=== PATIENT | female | born 1955 | race Caucasian/White ===

== ENCOUNTER 2019-03-30 17:29 | Emergency (ER) | payer MEDICARE, SELFPAY ==
[2019-03-30 17:39] VITALS: BP 152/93; PULSE 89; RESP 16; TEMP 36.3; O2SAT 96
--- NOTE | 2019-03-30 18:20 | ED.GENADULT ---
HPI - General Adult General Chief complaint: Unspecified Stated complaint: n/chills/sweating Time Seen by Provider: 03/30/19 18:13 Source: patient Mode of arrival: ambulatory Limitations: no limitations History of Present Illness HPI narrative: Pt is a 63 y/o female who presents to the ED with c/o nausea starting roughly 1 week ago. She notes that she recently received a rt knee replacement on 02/25/19, and states that she is currently taking Tramadol and Oxycodone. Pt notes that she has had nausea, constipation, chills, and hot flashes over the past week. She denies any vomiting, diarrhea, CP, cough, or dysuria. Pt states that she was seen at an urgent care facility this evening for her symptoms, and notes that she was subsequently sent to the ED due to her having an abnormal EKG and elevated BP. She is also currently taking Paxil and Ambien. MD complaint: Nausea Onset (ago): week(s) (1) Associated symptoms: fever/chills (chills) and other (constipation; hot flashes) Related Data Home Medications Medication Instructions Recorded Confirmed amlodipine 03/30/19 celecoxib mg 03/30/19 furosemide 03/30/19 gabapentin 03/30/19 lisinopril 03/30/19 oxycodone 03/30/19 paroxetine HCl mg PO 03/30/19 tramadol mg 03/30/19 zolpidem 03/30/19 Allergies Allergy/AdvReac Type Severity Reaction Status Date / Time armodafinil Allergy Unknown Verified 08/10/17 12:38 modafinil Allergy Unknown Verified 08/10/17 12:39 clindamycin AdvReac Mild Nausea Verified 01/13/19 16:55 NUVAGEL Allergy Unknown POST NASAL Uncoded 11/28/16 09:23 DRIP Review of Systems Review of Systems: All systems reviewed & are unremarkable except as noted in HPI and below Constitutional: Constitutional: Reports chills and Reports other (hot flashes) Eyes: Eyes: Denies change in vision, Denies loss of vision and Denies other visual disturbances ENT: Denies headache(s), Denies hoarseness, Denies epistaxis, Denies nasal congestion and Denies sore throat Cardiovascular: Cardiovascular: Denies chest pain Respiratory: Respiratory: Denies cough, Denies dyspnea and Denies wheezing Gastrointestinal: Gastrointestinal: Reports constipation, Denies diarrhea, Reports nausea and Denies vomiting Genitourinary: Genitourinary: Denies hematuria, Denies difficulty starting urination and Denies dysuria Musculoskeletal: Musculoskeletal: Denies abnormal gait, Denies deformity, Denies joint swelling, Denies muscle weakness and Denies numbness Integumentary/Breasts: Skin/Breast: Denies rash, Denies unusual bruising and Denies wounds Neurologic: Denies abnormal gait, Denies headache(s), Denies focal weakness, Denies loss of vision and Denies numbness Psychiatric: Psychiatric: Reports no additional psychiatric complaints Endocrine: Endocrine: Denies fatigue and Denies palpitations Hematologic/Lymphatic: Hematologic/Lymphatic: Denies easy bleeding and Denies easy bruising Allergic/Immunologic: Allergic/Immunologic: Denies wheezing PMFSH Past Medical History Medical History (Updated 03/30/19 @ 21:24 by Pete Vela MD) Anxiety (Acute) Back pain (Acute) Cataract (Acute) Colon polyps (Acute) Depression (Acute) Diabetes (Acute) Fibromyalgia (Acute) GERD (gastroesophageal reflux disease) (Acute) Hepatitis C (Acute) HTN (hypertension) (Acute) Hypothyroidism (Acute) Kidney stones (Acute) Liver disease (Acute) Sleep apnea (Acute) Stomach ulcer (Acute) Surgical History Surgical History (Updated 03/30/19 @ 18:48 by Neri Gutierrez) History of bunionectomy (Acute) History of carpal tunnel surgery of right wrist (Acute) History of cataract surgery (Acute) History of section (Acute) History of lithotripsy (Acute) History of tubal ligation (Acute) Status post right knee replacement (Acute) Family History Family History (Updated 08/10/17 @ 12:45 by DOCTOR UNKNOWN) Mother Family history of chronic obstructive pulmonary disease Social History
--- NOTE | 2019-03-30 18:25 | ECG_ITS ---
Measurements Intervals [place] Rate: 78 P: 38 PA: 159 QRS: 3 QRSD: 116 T: 64 QT: 397 QTc: 455 Interpretive Statements SINUS RHYTHM INCOMPLETE LEFT BUNDLE BRANCH BLOCK INFERIOR INFARCT, AGE INDETERMINATE BORDERLINE ST-T WAVE ABNORMALITY- LATERAL LEADS ABNORMAL ECG Electronically Signed On 03-31-2019 7:53:55 CHILD DAY CARE PROVIDER by Eric Montes D.O.
[2019-03-30 18:43] LABS: Basophils Percent Auto 0.5 % (0.2-1.2); Eosinophils Absolute Auto 0.1 K/mm3 (0-0.3); Hematocrit 43.3 % (37.0-47.0); Hemoglobin 13.8 g/dL (12.0-15.0); Immature Granulocyte Absolute 0.04 K/mm3 (0.00-0.031); Immature Granulocyte Percent A 0.5 % (0-0.5); Lymphocytes Absolute Auto 1.09 K/mm3 (0.9-3.2); Lymphocytes Percent Auto 12.6 % (18.3-44.2); Mean Corpuscular HGB Conc 31.9 g/dl (32-36); Mean Corpuscular Hemoglobin 27.9 pg (26-34); Mean Corpuscular Volume 87.5 fl (80-100); Mean Platelet Volume 10.2 fl (7.4-10.4); Monocytes Absolute Auto 0.5 K/mm3 (0.1-0.6); Monocytes Percent Auto 5.3 % (2.6-8.5); Neutrophils Absolute Auto 6.9 K/mm3 (1.3-6.7); Neutrophils Percent Auto 80.1 % (45.5-73.1); Platelet Count Result 321 k/mm3 (150-375); Red Blood Count 4.95 M/mm3 (4.2-5.4); Red Cell Distribution Width 14.5 % (11.5-14.5); White Blood Count 8.7 K/mm3 (4.5-10.0)
[2019-03-30 18:52] LABS: Alanine Aminotransferase 25 U/L (4-35); Albumin Level 4.3 g/dL (3.5-5.1); Alkaline Phosphatase 104 U/L (38-126); Aspartate Amino Transferase 24 U/L (14-36); Bilirubin,Total 0.3 mg/dL (0.2-1.3); Blood Urea Nitrogen 13 mg/dL (7-17); Calcium 9.8 mg/dL (8.4-10.2); Carbon Dioxide 28 mmol/L (22-30); Chloride 98 mmol/L (98-107); Estimated CRCL calculation 54 ml/min; Estimated Glomerular Filt Rate > 60; Glucose 110 mg/dL (65-105); Potassium 3.6 mmol/L (3.4-5.0); Sodium 139 mmol/L (137-145)
[2019-03-30] MEDS: LACTATED RINGERS 1,000 ML 999 ML IV CONT (19:38)
[2019-03-30 20:25] VITALS: PULSE 84
[2019-03-30 21:16] LABS: Add Urine Microscopic? YES; Amorphous Sediment Urine Few; Appearance Urine Clear (Clear); Bacteria Urine Trace /hpf; Bilirubin Urine Negative (Negative); Blood Urine 1+ (Negative); Color Urine Straw (Yellow); Glucose Urine UA Negative (Negative); Ketones Urine Negative (Negative); Leukocyte Esterase Ur 2+ LEU/UL (Negative); Mucus Urine Rare /lpf; Nitrate Urine Negative (Negative); Protein Urine 1+ mg/dL (Negative); Specific Grav Ur 1.009 (1.001-1.035); Squamous Epithelial Cell Urine Occasional /hpf (Few); Urobilinogen Urine Negative mg/dL (<2.0); WBC Urine 51-75
--- NOTE | 2019-04-04 11:15 | PC.NURSE ---
LATE ENTRY This note is being entered to document information to the patient's record. The following information was omitted on [04/03/19], by [ERIK Hickman]. LR START AT 1937 END 2037
== END 2019-03-30 21:30 | disposition home or self-care (01) ==
PROVIDERS: Emergency Provider Emergency Medicine; PCP Chiropractor
DX: E03.9 Hypothyroidism, unspecified (principal); R11.0 Nausea; F41.9 Anxiety disorder, unspecified; F32.9 Major depressive disorder, single episode, unspecified; E11.9 Type 2 diabetes mellitus without complications; M79.7 Fibromyalgia; K21.9 Gastro-esophageal reflux disease without esophagitis; I10 Essential (primary) hypertension; Z87.891 Personal history of nicotine dependence; Z98.49 Cataract extraction status, unspecified eye; Z87.440 Personal history of urinary (tract) infections; K76.9 Liver disease, unspecified; Z86.19 Personal history of other infectious and parasitic diseases; Z96.651 Presence of right artificial knee joint; I44.7 Left bundle-branch block, unspecified; R94.31 Abnormal electrocardiogram [ECG] [EKG]
CPT/HCPCS: 36415; 74018; 80053; 81001; 81003; 84443; 85025; 87086; 87804; 93005; 96360; 99283; J7120

== ENCOUNTER → 2019-07-26 14:22 | Outpatient (CLI) | payer MEDICARE, SELFPAY ==
--- NOTE | ~2019-07-26 | XR_ITS ---
XR cervical spine 4-5V 07/26/2019 14:44 Indication: Neck pain Procedure: 4 view cervical spine Comparison: 09/11/2017 Findings: Straightening of cervical lordosis. There is disc narrowing and endplate degenerative cronin e at C4-5 and C5-6. There is unchanged degenerative anterolisthesis at C3-4 and retrolisthesis at C5- 6. Odontoid process is unremarkable. There is moderate facet degenerative changes on the right at C3- 4 and C4-5. There is mild uncinate hypertrophy at multiple levels. No acute fracture or traumatic mal alignment. Impression: 1: Moderate-severe cervical spondylosis. No significant change from prior study allowing for differen harlan of technique. Reviewed, dictated and finalized at location A. Impression: 1: Moderate-severe cervical spondylosis. No significant change from prior study allowing for differences of technique.
--- NOTE | ~2019-07-26 | XR_ITS ---
EXAMINATION: XR shoulder LT min 2V EXAM DATE: 07/26/2019 14:44 INDICATION: No known recent injury provided at this time. Pain of the left shoulder. TECHNIQUE: The following left shoulder projections obtained: frontal projection with internal rotatio n, frontal projection with external rotation, Grashey, and axillary (4+ views). There is no prior st udy for comparison. FINDINGS: No evidence of left shoulder rotator cuff calcific tendinosis. There is mild glenohumera l and acromioclavicular joint primary osteoarthritis. There are no acute fractures or dislocations id entified. There is no subcutaneous gas. The soft tissue is unremarkable. There are no radiopaque foreign bodies. IMPRESSION: Mild left shoulder osteoarthritis. Reviewed, dictated and finalized at location B.
== END ==
PROVIDERS: PCP Chiropractor; Visit Provider Chiropractor
DX: M25.512 Pain in left shoulder (principal); M54.2 Cervicalgia; M47.812 Spondylosis without myelopathy or radiculopathy, cervical region; M19.012 Primary osteoarthritis, left shoulder
CPT/HCPCS: 72050; 73030

== ENCOUNTER → 2019-08-20 14:14 | Outpatient (CLI) | payer MEDICARE, SELFPAY ==
--- NOTE | ~2019-08-20 | MM_ITS ---
EXAMINATION: MM screening goran BI w moy HISTORY: Screening mammogram TECHNIQUE: Craniocaudal and mediolateral oblique 3-D tomosynthesis images were obtained and synthetic 2-D images were generated. CAD analysis was submitted and interpreted. COMPARISON: , 10/13/2015 bilateral digital screening mammogram examinations BREAST PARENCHYMAL COMPOSITION: There are scattered areas of fibroglandular density. FINDINGS: There is no evidence of suspicious mass, calcification, or architectural distortion to sugg est malignancy in either breast. There has been no suspicious interval change. IMPRESSION: 1. No mammographic evidence of malignancy. 2. Recommend routine screening mammography in one year. BI-RADS Category 1: Negative Reviewed, dictated and finalized at location A.
== END ==
PROVIDERS: PCP Chiropractor; Visit Provider Obstetrics & Gynecology
DX: Z12.31 Encounter for screening mammogram for malignant neoplasm of breast (principal)
CPT/HCPCS: 77063; 77067

== ENCOUNTER → 2020-01-04 10:43 | Outpatient (CLI) | payer MEDICARE, SELFPAY ==
--- NOTE | ~2020-01-04 | MR_ITS ---
EXAMINATION: MR cervical spine wo con DATE: 01/04/2020 11:31 INDICATION: Neck pain radiating to the left shoulder and left arm. TECHNIQUE: Magnetic resonance imaging (MRI) of the cervical spine was performed without intravenous c ontrast. Sequences included sagittal T2-weighted FSE, sagittal STIR FSE, sagittal T1-weighted FSE, ax ial MERGE, and axial T2-weighted FSE. COMPARISON: Cervical spine radiographs 07/26/2019 FINDINGS: There is kyphosis and 7 degrees dextrocurvature of cervical spine. There is 2 mm retrolisth esis of C5 on C6. Vertebral body heights are normal. There is a hemangioma in T3 vertebral body. Ther e is moderately decreased disc height at C4-C5 and C5-C6 and severely decreased disc height at C6-C7. The spinal cord signal intensity is normal. The following disc levels are specifically discussed: C2-C3: The disc does not extend beyond the endplate margin. There is no uncovertebral joint osteoarth ritis. There is severe right facet joint osteoarthritis. There is no neural foraminal stenosis. There is no central canal stenosis. C3-C4: The disc does not extend beyond the endplate margin. There is mild left uncovertebral joint os teoarthritis. There is severe right and moderate left facet joint osteoarthritis. There is mild bilat eral neural foraminal stenosis. There is no central canal stenosis. C4-C5: The disc is bulging. There is moderate and severe left uncovertebral joint osteoarthritis. The re is severe left facet joint osteoarthritis. There is mild right and moderate left neural foraminal stenosis. There is mild central canal stenosis with ventral indentation of spinal cord. C5-C6: The disc is bulging. There is mild right and moderate left uncovertebral joint osteoarthritis. There is mild bilateral facet joint osteoarthritis. There is mild right and moderate left neural for aminal stenosis. There is mild central canal stenosis. C6-C7: The disc is bulging. There is moderate right and severe left uncovertebral joint osteoarthriti s. There is moderate bilateral facet joint osteoarthritis. There is mild bilateral neural foraminal s tenosis. There is mild central canal stenosis. C7-T1: The disc is bulging. There is mild left uncovertebral joint osteoarthritis. There is mild bila teral facet joint osteoarthritis. There is mild bilateral neural foraminal stenosis. There is no cent ral canal stenosis. IMPRESSION: 1. Severe cervical spondylosis. Reviewed, dictated and finalized at location B.
== END ==
PROVIDERS: PCP Chiropractor; Visit Provider Chiropractor
DX: M47.812 Spondylosis without myelopathy or radiculopathy, cervical region (principal)
CPT/HCPCS: 72141

== ENCOUNTER 2020-06-04 12:25 | Outpatient (CLI) | payer MEDICARE, SELFPAY ==
--- NOTE | ~2020-06-04 | MR_ITS ---
EXAMINATION: MR shoulder LT wo con DATE: 06/04/2020 13:24 INDICATION: Left shoulder osteoarthritis presenting with left shoulder pain TECHNIQUE: Magnetic resonance imaging (MRI) of the left shoulder was performed without intravenous co ntrast. Sequences included axial PD-weighted FS FSE, coronal oblique PD-weighted FS FSE, coronal obli que T2-weighted FS FSE, sagittal PD-weighted FS FSE, and sagittal T1-weighted SE. COMPARISON: Left shoulder radiographs dated 07/26/2019 FINDINGS: Coracoacromial arch: The acromion undersurface is flat in morphology (type I). The coracoacromial ligament is normal. Negl igible acromioclavicular osteoarthritis. Rotator cuff: Mild supraspinatus tendinopathy with mild thickening and increased signal in the distal tendon. There is some lower signal intensity soft tissue along the bursal surface of the distal tendon centered ap proximately 1 cm from the superior facet footplate which could represent more focal tendinopathy or c alcific tendinitis although no evident calcification at this location on the radiographs from nearly one year prior. No evident tendon tear. The posterior infraspinatus and teres minor tendons are amador l. Mild subscapularis tendinopathy with small partial thickness tear along the superolateral margin o f the lesser tuberosity footplate. There appears be associated at least partial tear of the superior glenohumeral ligament. Normal rotator cuff muscle bulk and signal. Biceps tendon, glenoid labrum and glenohumeral cartilage: Long head of the biceps tendon appears normal but is subluxed across the cephalad-most medial of the intertubercular groove at the site of the subscapularis tendon tear. Diffuse degenerative tearing of the glenoid labrum relatively sparing the anterior labrum. There is underlying subarticular cystic ch eren along the posterior superior and inferior rim of the glenoid. Partial-thickness cartilage loss w hich appears to involve greater than 50% the cartilage thickness along the posterior aspect of the gl enoid. Additional deep chondral ulceration involving the majority of the humeral head. Small marginal osteophytes along the inferior aspect of the humeral head. Fluid: Small glenohumeral joint effusion with proportional extension of small amount of fluid into the long head biceps tendon sheath and deep subscapular recess.No loose osteochondral bodies. Significantly in creased fluid signal in the subacromial/subdeltoid to suggest bursitis. Bones: Bone alignment is normal. No fracture or pathologic marrow replacing process. Mild cystic change at t he middle facet of the greater tuberosity. IMPRESSION: 1. Moderate glenohumeral osteoarthritis with diffuse labral degeneration. 2. Rotator cuff tendinopathy and tear centered at the rotator cuff interval with small partial-thickn ess tear at the superolateral lesser tuberosity footplate of the subscapularis tendon, at least parti al tear of the superior glenohumeral ligament and mild to moderate tendinopathy without definitive te ar but potentially with calcific tendinitis of the anterior subscapularis tendon. 3. Mild tendinopathy without discrete tear of the intra-articular long head biceps tendon which is pa rtially subluxed across the cephalad-most medial rim of the intertubercular groove. Reviewed, dictated and finalized at location A. ATIONS SPECIALIST IMPRESSION: 1. Moderate glenohumeral osteoarthritis with diffuse labral degeneration. 2. Rotator cuff tendinopathy and tear centered at the rotator cuff interval wit h small partial-thickness tear at the superolateral lesser tuberosity footplate of the subscapularis tendon, at least partial tear of the superior glenohumera l ligament and mild to moderate tendinopathy without definitive tear but potent ially w
== END 2020-06-04 12:26 | disposition home or self-care (01) ==
LOC: ANHIMG 12:35
PROVIDERS: Family Provider Physician Assistant; PCP Chiropractor; Visit Provider Chiropractor
DX: M19.012 Primary osteoarthritis, left shoulder (principal)
CPT/HCPCS: 73221

== ENCOUNTER → 2020-09-22 01:34 | Outpatient (CLI) | payer MEDICARE, SELFPAY ==
[2020-09-22 18:55] LABS: SARS-CoV-2 RNA PCR Negative
== END ==
PROVIDERS: PCP Chiropractor; Visit Provider Internal Medicine Gastroenterology
DX: Z01.812 Encounter for preprocedural laboratory examination (principal); Z20.822 Contact with and (suspected) exposure to COVID-19
CPT/HCPCS: C9803; U0003; U0005

== ENCOUNTER 2020-09-25 05:27 | Day surgery (SDC) | payer MEDICARE, SELFPAY ==
[2020-09-17 13:51] VITALS: BMI 40.4
[2020-09-25 08:25] VITALS: BP 139/87; PULSE 104; RESP 18; TEMP 36.4; O2SAT 96
[2020-09-25] MEDS: LACTATED RINGERS 1,000 ML 150 ML IV CONT (08:44)
--- NOTE | 2020-09-25 08:49 | WPDANESEPPF ---
Anes - Initial Pre Proc Eval Procedure: Operation Date: 09/25/20 09:45 Proposed Procedures p Colonoscopy - Pete Moscoso MD Date/Time: 09/25/20 08:49 Surgeon: Pete Moscoso MD Pre Op Diagnosis: positive cologuard Patient Data Age: 64 Gender: F Height: 4 ft 11 in Weight: 89.2 kg Last Vital Signs Temp 97.6 F 09/25/20 08:25 Pulse 104 H 09/25/20 08:25 Resp 18 09/25/20 08:25 BP 139/87 09/25/20 08:25 Pulse Ox 96 09/25/20 08:25 Allergies Allergy/AdvReac Type Severity Reaction Status Date / Time armodafinil Allergy Unknown Difficulty Verified 09/25/20 08:24 Breathing modafinil Allergy Unknown Difficulty Verified 09/25/20 08:24 Breathing clindamycin AdvReac Mild Nausea Verified 09/25/20 08:24 NUVAGEL Allergy Unknown POST NASAL Uncoded 09/25/20 08:24 DRIP Home Medications Medication Instructions Recorded Confirmed Type amlodipine 10 mg PO DAILY 03/30/19 09/25/20 History celecoxib 100 mg PO DAILY 03/30/19 09/25/20 History furosemide 20 mg PO DAILY 03/30/19 09/25/20 History gabapentin 100 mg PO DAILY 03/30/19 09/25/20 History lisinopril 10 mg PO DAILY 03/30/19 09/25/20 History oxycodone 10 mg PO DAILY 03/30/19 09/25/20 History paroxetine HCl [Paxil] 30 mg PO DAILY 03/30/19 09/25/20 History tramadol 50 mg PO DAILY 03/30/19 09/25/20 History zolpidem 10 mg PO DAILY 03/30/19 09/25/20 History bupropion HCl 150 mg PO DAILY 09/17/20 09/25/20 History duloxetine 60 mg PO DAILY 09/17/20 09/25/20 History sodium,potassium,mag sulfates 17.5 See Rx Instructions PO .COMPLEX 09/17/20 09/25/20 Rx gram-3.13 gram-1.6 gram oral soln #354 ml Patient hx anesthesia problems: none Family hx anesthesia problems: none PMFSH Past Medical History Medical History (Updated 11/17/19 @ 00:00 by Background David) Anxiety Back pain Cataract Colon polyps Depression Diabetes Fibromyalgia GERD (gastroesophageal reflux disease) Hepatitis C HTN (hypertension) Hypothyroidism Kidney stones Liver disease Sleep apnea Stomach ulcer Surgical History Surgical History (Updated 03/30/19 @ 18:48 by Neri Gutierrez) History of bunionectomy lt bunionectomy History of carpal tunnel surgery of right wrist History of cataract surgery History of section History of lithotripsy History of tubal ligation Status post right knee replacement Family History Family History (Updated 08/10/17 @ 12:45 by DOCTOR UNKNOWN) Mother Family history of chronic obstructive pulmonary disease Social History Social History Smoking status: Former smoker Alcohol intake: never Substance use type: does not use Living arrangements: with family Gender identity (if verbalized by the patient): Female Anes - Eval Final PreProcedure Day of Procedure 09/25/20 08:49 Patient weight: obese Heart: regular rate and rhythm Lungs: clear to auscultation Airway: Mallampati scale class III Neurological: alert and oriented Last oral intake: >/= 8 hours ASA classification: III Emergent: no Anesthetic plan: proceed Anesthesia type and monitoring: general GIVS and standard monitoring Informed Consent: The patient's anesthetic plan and its attendant risks and benefits were discussed with the patient/family/POA. Questions were solicited and answers provided to the satisfaction of the patient/family/POA.
--- NOTE | 2020-09-25 08:52 | WPDGICN ---
Assessment and Plan Assessment and plan (1) Positive colorectal cancer screening using Cologuard test: Code(s): R19.5 - Other fecal abnormalities Status: Acute Assessment and Plan: Given her positive cologuard test , screening colonoscopy will be performed today. High-fiber diet advised. Further recommendations will be given after endoscopy. GI Consult Note Consult date/time: 09/25/20 08:52 HPI: Nani Dawkins is a 64 year old female Presents for screening colonoscopy. Patient was found to have a recent positive cologuard test. patient denies any blood in her stools. She states that her weight appetite bowel movements are normal. She reports rather vague diffuse abdominal discomfort. She denies any weight loss. Family history is noncontributory with no reported first-degree relatives with polyps or colon cancer. Review of Systems Review of Systems: All systems reviewed & are unremarkable except as noted in HPI and below PMFSH Past Medical History Medical History (Updated 09/25/20 @ 08:54 by Pete Moscoso MD) Anxiety Back pain Cataract Colon polyps Depression Diabetes Fibromyalgia GERD (gastroesophageal reflux disease) Hepatitis C HTN (hypertension) Hypothyroidism Kidney stones Liver disease Sleep apnea Stomach ulcer Surgical History Surgical History (Updated 03/30/19 @ 18:48 by Neri Gutierrez) History of bunionectomy lt bunionectomy History of carpal tunnel surgery of right wrist History of cataract surgery History of section History of lithotripsy History of tubal ligation Status post right knee replacement Family History Family History (Updated 08/10/17 @ 12:45 by DOCTOR UNKNOWN) Mother Family history of chronic obstructive pulmonary disease Social History Social History Smoking status: Former smoker Alcohol intake: never Substance use type: does not use Living arrangements: with family Gender identity (if verbalized by the patient): Female Meds Home Medications and Allergies Home Medications Medication Instructions Recorded Confirmed Type amlodipine 10 mg PO DAILY 03/30/19 09/25/20 History celecoxib 100 mg PO DAILY 03/30/19 09/25/20 History furosemide 20 mg PO DAILY 03/30/19 09/25/20 History gabapentin 100 mg PO DAILY 03/30/19 09/25/20 History lisinopril 10 mg PO DAILY 03/30/19 09/25/20 History oxycodone 10 mg PO DAILY 03/30/19 09/25/20 History paroxetine HCl [Paxil] 30 mg PO DAILY 03/30/19 09/25/20 History tramadol 50 mg PO DAILY 03/30/19 09/25/20 History zolpidem 10 mg PO DAILY 03/30/19 09/25/20 History bupropion HCl 150 mg PO DAILY 09/17/20 09/25/20 History duloxetine 60 mg PO DAILY 09/17/20 09/25/20 History sodium,potassium,mag sulfates 17.5 See Rx Instructions PO .COMPLEX 09/17/20 09/25/20 Rx gram-3.13 gram-1.6 gram oral soln #354 ml Allergies Allergy/AdvReac Type Severity Reaction Status Date / Time armodafinil Allergy Unknown Difficulty Verified 09/25/20 08:24 Breathing modafinil Allergy Unknown Difficulty Verified 09/25/20 08:24 Breathing clindamycin AdvReac Mild Nausea Verified 09/25/20 08:24 NUVAGEL Allergy Unknown POST NASAL Uncoded 09/25/20 08:24 DRIP Vital Signs Vital Signs - 24 hr 09/25/20 08:25 Temperature 97.6 F Pulse Rate 104 H Respiratory Rate 18 Blood Pressure 139/87 Pulse Oximetry 96 Exam Narrative: Exam Narrative: Physical exam reveals patient be alert. Vital signs stable. HEENT exam unremarkable. Lungs are clear to auscultation and percussion. Heart is without murmur or extra sounds. Abdominal exam somewhat obese. Bowel sounds are present soft nontender no organomegaly noted. Digital external rectal exam is normal.
[2020-09-25 09:21] VITALS: BP 125/81; PULSE 96; RESP 16; O2SAT 95
[2020-09-25 09:31] VITALS: BP 117/81; PULSE 87; RESP 10; O2SAT 94
[2020-09-25 09:41] VITALS: BP 113/72; PULSE 81; RESP 10; O2SAT 95
== END 2020-09-25 09:58 | disposition home or self-care (01) ==
PROVIDERS: PCP Chiropractor; Visit Provider Internal Medicine Gastroenterology
PROC: 0DJD8ZZ Inspection of Lower Intestinal Tract, Via Natural or Artificial Opening Endoscopic (ICD-10-PCS; CPT 45378; principal; 2020-09-25 09:45)
DX: R19.5 Other fecal abnormalities (principal); K57.30 Diverticulosis of large intestine without perforation or abscess without bleeding; I10 Essential (primary) hypertension; B19.20 Unspecified viral hepatitis C without hepatic coma; E03.9 Hypothyroidism, unspecified; K21.9 Gastro-esophageal reflux disease without esophagitis; E11.9 Type 2 diabetes mellitus without complications; M79.7 Fibromyalgia; M54.9 Dorsalgia, unspecified; G47.30 Sleep apnea, unspecified; F41.9 Anxiety disorder, unspecified; F32.9 Major depressive disorder, single episode, unspecified; Z87.442 Personal history of urinary calculi; Z86.010 Personal history of colon polyps; Z96.651 Presence of right artificial knee joint; Z98.49 Cataract extraction status, unspecified eye
CPT/HCPCS: 45378; C9803; J2001; J2704; J7120; U0003; U0005

== ENCOUNTER 2020-10-23 12:51 | Outpatient (CLI) | payer MEDICARE, SELFPAY ==
--- NOTE | ~2020-10-23 | MR_ITS ---
EXAMINATION: MR brain/brain stem wo/w con DATE: 10/23/2020 14:17 INDICATION: Mild cognitive disorder. TECHNIQUE: Magnetic resonance imaging (MRI) of the brain and brainstem was performed without and with 18 mL MultiHance intravenous contrast. Sequences included sagittal and axial T1-weighted FSE, axial diffusion-weighted FS EPI, axial T2*-weighted GRE, axial T2-weighted FLAIR Propeller, and axial T2-we ighted Propeller. Postcontrast sequences included axial and coronal T1-weighted FSE. Apparent diffusi on coefficient (ADC) maps were created. COMPARISON: Brain MRI 12/04/2009 FINDINGS: There are scattered areas of nonspecific increased T2-weighted signal intensity in the cere bral white matter and [place]. There is no intracranial hemorrhage, acute infarction, or abnormal intrac ranial mass lesion. The ventricles are normal in size. There are likely changes of ocular lens replac ement surgeries. Right maxillary sinus is small and partially opacified. The mastoid air cells are no rmal. IMPRESSION: 1. Moderate nonspecific cerebral white matter disease and pontine disease, which likely represents ch ronic small vessel ischemic disease, worsened from 12/04/2009. Reviewed, dictated and finalized at location A. IMPRESSION: 1. Moderate nonspecific cerebral white matter disease and pontine disease, whic h likely represents chronic small vessel ischemic disease, worsened from 010.
[2020-10-23 13:47] LABS: Estimated Glomerular Filt Rate 45
== END 2020-10-23 12:52 | disposition home or self-care (01) ==
PROVIDERS: Visit Provider Psychiatry & Neurology Psychiatry
DX: G31.84 Mild cognitive impairment of uncertain or unknown etiology (principal); R93.0 Abnormal findings on diagnostic imaging of skull and head, not elsewhere classified
CPT/HCPCS: 70553; A9577

== ENCOUNTER 2020-10-31 17:51 | Emergency (ER) | payer MEDICARE, SELFPAY ==
[2020-10-31 18:02] VITALS: BP 131/76; PULSE 99; RESP 18; TEMP 36.2; O2SAT 96
--- NOTE | 2020-10-31 19:36 | ED.GENADULT ---
HPI - General Adult General Chief complaint: Extremity Injury, Lower Stated complaint: possible blood clot Time Seen by Provider: 10/31/20 18:27 Source: patient Mode of arrival: ambulatory Limitations: no limitations History of Present Illness HPI narrative: Patient presents for evaluation of left calf pain and swelling. Symptom onset today when walking around her home. She denies any recent injury to the affected area. She said pain is constant, but worse with walking, rated 4-10 in severity. Her mother had a PE in the past. Patient denies personal history of VTE. She is not on exogenous estrogen. She does not smoke. No recent surgeries. She denies any chest pain or shortness of breath. She has not taken any medication to assist with her symptoms. No additional complaints or concerns. She went to [place] urgent [facility] who advised her to come here for further evaluation. Related Data Home Medications Medication Instructions Recorded Confirmed amlodipine 10 mg PO DAILY 03/30/19 09/25/20 celecoxib 100 mg PO DAILY 03/30/19 09/25/20 furosemide 20 mg PO DAILY 03/30/19 09/25/20 gabapentin 100 mg PO DAILY 03/30/19 09/25/20 lisinopril 10 mg PO DAILY 03/30/19 09/25/20 oxycodone 10 mg PO DAILY 03/30/19 09/25/20 paroxetine HCl [Paxil] 30 mg PO DAILY 03/30/19 09/25/20 tramadol 50 mg PO DAILY 03/30/19 09/25/20 zolpidem 10 mg PO DAILY 03/30/19 09/25/20 bupropion HCl 150 mg PO DAILY 09/17/20 09/25/20 duloxetine 60 mg PO DAILY 09/17/20 09/25/20 Allergies Allergy/AdvReac Type Severity Reaction Status Date / Time armodafinil Allergy Unknown Difficulty Verified 10/31/20 18:00 Breathing modafinil Allergy Unknown Difficulty Verified 10/31/20 18:00 Breathing clindamycin AdvReac Mild Nausea Verified 10/31/20 18:00 NUVAGEL Allergy Unknown POST NASAL Uncoded 10/31/20 18:00 DRIP Review of Systems Review of Systems: Narrative: CONSTITUTIONAL: Denies fever, chills, or sweats. EYES: Denies visual changes, redness, or discharge. ENT: Denies rhinorrhea, congestion, sore throat, or otalgia. CARDIOVASCULAR: Denies chest pain, palpitations, or edema. RESPIRATORY: Denies cough or dyspnea. GASTROINTESTINAL: Denies abdominal pain, nausea, vomiting, or diarrhea. GENITOURINARY: Denies dysuria or hematuria. SKIN: Denies rash or itching. MUSCULOSKELETAL: Reports pain and swelling in the left calf. Denies back pain, joint pain NEUROLOGIC: Denies headache, numbness, dizziness, or weakness. PSYCHIATRIC: Denies anxiety or depression. [facility] Past Medical History Medical History Anxiety Back pain Cataract Colon polyps Depression Diabetes Fibromyalgia GERD (gastroesophageal reflux disease) Hepatitis C HTN (hypertension) Hypothyroidism Kidney stones Liver disease Sleep apnea Stomach ulcer Surgical History Surgical History History of bunionectomy lt bunionectomy History of carpal tunnel surgery of right wrist History of cataract surgery History of section History of lithotripsy History of tubal ligation Status post right knee replacement Family History Family History Mother Family history of chronic obstructive pulmonary disease Social History Social History Smoking status: Former smoker Alcohol intake: never Substance use type: does not use Gender identity (if verbalized by the patient): Female Exam Narrative: Exam Narrative: GENERAL: Well-appearing, well-nourished, and in no acute distress. HEAD: Normocephalic, atraumatic. EYES: PERRLA and EOMI. ENT: Nares clear, no rhinorrhea or epistaxis. Mucous membranes moist. Oropharynx without tonsillar hypertrophy exudate or other lesions. Bilateral TMs pearly hernandez nonbulging NECK: Supple. No adenopathy or masses. No carotid bruits o
[2020-10-31 20:35] LABS: Basophils Percent Auto 0.6 % (0.2-1.2); Eosinophils Absolute Auto 0.4 K/mm3 (0-0.3); Eosinophils Percent Auto 4.9 % (0-4.4); Hematocrit 41.1 % (37.0-47.0); Hemoglobin 13.5 g/dL (12.0-15.0); Immature Granulocyte Absolute 0.02 K/mm3 (0.00-0.031); Immature Granulocyte Percent A 0.3 % (0-0.5); Lymphocytes Absolute Auto 1.36 K/mm3 (0.9-3.2); Lymphocytes Percent Auto 19.2 % (18.3-44.2); Mean Corpuscular HGB Conc 32.8 g/dl (32-36); Mean Corpuscular Volume 88.2 fl (80-100); Mean Platelet Volume 9.3 fl (7.4-10.4); Monocytes Absolute Auto 0.5 K/mm3 (0.1-0.6); Monocytes Percent Auto 6.3 % (2.6-8.5); Neutrophils Absolute Auto 4.9 K/mm3 (1.3-6.7); Neutrophils Percent Auto 68.7 % (45.5-73.1); Platelet Count Result 292 k/mm3 (150-375); Red Blood Count 4.66 M/mm3 (4.2-5.4); Red Cell Distribution Width 13.5 % (11.5-14.5); White Blood Count 7.1 K/mm3 (4.5-10.0)
[2020-10-31 20:45] LABS: Alanine Aminotransferase 23 U/L (4-35); Albumin Level 4.3 g/dL (3.5-5.1); Alkaline Phosphatase 78 U/L (38-126); Anion Gap 8 mmol/L (8-16); Aspartate Amino Transferase 29 U/L (14-36); Bilirubin,Total 0.3 mg/dL (0.2-1.3); Blood Urea Nitrogen 14 mg/dL (7-17); Calcium 9.4 mg/dL (8.4-10.2); Carbon Dioxide 28 mmol/L (22-30); Chloride 104 mmol/L (98-107); Estimated Glomerular Filt Rate > 60; Glucose 120 mg/dL (65-105); INR 0.9; Partial Thromboplastin Time 28.5 SECONDS (22.3-36.8); Potassium 4.2 mmol/L (3.4-5.0); Prothrombin Time 13.1 Seconds (11.1-14.7); Sodium 140 mmol/L (137-145)
[2020-10-31 20:48] LABS: D Dimer 0.36 ug/mL (<0.48)
[2020-10-31 21:05] VITALS: BP 142/86; PULSE 84; RESP 16; O2SAT 97
== END 2020-10-31 21:10 | disposition home or self-care (01) ==
PROVIDERS: Emergency Provider Nurse Practitioner; PCP Physician Assistant
DX: M79.662 Pain in left lower leg (principal); F41.9 Anxiety disorder, unspecified; F32.9 Major depressive disorder, single episode, unspecified; E11.9 Type 2 diabetes mellitus without complications; K21.9 Gastro-esophageal reflux disease without esophagitis; I10 Essential (primary) hypertension; E03.9 Hypothyroidism, unspecified
CPT/HCPCS: 36415; 80053; 85025; 85380; 85610; 85730; 99283

== ENCOUNTER → 2021-03-19 13:56 | Outpatient (CLI) | payer MEDICARE, SELFPAY ==
--- NOTE | ~2021-03-19 | XR_ITS ---
XR hip RT min 2V DATE: 03/19/2021 14:31 INDICATION: Right hip pain TECHNIQUE: AP and lateral views COMPARISON: None FINDINGS: No fracture or dislocation, avascular necrosis or bone destruction. Right hip joint space a ppears well preserved. The pubic symphysis and right sacroiliac joint are intact. Degenerative disc changes are noted in the included lower lumbar spine, especially on the left at L4- 5. IMPRESSION: Negative right hip Lumbar degenerative disc disease Reviewed, dictated and finalized at location A.
== END ==
PROVIDERS: PCP Family Medicine; Visit Provider Nurse Practitioner Family
DX: M47.816 Spondylosis without myelopathy or radiculopathy, lumbar region (principal)
CPT/HCPCS: 73502

== ENCOUNTER 2021-07-25 14:17 | Emergency (ER) | payer MEDICARE, SELFPAY ==
--- NOTE | ~2021-07-25 | XR_ITS ---
EXAMINATION: XR chest 2V DATE: 07/25/2021 14:36 INDICATION: Dyspnea TECHNIQUE: frontal and lateral views of the chest were obtained. COMPARISON: None FINDINGS: The lungs are clear with no focal airspace opacities, pulmonary edema, pleural effusion or pneumothor ax. The cardiomediastinal silhouette is normal. Severe thoracic spondylosis. IMPRESSION: 1. No acute cardiopulmonary disease. Reviewed, dictated and finalized at location A.
--- NOTE | 2021-07-25 14:18 | ECG_ITS ---
Measurements Intervals [place] Rate: 94 P: 56 LA: 173 QRS: 46 QRSD: 123 T: 75 QT: 374 QTc: 470 Interpretive Statements SINUS RHYTHM POSSIBLE LEFT ATRIAL ENLARGEMENT [-0.1mV P-WAVE IN V1/V2] INTRAVENTRICULAR CONDUCTION DELAY POSSIBLE OLD INFERIOR MYOCARDIAL INFARCTION COMPARED TO ECG 03/30/2019 18:33:25 NO SIGNIFICANT CHANGES Electronically Signed On 07-25-2021 17:02:43 CDT by Nova Islas M.D.
[2021-07-25 14:22] VITALS: BP 190/103; PULSE 117; RESP 19; TEMP 36.8; O2SAT 96
[2021-07-25 14:30] VITALS: PULSE 105
[2021-07-25 14:47] LABS: Basophils Absolute Auto 0.1 K/mm3 (0.0-0.1); Basophils Percent Auto 0.7 % (0.2-1.2); Eosinophils Absolute Auto 0.7 K/mm3 (0-0.3); Hematocrit 43.5 % (37.0-47.0); Hemoglobin 14.7 g/dL (12.0-15.0); Immature Granulocyte Absolute 0.03 K/mm3 (0.00-0.031); Immature Granulocyte Percent A 0.4 % (0-0.5); Lymphocytes Absolute Auto 1.54 K/mm3 (0.9-3.2); Lymphocytes Percent Auto 20.9 % (18.3-44.2); Mean Corpuscular HGB Conc 33.8 g/dl (32-36); Mean Corpuscular Hemoglobin 29.3 pg (26-34); Mean Corpuscular Volume 86.7 fl (80-100); Mean Platelet Volume 9.5 fl (7.4-10.4); Monocytes Absolute Auto 0.6 K/mm3 (0.1-0.6); Monocytes Percent Auto 8.4 % (2.6-8.5); Neutrophils Absolute Auto 4.4 K/mm3 (1.3-6.7); Neutrophils Percent Auto 59.6 % (45.5-73.1); Platelet Count Result 292 k/mm3 (150-375); Red Blood Count 5.02 M/mm3 (4.2-5.4); Red Cell Distribution Width 13.6 % (11.5-14.5); White Blood Count 7.4 K/mm3 (4.5-10.0)
[2021-07-25 14:50] LABS: Alanine Aminotransferase 22 U/L (4-35); Albumin Level 4.8 g/dL (3.5-5.1); Alkaline Phosphatase 86 U/L (38-126); Anion Gap 8 mmol/L (8-16); Aspartate Amino Transferase 28 U/L (14-36); Bilirubin,Total 0.4 mg/dL (0.2-1.3); Blood Urea Nitrogen 14 mg/dL (7-17); Calcium 9.6 mg/dL (8.4-10.2); Carbon Dioxide 30 mmol/L (22-30); Chloride 100 mmol/L (98-107); Estimated Glomerular Filt Rate > 60; Glucose 92 mg/dL (65-110); Potassium 3.9 mmol/L (3.4-5.0); Sodium 138 mmol/L (137-145)
--- NOTE | 2021-07-25 15:05 | ED.SOB ---
HPI - SOB/Dyspnea General Chief Complaint: Shortness of Breath/Dyspnea Stated Complaint: diff breathing Time Seen by Provider: 07/25/21 14:31 Source: patient History of Present Illness HPI Narrative: Patient presents with shortness of breath. Reports a history of asthma and is felt short of breath for the past few days she reports a nonproductive cough she denies fever or nasal congestion. She denies any known sick contacts denies any focal areas of pain such as chest pain or abdominal any nausea vomiting or diarrhea. She is attempted her home albuterol without success symptoms appear to be worsening so she came to the ER for further evaluation. Related Data Home Medications Medication Instructions Recorded Confirmed amlodipine 10 mg PO DAILY 03/30/19 09/25/20 celecoxib 100 mg PO DAILY 03/30/19 09/25/20 furosemide 20 mg PO DAILY 03/30/19 09/25/20 gabapentin 100 mg PO DAILY 03/30/19 09/25/20 lisinopril 10 mg PO DAILY 03/30/19 09/25/20 oxycodone 10 mg PO DAILY 03/30/19 09/25/20 paroxetine HCl [Paxil] 30 mg PO DAILY 03/30/19 09/25/20 tramadol 50 mg PO DAILY 03/30/19 09/25/20 zolpidem 10 mg PO DAILY 03/30/19 09/25/20 bupropion HCl 150 mg PO DAILY 09/17/20 09/25/20 duloxetine 60 mg PO DAILY 09/17/20 09/25/20 Allergies Allergy/AdvReac Type Severity Reaction Status Date / Time armodafinil Allergy Unknown Difficulty Verified 10/31/20 18:00 Breathing modafinil Allergy Unknown Difficulty Verified 10/31/20 18:00 Breathing clindamycin AdvReac Mild Nausea Verified 10/31/20 18:00 NUVAGEL Allergy Unknown POST NASAL Uncoded 10/31/20 18:00 DRIP Review of Systems Review of Systems: CONSTITUTIONAL: Denies fever, chills, or sweats. EYES: Denies visual changes, redness, or discharge. ENT: Denies rhinorrhea, congestion, sore throat, or otalgia. CARDIOVASCULAR: Denies chest pain, palpitations, or edema. RESPIRATORY: Shortness of breath and nonproductive cough. GASTROINTESTINAL: Denies abdominal pain, nausea, vomiting, or diarrhea. GENITOURINARY: Denies dysuria or hematuria. SKIN: Denies rash or itching. MUSCULOSKELETAL: Denies back pain, joint pain, or myalgia. NEUROLOGIC: Denies headache, numbness, dizziness, or weakness. PSYCHIATRIC: Denies anxiety or depression. All systems reviewed & are unremarkable except as noted in HPI and below PMFSH Past Medical History Medical History Anxiety Back pain Cataract Colon polyps Depression Diabetes Fibromyalgia GERD (gastroesophageal reflux disease) Hepatitis C HTN (hypertension) Hypothyroidism Kidney stones Liver disease Sleep apnea Stomach ulcer Surgical History Surgical History History of bunionectomy lt bunionectomy History of carpal tunnel surgery of right wrist History of cataract surgery History of section History of lithotripsy History of tubal ligation Status post right knee replacement Family History Family History Mother Family history of chronic obstructive pulmonary disease Social History Social History Smoking status: Former smoker Alcohol intake: never Substance use type: does not use Gender identity (if verbalized by the patient): Female Exam Narrative: GENERAL: Well-appearing, well-nourished, and in no acute distress. HEAD: Normocephalic, atraumatic. EYES: PERRLA and EOMI. ENT: Nares clear, no rhinorrhea or epistaxis. Mucous membranes moist. NECK: Supple. No masses. No JVD CHEST: Clear to auscultation. Mild increased work of breathing. No wheezes rales or rhonchi HEART: Regular rate and rhythm. No murmur heard. Normal peripheral pulses. ABDOMEN: Soft, nontender, nondistended, normal active bowel sounds. EXTREMITIES: Normal range of motion. No edema. SKIN: Warm, dry, no rash. NEURO: No focal deficits. Al
[2021-07-25] MEDS: ALBUTEROL SULFATE NEB 2.5 MG/0.5 ML INH 5 MG INHALATION (15:07)
[2021-07-25] MEDS: IPRATROPIUM BR 0.02% INH SOLN 0.5 MG/2.5 ML VIAL INHALATION (15:08)
[2021-07-25] MEDS: predniSONE 20 MG TABLET 60 MG PO (15:30)
[2021-07-25 15:42] LABS: D Dimer 0.53 ug/mL (<0.48)
[2021-07-25 16:10] LABS: SARS-CoV-2 RNA PCR Negative
== END 2021-07-25 16:45 | disposition home or self-care (01) ==
PROVIDERS: Emergency Provider Emergency Medicine; PCP Family Medicine
DX: J40 Bronchitis, not specified as acute or chronic (principal); Z20.822 Contact with and (suspected) exposure to COVID-19; E11.9 Type 2 diabetes mellitus without complications; I10 Essential (primary) hypertension; K76.9 Liver disease, unspecified; K21.9 Gastro-esophageal reflux disease without esophagitis; E03.9 Hypothyroidism, unspecified; G47.30 Sleep apnea, unspecified; M79.7 Fibromyalgia; F41.9 Anxiety disorder, unspecified; F32.A Depression, unspecified; Z86.010 Personal history of colon polyps; Z87.442 Personal history of urinary calculi; Z86.19 Personal history of other infectious and parasitic diseases; Z98.49 Cataract extraction status, unspecified eye; Z96.651 Presence of right artificial knee joint; I45.9 Conduction disorder, unspecified; R94.31 Abnormal electrocardiogram [ECG] [EKG]
CPT/HCPCS: 36415; 71046; 80053; 85025; 85380; 93005; 94640; 99284; C9803; J7512; U0003; U0005

== ENCOUNTER → 2021-10-04 14:44 | Outpatient (CLI) | payer MEDICARE, SELFPAY ==
--- NOTE | ~2021-10-04 | CT_ITS ---
EXAMINATION: CT knee RT wo con DATE: 10/04/2021 15:06 INDICATION: Knee pain. TECHNIQUE: Computed tomography (CT) of the right knee was performed without intravenous contrast. Aut omated exposure control and iterative reconstruction technique were employed. The dose-length product was 198.09 mGy-cm. COMPARISON: X-ray right knee 09/23/2021 and 09/11/2017 FINDINGS: Limitations: None Bones: The included osseous structures are within normal limits. There are no erosive or destructive bony lesions. Right knee total arthroplasty. No abnormal perihardware lucency. No hardware fracture. The intra-articular spacer is centrally located. Soft Tissues:The soft tissues appear within normal limits. No evidence of mass or fluid collection. Fluid: Small volume joint effusion. IMPRESSION: Right knee arthroplasty. No CT evidence of hardware related complication. No acute osseous finding. Reviewed, dictated and finalized at location K. IMPRESSION: Right knee arthroplasty. No CT evidence of hardware related complication. No ac yair osseous finding.
== END ==
PROVIDERS: PCP Family Medicine; Visit Provider Orthopaedic Surgery
DX: T84.84XA Pain due to internal orthopedic prosthetic devices, implants and grafts, initial encounter (principal); Z96.651 Presence of right artificial knee joint
CPT/HCPCS: 73700

== ENCOUNTER → 2021-10-21 15:38 | Outpatient (CLI) | payer MEDICARE, SELFPAY ==
--- NOTE | ~2021-10-21 | XR_ITS ---
XR lumbar spine 2-3V DATE: 10/21/2021 16:05 INDICATION: Backache with radiation. TECHNIQUE: AP, lateral, coned lateral lumbosacral views COMPARISON: 05/25/2017 MRI lumbar spine FINDINGS: There is 17 degrees levoscoliosis measured from L2 to L4. No fracture or bone destruction is evident. The lumbar and included lower thoracic pedicles are intac t. There is multilevel degenerative disc disease, severe at L2-3, L3-4 and L4-5. Shallow spurring at L1 to and L5-S1. The sacroiliac joints are intact, with degenerative change of the left. IMPRESSION: Scoliosis and multilevel degenerative disc disease Reviewed, dictated and finalized at location A.
== END ==
PROVIDERS: PCP Family Medicine; Visit Provider Nurse Practitioner Family
DX: M41.9 Scoliosis, unspecified (principal); M51.36 Other intervertebral disc degeneration, lumbar region
CPT/HCPCS: 72100

== ENCOUNTER → 2021-12-08 14:45 | Outpatient (CLI) | payer MEDICARE, SELFPAY ==
--- NOTE | ~2021-12-08 | DEXA_ITS ---
Bone Density Report Name: ART GUERRERO Age: 65 Sex: Female Ethnicity: White Date of : 1955 Indication: postmenopausal; screening for osteoporosis; height loss; history of glucocorticoids; asthma or emphysema; Referring Provider: JESSICA OLIVARES Study: Bone densitometry was performed. Exam Date: December 08, 2021 Accession number: [id number] Bone Density: Region BMD T-score Z-score Classification AP Spine (L1, L2) 1.042 0.6 2.4 Normal Femoral Neck (Left) 0.646 -1.8 -0.2 Osteopenia Total Hip (Left) 0.857 -0.7 0.7 Normal Femoral Neck (Right) 0.667 -1.6 0.0 Osteopenia Total Hip (Right) 0.905 -0.3 1.1 Normal Total Hip Mean 0.881 -0.5 0.9 Normal World Health Organization criteria for BMD impression classify patients as: Normal (T-score at or above -1.0), Osteopenia (T-score between -1.0 and -2.5), or Osteoporosis (T-score at or below -2.5). 10-year Fracture Risk(1): Major Osteoporotic Fracture 15% Hip Fracture 2.5% Reported Risk Factors: [place] (), Neck BMD=0.646, BMI=39.8, glucocorticoids (1) FRAX(R) Version 3.08. Fracture probability calculated for an untreated patient. Fracture probability may be lower if the patient has received treatment. Previous Exams: Region Exam Age BMD T-score BMD Change BMD Change Date g/cm2 vs Baseline vs Previous AP Spine(L1, L2) 12/08/2021 65 1.042 0.6 0.025* 0.025* 08/09/2013 57 1.017 0.3 Total Hip(Left) 12/08/2021 65 0.857 -0.7 -0.045* -0.045* 08/09/2013 57 0.902 -0.3 Total Hip(Right) 12/08/2021 65 0.905 -0.3 -0.001 -0.001 08/09/2013 57 0.906 -0.3 *Denotes significance at 95% confidence level, LSC for AP Spine = 0.022 g/cm2, LSC for Total Hip = 0.027 g/cm2 Clinical Information Provided by Patient: Has taken Glucocorticoids Has used the following medications: Vitamin D Has the following medical conditions: Asthma or Emphysema Patient maximum height was 59.5 Menopause Age: 47 No regular weight bearing exercise Drinks caffeinated beverages Onset of menses at age 9 Number of children 2 Missed period for more than 6 months in a row Impression: The patient has low bone mass, based on the Left Femoral Neck T-score. The patient has an estimated ten-year risk of hip fracture of 2.5% and an estimated ten-year risk of major fracture of 15%, based on the WHO FRAX algorithm. The patient has risk factors, including: history o
--- NOTE | ~2021-12-08 | MM_ITS ---
EXAMINATION: MM screening goran BI w moy HISTORY: Screening mammogram TECHNIQUE: Craniocaudal and mediolateral oblique 3-D tomosynthesis images were obtained and synthetic 2-D images were generated. CAD analysis was submitted and interpreted. COMPARISON: 08/20/2019, , 10/13/2015 bilateral screening mammogram examinations BREAST PARENCHYMAL COMPOSITION: The breasts are almost entirely fatty. FINDINGS: Stable circumscribed benign intramammary lymph node posterior upper left breast on MLO view . There is no evidence of suspicious mass, calcification, or architectural distortion to suggest richmond gnancy in either breast. There has been no suspicious interval change. IMPRESSION: 1. No mammographic evidence of malignancy. 2. Recommend routine screening mammography in one year. BI-RADS Category 1: Negative Reviewed, dictated and finalized at location A.
== END ==
PROVIDERS: PCP Nurse Practitioner Family; Visit Provider Obstetrics & Gynecology
DX: Z12.31 Encounter for screening mammogram for malignant neoplasm of breast (principal); Z78.0 Asymptomatic menopausal state; M85.852 Other specified disorders of bone density and structure, left thigh; M85.851 Other specified disorders of bone density and structure, right thigh
CPT/HCPCS: 77063; 77067; 77080

== ENCOUNTER → 2021-12-31 14:53 | Outpatient (CLI) | payer MEDICARE, SELFPAY ==
--- NOTE | ~2021-12-31 | XR_ITS ---
XR_CERV2-3V_CR 12/31/2021 15:11 Indication: Neck pain Procedure: 5 views of the cervical spine Comparison: 07/26/2019 Findings: There is degenerative anterolisthesis at C3-4 and retrolisthesis at C5-6. There is degenera tive disc disease at C4-5, C5-6 and C6-7. No prevertebral soft tissue swelling. No acute fracture or traumatic malalignment. Odontoid process is normal. There is moderate multilevel facet hypertrophy. L panda apices are normal. Impression: 1: Severe cervical spondylosis. Reviewed, dictated and finalized at location B. Impression: 1: Severe cervical spondylosis.
== END ==
PROVIDERS: PCP Nurse Practitioner Family; Visit Provider Nurse Practitioner Family
DX: M54.2 Cervicalgia (principal); M47.812 Spondylosis without myelopathy or radiculopathy, cervical region
CPT/HCPCS: 72040

== ENCOUNTER → 2021-12-31 14:57 | Outpatient (CLI) | payer MEDICARE, SELFPAY ==
--- NOTE | ~2021-12-31 | US_ITS ---
EXAMINATION: US thyroid DATE: 12/31/2021 15:25 INDICATION: Thyroid nodules. TECHNIQUE: Multiple ultrasound images of the thyroid were obtained. COMPARISON: Ultrasound 07/11/2017, 08/22/2014 FINDINGS: The right thyroid lobe measures 4.5 x 1.6 x 1.7 cm. The left thyroid lobe measures 3.9 x 1.6 x 1.2 c m. The thyroid demonstrates diffusely heterogeneous hypoechogenicity. Vascularity is normal. In the right thyroid lobe, there is a 3 mm nodule. IMPRESSION: 1. Heterogeneous thyroid, likely chronic lymphocytic (Cuong) thyroiditis. 2. Small thyroid nodule, likely not clinically significant. No follow-up is needed. Reviewed, dictated and finalized at location A. IMPRESSION: 1. Heterogeneous thyroid, likely chronic lymphocytic (Cuong) thyroiditis. 2. Small thyroid nodule, likely not clinically significant. No follow-up is nee ded.
== END ==
PROVIDERS: PCP Nurse Practitioner Family; Visit Provider Otolaryngology
DX: E04.1 Nontoxic single thyroid nodule (principal)
CPT/HCPCS: 76536

== ENCOUNTER 2022-02-16 09:55 | Outpatient (CLI) | payer MEDICARE, SELFPAY ==
--- NOTE | ~2022-02-16 | US_ITS ---
EXAMINATION: US right upper quadrant DATE: 02/16/2022 10:43 INDICATION: R14.2 - Eructation TECHNIQUE: Multiple grayscale and Doppler ultrasound images of the right upper quadrant were obtained . COMPARISON: Ultrasound gallbladder 09/03/2015, ultrasound kidneys 04/25/2017. FINDINGS: The visualized portions of the pancreas are normal. The liver is enlarged with increased ec hogenicity and echotexture. No surface nodularity. Normal hepatopetal flow in the main portal vein. P hrygian cap. Multifocal echogenicity, with comet tail artifacts, consistent with adenomyomatosis. The common bile duct measures 4 mm. There was no sonographic Delacruz sign. Right kidney measures 10.6 x 4 .2 x 4.5. Simple midpole cyst. IMPRESSION: Hepatomegaly. Echogenic liver, most commonly due to steatosis but also can be seen with hepatitis and fibrosis. Reviewed, dictated and finalized at location K. IMPRESSION: Hepatomegaly. Echogenic liver, most commonly due to steatosis but also can be s een with hepatitis and fibrosis.
== END 2022-02-16 09:56 | disposition home or self-care (01) ==
PROVIDERS: PCP Nurse Practitioner Family; Visit Provider Internal Medicine Gastroenterology
DX: R14.2 Eructation (principal)
CPT/HCPCS: 76705

== ENCOUNTER 2022-02-24 12:22 | Outpatient (CLI) | payer MEDICARE, SELFPAY ==
--- NOTE | ~2022-02-24 | US_ITS ---
EXAMINATION: US venous doppler [facility] DATE: 02/24/2022 13:01 INDICATION: Left lower limb swelling TECHNIQUE: Kaur scale images without and with compression and Doppler images of the left lower extrem ity veins were obtained. COMPARISON: None FINDINGS: The left common femoral vein, profunda femoral vein, femoral vein, popliteal vein, peroneal trunk, posterior tibial veins, and greater saphenous vein are patent. IMPRESSION: 1. Patent left lower extremity veins. No evidence of deep venous thrombosis. Reviewed, dictated and finalized at location F.
== END 2022-02-24 12:23 | disposition home or self-care (01) ==
PROVIDERS: PCP Nurse Practitioner Family; Visit Provider Physician Assistant
DX: R22.42 Localized swelling, mass and lump, left lower limb (principal)
CPT/HCPCS: 93971

== ENCOUNTER 2022-02-25 13:23 | Emergency (ER) | payer MEDICARE, SELFPAY ==
--- NOTE | ~2022-02-25 | CT_ITS ---
EXAMINATION: CT abdomen pelvis wo con DATE: 02/25/2022 14:49 INDICATION: Left flank pain TECHNIQUE: Computed tomography (CT) of the abdomen and pelvis was performed without intravenous contr ast. Automated exposure control and iterative reconstruction technique were employed. The dose-length product was 934.10 mGy-cm. COMPARISON: None FINDINGS: Minimal bibasilar atelectasis. Visualized inferior heart is normal. Atherosclerotic coronary artery c alcification. No pericardial or pleural effusion. Liver, gallbladder, spleen, pancreas and bilateral adrenal glands are normal. Bilateral nephrolithiasis with 1.4 cm stone in the right renal pelvis ther e are at least 4 additional <2 mm stones in the right kidney and a 2-3 mm stone in the mid left kidne y. No ureteral stones or hydronephrosis. There is moderate colonic diverticulosis with a sigmoid and thoracic predominance. There is a plantar stranding surrounding a diverticulum along the mid descendi ng colon consistent with diverticulitis. No abscess or free intraperitoneal gas or fluid. Small bowel and appendix are normal. Bladder, uterus and bilateral adnexa are unremarkable.Mild lumbar levocurva ture with severe spondylosis. IMPRESSION: 1. Radiographically uncomplicated diverticulitis along the mid descending colon. 2. Bilateral nonobstructing nephrolithiasis. Reviewed, dictated and finalized at location B. IMPRESSION: 1. Radiographically uncomplicated diverticulitis along the mid descending colon . 2. Bilateral nonobstructing nephrolithiasis.
[2022-02-25 13:59] VITALS: BP 126/79; PULSE 100; RESP 18; TEMP 36.4; O2SAT 96
--- NOTE | 2022-02-25 14:11 | ED.GENADULT ---
HPI - General Adult General Chief complaint: Urogenital-Female Stated complaint: left flank pain Time Seen by Provider: 02/25/22 14:04 Source: RN notes reviewed History of Present Illness HPI narrative: Patient presents emergency room from home for left flank pain. Patient states symptoms began last night. The pain is located left flank and radiates around to the left side of the abdomen pain is described as sharp and stabbing in nature. States she has not taken anything for the pain at home she denies any nausea vomiting or diarrhea. She denies any fevers or chills or any other symptoms Related Data Home Medications Medication Instructions Recorded Confirmed amlodipine 10 mg tablet 10 mg PO DAILY 03/30/19 01/06/22 furosemide 20 mg tablet 20 mg PO DAILY 03/30/19 01/06/22 lisinopril 10 mg tablet 10 mg PO DAILY 03/30/19 01/06/22 zolpidem 10 mg tablet 10 mg PO DAILY 03/30/19 01/06/22 bupropion HCl 150 mg 24 hr tablet, 150 mg PO DAILY 09/17/20 01/06/22 extended release celecoxib 200 mg capsule (Celebrex) 200 mg PO DAILY 10/13/21 01/06/22 potassium gluconate 500 mg (83 mg) 500 mg PO DAILY 10/13/21 01/06/22 tablet thyroid (pork) 90 mg tablet 90 mg PO DAILY 10/13/21 01/06/22 ([place] Thyroid) duloxetine 60 mg capsule,delayed 20 mg PO DAILY 02/02/22 release Allergies Allergy/AdvReac Type Severity Reaction Status Date / Time armodafinil Allergy Unknown Difficulty Verified 02/02/22 14:45 Breathing modafinil Allergy Unknown Difficulty Verified 02/02/22 14:45 Breathing clindamycin AdvReac Mild Nausea Verified 02/02/22 14:45 NUVAGEL Allergy Unknown POST NASAL Uncoded 02/02/22 14:45 DRIP Review of Systems Review of Systems: Gen.: Denies fevers or chills ENT: Denies congestion Respiratory: Denies shortness of breath or cough CV: Denies chest pain or palpitations GI: Reports left-sided abdominal pain. Denies nausea, emesis or diarrhea denies burning, urgency, frequency or hematuria Musculoskeletal: Denies back pain or muscle pain Neuro: Denies numbness, tingling, weakness or focal weakness Skin: Denies rash Except as documented, all other systems reviewed and negative [facility] Past Medical History Medical History Anxiety Back pain Cataract Colon polyps Depression Diabetes Fibromyalgia GERD (gastroesophageal reflux disease) Hepatitis C HTN (hypertension) Hypothyroidism Kidney stones Liver disease SHIRLEY (obstructive sleep apnea) Sleep apnea Stomach ulcer Surgical History Surgical History History of back surgery Neurostimulator placement History of bunionectomy lt bunionectomy History of carpal tunnel surgery of right wrist History of cataract surgery History of section History of lithotripsy History of total right knee replacement 2018, [place] History of tubal ligation Status post right knee replacement Family History Family History Mother Family history of chronic obstructive pulmonary disease Unknown Family history of cancer Jaw, Bone, Breast Other Family history of arthritis Family history of lung disease Heart disease Hypertension Social History Social History Smoking status: Former smoker Alcohol intake: current Alcohol use details: 5 per year Substance use: never Substance use type: does not use Additional occupation/education comments: 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
[2022-02-25] MEDS: SODIUM CHLORIDE 0.9% IV 1,000 ML 999 ML IV CONT (14:21)
[2022-02-25 14:40] LABS: Add Urine Microscopic? NO; Appearance Urine Clear (Clear); Bilirubin Urine Negative (Negative); Blood Urine Negative (Negative); Color Urine Straw (Yellow); Glucose Urine UA Negative (Negative); Ketones Urine Negative (Negative); Leukocyte Esterase Ur Negative LEU/UL (Negative); Nitrate Urine Negative (Negative); Protein Urine Negative (Negative); Urobilinogen Urine Negative mg/dL (<2.0)
[2022-02-25 14:43] LABS: Specific Grav Ur 1.004 (1.001-1.035)
[2022-02-25 15:45] VITALS: BP 137/77; PULSE 88; RESP 18; O2SAT 99
[2022-02-25 16:36] LABS: Basophils Percent Auto 0.4 % (0.2-1.2); Eosinophils Absolute Auto 0.3 K/mm3 (0-0.3); Eosinophils Percent Auto 2.7 % (0-4.4); Hematocrit 43.8 % (37.0-47.0); Hemoglobin 14.3 g/dL (12.0-15.0); Immature Granulocyte Absolute 0.03 K/mm3 (0.00-0.031); Immature Granulocyte Percent A 0.3 % (0-0.5); Lymphocytes Absolute Auto 1.09 K/mm3 (0.9-3.2); Lymphocytes Percent Auto 11.8 % (18.3-44.2); Mean Corpuscular HGB Conc 32.6 g/dl (32-36); Mean Corpuscular Hemoglobin 28.9 pg (26-34); Mean Corpuscular Volume 88.5 fl (80-100); Mean Platelet Volume 9.6 fl (7.4-10.4); Monocytes Absolute Auto 0.5 K/mm3 (0.1-0.6); Monocytes Percent Auto 5.9 % (2.6-8.5); Neutrophils Absolute Auto 7.3 K/mm3 (1.3-6.7); Neutrophils Percent Auto 78.9 % (45.5-73.1); Platelet Count Result 258 k/mm3 (150-375); Red Blood Count 4.95 M/mm3 (4.2-5.4); Red Cell Distribution Width 13.3 % (11.5-14.5); White Blood Count 9.2 K/mm3 (4.5-10.0)
[2022-02-25 16:47] LABS: Alanine Aminotransferase 23 U/L (6-35); Albumin Level 4.4 g/dL (3.5-5.1); Alkaline Phosphatase 116 U/L (38-126); Anion Gap 9 mmol/L (8-16); Aspartate Amino Transferase 24 U/L (14-36); Bilirubin,Total 0.3 mg/dL (0.2-1.3); Blood Urea Nitrogen 14 mg/dL (7-17); Calcium 9.7 mg/dL (8.4-10.2); Carbon Dioxide 34 mmol/L (22-30); Chloride 97 mmol/L (98-107); Estimated Glomerular Filt Rate > 60; Glucose 83 mg/dL (65-110); Lipase 79 U/L (23-300); Potassium 3.9 mmol/L (3.4-5.0); Sodium 140 mmol/L (137-145)
[2022-02-25] MEDS: AMOXICILLIN/CLAVULANATE K 875-125 MG TAB 1 TABLET PO (17:09)
[2022-02-25 17:19] VITALS: BP 132/76; PULSE 78; RESP 18; O2SAT 99
== END 2022-02-25 17:20 | disposition home or self-care (01) ==
PROVIDERS: Emergency Medicine; Emergency Provider Emergency Medicine; PCP Nurse Practitioner Family
DX: K57.32 Diverticulitis of large intestine without perforation or abscess without bleeding (principal); I10 Essential (primary) hypertension; K76.9 Liver disease, unspecified; K21.9 Gastro-esophageal reflux disease without esophagitis; G47.33 Obstructive sleep apnea (adult) (pediatric); E03.9 Hypothyroidism, unspecified; M79.7 Fibromyalgia; F32.A Depression, unspecified; F41.9 Anxiety disorder, unspecified; Z96.82 Presence of neurostimulator; Z96.651 Presence of right artificial knee joint; Z86.19 Personal history of other infectious and parasitic diseases; Z86.010 Personal history of colon polyps; Z87.442 Personal history of urinary calculi; Z98.49 Cataract extraction status, unspecified eye; N20.0 Calculus of kidney; Z87.891 Personal history of nicotine dependence
CPT/HCPCS: 36415; 74176; 80053; 81003; 83690; 85025; 96361; 96365; 99284; A9270; J0131; J7030

== ENCOUNTER 2022-08-08 13:06 | Emergency (ER) | payer MEDICARE, SELFPAY ==
[2022-08-08 13:17] VITALS: BP 134/81; PULSE 96; RESP 20; TEMP 36.9; O2SAT 97
--- NOTE | 2022-08-08 14:44 | ED.EXTPRO ---
HPI - Extremity Problem General Chief complaint: Extremity Problem,Nontraumatic Stated complaint: Knee/Hip pain Time Seen by Provider: 08/08/22 14:08 Source: patient and family Mode of arrival: ambulatory Limitations: no limitations History of Present Illness HPI Narrative: Patient is 66 years old white female dropped off by her son to the emergency room because of pain at the right hip for the last 5 months. Patient been through chiropractor, massage, acupuncture without improvement, also had numerous right hip injection without improvement last injection was 1 week ago patient came today for a second opinion and to get MRI of her lower back and right hip. patient denies bowel dysfunction, bladder dysfunction, altered sensation, focal weakness, or saddle numbness,. Related Data Home Medications Medication Instructions Recorded Confirmed amlodipine 10 mg tablet 10 mg PO DAILY 03/30/19 04/28/22 furosemide 20 mg tablet 20 mg PO DAILY 03/30/19 04/28/22 lisinopril 10 mg tablet 10 mg PO DAILY 03/30/19 04/28/22 zolpidem 10 mg tablet 10 mg PO DAILY 03/30/19 04/28/22 bupropion HCl 150 mg 24 hr tablet, 150 mg PO DAILY 09/17/20 04/28/22 extended release celecoxib 200 mg capsule (Celebrex) 200 mg PO DAILY 10/13/21 04/28/22 potassium gluconate 500 mg (83 mg) 500 mg PO DAILY 10/13/21 04/28/22 tablet thyroid (pork) 90 mg tablet 90 mg PO DAILY 10/13/21 04/28/22 (Leeper Thyroid) duloxetine 60 mg capsule,delayed 20 mg PO DAILY 02/02/22 04/28/22 release Allergies Allergy/AdvReac Type Severity Reaction Status Date / Time armodafinil Allergy Unknown Difficulty Verified 08/08/22 14:03 Breathing modafinil Allergy Unknown Difficulty Verified 08/08/22 14:03 Breathing clindamycin AdvReac Mild Nausea Verified 08/08/22 14:03 NUVAGEL Allergy Unknown POST NASAL Uncoded 04/28/22 13:34 DRIP Review of Systems Review of Systems: All systems reviewed & are unremarkable except as noted in HPI and below PMFSH Past Medical History Medical History Anxiety Back pain Cataract Colon polyps Depression Diabetes Fibromyalgia GERD (gastroesophageal reflux disease) Hepatitis C HTN (hypertension) Hypothyroidism Kidney stones Liver disease SHIRLEY (obstructive sleep apnea) Sleep apnea Stomach ulcer Surgical History Surgical History History of back surgery Neurostimulator placement History of bunionectomy lt bunionectomy History of carpal tunnel surgery of right wrist History of cataract surgery History of section History of lithotripsy History of total right knee replacement 2019, [place] History of tubal ligation Status post right knee replacement Family History Family History Mother Family history of chronic obstructive pulmonary disease Unknown Family history of cancer Jaw, Bone, Breast Other Family history of arthritis Family history of lung disease Heart disease Hypertension Social History Social History Smoking status: Former smoker Alcohol intake: current Alcohol use details: 5 per year Substance use: never Substance use type: does not use Living arrangements: with family Occupation/Education: occupation Additional occupation/education comments: Semi-retired @ [employer] Gender identity (if verbalized by the patient): Female Exam Narrative: General appearance: Well-developed, well-nourished Skin: Normal color Head: Normocephalic, nontraumatic Eyes: Clear conjunctiva ENT: Oropharynx normal, ears normal, nose normal Neck: Supple, nontender Chest and respiratory: Airway patent, no respiratory distress, no accessory muscle use Heart: Regular rate/rhythm Abdomen: Soft, nontender, no organomegaly, quiet bowel sounds Vascular: Normal peripheral pulse
[2022-08-08] MEDS: ONDANSETRON HCL ODT 4 MG TABLET 8 MG PO (15:18)
[2022-08-08] MEDS: HYDROmorphone HCL INJ (*CRX) 1 MG/ML SYR IM (15:19)
[2022-08-08 15:40] VITALS: BP 136/80; PULSE 90; RESP 16; O2SAT 96
== END 2022-08-08 15:40 | disposition home or self-care (01) ==
PROVIDERS: Emergency Provider Emergency Medicine; PCP Nurse Practitioner Family
DX: M25.551 Pain in right hip (principal); E11.9 Type 2 diabetes mellitus without complications; I10 Essential (primary) hypertension; E03.9 Hypothyroidism, unspecified; K76.9 Liver disease, unspecified; K21.9 Gastro-esophageal reflux disease without esophagitis; M79.7 Fibromyalgia; G47.33 Obstructive sleep apnea (adult) (pediatric); F41.9 Anxiety disorder, unspecified; F32.A Depression, unspecified; Z96.82 Presence of neurostimulator; Z96.651 Presence of right artificial knee joint; Z87.442 Personal history of urinary calculi; Z87.891 Personal history of nicotine dependence; Z86.010 Personal history of colon polyps; Z98.49 Cataract extraction status, unspecified eye
CPT/HCPCS: 96372; 99283; A9270; J1170

== ENCOUNTER → 2022-09-16 12:26 | Outpatient (CLI) | payer MEDICARE, SELFPAY ==
--- NOTE | ~2022-09-16 | MR_ITS ---
EXAMINATION: MR cervical spine wo con DATE: 09/16/2022 13:16 INDICATION: Cervical radiculopathy. TECHNIQUE: Magnetic resonance imaging (MRI) of the cervical spine was performed without intravenous c ontrast. Sequences included sagittal T2-weighted FSE, sagittal T2-weighted FS FSE, sagittal T1-weight ed FSE, axial MERGE, and axial T2-weighted FSE. COMPARISON: Cervical spine MRI 01/04/2020 FINDINGS: There is 3 degrees dextrocurvature of cervicothoracic spine. There is kyphosis of cervical spine. Vertebral body heights are normal. There is 2 mm retrolisthesis of C5 on C6. There is moderate ly decreased disc height at C4-C5 and severely decreased disc height at C5-C6, C6-C7, and C7-T1. The spinal cord signal intensity is normal. The following disc levels are specifically discussed: C2-C3: The disc does not extend beyond the endplate margin. There is no uncovertebral joint osteoarth ritis. There is severe right and moderate left facet joint osteoarthritis. There is mild right neural foraminal stenosis. There is no central canal stenosis. C3-C4: The disc does not extend beyond the endplate margin. There is no uncovertebral joint osteoarth ritis. There is severe right and moderate left facet joint osteoarthritis. There is mild bilateral ne ural foraminal stenosis. There is no central canal stenosis. C4-C5: The disc is bulging. There is severe bilateral uncovertebral joint osteoarthritis. There is se leora left facet joint osteoarthritis. There is mild right and moderate left neural foraminal stenosis . There is mild central canal stenosis with ventral indentation of the spinal cord. C5-C6: The disc is bulging. There is severe bilateral uncovertebral joint osteoarthritis. There is mo derate left facet joint osteoarthritis. There is mild right and moderate left neural foraminal stenos is. There is moderate central canal stenosis with ventral and dorsal indentation of the spinal cord. C6-C7: The disc is bulging. There is moderate bilateral uncovertebral joint osteoarthritis. There is severe bilateral facet joint osteoarthritis. There is mild right and moderate left neural foraminal s tenosis. There is mild central canal stenosis. C7-T1: The disc is bulging. There is moderate bilateral uncovertebral joint osteoarthritis. There is severe bilateral facet joint osteoarthritis. There is mild bilateral neural foraminal stenosis. There is mild central canal stenosis. IMPRESSION: 1. Severe cervical spondylosis, mildly worsened from 01/02/2020. Reviewed, dictated and finalized at location A.
== END ==
PROVIDERS: PCP Nurse Practitioner Family; Visit Provider Nurse Practitioner Family
DX: M47.22 Other spondylosis with radiculopathy, cervical region (principal)
CPT/HCPCS: 72141

== ENCOUNTER 2023-08-18 01:30 | Day surgery (SDC) | payer OTHER, SELFPAY ==
[2023-08-08 10:13] VITALS: BMI 37.4
--- NOTE | 2023-08-16 14:56 | SUR.PREOP ---
Patient called regarding upcoming procedure. Reviewed preop instructions, appointment times, and procedure prep.
[2023-08-18 10:09] VITALS: BP 129/83; PULSE 83; RESP 16; TEMP 36.1; O2SAT 98
[2023-08-18] MEDS: LACTATED RINGERS 1,000 ML 150 ML IV CONT (10:25)
--- NOTE | 2023-08-18 10:37 | PM.HPGS ---
History of Present Illness History of Present Illness Consent: Risks, benefits, and alternatives have been discussed and questions answered. Patient agrees to proceed with procedure. Chief complaint: Eructation, nausea,dysphagia Narrative: Nani Dawkins is a 67 year old female here for egd. ?She had belching after using ozempic for 1 month. CBC, h.pylori stool test negative, celiac normal. Had EGD few years ago. Now better with lansoprazole. Review of Systems Review of Systems: All systems reviewed & are unremarkable except as noted in HPI and below PMFSH Past Medical History Medical History (Updated 07/25/23 @ 14:03 by Alicia Tony APRN) Anxiety Back pain Cataract Colon cancer screening Colon polyps Depression Diabetes Diverticulosis Dysphagia Epigastric abdominal tenderness Fibromyalgia GERD (gastroesophageal reflux disease) Hepatitis C HTN (hypertension) Hypothyroidism Kidney stones Liver disease Obesity SHIRLEY (obstructive sleep apnea) Sleep apnea Stomach ulcer Surgical History Surgical History History of back surgery Neurostimulator placement History of bunionectomy lt bunionectomy History of carpal tunnel surgery of right wrist History of cataract surgery History of section History of lithotripsy History of right hip replacement History of total right knee replacement 2018, [place] History of tubal ligation Status post right knee replacement Family History Family History Mother Family history of chronic obstructive pulmonary disease Alcoholism Family history of cancer Hypertension Father Family history of cancer Hypertension Heart problem Alcoholism Sibling Alcoholism Family history of cancer Hypertension Other Family history of arthritis Family history of lung disease Heart disease Social History Social History (Updated 07/25/23 @ 13:50 by Alicia Tony APRN) Smoking status: Former smoker Tobacco type: cigarettes Smoking end date: 05/15/78 Alcohol intake: current Alcohol use details: rarely Substance use: never Substance use type: does not use Living arrangements: alone Occupation/Education: occupation Additional occupation/education comments: Semi-retired @ [employer] Gender identity (if verbalized by the patient): Female Spiritual care concerns: No Meds Home Medications and Allergies Home Medications Medication Instructions Recorded Confirmed Type amlodipine 10 mg tablet 10 mg PO DAILY 03/30/19 08/08/23 History lisinopril 10 mg tablet 10 mg PO DAILY 03/30/19 08/08/23 History zolpidem 10 mg tablet 10 mg PO DAILY 03/30/19 08/08/23 History bupropion HCl 150 mg 24 hr tablet, 150 mg PO DAILY 09/17/20 08/08/23 History extended release albuterol sulfate 90 mcg/actuation 1 inh inhalation QID PRN shortness 07/25/21 08/08/23 Rx aerosol inhaler of breath or wheezing #6.7 grams potassium gluconate 500 mg (83 mg) 500 mg PO DAILY 10/13/21 08/08/23 History tablet lansoprazole 30 mg capsule,delayed 30 mg PO DAILY #30 caps 07/14/23 08/08/23 Rx release fluticasone propionate 50 1 spray intranasal DAILY 07/25/23 08/08/23 History mcg/actuation nasal spray,suspension (Flonase Allergy Relief) hydrochlorothiazide 12.5 mg capsule 12.5 mg PO DAILY 07/25/23 08/08/23 History hydroxyzine HCl 25 mg tablet 25 mg PO ONCE PRN Anxiety 07/25/23 08/08/23 History levothyroxine 75 mcg tablet 75 mcg PO DAILY 07/25/23 08/18/23 History (Unithroid) Allergies Allergy/AdvReac Type Severity Reaction Status Date / Time armodafinil Allergy Unknown Difficulty Verified 08/18/23 10:08 Breathing modafinil Allergy Unknown Difficulty Verified 08/18/23 10:08 Breathing clindamycin AdvReac Mild Nausea Verified 08/18/23 10:08 NUVAGEL Allergy Unknown POST NASAL Uncoded 08/18/23 10:08 DRIP
--- NOTE | 2023-08-18 10:38 | P.PNAN_ITS ---
Anes - Initial Pre Proc Eval Procedure: Operation Date: 08/18/23 11:30 Proposed Procedures p Esophagogastroduodenoscopy - Shashank Kelly MD Date/Time: 08/18/23 10:38 Surgeon: Shashank Kelly MD Pre Op Diagnosis: Eructation, nausea,dysphagia Patient Data Age: 67 Gender: F Height: 1.42 m Weight: 72.8 kg Last Vital Signs Temp 96.9 F L 08/18/23 10:09 Pulse 83 08/18/23 10:09 Resp 16 08/18/23 10:09 BP 129/83 08/18/23 10:09 Pulse Ox 98 08/18/23 10:09 O2 Del Method Room Air 08/18/23 10:09 Allergies Allergy/AdvReac Type Severity Reaction Status Date / Time armodafinil Allergy Unknown Difficulty Verified 08/18/23 10:08 Breathing modafinil Allergy Unknown Difficulty Verified 08/18/23 10:08 Breathing clindamycin AdvReac Mild Nausea Verified 08/18/23 10:08 NUVAGEL Allergy Unknown POST NASAL Uncoded 08/18/23 10:08 DRIP Home Medications Medication Instructions Recorded Confirmed Type amlodipine 10 mg tablet 10 mg PO DAILY 03/30/19 08/08/23 History lisinopril 10 mg tablet 10 mg PO DAILY 03/30/19 08/08/23 History zolpidem 10 mg tablet 10 mg PO DAILY 03/30/19 08/08/23 History bupropion HCl 150 mg 24 hr tablet, 150 mg PO DAILY 09/17/20 08/08/23 History extended release albuterol sulfate 90 mcg/actuation 1 inh inhalation QID PRN shortness 07/25/21 08/08/23 Rx aerosol inhaler of breath or wheezing #6.7 grams potassium gluconate 500 mg (83 mg) 500 mg PO DAILY 10/13/21 08/08/23 History tablet lansoprazole 30 mg capsule,delayed 30 mg PO DAILY #30 caps 07/14/23 08/08/23 Rx release fluticasone propionate 50 1 spray intranasal DAILY 07/25/23 08/08/23 History mcg/actuation nasal spray,suspension (Flonase Allergy Relief) hydrochlorothiazide 12.5 mg capsule 12.5 mg PO DAILY 07/25/23 08/08/23 History hydroxyzine HCl 25 mg tablet 25 mg PO ONCE PRN Anxiety 07/25/23 08/08/23 History levothyroxine 75 mcg tablet 75 mcg PO DAILY 07/25/23 08/18/23 History (Unithroid) Patient hx anesthesia problems: none Family hx anesthesia problems: none Results Review: All pre-operative results and documents have been reviewed as part of the pre- operative evaluation. [facility] Past Medical History Medical History (Updated 07/25/23 @ 14:03 by Alicia Tony APRN) Anxiety Back pain Cataract Colon cancer screening Colon polyps Depression Diabetes Diverticulosis Dysphagia Epigastric abdominal tenderness Fibromyalgia GERD (gastroesophageal reflux disease) Hepatitis C HTN (hypertension) Hypothyroidism Kidney stones Liver disease Obesity SHIRLEY (obstructive sleep apnea) Sleep apnea Stomach ulcer Surgical History Surgical History History of back surgery Neurostimulator placement History of bunionectomy lt bunionectomy History of carpal tunnel surgery of right wrist History of cataract surgery History of section History of lithotripsy History of right hip replacement History of total right knee replacement 2018, [place] History of tubal ligation Status post right knee rep
[2023-08-18 10:50] VITALS: BP 106/66; PULSE 77; RESP 19; O2SAT 97
[2023-08-18 11:00] VITALS: BP 119/69; PULSE 72; RESP 17; O2SAT 98
[2023-08-18 11:10] VITALS: BP 125/86; PULSE 66; RESP 16; O2SAT 99
== END 2023-08-18 11:17 | disposition home or self-care (01) ==
PROVIDERS: PCP Nurse Practitioner Family; Visit Provider Internal Medicine Gastroenterology
PROC: 0DJ08ZZ Inspection of Upper Intestinal Tract, Via Natural or Artificial Opening Endoscopic (ICD-10-PCS; CPT 43235; principal; 2023-08-18 11:30)
DX: K29.50 Unspecified chronic gastritis without bleeding (principal); K31.7 Polyp of stomach and duodenum; I10 Essential (primary) hypertension; E03.9 Hypothyroidism, unspecified; F41.9 Anxiety disorder, unspecified; E11.9 Type 2 diabetes mellitus without complications; M79.7 Fibromyalgia; G47.33 Obstructive sleep apnea (adult) (pediatric); E66.9 Obesity, unspecified; Z68.36 Body mass index [BMI] 36.0-36.9, adult; Z87.891 Personal history of nicotine dependence; Z79.51 Long term (current) use of inhaled steroids
CPT/HCPCS: 43239; 88305; J2704; J7120

== ENCOUNTER 2023-10-23 07:48 | Outpatient (CLI) | payer OTHER, SELFPAY ==
--- NOTE | ~2023-10-23 | US_ITS ---
Limited ABDOMINAL ULTRASOUND Ordering provider: Keke Plunkett APRN History: . RUQ pain, chronic gastritis . Comparison: June 19, 2021 FINDINGS: LIVER: Normal size and echotexture. No focal hepatic lesions or perihepatic fluid collections are valerie ntified. Portal vein flow is hepatopetal. GALLBLADDER: Multiple echogenic foci with ring down and comet tail artifact. A negative sonographic M urphy's sign was noted. BILIARY DUCTS: No evidence for intra or extrahepatic biliary dilation. Common bile duct measures 3.7 mm in diameter which is within normal limits. PANCREAS: Not fully visualized. UPPER ABDOMINAL AORTA: Normal in caliber. IVC: Patent. FREE FLUID: None. IMPRESSION: Multiple echogenic foci with ring down and comet tail artifact in the gallbladder suggestive of ana sterol crystals or adenomyomatosis. Reviewed, dictated and finalized at location A. IMPRESSION: Multiple echogenic foci with ring down and comet tail artifact in the gallbladd er suggestive of cholesterol crystals or adenomyomatosis.
== END 2023-10-23 07:49 | disposition home or self-care (01) ==
PROVIDERS: PCP Nurse Practitioner Family; Visit Provider Nurse Practitioner
DX: R10.11 Right upper quadrant pain (principal); K29.50 Unspecified chronic gastritis without bleeding
CPT/HCPCS: 76705

== ENCOUNTER 2023-10-27 09:18 | Outpatient (CLI) | payer OTHER, SELFPAY ==
--- NOTE | ~2023-10-27 | XR_ITS ---
Right Shoulder Technique: AP and scapular Y views were obtained. Clinical History: Pain Findings: No fracture or dislocation is seen. Osseous alignment is anatomic. Mild degenerative change of the glenohumeral and AC joints is present. Soft tissues are unremarkable. Impression: Mild degenerative change, as above. Reviewed, dictated and finalized at location . Impression: Mild degenerative change, as above.
--- NOTE | ~2023-10-27 | NM_ITS ---
EXAMINATION: NM hepatobiliary wo pharm DATE: 10/27/2023 13:31 CDT INDICATION: Right upper quadrant pain COMPARISON: Ultrasound dated 10/23/2023. TECHNIQUE: 4.9 mCi Tc-99m mebrofenin (Choletec) was administered intravenously. Scintigraphic images of the abdomen were obtained for one hour. At the 1 hour time point, the patient drank 8 oz Ensure, and imaging was continued for 60 minutes. Gallbladder ejection fraction was calculated by the technol ogist. FINDINGS: There is normal clearance of radiotracer from the blood pool. There is homogeneous tracer u ptake by the liver. Activity progresses to the bowel and gallbladder. The gallbladder ejection fract ion is 35%. Note that with this technique, normal GBEF >= 33%. IMPRESSION: 1. Normal hepatobiliary scan. Reviewed, dictated and finalized at location B.
== END 2023-10-27 09:19 | disposition home or self-care (01) ==
PROVIDERS: PCP Nurse Practitioner Family; Visit Provider Nurse Practitioner
DX: M19.011 Primary osteoarthritis, right shoulder (principal); K29.50 Unspecified chronic gastritis without bleeding; M79.2 Neuralgia and neuritis, unspecified
CPT/HCPCS: 73030; 78226; A9537

== ENCOUNTER 2024-03-25 11:21 | Inpatient (IN) | payer OTHER, SELFPAY ==
--- NOTE | ~2024-03-25 | CT_ITS ---
EXAMINATION: CT abdomen pelvis w con DATE: 03/25/2024 14:55 INDICATION: Abdominal pain. TECHNIQUE: Computed tomography (CT) of the abdomen and pelvis was performed with 100 mL Omnipaque 350 intravenous contrast. Automated exposure control and iterative reconstruction technique were employe d. The dose-length product was 628.83 mGy-cm. COMPARISON: CT abdomen and pelvis 02/25/2022 FINDINGS: The visualized portions of the lung bases demonstrate mild atelectasis. No pleural effusion . The heart size is normal. No pericardial effusion. The liver is normal. There are cysts in the sple en measuring up to 11 mm. The gallbladder, pancreas, and left adrenal gland are normal. There is a ch ronic 7 mm mass in right adrenal gland, likely benign. There are cysts in the kidneys measuring up to 12 mm on the right. There is a 2 mm stone in right kidney. There is a 16 mm stone in right renal pel vis. There is a 2 mm stone in left kidney. There are scattered diverticula in the colon. There is wal l thickening of the descending colon and splenic flexure of the colon with surrounding fat stranding, consistent with colitis. The appendix is normal. There are no pathologically enlarged lymph nodes. T here is no free intraperitoneal fluid. There is no significant stenosis of celiac axis, superior mese nteric artery, or inferior mesenteric artery. There is a total right hip arthroplasty. There is lumba r levoscoliosis and severe spondylosis. There is severe thoracic spondylosis. IMPRESSION: 1. Colitis involving splenic flexure of the colon and descending colon. Reviewed, dictated and finalized at location A. [facility]
[2024-03-25 11:22] VITALS: BP 103/82; PULSE 94; RESP 20; TEMP 36.8; O2SAT 97
--- NOTE | 2024-03-25 12:56 | ECG_ITS ---
Test Date: 2024-03-25 13:12:36 Measurements Intervals [place] Rate: 74 P: 60 VA: 180 QRS: -54 QRSD: 170 T: 74 QT: 454 QTc: 505 Interpretive Statements SINUS RHYTHM LEFT AXIS DEVIATION POSSIBLE LEFT ATRIAL ENLARGEMENT LEFT BUNDLE BRANCH BLOCK BASELINE ARTIFACT- I, III, AVL ABNORMAL ECG No previous ECG available for comparison Electronically Signed On 03-25-2024 13:50:26 TRAFFIC ENGINEER by Eric Montes D.O.
[2024-03-25 13:49] LABS: Basophils Percent Auto 0.2 % (0.2-1.2); Eosinophils Percent Auto 0.2 % (0-4.4); Hemoglobin 14.1 g/dL (12.0-15.0); Immature Granulocyte Absolute 0.05 K/mm3 (0.00-0.031); Immature Granulocyte Percent A 0.4 % (0-0.5); Lymphocytes Absolute Auto 0.94 K/mm3 (0.9-3.2); Lymphocytes Percent Auto 7.9 % (18.3-44.2); Mean Corpuscular HGB Conc 33.6 g/dl (32-36); Mean Corpuscular Hemoglobin 30.1 pg (26-34); Mean Corpuscular Volume 89.7 fl (80-100); Mean Platelet Volume 9.4 fl (7.4-10.4); Monocytes Absolute Auto 0.6 K/mm3 (0.1-0.6); Monocytes Percent Auto 5.2 % (2.6-8.5); Neutrophils Absolute Auto 10.3 K/mm3 (1.3-6.7); Neutrophils Percent Auto 86.1 % (45.5-73.1); Platelet Count Result 268 k/mm3 (150-375); Red Blood Count 4.68 M/mm3 (4.2-5.4); Red Cell Distribution Width 12.9 % (11.5-14.5); White Blood Count 11.9 K/mm3 (4.5-10.0)
[2024-03-25 14:03] VITALS: BP 130/76; PULSE 78; RESP 19; O2SAT 98
[2024-03-25 14:03] LABS: Prothrombin Time 13.4 Seconds (11.1-14.7)
[2024-03-25 14:04] LABS: Partial Thromboplastin Time 24.4 Seconds (22.3-36.8)
[2024-03-25 14:07] LABS: Alanine Aminotransferase 18 U/L (6-35); Albumin Level 4.3 g/dL (3.5-5.1); Alkaline Phosphatase 82 U/L (38-126); Anion Gap 8 mmol/L (4-12); Aspartate Amino Transferase 28 U/L (14-36); Bilirubin,Total 0.6 mg/dL (0.2-1.3); Blood Urea Nitrogen 21 mg/dL (7-17); Calcium 9.4 mg/dL (8.4-10.2); Carbon Dioxide 29 mmol/L (22-30); Chloride 98 mmol/L (98-107); Estimated Glomerular Filt Rate > 60; Glucose 99 mg/dL (65-110); Lipase 68 U/L (23-300); Sodium 135 mmol/L (137-145)
--- NOTE | 2024-03-25 14:21 | ED.GENADULT ---
HPI - General Adult General Chief complaint: GI Bleed Stated complaint: rectal bleeding, lower abd cramping Time Seen by Provider: 03/25/24 12:39 History of Present Illness HPI narrative: patient 68-year-old female presents emergency department with chief complaint of rectal bleeding. The patient reports that she had some abdominal cramping and started having some blood in her diarrhea. Patient states she had some vomiting but no blood in the vomitus. Related Data Home Medications Medication Instructions Recorded Confirmed amlodipine 10 mg tablet 10 mg PO DAILY 03/30/19 01/25/24 lisinopril 10 mg tablet 10 mg PO DAILY 03/30/19 01/25/24 bupropion HCl 150 mg 24 hr tablet, 150 mg PO DAILY 09/17/20 01/25/24 extended release potassium gluconate 500 mg (83 mg) 500 mg PO DAILY 10/13/21 01/25/24 tablet fluticasone propionate 50 1 spray intranasal DAILY 07/25/23 01/25/24 mcg/actuation nasal spray,suspension (Flonase Allergy Relief) hydrochlorothiazide 12.5 mg capsule 12.5 mg PO DAILY 07/25/23 01/25/24 hydroxyzine HCl 25 mg tablet 25 mg PO ONCE PRN Anxiety 07/25/23 01/25/24 levothyroxine 75 mcg tablet 75 mcg PO DAILY 07/25/23 01/25/24 (Unithroid) duloxetine 60 mg capsule,delayed 60 mg PO DAILY 01/25/24 01/25/24 release Allergies Allergy/AdvReac Type Severity Reaction Status Date / Time armodafinil Allergy Unknown Difficulty Verified 03/25/24 11:25 Breathing modafinil Allergy Unknown Difficulty Verified 03/25/24 11:25 Breathing clindamycin AdvReac Mild Nausea Verified 03/25/24 11:25 NUVAGEL Allergy Unknown POST NASAL Uncoded 03/25/24 11:25 DRIP Review of Systems Review of Systems: A 10 system review of systems was completed on the patient and is negative except for what is stated in the HPI. Nursing and ancillary documentation was reviewed. [facility] Past Medical History Medical History Anxiety Back pain Cataract Colon cancer screening Colon polyps Depression Diabetes Diverticulosis Dysphagia Epigastric abdominal tenderness Fibromyalgia GERD (gastroesophageal reflux disease) Hepatitis C HTN (hypertension) Hypothyroidism Kidney stones Liver disease Obesity SHIRLEY (obstructive sleep apnea) Sleep apnea Stomach ulcer Surgical History Surgical History History of back surgery Neurostimulator placement History of bunionectomy lt bunionectomy History of carpal tunnel surgery of right wrist History of cataract surgery History of section History of lithotripsy History of right hip replacement History of total right knee replacement 2018, [place] History of tubal ligation Status post right knee replacement Family History Family History Mother Family history of chronic obstructive pulmonary disease Alcoholism Family history of cancer Hypertension Father Family history of cancer Hypertension Heart problem Alcoholism Sibling Alcoholism Family history of cancer Hypertension Other Family history of arthritis Family history of lung disease Heart disease Social History Social History Smoking status: Former smoker Tobacco type: cigarettes Smoking end date: 05/15/78 Alcohol intake: current Alcohol use details: rarely Substance use: never Substance use type: does not use Do You Feel Safe in your Home?: Yes Lack of Transportation: No Lack of Food: Never True Current Housing: I Have Housing Concerned About Future Housing: No Difficulty Paying Gas/Electric Bills: No Difficulty Paying for Meds: No Currently Unemployed: No Education: Trade/Vocational Certificate Difficulty w/ Childcare or Family Care: No Living arrangements: alone Occupation/Education: occupation Additional occupation/education comments: Semi-retired @ [employer] Gender identity (if verbalized by the patient): Female Spiritual care concerns: No Exam Narrative: GENERAL: Well-appearing, well-nourished, and in no acute distress. HEAD: Normocephalic, atraumatic. EYES: PERRLA and EOMI. ENT: Nares clear, no rhinorrhea or epistaxis. Mucous membranes moist. NECK: Supple. CHEST: Clear to auscultation. No respiratory distress. HEART: Regular rate and rhythm. No murmur heard. Normal peripheral pulses. ABDOMEN: Soft, nontender, nondistended, normal active bowel sounds. : Guaiac-positive stool EXTREMITIES: Normal range of motion. No edema. SKIN: Warm, dry, no rash. NEURO: No focal deficits. Alert and oriented x3. PSYCH: Normal mood and affect. Course Vital Signs Vital signs: Vital Signs Temperature 36.8 C 03/25/24 11:22 Pulse Rate 94 03/25/24 11:22 Respiratory Rate 20 03/25/24 11:22 Blood Pressure 103/82 03/25/24 11:22 Pulse Oximetry 97 03/25/24 11:22 Oxygen Delivery Room Air 03/25/24 11:22 Temperature 36.8 C 03/25/24 11:22 Pulse Rate 78 03/25/24 14:03 Respiratory Rate 19 03/25/24 14:03 Blood Pressure 130/76 03/25/24 14:03 Pulse Oximetry 98 03/25/24 14:03 Oxygen Delivery Room Air 03/25/24 11:22 Medical Decision Making MDM Narrative Medical decision making narrative: differential diagnosis includes intra-abdominal infection, colitis, diverticulitis CT scan scan of the abdomen pelvis was ordered laboratory studies were obtained on the patient which showed CBC with a white count low 0.9 hemoglobin is 14.1 electrolytes are within normal CT scan showed evidence of colitis. The patient was started on ceftriaxone and Flagyl the case was discussed with hospitalist who will take care the patient in the inpatient setting Vital Signs Vital Signs: Vital Signs Temperature 36.8 C 03/25/24 11:22 Pulse Rate 94 03/25/24 11:22 Respiratory Rate 20 03/25/24 11:22 Blood Pressure 103/82 03/25/24 11:22 Pulse Oximetry 97 03/25/24 11:22 Oxygen Delivery Room Air 03/25/24 11:22 Temperature 36.8 C 03/25/24 11:22 Pulse Rate 78 03/25/24 14:03 Respiratory Rate 19 03/25/24 14:03 Blood Pressure 130/76 03/25/24 14:03 Pulse Oximetry 98 03/25/24 14:03 Oxygen Delivery Room Air 03/25/24 11:22 Lab Data 03/25/24 13:41 03/25/24 13:41 Labs: Lab Results 03/25/24 03/25/24 Range/Units 13:41 14:08 WBC 11.9 H (4.5-10.0) K/mm3 RBC 4.68 (4.2-5.4) M/mm3 Hgb 14.1 (12.0-15.0) g/dL Hct 42.0 (37.0-47.0) % MCV 89.7 (80-100) fl MCH 30.1 (26-34) pg MCHC 33.6 (32-36) g/dl RDW 12.9 (11.5-14.5) % Plt Count 268 (150-375) k/mm3 MPV 9.4 (7.4-10.4) fl Immature Gran % (Auto) 0.4 (0-0.5) % Neut % (Auto) 86.1 H (45.5-73.1) % Lymph % (Auto) 7.9 L (18.3-44.2) % [place] % (Auto) 5.2 (2.6-8.5) % Eos % (Auto) 0.2 (0-4.4) % Baso % (Auto) 0.2 (0.2-1.2) % Lymph # (Auto) 0.94 (0.9-3.2) K/mm3 [place] # (Auto) 0.6 (0.1-0.6) K/mm3 Eos # (Auto) 0.0 (0-0.3) K/mm3 Baso # (Auto) 0.0 (0.0-0.1) K/mm3 Abs Immat Gran (auto) 0.05 H (0.00-0.031) K/mm3 Absolute Neuts (auto) 10.3 H (1.3-6.7) K/mm3 Absolute Nucleated RBC 0.000 (0.0-0.012) K/mm3 Nucleated RBC % 0.0 (0.0-0.2) % PT 13.4 (11.1-14.7) Seconds INR 1.0 APTT 24.4 (22.3-36.8) Seconds Sodium 135 L (137-145) mmol/L Potassium 4.0 (3.4-5.0) mmol/L Chloride 98 (98-107) mmol/L Carbon Dioxide 29 (22-30) mmol/L Anion Gap 8 (4-12) mmol/L BUN 21 H (7-17) mg/dL Creatinine 0.90 (0.7-1.0) mg/dL Estim Creat Clear Calc Not Reportable Estimated GFR > 60 (59 - ) Glucose 99 (65-110) mg/dL Lactic Acid 1.2 (0.7-2.0) mmol/L Calcium 9.4 (8.4-10.2) mg/dL Total Bilirubin 0.6 (0.2-1.3) mg/dL AST 28 (14-36) U/L ALT 18 (6-35) U/L Alkaline Phosphatase 82 (38-126) U/L Total Protein 8.0 (6.3-8.2) g/dL Albumin 4.3 (3.5-5.1) g/dL Lipase 68 (23-300) U/L Discharge Plan Discharge Clinical Impression: Colitis, Acute GI bleeding Patient Disposition: Still a Patient Condition: Stable Prescriptions: No Action amlodipine 10 mg tablet 10 mg PO DAILY lisinopril 10 mg tablet 10 mg PO DAILY hydroxyzine HCl 25 mg tablet 25 mg PO ONCE PRN (Reason: Anxiety) levothyroxine [Unithroid] 75 mcg tablet 75 mcg PO DAILY hydrochlorothiazide 12.5 mg capsule 12.5 mg PO DAILY fluticasone propionate [Flonase Allergy Relief] 50 mcg/actuation spray,suspension 1 spray intranasal DAILY Rx Instructions: administer into each nostril lansoprazole 30 mg capsule,delayed release(DR/EC) 30 mg PO DAILY Qty: 30 11RF potassium gluconate 500 mg (83 mg) tablet 500 mg PO DAILY duloxetine 60 mg capsule,delayed release(DR/EC) 60 mg PO DAILY acetaminophen 650 mg tablet extended release 650 mg PO Q8H PRN (Reason: pain) Qty: 90 0RF bupropion HCl 150 mg tablet extended release 24 hr 150 mg PO DAILY albuterol sulfate 90 mcg/actuation HFA aerosol inhaler 1 inh inhalation QID PRN (Reason: shortness of breath or wheezing) Qty: 6.7 0RF cetirizine 10 mg tablet 10 mg PO DAILY PRN (Reason: allergy symptoms) Qty: 90 3RF tramadol 50 mg tablet 50 mg PO BID PRN (Reason: pain) Qty: 30 0RF celecoxib 200 mg capsule 200 mg PO DAILY Qty: 90 0RF zolpidem 10 mg tablet 10 mg PO DAILY Qty: 90 1RF Follow-up/Referrals: Alicia Tony APRN [Primary Care Provider] - Time of Disposition: 15:59
[2024-03-25 14:28] LABS: Lactic Acid Reflex 1.2 mmol/L (0.7-2.0)
[2024-03-25 15:30] VITALS: BP 120/70; PULSE 89; RESP 14; O2SAT 97
--- NOTE | 2024-03-25 15:59 | PC.NURSE ---
No blood cultures needed prior to antibiotic per Dr Quigley
[2024-03-25 16:00] VITALS: BP 121/60; PULSE 83; RESP 13; O2SAT 95
--- NOTE | 2024-03-25 16:24 | PC.NURSE ---
This RN walked into patient's room to start IV antibiotics and patient was walking around the room fully dressed. Patient states she does not want to stay in the hospital. This RN spoke with provider who went to bedside and spoke with the patient. patient changed her mind and decided to stay in the hospital after speaking with provider. patient did not want to get back in the hospital gown upon starting antibiotics.
--- NOTE | 2024-03-25 17:05 | PM.IMHP ---
H&P: HPI History of Present Illness Date/Time: 03/25/24 17:05 Chief Complaint: Abdominal cramping and blood in stool. Narrative: This is a 68-year-old female with hypertension, gastroesophageal reflux disease, obstructive sleep apnea on CPAP, hepatitis-C status post treatment, and hypothyroidism who presented to the emergency department via private vehicle for evaluation of abdominal cramping and blood in stool. The patient provides the following history. Sometime overnight she was awakened with cramping in the lower abdomen and shortly thereafter she began having loose stools admixed with bright red blood and mucus. She has had at least 10 episodes of diarrhea. Additionally she reports nausea and had a couple episodes of vomiting. She denies fever, chills, sweats, chest pain, shortness of breath, hematemesis, and melena. No history of inflammatory bowel disease or malignancy. She denies sick contacts, recent antibiotic use, and recent travel. In the ED: She was afebrile on arrival with stable vital signs. Labs are significant for WBC count of 11.9, hemoglobin 14.1, sodium 135, BUN 21, creatinine 0.90, lactic acid 1.2. CT of the abdomen pelvis showed colitis involving the splenic flexure of the colon and descending colon. She was started on ceftriaxone and metronidazole and is being admitted in this setting for further treatment and observation. Review of Systems Review of Systems: 12 systems were reviewed and are negative except for as per HPI. [facility] Past Medical History Medical History Anxiety Depression Diabetes Diverticulosis Fibromyalgia Gastroesophageal reflux disease Hepatitis C Hypertension Hypothyroidism Kidney stones Obesity Obstructive sleep apnea on CPAP Stomach ulcer Surgical History Surgical History History of back surgery Neurostimulator placement History of bunionectomy left History of carpal tunnel surgery of right wrist History of cataract surgery History of section History of colonoscopy (09/2020) multiple medium diverticula in mid sigmoid History of esophagogastroduodenoscopy (08/2023) gastric polyp History of lithotripsy History of right hip replacement History of total right knee replacement (2018) History of tubal ligation Family History Family History Mother Family history of chronic obstructive pulmonary disease Alcoholism Family history of cancer Hypertension Father Family history of cancer Hypertension Heart problem Alcoholism Sibling Alcoholism Family history of cancer Hypertension Other Family history of arthritis Family history of lung disease Heart disease Social History Social History Social History: Surrogate medical decision maker: Alicia Dawkins, daughter. Code status: Full code. Smoking status: Former smoker Tobacco type: cigarettes Alcohol intake: never Alcohol use details: rare alcohol use in moderation Substance use: never Substance use type: does not use Do You Feel Safe in your Home?: Yes Lack of Transportation: No Lack of Food: Never True Current Housing: I Have Housing Concerned About Future Housing: No Difficulty Paying Gas/Electric Bills: No Difficulty Paying for Meds: No Currently Unemployed: No Education: Trade/Vocational Certificate Difficulty w/ Childcare or Family Care: No Living arrangements: alone Additional living arrangements comments: lives in [place] Occupation/Education: occupation Additional occupation/education comments: 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 @ [employer] Spiritual care concerns: No Meds Home Medications and Allergies Home Medications Medication Instructions Recorded Confirmed Type amlodipine 10 mg tablet 10 mg PO DAILY 03/30/19 03/25/24 History lisinopril 10 mg tablet 10 mg PO DAILY 03/30/19 03/25/24 History bupropion HCl 150 mg 24 hr tablet, 300 mg PO DAILY 09/17/20 03/25/24 History extended release albuterol sulfate 90 mcg/actuation 1 inh inhalation QID PRN shortness 07/25/21 03/25/24 Rx aerosol inhaler of breath or wheezing #6.7 grams fluticasone propionate 50 1 spray intranasal DAILY PRN 07/25/23 03/25/24 History mcg/actuation nasal stuffy nose spray,suspension (Flonase Allergy Relief) hydrochlorothiazide 12.5 mg capsule 25 mg PO DAILY 07/25/23 03/25/24 History hydroxyzine HCl 25 mg tablet 25 mg PO ONCE PRN Anxiety 07/25/23 03/25/24 History levothyroxine 75 mcg tablet 75 mcg PO DAILY 07/25/23 03/25/24 History (Unithroid) acetaminophen 650 mg 650 mg PO Q8H PRN pain #90 tabs 08/23/23 03/25/24 Rx tablet,extended release cetirizine 10 mg tablet 10 mg PO DAILY PRN allergy 09/07/23 03/25/24 Rx symptoms #90 tabs tramadol 50 mg tablet 50 mg PO BID PRN pain #30 tabs 10/23/23 03/25/24 Rx celecoxib 200 mg capsule 200 mg PO DAILY #90 caps 01/03/24 03/25/24 Rx duloxetine 60 mg capsule,delayed 20 mg PO DAILY 01/25/24 03/25/24 History release lansoprazole 30 mg capsule,delayed 30 mg PO DAILY PRN Acid Reflux, 03/25/24 03/25/24 History release belching alot potassium chloride 10 mEq 10 meq PO DAILY 03/25/24 03/25/24 History tablet,extended release zolpidem 10 mg tablet 10 mg PO QHS 03/25/24 03/25/24 History Allergies Allergy/AdvReac Type Severity Reaction Status Date / Time armodafinil Allergy Unknown Difficulty Verified 03/25/24 11:25 Breathing modafinil Allergy Unknown Difficulty Verified 03/25/24 11:25 Breathing clindamycin AdvReac Mild Nausea Verified 03/25/24 11:25 NUVAGEL Allergy Unknown POST NASAL Uncoded 03/25/24 11:25 DRIP Vital Signs Vital Signs - 24 hr 03/25/24 11:22 03/25/24 14:03 03/25/24 15:30 Temperature 98.2 F Pulse Rate 94 78 89 Respiratory Rate 20 19 14 Blood Pressure 103/82 130/76 120/70 Pulse Oximetry 97 98 97 Oxygen Delivery Room Air 03/25/24 16:00 Temperature Pulse Rate 83 Respiratory Rate 13 Blood Pressure 121/60 Pulse Oximetry 95 Oxygen Delivery Exam Narrative: General: Mildly ill-appearing female sitting up in bed. Weight: 60.9 kg. BMI: 31.7. HEENT: PERRL, EOMI. Sclera anicteric. Oral mucosa moist. Neck: Supple. Respiratory: Lungs are clear to auscultation bilaterally. Cardiovascular: Regular rate and rhythm with S1-S2. Gastrointestinal: Abdomen is soft and nondistended with positive bowel sounds. She is but tender to palpation throughout the lower abdomen, more so in the left lower quadrant and suprapubic region. No guarding or rebound tenderness. Skin: Warm and dry. Extremities: No cyanosis, clubbing, or edema. Radial and pedal pulses intact. Neurological: Alert. Cranial nerves 2-12 are grossly intact. No gross focal deficits to casual conversation. Psychiatric: Cooperative with appropriate mood and flat affect. H&P: Results Labs Labs: Short CBC 03/25/24 Range/Units 13:41 WBC 11.9 H (4.5-10.0) K/mm3 Hgb 14.1 (12.0-15.0) g/dL Hct 42.0 (37.0-47.0) % Plt Count 268 (150-375) k/mm3 BMP 03/25/24 13:41 Sodium 135 L Potassium 4.0 Chloride 98 Carbon Dioxide 29 BUN 21 H Creatinine 0.90 Glucose 99 Calcium 9.4 Liver Function 03/25/24 Range/Units 13:41 Total Bilirubin 0.6 (0.2-1.3) mg/dL AST 28 (14-36) U/L ALT 18 (6-35) U/L Alkaline Phosphatase 82 (38-126) U/L Albumin 4.3 (3.5-5.1) g/dL Imaging Abdomen/Pelvis CT 03/25/24 14:58 IMPRESSION: 1. Colitis involving splenic flexure of the colon and descending colon. Assessment and Plan Assessment and plan (1) Colitis: Code(s): K52.9 - Noninfective gastroenteritis and colitis, unspecified Status: Acute (2) Rectal bleeding: Code(s): K62.5 - Hemorrhage of anus and rectum Status: Acute (3) Gastroesophageal reflux disease: Code(s): K21.9 - Gastro-esophageal reflux disease without esophagitis Status: Acute (4) Hypertension: Code(s): I10 - Essential (primary) hypertension Status: Acute (5) Hypothyroidism: Code(s): E03.9 - Hypothyroidism, unspecified Status: Acute (6) Obstructive sleep apnea on CPAP: Code(s): G47.33 - Obstructive sleep apnea (adult) (pediatric) Status: Acute Plan The patient presented to the emergency department for evaluation of abdominal cramping and blood in stools as detailed in HPI. Labs, imaging, EKG, and all reports were personally reviewed. CT scan showed colitis involving the splenic flexure of the colon and descending colon. She has been started on ceftriaxone and metronidazole for possible infectious colitis pending stool studies. The rectal bleeding is likely related to the colitis and will be monitored closely. Colonoscopy several years ago showed medium-sized diverticula and if her bleeding worsens, a GI consult would be prudent. Continue PPI. TSH about 6 months ago was within normal limits. Blood pressures were reviewed and they are stable. CPAP will be provided for the patient to use while hospitalized. Her home medications will be reviewed and resumed as appropriate. Findings and treatment plan were discussed with the patient. Questions were solicited and answered to satisfaction. The patient's medical management will be taken over by the hospitalist team in a.m. Findings and treatment plan were discussed with the patient. Questions were solicited and answered to satisfaction. The patient's medical management will be taken over by the hospitalist team in a.m. Quality VTE Prophylaxis VTE prophylaxis: mechanical ordered If No VTE Prophylaxis Answer both mechanical and pharmacologic: Reason no mechanical VTE proph: medical contraindication (rectal bleeding) The patient has been admitted under observation status. Hospitalist MIPS Advance Care Plan I have confirmed that the patient's Advanced Care Plan is present, code status is documented, or surrogate decision maker is listed in patient medical record.: Yes Medication Reconciliation I have utilized all available resources to obtain, update and review the patients current medications (includes all prescriptions, OTC, herbals, cannabis, and nutritional supplements).: Yes
[2024-03-25 17:26] LABS: Hematocrit 44.7 % (37.0-47.0); Hemoglobin 15.2 g/dL (12.0-15.0)
[2024-03-25 17:29] VITALS: BMI 31.7
--- NOTE | 2024-03-25 17:36 | PC.NURSE ---
This patient, Nani Dawkins, was admitted to [facility] Room 319-01. Patient/family oriented to hospital policies and general routines including ID bracelet, bed and alarms, visiting hours, pain management, procedures, bathroom and other care routines, personal items, smoking policy, room service/diet, and visiting hours. Information on how to activate the Rapid Response Team has been discussed. Patient/Family are encouraged to report perceived risks to care and to ask questions if they do not understand what they are told or what they should do.
[2024-03-25] MEDS: metroNIDAZOLE 500 MG/ISO 100ML 500 MG/100 ML BAG 100 MG IVPB ×2 (18:18→22:35)
[2024-03-25] MEDS: SODIUM CHLORIDE 0.9% IV 1,000 ML 100 ML IV CONT (18:19)
[2024-03-25] MEDS: lisinopriL 10 MG TABLET PO (21:07)
[2024-03-25] MEDS: buPROPion HCL XL (24 HR) 150 MG TABCR 300 MG PO (21:07)
[2024-03-25] MEDS: ACETAMINOPHEN 325 MG TABLET 650 MG PO (21:07)
[2024-03-25] MEDS: ZOLPIDEM TARTRATE (*CRX) 5 MG TABLET 10 MG PO (21:07)
[2024-03-25 21:10] VITALS: BP 129/80
[2024-03-25 21:32] VITALS: BP 125/70; PULSE 80; RESP 14; TEMP 36.2; O2SAT 97
[2024-03-25 23:13] LABS: Hematocrit 42.7 % (37.0-47.0); Hemoglobin 14.2 g/dL (12.0-15.0)
[2024-03-26] MEDS: metroNIDAZOLE 500 MG/ISO 100ML 500 MG/100 ML BAG 100 MG IVPB ×3 (05:12→21:07)
[2024-03-26] MEDS: LEVOTHYROXINE SODIUM 75 MCG TABLET PO (05:13)
[2024-03-26 05:27] VITALS: BP 118/59; PULSE 70; RESP 13; TEMP 36.3; O2SAT 97
[2024-03-26 07:18] LABS: Anion Gap 8 mmol/L (4-12); Blood Urea Nitrogen 12 mg/dL (7-17); Calcium 8.9 mg/dL (8.4-10.2); Carbon Dioxide 29 mmol/L (22-30); Chloride 102 mmol/L (98-107); Estimated Glomerular Filt Rate > 60; Glucose 102 mg/dL (65-110); Magnesium 1.9 mg/dL (1.6-2.3); Potassium 3.2 mmol/L (3.4-5.0); Sodium 139 mmol/L (137-145)
[2024-03-26 07:20] LABS: Hematocrit 42.1 % (37.0-47.0); Hemoglobin 13.8 g/dL (12.0-15.0); Mean Corpuscular HGB Conc 32.8 g/dl (32-36); Mean Corpuscular Hemoglobin 29.7 pg (26-34); Mean Corpuscular Volume 90.7 fl (80-100); Mean Platelet Volume 9.8 fl (7.4-10.4); Platelet Count Result 257 k/mm3 (150-375); Red Blood Count 4.64 M/mm3 (4.2-5.4); White Blood Count 8.9 K/mm3 (4.5-10.0)
[2024-03-26 08:02] VITALS: O2SAT 97
[2024-03-26] MEDS: POTASSIUM CHLORIDE 20 MEQ PACKET (FOR LIQUID) 40 MEQ PO (08:29)
[2024-03-26] MEDS: amLODIPine BESYLATE 10 MG TABLET PO (08:29)
[2024-03-26] MEDS: DULoxetine HCL 20 MG CAPSULE.DR PO (08:29)
[2024-03-26] MEDS: hydroCHLOROthiazide 25 MG TABLET PO (08:29)
[2024-03-26] MEDS: PANTOPRAZOLE SODIUM IV 40 MG VIAL IV PUSH (08:30)
[2024-03-26] MEDS: POTASSIUM CHLORIDE 10 MEQ ER TABLET PO (08:33)
[2024-03-26] MEDS: ACETAMINOPHEN 325 MG TABLET 650 MG PO ×2 (08:37→21:08)
--- NOTE | 2024-03-26 11:03 | P.PNIM_ITS ---
Progress Note: A&P Assessment and Plan (1) Colitis: Code(s): K52.9 - Noninfective gastroenteritis and colitis, unspecified Status: Acute Assessment and Plan: Patient presents with abdominal pain and rectal bleeding. CT scan showed colitis involving the splenic flexure of the colon and descending colon. She was started on ceftriaxone and metronidazole for possible infectious colitis pending stool studies. Still having rectal bleeding but could be old blood. HH stable. Abd exam benign. WBC normal now. Follow with current abx. Advance to Full liquid diet (2) Rectal bleeding: Code(s): K62.5 - Hemorrhage of anus and rectum Status: Acute Assessment and Plan: As above (3) Gastroesophageal reflux disease: Code(s): K21.9 - Gastro-esophageal reflux disease without esophagitis Status: Acute Assessment and Plan: Stable. Continue PPI (4) Hypertension: Code(s): I10 - Essential (primary) hypertension Status: Acute Assessment and Plan: Patient's blood pressure was reviewed on 03/26 Blood pressure remains well controlled. Will continue to monitor (5) Hypothyroidism: Code(s): E03.9 - Hypothyroidism, unspecified Status: Acute Assessment and Plan: TSH normal in August. Continue levothyroxine (6) Obstructive sleep apnea on CPAP: Code(s): G47.33 - Obstructive sleep apnea (adult) (pediatric) Status: Acute Assessment and Plan: Noncompliant with mask last night. Compliance was encouraged. Plan DVT prophylaxis - SCDs Code status - full Subjective Date/time seen: 03/26/24 11:03 Interval history: 68yo female with HTN, GERD, SHIRLEY on CPAP, HepC s/p tx and hypothyroidism who presented to the ED via private vehicle for evaluation of abdominal cramping and blood in stool. Patient did not sleep well last night due to disruptions by staff. She did not wear her mask last night for unclear reasons. No bowel movements but she is passing bloody mucus in her stool. No nausea or vomiting. No chest pain, shortness of breath or cough. She is still having cramping abdominal pain without change. No vaginal bleeding. No dysuria or hematuria. No recent an tibiotics. Colonoscopy was 2020 showing multiple medium diverticula mid sigmoid. Not on anticoagulation. Exam Narrative: AF 97.4 118/59 70 13 97% ra Gen - NARD Chest - CTA bilaterally, nml RR CV - RRR S1/S2 Abd - Soft, ND, Positive BS. No apparent tenderness with exam but complains of left lower quadrant abdominal pain. No rebound Ext - No pedal edema Psych - Nml mood but flat affect Skin - Warm and dry Objective Data Vital Signs Vital Signs: Vital Signs - 24 hr 03/25/24 11:22 03/25/24 14:03 03/25/24 15:30 Temperature 98.2 F Pulse Rate 94 78 89 Respiratory Rate 20 19 14 Blood Pressure 103/82 130/76 120/70 Pulse Oximetry 97 98 97 Oxygen Delivery Room Air Fraction of Inspired Oxygen 03/25/24 16:00 03/25/24 17:29 03/25/24 21:10 Temperature Pulse Rate 83 Respiratory Rate 13 Blood Pressure 121/60 129/80 Pulse Oximetry 95 Oxygen Delivery Room Air Fraction of Inspired Oxygen 03/25/24 21:32 03/26/24 05:27 03/26/24 08:02 Temperature 97.1 F L 97.4 F L Pulse Rate 80 70 Respiratory Rate 14 13 Blood Pressure 125/70 118/59 L Pulse Oximetry 97 97 97 Oxygen Delivery Room Air Fraction of Inspired Oxygen 03/26/24 08:00 Temperature Pulse Rate Respiratory Rate Blood Pressure Pulse Oximetry Oxygen Delivery Room Air Fraction of Inspired Oxygen Intake/Output Intake/Output: Intake & Output 03/23/24 03/24/24 03/25/24 03/26/24 23:59 23:59 23:59 23:59 Intake Total 100 740 Balance 100 740 Meds/Results Medications: Active Medications Generic Name Dose Route Start Last Admin Trade Name Freq PRN Reason Stop Dose Admin Acetaminophen 650 mg 03/25/24 15:59 03/26/24 08:37 Acetaminophen 325 Mg Tablet PO 650 mg Q4H PRN Administration Mild Pain (1-3) or Fever Albuterol 1 puff 03/25/24 20:06 Albuterol Sulfate (*Sp) Aerosol 1 Puff INHALATION QIDRT PRN shortness of breath or wheezing Amlodipine Besylate 10 mg 03/26/24 09:00 03/26/24 08:29 Amlodipine Besylate 10 Mg Tablet PO 10 mg DAILY AALIYAH Administration Bupropion HCl 300 mg 03/25/24 21:00 03/25/24 21:07 Bupropion Hcl Xl (24 Hr) 150 Mg Tabcr PO 300 mg QHS AALIYAH Administration Duloxetine HCl 20 mg 03/26/24 09:00 03/26/24 08:29 Duloxetine Hcl 20 Mg Capsule.Dr PO 20 mg DAILY AALIYAH Administration Fluticasone Propionate 1 spray 03/25/24 20:06 Fluticasone Propionate 0.05% Na Spr 16 Gm Btl (*Bkc) NASAL DAILY PRN stuffy nose Hydrochlorothiazide 25 mg 03/26/24 09:00 03/26/24 08:29 Hydrochlorothiazide 25 Mg Tablet PO 25 mg QAM AALIYAH Administration Hydroxyzine HCl 25 mg 03/25/24 20:06 Hydroxyzine Hcl 25 Mg Tablet PO ONCE PRN Anxiety Ceftriaxone Sodium 1 gm in 50 mls @ 100 mls/hr 03/26/24 12:00 Rocephin 1 Gm/Ns 50 Ml IVPB Q24H AALIYAH Metronidazole 500 mg in 100 mls @ 100 mls/hr 03/25/24 23:00 03/26/24 06:12 Flagyl 500 Mg/Iso Soln 100 Ml IVPB Infused Q8HR [facility] Infusion Levothyroxine Sodium 75 mcg 03/26/24 06:30 03/26/24 05:13 Levothyroxine Sodium 75 Mcg Tablet PO 75 mcg DAILY@0630 AALIYAH Administration Lisinopril 10 mg 03/25/24 21:00 03/25/24 21:07 Lisinopril 10 Mg Tablet PO 10 mg QHS [facility] Administration Loratadine 10 mg 03/25/24 20:40 Loratadine 10 Mg Tablet PO QAM PRN allergy symptoms Ondansetron HCl 4 mg 03/25/24 15:59 Ondansetron Inj 4 Mg/2 Ml Vial IV PUSH Q4H PRN Nausea Pantoprazole Sodium 40 mg 03/26/24 09:00 03/26/24 08:30 Pantoprazole Sodium Iv 40 Mg Vial IV PUSH 40 mg QAM AALIYAH Administration Potassium Chloride 10 meq 03/26/24 09:00 03/26/24 08:33 Potassium Chloride 10 Meq Er Tablet PO 10 meq DAILY AALIYAH Administration Tramadol HCl 50 mg 03/25/24 20:06 Tramadol Hcl (*Crx) 50 Mg Tablet PO BID PRN pain 4-6 Zolpidem Tartrate 10 mg 03/25/24 21:00 03/25/24 21:07 Zolpidem Tartrate (*Crx) 5 Mg Tablet PO 10 mg QHS AALIYAH Administration Radiology Results: ITS Impressions Abdomen/Pelvis CT 03/25/24 14:58 IMPRESSION: 1. Colitis involving splenic flexure of the colon and descending colon. Labs Labs: Laboratory Results - last 24 hr 03/25/24 03/25/24 03/25/24 13:41 14:08 17:22 WBC 11.9 H RBC 4.68 Hgb 14.1 15.2 H Hct 42.0 44.7 MCV 89.7 MCH 30.1 MCHC 33.6 RDW 12.9 Plt Count 268 MPV 9.4 Immature Gran % (Auto) 0.4 Neut % (Auto) 86.1 H Lymph % (Auto) 7.9 L Carbon % (Auto) 5.2 Eos % (Auto) 0.2 Baso % (Auto) 0.2 Lymph # (Auto) 0.94 Carbon # (Auto) 0.6 Eos # (Auto) 0.0 Baso # (Auto) 0.0 Abs Immat Gran (auto) 0.05 H Absolute Neuts (auto) 10.3 H Absolute Nucleated RBC 0.000 Nucleated RBC % 0.0 PT 13.4 INR 1.0 APTT 24.4 Sodium 135 L Potassium 4.0 Chloride 98 Carbon Dioxide 29 Anion Gap 8 BUN 21 H Creatinine 0.90 Estim Creat Clear Calc Not Reportable Estimated GFR > 60 Glucose 99 Lactic Acid 1.2 Calcium 9.4 Magnesium Total Bilirubin 0.6 AST 28 ALT 18 Alkaline Phosphatase 82 Total Protein 8.0 Albumin 4.3 Lipase 68 03/25/24 03/26/24 23:06 06:49 WBC 8.9 RBC 4.64 Hgb 14.2 13.8 Hct 42.7 42.1 MCV 90.7 MCH 29.7 MCHC 32.8 RDW 13.0 Plt Count 257 MPV 9.8 Immature Gran % (Auto) Neut % (Auto) Lymph % (Auto) Carbon % (Auto) Eos % (Auto) Baso % (Auto) Lymph # (Auto) Carbon # (Auto) Eos # (Auto) Baso # (Auto) Abs Immat Gran (auto) Absolute Neuts (auto) Absolute Nucleated RBC Nucleated RBC % PT INR APTT Sodium 139 Potassium 3.2 L Chloride 102 Carbon Dioxide 29 Anion Gap 8 BUN 12 D Creatinine 0.80 Estim Creat Clear Calc Not Reportable Estimated GFR > 60 Glucose 102 Lactic Acid Calcium 8.9 Magnesium 1.9 Total Bilirubin AST ALT Alkaline Phosphatase Total Protein Albumin Lipase
[2024-03-26 11:08] LABS: Hemoglobin 14.6 g/dL (12.0-15.0)
[2024-03-26 14:00] VITALS: BP 127/72; PULSE 82; RESP 16; TEMP 36.9; O2SAT 95
[2024-03-26] MEDS: buPROPion HCL XL (24 HR) 150 MG TABCR 300 MG PO (21:08)
[2024-03-26] MEDS: ZOLPIDEM TARTRATE (*CRX) 5 MG TABLET 10 MG PO (21:08)
[2024-03-26] MEDS: lisinopriL 10 MG TABLET PO (21:08)
[2024-03-26 21:26] VITALS: BP 110/71; PULSE 71; RESP 10; TEMP 36.6; O2SAT 97
[2024-03-27] MEDS: ACETAMINOPHEN 325 MG TABLET 650 MG PO ×2 (05:10→22:12)
[2024-03-27] MEDS: LEVOTHYROXINE SODIUM 75 MCG TABLET PO (05:10)
[2024-03-27] MEDS: metroNIDAZOLE 500 MG/ISO 100ML 500 MG/100 ML BAG 100 MG IVPB ×2 (05:12→14:18)
[2024-03-27 06:00] VITALS: BP 109/64; PULSE 74; RESP 14; TEMP 36.4; O2SAT 96
[2024-03-27 06:28] LABS: Hematocrit 39.8 % (37.0-47.0); Mean Corpuscular HGB Conc 32.7 g/dl (32-36); Mean Corpuscular Hemoglobin 29.7 pg (26-34); Mean Corpuscular Volume 90.9 fl (80-100); Mean Platelet Volume 9.4 fl (7.4-10.4); Platelet Count Result 225 k/mm3 (150-375); Red Blood Count 4.38 M/mm3 (4.2-5.4); Red Cell Distribution Width 12.8 % (11.5-14.5); White Blood Count 6.5 K/mm3 (4.5-10.0)
[2024-03-27 06:37] LABS: Anion Gap 5 mmol/L (4-12); Blood Urea Nitrogen 10 mg/dL (7-17); Calcium 8.8 mg/dL (8.4-10.2); Carbon Dioxide 29 mmol/L (22-30); Chloride 102 mmol/L (98-107); Estimated Glomerular Filt Rate > 60; Glucose 97 mg/dL (65-110); Magnesium 1.9 mg/dL (1.6-2.3); Potassium 3.2 mmol/L (3.4-5.0); Sodium 136 mmol/L (137-145)
[2024-03-27] MEDS: POTASSIUM CHLORIDE 10 MEQ ER TABLET PO (08:36)
[2024-03-27] MEDS: hydroCHLOROthiazide 25 MG TABLET PO (08:36)
[2024-03-27] MEDS: amLODIPine BESYLATE 10 MG TABLET PO (08:36)
[2024-03-27] MEDS: DULoxetine HCL 20 MG CAPSULE.DR PO (08:36)
[2024-03-27] MEDS: PANTOPRAZOLE SODIUM IV 40 MG VIAL IV PUSH (08:36)
--- NOTE | 2024-03-27 08:53 | P.PNIM_ITS ---
Progress Note: A&P Assessment and Plan (1) Colitis: Code(s): K52.9 - Noninfective gastroenteritis and colitis, unspecified Status: Acute (2) Rectal bleeding: Code(s): K62.5 - Hemorrhage of anus and rectum Status: Acute (3) Gastroesophageal reflux disease: Code(s): K21.9 - Gastro-esophageal reflux disease without esophagitis Status: Acute (4) Hypothyroidism: Code(s): E03.9 - Hypothyroidism, unspecified Status: Acute (5) Obstructive sleep apnea: Code(s): G47.33 - Obstructive sleep apnea (adult) (pediatric) Status: Acute (6) Hypertension: Code(s): I10 - Essential (primary) hypertension Status: Acute (7) Acute GI bleeding: Code(s): K92.2 - Gastrointestinal hemorrhage, unspecified Status: Acute Plan Acute infective gastroenteritis and colitis, Status: Acute Assessment and Plan: Patient presents with abdominal pain and rectal bleeding. CT scan showed colitis involving the splenic flexure of the colon and descending colon. did not show mesentery artery obstruction. She was started on ceftriaxone and metronidazole for possible infectious colitis pending stool studies. Still having rectal bleeding but could be old blood. HH stable. Abd exam benign. WBC normal now. Follow with current abx. Advance to Full liquid diet Acute GI bleeding On no source of bleeding Consult GI for evaluation treatment Gastroesophageal reflux disease: Code(s): K21.9 - Gastro-esophageal reflux disease without esophagitis Status: Acute Assessment and Plan: Stable. Continue PPI Hypertension: Code(s): I10 - Essential (primary) hypertension Status: Acute Assessment and Plan: Patient's blood pressure was reviewed on 03/26 Blood pressure remains well controlled. Will continue to monitor Hypothyroidism: Code(s): E03.9 - Hypothyroidism, unspecified Status: Acute Assessment and Plan: TSH normal in August. Continue levothyroxine (6) Obstructive sleep apnea on CPAP: Code(s): G47.33 - Obstructive sleep apnea (adult) (pediatric) Status: Acute Assessment and Plan: Noncompliant with mask last night. Compliance was encouraged. Hypokalemia 3.2, Replete with potassium chloride 40 mEq p.o. once Plan DVT prophylaxis - SCDs Code status - full Subjective Date/time seen: 03/27/24 08:53 Interval history: I saw exam patient today, patient still has bloody bowel movement. Denies abdomen pain, nausea vomiting Exam Narrative: GENERAL: Pleasant, in no acute distress. Well-nourished. - EYES: EOMI. Anicteric. - HENT: Moist mucous membranes. - LUNGS: Clear to auscultation bilateral ly, no wheezing, rhonchi, or rales. - CARDIOVASCULAR: Regular rate and rhyth m. No murmur. No JVD. - ABDOMEN: Soft, non-tender and non-dist ended. No palpable masses. - EXTREMITIES: No edema. Peripheral puls es 2+. Non-tender. - NEUROLOGIC: No focal neurological defi cits. CN II-XII grossly intact. - PSYCHIATRIC: Awake, Alert and oriented x 3. Appropriate mood and affect. - SKIN: No rashes or lesions. Warm. - LYMPH: No cervical lymphadenopathy. Objective Data Vital Signs Vital Signs: Vital Signs - 24 hr 03/26/24 14:00 03/26/24 20:00 03/26/24 21:26 Temperature 98.4 F 97.9 F Pulse Rate 82 71 Respiratory Rate 16 10 L Blood Pressure 127/72 110/71 Pulse Oximetry 95 97 Oxygen Delivery Room Air 03/27/24 06:00 Temperature 97.5 F L Pulse Rate 74 Respiratory Rate 14 Blood Pressure 109/64 Pulse Oximetry 96 Oxygen Delivery Intake/Output Intake/Output: Intake & Output 03/24/24 03/25/24 03/26/24 03/27/24 23:59 23:59 23:59 23:59 Intake Total 100 1750 980 Balance 100 1750 980 Meds/Results Medications: Active Medications Generic Name Dose Route Start Last Admin Trade Name Freq PRN Reason Stop Dose Admin Acetaminophen 650 mg 03/25/24 15:59 03/27/24 05:10 Acetaminophen 325 Mg Tablet PO 650 mg Q4H PRN Administration Mild Pain (1-3) or Fever Albuterol 1 puff 03/25/24 20:06 Albuterol Sulfate (*Sp) Aerosol 1 Puff INHALATION QIDRT PRN shortness of breath or wheezing Amlodipine Besylate 10 mg 03/26/24 09:00 03/27/24 08:36 Amlodipine Besylate 10 Mg Tablet PO 10 mg DAILY AALIYAH Administration Bupropion HCl 300 mg 03/25/24 21:00 03/26/24 21:08 Bupropion Hcl Xl (24 Hr) 150 Mg Tabcr PO 300 mg QHS AALIYAH Administration Duloxetine HCl 20 mg 03/26/24 09:00 03/27/24 08:36 Duloxetine Hcl 20 Mg Capsule.Dr PO 20 mg DAILY AALIYAH Administration Fluticasone Propionate 1 spray 03/25/24 20:06 Fluticasone Propionate 0.05% Na Spr 16 Gm Btl (*Bkc) NASAL DAILY PRN stuffy nose Hydrochlorothiazide 25 mg 03/26/24 09:00 03/27/24 08:36 Hydrochlorothiazide 25 Mg Tablet PO 25 mg QAM AALIYAH Administration Hydroxyzine HCl 25 mg 03/25/24 20:06 Hydroxyzine Hcl 25 Mg Tablet PO ONCE PRN Anxiety Ceftriaxone Sodium 1 gm in 50 mls @ 100 mls/hr 03/26/24 12:00 03/26/24 12:51 Rocephin 1 Gm/Ns 50 Ml IVPB Infused Q24H AALIYAH Infusion Metronidazole 500 mg in 100 mls @ 100 mls/hr 03/25/24 23:00 03/27/24 06:12 Flagyl 500 Mg/Iso Soln 100 Ml IVPB Infused Q8HR AALIYAH Infusion Levothyroxine Sodium 75 mcg 03/26/24 06:30 03/27/24 05:10 Levothyroxine Sodium 75 Mcg Tablet PO 75 mcg DAILY@0630 AALIYAH Administration Lisinopril 10 mg 03/25/24 21:00 03/26/24 21:08 Lisinopril 10 Mg Tablet PO 10 mg QHS AALIYAH Administration Loratadine 10 mg 03/25/24 20:40 Loratadine 10 Mg Tablet PO QAM PRN allergy symptoms Ondansetron HCl 4 mg 03/25/24 15:59 Ondansetron Inj 4 Mg/2 Ml Vial IV PUSH Q4H PRN Nausea Pantoprazole Sodium 40 mg 03/26/24 09:00 03/27/24 08:36 Pantoprazole Sodium Iv 40 Mg Vial IV PUSH 40 mg QAM AALIYAH Administration Potassium Chloride 10 meq 03/26/24 09:00 03/27/24 08:36 Potassium Chloride 10 Meq Er Tablet PO 10 meq DAILY AALIYAH Administration Tramadol HCl 50 mg 03/25/24 20:06 Tramadol Hcl (*Crx) 50 Mg Tablet PO BID PRN pain 4-6 Zolpidem Tartrate 10 mg 03/25/24 21:00 03/26/24 21:08 Zolpidem Tartrate (*Crx) 5 Mg Tablet PO 10 mg QHS AALIYAH Administration Radiology Results: ITS Impressions Abdomen/Pelvis CT 03/25/24 14:58 IMPRESSION: 1. Colitis involving splenic flexure of the colon and descending colon. Labs Labs: Laboratory Results - last 24 hr 03/26/24 03/27/24 11:00 06:11 WBC 6.5 RBC 4.38 Hgb 14.6 13.0 Hct 44.0 39.8 MCV 90.9 MCH 29.7 MCHC 32.7 RDW 12.8 Plt Count 225 MPV 9.4 Sodium 136 L Potassium 3.2 L Chloride 102 Carbon Dioxide 29 Anion Gap 5 BUN 10 Creatinine 0.80 Estim Creat Clear Calc Not Reportable Estimated GFR > 60 Glucose 97 Calcium 8.8 Magnesium 1.9
[2024-03-27] MEDS: POTASSIUM CHLORIDE 20 MEQ PACKET (FOR LIQUID) 40 MEQ PO (11:53)
[2024-03-27 14:00] VITALS: BP 117/72; PULSE 76; RESP 18; TEMP 36.5; O2SAT 95
--- NOTE | 2024-03-27 17:49 | P.CONGI_ITS ---
Assessment and Plan Assessment and plan (1) Colitis: Code(s): K52.9 - Noninfective gastroenteritis and colitis, unspecified Status: Acute Assessment and Plan: ? infectious, less likely ischemic (normal lactic and already feeling better) on abx, pending stool sample less rectal bleeding, h/h stable, no need of colonoscopy now ok to advance diet (2) Rectal bleeding: Code(s): K62.5 - Hemorrhage of anus and rectum Status: Acute (3) Lower abdominal pain: Code(s): R10.30 - Lower abdominal pain, unspecified Status: Acute (4) Hypokalemia: Code(s): E87.6 - Hypokalemia Status: Acute Assessment and Plan: replace (5) Nausea and vomiting in adult: Code(s): R11.2 - Nausea with vomiting, unspecified Status: Acute GI Consult Note Consult date/time: 03/27/24 17:49 Reason for consult: colitis, rectal bleeding HPI: Nani Dawkins is a 68 year old female with hypertension, gastroesophageal reflux disease, obstructive sleep apnea on CPAP, hepatitis-C status post treatment came to ER after new onset of severe abdominal cramping and blood in stool. She woke up with cramping in the lower abdomen and shortly thereafter had loose stools admixed with bright red blood and mucus, more than 10 times. Also had nausea and emesis x2. She denies fever, chills. She denies sick contacts, recent antibiotic use, and recent travel. Last colonoscopy 2020 with diverticulosis, egd 08/2023 with mild gastritis, no h pylori, no celiac. ER labs showed WBC count of 11.9, hemoglobin 14.1, sodium 135, BUN 21, creatinine 0.90, lactic acid 1.2. CT of the abdomen pelvis showed colitis involving the splenic flexure of the colon and descending colon. She is already feeling better and asking if could go home tomorrow. Review of Systems Constitutional: Constitutional: Denies headache(s) and Denies weakness Eyes: Eyes: Denies blurry vision ENT: Reports Normal hearing present, Denies headache(s) and Denies neck pain Cardiovascular: Cardiovascular: Denies chest pain and Denies dyspnea Respiratory: Respiratory: Denies dyspnea Gastrointestinal: Gastrointestinal: Reports no additional gastrointestinal complaints Genitourinary: Genitourinary: Denies dysuria Musculoskeletal: Musculoskeletal: Denies neck pain Integumentary/Breasts: Skin/Breast: Denies dry skin Neurologic: Reports Normal hearing present, Denies headache(s) and Denies weakness Psychiatric: Psychiatric: Denies anxiety Endocrine: Endocrine: Denies change in body appearance Hematologic/Lymphatic: Hematologic/Lymphatic: Denies easy bleeding Allergic/Immunologic: Allergic/Immunologic: Denies urticaria PMFSH Past Medical History Medical History (Updated 03/27/24 @ 17:53 by Shashank Kelly MD) Anxiety Depression Diabetes Diverticulosis Fibromyalgia Gastroesophageal reflux disease Hepatitis C Hypertension Hypokalemia Hypothyroidism Kidney stones Lower abdominal pain Nausea and vomiting in adult Obesity Obstructive sleep apnea on CPAP Stomach ulcer Surgical History Surgical History History of back surgery Neurostimulator placement History of bunionectomy left History of carpal tunnel surgery of right wrist History of cataract surgery History of section History of colonoscopy (09/2020) multiple medium diverticula in mid sigmoid History of esophagogastroduodenoscopy (08/2023) gastric polyp History of lithotripsy History of right hip replacement History of total right knee replacement (2018) History of tubal ligation Family History Family History Mother Family history of chronic obstructive pulmonary disease Alcoholism Family history of cancer Hypertension Father Family history of cancer Hypertension Heart problem Alcoholism Sibling Alcoholism Family history of cancer Hypertension Other Family history of arthritis Family history of lung disease Heart disease Social History Social History Social History: Surrogate medical decision maker: Alicia Dawkins, daughter. Code status: Full code. Smoking status: Former smoker Tobacco type: cigarettes Alcohol intake: never Alcohol use details: rare alcohol use in moderation Substance use: never Substance use type: does not use Do You Feel Safe in your Home?: Yes Lack of Transportation: No Lack of Food: Never True Current Housing: I Have Housing Concerned About Future Housing: No Difficulty Paying Gas/Electric Bills: No Difficulty Paying for Meds: No Currently Unemployed: No Education: Trade/Vocational Certificate Difficulty w/ Childcare or Family Care: No Living arrangements: alone Additional living arrangements comments: lives in [place] Occupation/Education: occupation Additional occupation/education comments: 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 @ [employer] Spiritual care concerns: No Meds Home Medications and Allergies Home Medications Medication Instructions Recorded Confirmed Type amlodipine 10 mg tablet 10 mg PO DAILY 03/30/19 03/25/24 History lisinopril 10 mg tablet 10 mg PO DAILY 03/30/19 03/25/24 History bupropion HCl 150 mg 24 hr tablet, 300 mg PO DAILY 09/17/20 03/25/24 History extended release albuterol sulfate 90 mcg/actuation 1 inh inhalation QID PRN shortness 07/25/21 03/25/24 Rx aerosol inhaler of breath or wheezing #6.7 grams fluticasone propionate 50 1 spray intranasal DAILY PRN 07/25/23 03/25/24 History mcg/actuation nasal stuffy nose spray,suspension (Flonase Allergy Relief) hydrochlorothiazide 12.5 mg capsule 25 mg PO DAILY 07/25/23 03/25/24 History hydroxyzine HCl 25 mg tablet 25 mg PO ONCE PRN Anxiety 07/25/23 03/25/24 History levothyroxine 75 mcg tablet 75 mcg PO DAILY 07/25/23 03/25/24 History (Unithroid) acetaminophen 650 mg 650 mg PO Q8H PRN pain #90 tabs 08/23/23 03/25/24 Rx tablet,extended release cetirizine 10 mg tablet 10 mg PO DAILY PRN allergy 09/07/23 03/25/24 Rx symptoms #90 tabs tramadol 50 mg tablet 50 mg PO BID PRN pain #30 tabs 10/23/23 03/25/24 Rx celecoxib 200 mg capsule 200 mg PO DAILY #90 caps 01/03/24 03/25/24 Rx duloxetine 60 mg capsule,delayed 20 mg PO DAILY 01/25/24 03/25/24 History release lansoprazole 30 mg capsule,delayed 30 mg PO DAILY PRN Acid Reflux, 03/25/24 03/25/24 History release belching alot potassium chloride 10 mEq 10 meq PO DAILY 03/25/24 03/25/24 History tablet,extended release zolpidem 10 mg tablet 10 mg PO QHS 03/25/24 03/25/24 History Allergies Allergy/AdvReac Type Severity Reaction Status Date / Time armodafinil Allergy Unknown Difficulty Verified 03/25/24 11:25 Breathing modafinil Allergy Unknown Difficulty Verified 03/25/24 11:25 Breathing clindamycin AdvReac Mild Nausea Verified 03/25/24 11:25 NUVAGEL Allergy Unknown POST NASAL Uncoded 03/25/24 11:25 DRIP Vital Signs Vital Signs - 24 hr 03/26/24 20:00 03/26/24 21:26 03/27/24 06:00 Temperature 97.9 F 97.5 F L Pulse Rate 71 74 Respiratory Rate 10 L 14 Blood Pressure 110/71 109/64 Pulse Oximetry 97 96 Oxygen Delivery Room Air 03/27/24 08:00 03/27/24 14:00 Temperature 97.7 F Pulse Rate 76 Respiratory Rate 18 Blood Pressure 117/72 Pulse Oximetry 95 Oxygen Delivery Room Air Exam Const: General: comfortable and no acute distress HENMT: Face/Nose/Sinus: Normal nares present Eyes: General: appearance normal, both eyes and all related structures Neck: Neck: supple Resp: Auscultation: clear to auscultation bilaterally Cardio: Rate: regular rate Rhythm: regular rhythm GI: Inspection: non-distended GI Palp: Yes Soft to palpation, Yes Tenderness to palpation present (GI) (minimal ttp in lower abdomen, no rebound) and No Guarding due to palpation present (GI) Auscultation: normal bowel sounds Skin: General skin exam: normal color Neuro: General: gait normal Speech: normal speech Motor exam (neuro): 5/5 motor strength present throughout Extrem: General: normal to inspection Psych: Mental Status: mental status grossly normal Results Labs 03/27/24 06:11 03/27/24 06:11 Labs: Short CBC 03/27/24 Range/Units 06:11 WBC 6.5 (4.5-10.0) K/mm3 Hgb 13.0 (12.0-15.0) g/dL Hct 39.8 (37.0-47.0) % Plt Count 225 (150-375) k/mm3 BMP 03/27/24 06:11 Sodium 136 L Potassium 3.2 L Chloride 102 Carbon Dioxide 29 BUN 10 Creatinine 0.80 Glucose 97 Calcium 8.8
[2024-03-27] MEDS: lisinopriL 10 MG TABLET PO (21:05)
[2024-03-27] MEDS: ZOLPIDEM TARTRATE (*CRX) 5 MG TABLET 10 MG PO (21:05)
[2024-03-27] MEDS: metroNIDAZOLE 500 MG TABLET PO (21:05)
[2024-03-27] MEDS: buPROPion HCL XL (24 HR) 150 MG TABCR 300 MG PO (21:06)
[2024-03-27 21:08] VITALS: BP 127/77; PULSE 81; RESP 18; TEMP 36.7; O2SAT 98
[2024-03-28] MEDS: metroNIDAZOLE 500 MG TABLET PO (05:10)
[2024-03-28] MEDS: LEVOTHYROXINE SODIUM 75 MCG TABLET PO (05:10)
[2024-03-28] MEDS: traMADol HCL (*CRX) 50 MG TABLET PO ×2 (05:10→08:57)
[2024-03-28 06:00] VITALS: BP 113/69; PULSE 80; RESP 18; TEMP 36.6; O2SAT 95
[2024-03-28 07:40] LABS: Potassium 3.3 mmol/L (3.4-5.0)
[2024-03-28] MEDS: POTASSIUM CHLORIDE 20 MEQ PACKET (FOR LIQUID) 40 MEQ PO (08:52)
[2024-03-28] MEDS: PANTOPRAZOLE SODIUM IV 40 MG VIAL IV PUSH (08:52)
[2024-03-28] MEDS: hydroCHLOROthiazide 25 MG TABLET PO (08:52)
[2024-03-28] MEDS: DULoxetine HCL 20 MG CAPSULE.DR PO (08:52)
[2024-03-28] MEDS: amLODIPine BESYLATE 10 MG TABLET PO (08:52)
--- NOTE | 2024-03-28 09:24 | P.PNIM_ITS ---
Progress Note: A&P Assessment and Plan (1) Colitis: Code(s): K52.9 - Noninfective gastroenteritis and colitis, unspecified Status: Acute (2) Rectal bleeding: Code(s): K62.5 - Hemorrhage of anus and rectum Status: Acute (3) Gastroesophageal reflux disease: Code(s): K21.9 - Gastro-esophageal reflux disease without esophagitis Status: Acute (4) Hypothyroidism: Code(s): E03.9 - Hypothyroidism, unspecified Status: Acute (5) Obstructive sleep apnea: Code(s): G47.33 - Obstructive sleep apnea (adult) (pediatric) Status: Acute (6) Hypertension: Code(s): I10 - Essential (primary) hypertension Status: Acute (7) Acute GI bleeding: Code(s): K92.2 - Gastrointestinal hemorrhage, unspecified Status: Acute Plan Acute infective gastroenteritis and colitis, Status: Acute Assessment and Plan: Patient presents with abdominal pain and rectal bleeding. CT scan showed colitis involving the splenic flexure of the colon and descending colon. did not show mesentery artery obstruction. She was started on ceftriaxone and metronidazole for possible infectious colitis pending stool studies. Followed by PCP Still having rectal bleeding but could be old blood. HH stable. Abd exam benign. WBC normal now. Advance to regular diet Changed to Augmentin p.o. Acute GI bleeding no source of bleeding Consult GI for evaluation treatment Appreciate GI input, suspecting resulting from infection, no need of colonoscopy now Pending stool culture Gastroesophageal reflux disease: Code(s): K21.9 - Gastro-esophageal reflux disease without esophagitis Status: Acute Assessment and Plan: Stable. Continue PPI Hypertension: Code(s): I10 - Essential (primary) hypertension Status: Acute Assessment and Plan: Patient's blood pressure was reviewed on 03/26 Blood pressure remains well controlled. Will continue to monitor Hypothyroidism: Code(s): E03.9 - Hypothyroidism, unspecified Status: Acute Assessment and Plan: TSH normal in August. Continue levothyroxine Obstructive sleep apnea on CPAP: Code(s): G47.33 - Obstructive sleep apnea (adult) (pediatric) Status: Acute Assessment and Plan: Noncompliant with mask last night. Compliance was encouraged. Hypokalemia 3.3 today Replete with potassium chloride 40 mEq p.o. once Continue potassium chloride 20 mEq daily p.o. Follow-up with primary care doctor in 1 week Patient has chronic muscular pain and patient also has anxiety Start Cymbalta 60 mg daily po Plan DVT prophylaxis - SCDs Code status - full Subjective Date/time seen: 03/28/24 09:24 Interval history: I saw exam patient today, patient still has bloody bowel movement. Denies abdomen pain, nausea vomiting a diarrhea today. Patient afebrile, blood pressure stable, Exam Narrative: GENERAL: Pleasant, in no acute distress. Well-nourished. - EYES: EOMI. Anicteric. - HENT: Moist mucous membranes. - LUNGS: Clear to auscultation bilateral ly, no wheezing, rhonchi, or rales. - CARDIOVASCULAR: Regular rate and rhyth m. No murmur. No JVD. - ABDOMEN: Soft, non-tender and non-dist ended. No palpable masses. - EXTREMITIES: No edema. Peripheral puls es 2+. Non-tender. - NEUROLOGIC: No focal neurological defi cits. CN II-XII grossly intact. - PSYCHIATRIC: Awake, Alert and oriented x 3. Appropriate mood and affect. - SKIN: No rashes or lesions. Warm. - LYMPH: No cervical lymphadenopathy. Objective Data Vital Signs Vital Signs: Vital Signs - 24 hr 03/27/24 14:00 03/27/24 21:08 03/28/24 06:00 Temperature 97.7 F 98.0 F 97.8 F Pulse Rate 76 81 80 Respiratory Rate 18 18 18 Blood Pressure 117/72 127/77 113/69 Pulse Oximetry 95 98 95 Intake/Output Intake/Output: Intake & Output 03/25/24 03/26/24 03/27/24 03/28/24 23:59 23:59 23:59 23:59 Intake Total 100 1750 1750 100 Balance 100 1750 1750 100 Meds/Results Medications: Active Medications Generic Name Dose Route Start Last Admin Trade Name Freq PRN Reason Stop Dose Admin Acetaminophen 650 mg 03/25/24 15:59 03/27/24 22:12 Acetaminophen 325 Mg Tablet PO 650 mg Q4H PRN Administration Mild Pain (1-3) or Fever Albuterol 1 puff 03/25/24 20:06 Albuterol Sulfate (*Sp) Aerosol 1 Puff INHALATION QIDRT PRN shortness of breath or wheezing Amlodipine Besylate 10 mg 03/26/24 09:00 03/28/24 08:52 Amlodipine Besylate 10 Mg Tablet PO 10 mg DAILY AALIYAH Administration Bupropion HCl 300 mg 03/25/24 21:00 03/27/24 21:06 Bupropion Hcl Xl (24 Hr) 150 Mg Tabcr PO 300 mg QHS AALIYAH Administration Duloxetine HCl 20 mg 03/26/24 09:00 03/28/24 08:52 Duloxetine Hcl 20 Mg Capsule.Dr PO 20 mg DAILY AALIYAH Administration Fluticasone Propionate 1 spray 03/25/24 20:06 Fluticasone Propionate 0.05% Na Spr 16 Gm Btl (*Bkc) NASAL DAILY PRN stuffy nose Hydrochlorothiazide 25 mg 03/26/24 09:00 03/28/24 08:52 Hydrochlorothiazide 25 Mg Tablet PO 25 mg QAM AALIYAH Administration Hydroxyzine HCl 25 mg 03/25/24 20:06 Hydroxyzine Hcl 25 Mg Tablet PO ONCE PRN Anxiety Ceftriaxone Sodium 1 gm in 50 mls @ 100 mls/hr 03/26/24 12:00 03/27/24 12:24 Rocephin 1 Gm/Ns 50 Ml IVPB Infused Q24H AALIYAH Infusion Levothyroxine Sodium 75 mcg 03/26/24 06:30 03/28/24 05:10 Levothyroxine Sodium 75 Mcg Tablet PO 75 mcg DAILY@0630 AALIYAH Administration Lisinopril 10 mg 03/25/24 21:00 03/27/24 21:05 Lisinopril 10 Mg Tablet PO 10 mg QHS AALIYAH Administration Loratadine 10 mg 03/25/24 20:40 Loratadine 10 Mg Tablet PO QAM PRN allergy symptoms Metronidazole 500 mg 03/27/24 22:00 03/28/24 05:10 Metronidazole 500 Mg Tablet PO 500 mg Q8HR AALIYAH Administration Ondansetron HCl 4 mg 03/25/24 15:59 Ondansetron Inj 4 Mg/2 Ml Vial IV PUSH Q4H PRN Nausea Pantoprazole Sodium 40 mg 03/26/24 09:00 03/28/24 08:52 Pantoprazole Sodium Iv 40 Mg Vial IV PUSH 40 mg QAM AALIYAH Administration Potassium Chloride 40 meq 03/28/24 09:00 03/28/24 08:52 Potassium Chloride 20 Meq Packet (For Liquid) PO 40 meq DAILY AALIYAH Administration Tramadol HCl 50 mg 03/25/24 20:06 03/28/24 08:57 Tramadol Hcl (*Crx) 50 Mg Tablet PO 50 mg BID PRN Administration pain 4-6 Zolpidem Tartrate 10 mg 03/25/24 21:00 03/27/24 21:05 Zolpidem Tartrate (*Crx) 5 Mg Tablet PO 10 mg QHS AALIYAH Administration Radiology Results: ITS Impressions Abdomen/Pelvis CT 03/25/24 14:58 IMPRESSION: 1. Colitis involving splenic flexure of the colon and descending colon. Labs Labs: Laboratory Results - last 24 hr 03/27/24 03/28/24 10:15 06:48 Potassium 3.3 L C. difficile (PCR) TNP
--- NOTE | 2024-03-28 13:56 | P.DS_ITS ---
DS: Admitting Diagnosis Discharge Date 03/28 Admitting Diagnosis (1) Colitis: Code(s): K52.9 - Noninfective gastroenteritis and colitis, unspecified Status: Acute (2) Rectal bleeding: Code(s): K62.5 - Hemorrhage of anus and rectum Status: Acute (3) Gastroesophageal reflux disease: Code(s): K21.9 - Gastro-esophageal reflux disease without esophagitis Status: Acute (4) Hypothyroidism: Code(s): E03.9 - Hypothyroidism, unspecified Status: Acute (5) Obstructive sleep apnea: Code(s): G47.33 - Obstructive sleep apnea (adult) (pediatric) Status: Acute (6) Hypertension: Code(s): I10 - Essential (primary) hypertension Status: Acute (7) Acute GI bleeding: Code(s): K92.2 - Gastrointestinal hemorrhage, unspecified Status: Acute DS: Discharge Diagnosis Discharge Diagnosis (1) Colitis: Code(s): K52.9 - Noninfective gastroenteritis and colitis, unspecified Status: Acute (2) Rectal bleeding: Code(s): K62.5 - Hemorrhage of anus and rectum Status: Acute (3) Gastroesophageal reflux disease: Code(s): K21.9 - Gastro-esophageal reflux disease without esophagitis Status: Acute (4) Hypothyroidism: Code(s): E03.9 - Hypothyroidism, unspecified Status: Acute (5) Obstructive sleep apnea: Code(s): G47.33 - Obstructive sleep apnea (adult) (pediatric) Status: Acute (6) Hypertension: Code(s): I10 - Essential (primary) hypertension Status: Acute (7) Acute GI bleeding: Code(s): K92.2 - Gastrointestinal hemorrhage, unspecified Status: Acute DS: Summary Hospital Course Hospital Course: Per H&P, This is a 68-year-old female with hypertension, gastroesophageal reflux disease, obstructive sleep apnea on CPAP, hepatitis-C status post treatment, and hypothyroidism who presented to the emergency department via private vehicle for evaluation of abdominal cramping and blood in stool. The patient provides the following history. Sometime overnight she was awakened with cramping in the lower abdomen and shortly thereafter she began having loose stools admixed with bright red blood and mucus. She has had at least 10 episodes of diarrhea. Additionally she reports nausea and had a couple episodes of vomiting. She denies fever, chills, sweats, chest pain, shortness of breath, hematemesis, and melena. No history of inflammatory bowel disease or malignancy. She denies sick contacts, recent antibiotic use, and recent travel. In the ED: She was afebrile on arrival with stable vital signs. Labs are significant for WBC count of 11.9, hemoglobin 14.1, sodium 135, BUN 21, creatinine 0.90, lactic acid 1.2. CT of the abdomen pelvis showed colitis involving the splenic flexure of the colon and descending colon. She was started on ceftriaxone and metronidazole and is being admitted in this setting for further treatment and observation. The following med issues have been addressed during hospitalization Acute infective gastroenteritis and colitis, Status: Acute Assessment and Plan: Patient presents with abdominal pain and rectal bleeding. CT scan showed colitis involving the splenic flexure of the colon and descending colon. did not show mesentery artery obstruction. She was started on ceftriaxone and metronidazole for possible infectious colitis pending stool studies. Followed by PCP Still having rectal bleeding but could be old blood. HH stable. Abd exam benign. WBC normal now. Advance to regular diet Changed to Augmentin p.o. Acute GI bleeding no source of bleeding Consult GI for evaluation treatment Appreciate GI input, suspecting resulting from infection, no need of colonoscopy now Pending stool culture Gastroesophageal reflux disease: Code(s): K21.9 - Gastro-esophageal reflux disease without esophagitis Status: Acute Assessment and Plan: Stable. Continue PPI Hypertension: Code(s): I10 - Essential (primary) hypertension Status: Acute Assessment and Plan: Patient's blood pressure was reviewed on 03/26 Patient is on amlodipine 10 mg daily p.o. Blood pressure remains well controlled. Will continue to monitor per PCP Hypothyroidism: Code(s): E03.9 - Hypothyroidism, unspecified Status: Acute Assessment and Plan: TSH normal in August. Continue levothyroxine Obstructive sleep apnea on CPAP: Code(s): G47.33 - Obstructive sleep apnea (adult) (pediatric) Status: Acute Assessment and Plan: Noncompliant with mask last night. Compliance was encouraged. Hypokalemia 3.3 today Replete with potassium chloride 40 mEq p.o. once Continue potassium chloride 20 mEq daily p.o. Follow-up with primary care doctor in 1 week Patient has chronic muscular pain and patient also has anxiety Increased Cymbalta from 20 to 60 mg daily po l Time Spent with Patient Time attestation: Total time spent providing and/or coordinating discharge services: Exam Narrative: GENERAL: Pleasant, in no acute distress. Well-nourished. - EYES: EOMI. Anicteric. - HENT: Moist mucous membranes. - LUNGS: Clear to auscultation bilateral ly, no wheezing, rhonchi, or rales. - CARDIOVASCULAR: Regular rate and rhyth m. No murmur. No JVD. - ABDOMEN: Soft, non-tender and non-dist ended. No palpable masses. - EXTREMITIES: No edema. Peripheral puls es 2+. Non-tender. - NEUROLOGIC: No focal neurological defi cits. CN II-XII grossly intact. - PSYCHIATRIC: Awake, Alert and oriented x 3. Appropriate mood and affect. - SKIN: No rashes or lesions. Warm. - LYMPH: No cervical lymphadenopathy. DS: Data Data Completed and Pending Labs on day of discharge: Labs from last 24 hours 03/28/24 06:48 Potassium 3.3 L Discharge Plan Discharge Attending physician on discharge: Roxanne Medrano Consulting providers: Shashank Kelly Discharging Clinician: Roxanne Medrano Anticipated Discharge Date/Time: 03/28/24 13:50 Patient Disposition: Home, Self-Care Activity: as tolerated Diet: heart healthy Patient Instructions: Antibiotic Form Stand Alone Forms: General Discharge Information Follow-up/Referrals: Alicia Tony APRN [Primary Care Provider] - (Patient needs to see primary care provider in 1 week) Discharge Medications: New amoxicillin-pot clavulanate [Augmentin] 500-125 mg tablet 1 tablet PO Q12H Qty: 8 0RF potassium chloride 20 mEq packet 20 meq PO DAILY Qty: 7 0RF Continued amlodipine 10 mg tablet 10 mg PO DAILY Rx Instructions: take one tablet by mouth once daily in the morning lisinopril 10 mg tablet 10 mg PO DAILY Rx Instructions: take one tablet by mouth once daily hydroxyzine HCl 25 mg tablet 25 mg PO ONCE PRN (Reason: Anxiety) levothyroxine [Unithroid] 75 mcg tablet 75 mcg PO DAILY Rx Instructions: take one tablet by mouth once daily hydrochlorothiazide 12.5 mg capsule 25 mg PO DAILY Rx Instructions: take one tablet by mouth once daily fluticasone propionate [Flonase Allergy Relief] 50 mcg/actuation spray,suspension 1 spray intranasal DAILY PRN (Reason: stuffy nose) Rx Instructions: administer into each nostril acetaminophen 650 mg tablet extended release 650 mg PO Q8H PRN (Reason: pain) Qty: 90 0RF bupropion HCl 150 mg tablet extended release 24 hr 300 mg PO DAILY Rx Instructions: Take one tablet by mouth in the morning albuterol sulfate 90 mcg/actuation HFA aerosol inhaler 1 inh inhalation QID PRN (Reason: shortness of breath or wheezing) Qty: 6.7 0RF potassium chloride 10 mEq tablet extended release 10 meq PO DAILY Rx Instructions: take one tablet by mouth once daily zolpidem 10 mg tablet 10 mg PO QHS Rx Instructions: take one tablet by mouth once daily cetirizine 10 mg tablet 10 mg PO DAILY PRN (Reason: allergy symptoms) Qty: 90 3RF tramadol 50 mg tablet 50 mg PO BID PRN (Reason: pain) Qty: 30 0RF celecoxib 200 mg capsule 200 mg PO DAILY Qty: 90 0RF Rx Instructions: take one capsule by mouth once daily Changed duloxetine 60 mg capsule,delayed release(DR/EC) 60 mg PO DAILY Qty: 60 0RF Rx Instructions: take one capsule by mouth once daily Discontinued lansoprazole 30 mg capsule,delayed release(DR/EC) 30 mg PO DAILY PRN (Reason: Acid Reflux, belching alot) Date of admission: 03/26/24 10:55 Primary Care Provider: Alicia Tony Admitting Provider: Donovan Blanton Attending physician on admission: Donovan Blanton Condition: Stable
[2024-03-28 14:00] VITALS: BP 113/63; PULSE 79; RESP 18; TEMP 36.2; O2SAT 97
--- NOTE | 2024-03-28 15:22 | WPDGIPROGNO ---
Progress Note: A&P Assessment and Plan (1) Lower abdominal pain: Code(s): R10.30 - Lower abdominal pain, unspecified Status: Acute Assessment and Plan: improved ok to continue treatment at home, much better and tolerating diet she can follow-up in office (2) Colitis: Code(s): K52.9 - Noninfective gastroenteritis and colitis, unspecified Status: Acute (3) Rectal bleeding: Code(s): K62.5 - Hemorrhage of anus and rectum Status: Acute Assessment and Plan: resolved stable h/h Subjective Date/time seen: 03/28/24 13:20 Interval history: better, only c/o neck pain Review of Systems Review of Systems: All systems reviewed & are unremarkable except as noted in HPI and below Exam Const: General: comfortable and no acute distress HENMT: Face/Nose/Sinus: Normal nares present Eyes: General: appearance normal, both eyes and all related structures Neck: Neck: supple Resp: Auscultation: clear to auscultation bilaterally Cardio: Rate: regular rate Rhythm: regular rhythm GI: Inspection: non-distended GI Palp: Yes Soft to palpation, Yes Tenderness to palpation present (GI) (minimal ttp in lower abdomen, no rebound) and No Guarding due to palpation present (GI) Auscultation: normal bowel sounds Skin: General skin exam: normal color Neuro: General: gait normal Speech: normal speech Motor exam (neuro): 5/5 motor strength present throughout Extrem: General: normal to inspection Psych: Mental Status: mental status grossly normal Objective Data Vital Signs Vital Signs: Vital Signs - 24 hr 03/27/24 21:08 03/28/24 06:00 03/28/24 08:00 Temperature 98.0 F 97.8 F Pulse Rate 81 80 Respiratory Rate 18 18 Blood Pressure 127/77 113/69 Pulse Oximetry 98 95 Oxygen Delivery Room Air 03/28/24 14:00 Temperature 97.1 F L Pulse Rate 79 Respiratory Rate 18 Blood Pressure 113/63 Pulse Oximetry 97 Oxygen Delivery Intake/Output Intake/Output: Intake & Output 03/25/24 03/26/24 03/27/24 03/28/24 23:59 23:59 23:59 23:59 Intake Total 100 1750 1750 580 Balance 100 1750 1750 580 Meds/Results Radiology Results: ITS Impressions Abdomen/Pelvis CT 03/25/24 14:58 IMPRESSION: 1. Colitis involving splenic flexure of the colon and descending colon. Labs Labs: Laboratory Results - last 24 hr 03/28/24 06:48 Potassium 3.3 L
== END 2024-03-28 14:35 | disposition home or self-care (01) | DRG 392 ==
LOC: ANHED 15:59 → ANH3MEDSUR 16:33
PROVIDERS: Physician Assistant; Admitting Provider Internal Medicine; Emergency Provider Emergency Medicine; PCP Nurse Practitioner Family; Visit Provider Hospitalist
DX: K52.9 Noninfective gastroenteritis and colitis, unspecified (principal); K21.9 Gastro-esophageal reflux disease without esophagitis; E03.9 Hypothyroidism, unspecified; E11.9 Type 2 diabetes mellitus without complications; G47.33 Obstructive sleep apnea (adult) (pediatric); E87.6 Hypokalemia; I10 Essential (primary) hypertension; K57.90 Diverticulosis of intestine, part unspecified, without perforation or abscess without bleeding; F41.9 Anxiety disorder, unspecified; Z86.19 Personal history of other infectious and parasitic diseases; Z96.641 Presence of right artificial hip joint; Z96.651 Presence of right artificial knee joint; Z87.891 Personal history of nicotine dependence; E66.9 Obesity, unspecified; Z68.32 Body mass index [BMI] 32.0-32.9, adult
CPT/HCPCS: 36415; 74177; 80048; 80053; 83605; 83690; 83735; 84132; 85014; 85018; 85025; 85027; 85610; 85730; 87045; 87427; 87449; 93005; 96374; 96375; 99285; A9270; G0378; J0696; J1836; J2470; J7030; Q9967

== ENCOUNTER 2024-07-16 00:33 | Day surgery (SDC) | payer MEDICARE, SELFPAY ==
[2024-07-10 13:32] VITALS: BMI 32.2
[2024-07-16 11:06] VITALS: BP 116/71; PULSE 82; RESP 19; TEMP 36.2; O2SAT 97
--- NOTE | 2024-07-16 11:07 | WPDANESEPPF ---
Anes - Initial Pre Proc Eval Procedure: Operation Date: 07/16/24 12:30 Proposed Procedures p Esophagogastroduodenoscopy & Colonoscopy - Shashank Kelly MD Date/Time: 07/16/24 11:07 Surgeon: Shashank Kelly MD Pre Op Diagnosis: noninfective gastroenteritis and colitis Patient Data Age: 68 Gender: F Height: 1.47 m Weight: 67.4 kg Last Vital Signs Temp 36.2 C L 07/16/24 11:06 Pulse 82 07/16/24 11:06 Resp 19 07/16/24 11:06 BP 116/71 07/16/24 11:06 Pulse Ox 97 07/16/24 11:06 O2 Del Method Room Air 07/16/24 11:06 Allergies Allergy/AdvReac Type Severity Reaction Status Date / Time armodafinil Allergy Unknown Difficulty Verified 07/16/24 11:02 Breathing modafinil Allergy Unknown Difficulty Verified 07/16/24 11:02 Breathing NUVAGEL Allergy Unknown POST NASAL Uncoded 07/16/24 11:02 DRIP Home Medications ?Medication ?Instructions ?Recorded ?Confirmed ?Type amlodipine 10 mg tablet 10 mg PO DAILY 03/30/19 07/16/24 History lisinopril 10 mg tablet 10 mg PO DAILY 03/30/19 07/16/24 History bupropion HCl 150 mg 24 hr tablet, 150 mg PO DAILY 09/17/20 07/16/24 History extended release albuterol sulfate 90 mcg/actuation 1 inh inhalation QID PRN shortness 07/25/21 07/10/24 Rx aerosol inhaler of breath or wheezing #6.7 grams fluticasone propionate 50 1 spray intranasal DAILY PRN 07/25/23 07/10/24 History mcg/actuation nasal stuffy nose spray,suspension (Flonase Allergy Relief) hydrochlorothiazide 12.5 mg capsule 12.5 mg PO DAILY 07/25/23 07/16/24 History hydroxyzine HCl 25 mg tablet 25 mg PO ONCE PRN Anxiety 07/25/23 07/16/24 History levothyroxine 75 mcg tablet 75 mcg PO DAILY 07/25/23 07/16/24 History (Unithroid) acetaminophen 650 mg 650 mg PO Q8H PRN pain #90 tabs 08/23/23 07/10/24 Rx tablet,extended release cetirizine 10 mg tablet 10 mg PO DAILY PRN allergy 09/07/23 07/10/24 Rx symptoms #90 tabs zolpidem 10 mg tablet 10 mg PO QHS 03/25/24 07/16/24 History potassium chloride 10 mEq 10 meq PO DAILY 04/04/24 07/16/24 History tablet,extended release baclofen 10 mg tablet 10 mg PO TID PRN muscle spasm #20 04/10/24 07/10/24 Rx tabs tramadol 50 mg tablet 50 mg PO BID PRN pain #30 tabs 04/10/24 07/10/24 Rx fluoxetine 40 mg capsule 40 mg PO QPM 07/10/24 07/16/24 History Patient hx anesthesia problems: none Family hx anesthesia problems: none Results Review: All pre-operative results and documents have been reviewed as part of the pre-operative evaluation. [facility] Past Medical History Medical History Loose stools Nausea and vomiting in adult Hypokalemia Lower abdominal pain Obstructive sleep apnea on CPAP Hypertension Gastroesophageal reflux disease Obesity Diverticulosis Hepatitis C Anxiety Depression Hypothyroidism Diabetes Fibromyalgia Kidney stones Stomach ulcer Surgical History Surgical History History of colonoscopy (09/2020) multiple medium diverticula in mid sigmoid History of esophagogastroduodenoscopy (08/2023) gastric polyp History of right hip replacement History of back surgery Neurostimulator placement History of total right knee replacement (2018) History of bunionectomy left History of carpal tunnel surgery of right wrist History of lithotripsy History of section History of tubal ligation History of cataract surgery Family History Family History Mother Family history of chronic obstructive pulmonary disease Alcoholism Family history of cancer Hypertension Father Family history of cancer Hypertension Heart problem Alcoholism Sibling Alcoholism Family history of cancer Hypertension Other Family history of arthritis Family history of lung disease Heart disease Social History Social History Social History: Surrogate medical decision maker: Alicia Dawkins, daughter. Code status: Full code. Years smoked: 6 Smoking status: Former smoker Tobacco type: cigarettes Alcohol intake: never Alcohol use details: rare alcohol use in moderation Substance use: never Substance use type: does not use Do You Feel Safe in your Home?: Yes Lack of Transportation: No Lack of Food: Never True Current Housing: I Have Housing Concerned About Future Housing: No Difficulty Paying Gas/Electric Bills: No Difficulty Paying for Meds: No Currently Unemployed: No Education: Trade/Vocational Certificate Difficulty w/ Childcare or Family Care: No Living arrangements: alone Additional living arrangements comments: lives in [place] Occupation/Education: occupation Additional occupation/education comments: 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 Informed Consent: The patient's anesthetic plan and its attendant risks and benefits were discussed with the patient/family/POA. Questions were solicited and answers provided to the satisfaction of the patient/family/POA.
[2024-07-16] MEDS: LACTATED RINGERS 1,000 ML 150 ML IV CONT (11:16)
--- NOTE | 2024-07-16 11:59 | WPDHPUPDATE1 ---
History and Physical Update Update Date/Time: 07/16/24 11:59 History and Physical has been reviewed, including an updated exam of the patient. There are NO changes in the patient's condition. Risks, benefits, and alternatives have been discussed and questions answered. Patient agrees to proceed with procedure.
--- NOTE | 2024-07-16 12:19 | SUR.OPER ---
EGD end 1216 COLONSCOPY START 1219
[2024-07-16 12:29] VITALS: BP 104/56; PULSE 73; RESP 20; O2SAT 97
[2024-07-16 12:39] VITALS: BP 99/62; PULSE 67; RESP 16; O2SAT 99
[2024-07-16 12:49] VITALS: BP 105/61; PULSE 69; RESP 16; O2SAT 99
== END 2024-07-16 12:56 | disposition home or self-care (01) ==
PROVIDERS: PCP Nurse Practitioner Family; Referring Provider Internal Medicine Gastroenterology; Visit Provider Internal Medicine Gastroenterology
PROC: 0DJ08ZZ Inspection of Upper Intestinal Tract, Via Natural or Artificial Opening Endoscopic (ICD-10-PCS; CPT 45378; principal; 2024-07-16 12:30)
DX: Z09 Encounter for follow-up examination after completed treatment for conditions other than malignant neoplasm (principal); K21.00 Gastro-esophageal reflux disease with esophagitis, without bleeding; K29.50 Unspecified chronic gastritis without bleeding; K57.30 Diverticulosis of large intestine without perforation or abscess without bleeding; K64.8 Other hemorrhoids; I10 Essential (primary) hypertension; E87.6 Hypokalemia; G47.33 Obstructive sleep apnea (adult) (pediatric); F41.9 Anxiety disorder, unspecified; F32.A Depression, unspecified; E03.9 Hypothyroidism, unspecified; E11.9 Type 2 diabetes mellitus without complications; E66.9 Obesity, unspecified; Z68.31 Body mass index [BMI] 31.0-31.9, adult; Z79.51 Long term (current) use of inhaled steroids; Z79.891 Long term (current) use of opiate analgesic; Z99.89 Dependence on other enabling machines and devices; Z98.890 Other specified postprocedural states; Z98.1 Arthrodesis status; Z96.82 Presence of neurostimulator; Z98.51 Tubal ligation status; Z87.891 Personal history of nicotine dependence; Z87.442 Personal history of urinary calculi; Z87.19 Personal history of other diseases of the digestive system; Z80.9 Family history of malignant neoplasm, unspecified; Z82.49 Family history of ischemic heart disease and other diseases of the circulatory system
CPT/HCPCS: 43239; 45378; 88305; J2704; J7120

== ENCOUNTER 2024-08-08 16:44 | Emergency (ER) | payer OTHER, MEDICARE, SELFPAY ==
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
--- OUTSIDE RECORDS SUMMARY | 2024-08-08 16:46 | XMS_ITS ---
Author Organization [facility] [employer] [facility] Address [facility] [facility] [address] [facility] [address] [place] [address] Care Team Providers Care Asphalt Coater Name Role Phone Tiana Liang Primary Care Provider Morelia Tracey Staley Unavailable [phone] Medications Medication SIG (Take, Route, Frequency, Duration) Notes Start Date End Date Status FLUoxetine HCl 40 MG 1 capsule every Morning Oral Once a day for 30 days total dose 60 mg increasing 06/11/2024 Active FLUoxetine HCl 20 MG 1 capsule every morning Orally Once a day for 30 days total dose 60 mg increasing 05/14/2024 Active Social History Sex Assigned At : Social History Observation Description Sex Assigned At Female Encounters Encounter [facility] Date [facility] [place] [id number] [facility] [address] [facility] [address] [place] [address] 07/25/2024 Tracey Madden Major depressive disorder, recurrent, mild F33.0 Assessments Encounter Date Diagnosis (ICD Code) Assessment Notes Treatment Notes Treatment Clinical Notes Section Notes 07/25/2024 Major depressive disorder, recurrent, mild (ICD-10 - F33.0) Plan Of Treatment Medication Medication Name Sig Start Date Stop Date Notes FLUoxetine HCl 40 MG 1 capsule every Mor diamante Oral Once a day for 30 days 06/11/2024 increasing FLUoxetine HCl 20 MG 1 capsule every mor diamante Orally Once a day for 30 days 05/14/2024 increasing Next Appt Details Provider Name:Tracey rider, 09/09/2024 01:15:00 PM, [address], [address], [place], [address], Progress Notes * SANDRA GUERREROOB:1955 (68 yo F)Acc No.[id number]:07/25/2024 Patient: ART MSOLEY :1955 A ge:68 Y S ex:Female Phone: Address:[address] [place], [address] * Refills Refill FLUoxetine HCl Capsule, 40 MG, Oral, 30 Capsule, 1 capsule every Morning, Once a day, 30 days, Refills=1 Refill FLUoxetine HCl Capsule, 20 MG, Orally, 30 Capsule, 1 capsule every morning, Once a day, 30 days, Refills=1 * true * Date: Generated for Jing yates/Kalli/Fatumaitting on: 0 08/08/2024 04:46 PM CDT
--- OUTSIDE RECORDS SUMMARY | 2024-08-08 16:46 | XMS_ITS | Encounter Summary ---
Author Organization [facility] Address [address] [place] [address] Care Team Providers Care Beverage Host Name Role Phone Marcelina Watson DO Primary Care Provider [phone] Mo Jaramillo MD Primary Care Provider Tristan Schuler MD Unavailable [phone] Mel Corrales MD Primary Care Provider + Dmitriy Camargo MD Primary Care Prov ider Encounter Details Date Type Department Care Team (Late st Contact Info) Description 09/09/2016 Orders Only [facility] ProviderEloisa MD [address] [place] [address] Social History Tobacco Use Types Packs/Day Years Used Date Smoking Tobacco: Never Alcohol Use Standard Drinks/Week Comments No 0 (1 standard drink = 0.6 oz pur e alcohol) Comments Unknown Sex and Gender Information Value Date Recorded Sex Assigned at Not on file 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 Historical Provider MD [facility] ANN Final Result documented in this encounter Visit Diagnoses Not on filedocumented in this encounter Additional Health Concerns Infection Onset Date Last Indicated Resolved Time C. difficile Comment:201109/06/2018 09/05/2018 documented as of this encounter Care Teams Beverage Host Relationship Specialty Start Date End Date Marcelina Watson DO PCP - General 03/03/16 09/05/18 Mo Jaramillo MD PCP - General 09/06/18 12/21/20 Mel Corrales MD [address] [place] [address] PCP - General Family Medicine 12/22/20 06/16/24 Dmitriy Camargo MD [address] [place] [address] PCP - General Family Medicine 06/17/24 Tristan Schuler MD [address] [address] Pest Controller Assistant Cardiology 01/18/19 documented as of this encounter
--- OUTSIDE RECORDS SUMMARY | 2024-08-08 16:46 | XMS_ITS | Clinical Summary ---
Author Organization [facility] Address [address] [place] [address] Care Team Providers Care Sustainability Purchasing Agent Name Role Phone Essie Santillan PA-C Primary Care Provider [phone] Source Comments [facility],non-owned Affiliates and Associated Physician Practices is amultiple site organization consisting of ambulatory clinics and hospital sitesin [place], [place], [place] and [place]. This disclosure is being madepursuant to the Care Everywhere program and may not contain all information available regarding this patient. Last updated 18.[facility] Allergies Active Allergy Reactions Criticality Noted Date Comments Armodafinil Other Low 02/02/2015 Runny nose Modafinil Shortness of Breath High 02/02/2015 Medications * Be aware that medications may not be up to date on this document. Alwaysverify current medications with the patient. Medication Sig Dispensed Refills Start Date End Date Status busPIRone (BUSPAR) 10 MG tablet Take 20 mg by mouth BID. 60 tablet 3 10/25/2016 Active albuterol HFA (VENTOLIN HFA) 108 (90 BASE) MCG/ACT inhaler 05/11/2016 Act lacey Active Problems Problem Noted Date Diagnosed Date Anxiety disorder 12/08/2016 Viral hepatitis C without hepatic coma 5 Overview (08/14/2017): Treatment with Interferon and Ribavirin in 2006 - tolerated 8 weeks and had to stop 2/2 side-effects. Family History Medical History Relation Name Comments Cancer Father Heart Disease Father Cancer Mother Heart Disease Mother Relation Name Status Comments Father Mother Social History Tobacco Use Types Packs/Day Years Used Date Smoking Tobacco: Former Cigarettes Q uit: 02/02/1977 Smokeless Tobacco: Never Alcohol Use Standard Drinks/Week Comments No 0 (1 standard drink = 0.6 oz pur e alcohol) Sex and Gender Information Value Date Recorded Sex Assigned at Not on file Gender Identity Not on file Sexual Orientation Not on file Last Filed Vital Signs Vital Sign Reading Time Taken Comments Blood Pressure 132/79 07/20/2016 1:02 PM SOLAR ENERGY SYSTEM INSTALLER Pulse 99 07/20/2016 1:02 PM SOLAR ENERGY SYSTEM INSTALLER Temperature 36.9 C (98.4 F) 01/11/2016 10:49 AM CDT Respiratory Rate 18 07/20/2016 1:02 PM SOLAR ENERGY SYSTEM INSTALLER Oxygen Saturation - - Inhaled Oxygen Concentration - - Weight 86.6 kg (191 lb) 07/20/2016 1:02 PM SOLAR ENERGY SYSTEM INSTALLER Height 149.9 cm (4' 11 ) 03/21/2016 2:45 PM SOLAR ENERGY SYSTEM INSTALLER Body Mass Index 38.58 03/21/2016 2:45 PM SOLAR ENERGY SYSTEM INSTALLER Plan of Treatment Health Maintenance Due Date Last Done Comments BONE DENSITY TESTING 1955 COLOGUARD (AGES 45-75) - COLON CA SCREENING 1955 COLON MONITORING 1955 COLONOSCOPY - COLON CA SCREENING 1955 CT COLONOGRAPHY - COLON CA SCREENING 1955 Colorectal Cancer Screening 1955 FIT - COLON CA SCREENING 1955 FLEX SIG - COLON CA SCREENING 1955 LIPID TESTING 1955 MAMMOGRAM 1955 MEDICARE AWV 12 MONTHS 1955 DTAP/TDAP/TD VACCINES (1 - Tdap) 1972 PNEUMOCOCCAL VACCINE 50+ (1 of 1 - PCV) 12/23/2003 ZOSTER VACCINE (1 of 2) 12/23/2003 COVID-19 VACCINE (1 - 2023-25 season) 2024 INFLUENZA VACCINE (#1) 2024 DEPRESSION SCREENING 05/15/2024 MEDICARE AWV CALENDAR YEAR 2024 Respiratory Syncytial Virus (RSV) Vaccine Pt: or over 60 yrs (1 - 1-dose 75+ series) 2028 HEPATITIS C SCREENING Completed 03/21/2016 , 03/18/2016, 01/11/2016, Additional history exists HEPATITIS B VACCINE Aged Out No longe r eligible based on patient's age to complete this topic HIB VACCINE Aged Out No longer eligi ble based on patient's age to complete this topic HPV VACCINE Aged Out No longer eligi ble based on patient's age to complete this topic MENINGOCOCCAL (Group B) VACCINE SHARED DECISION-MAKING Aged Out No longer eligible based on patient's age to complete this topic MENINGOCOCCAL GROUPS A/C/Y/W VACCINE Aged Out No longer eligible based on patient's age to complete this topic Procedures Procedure Name Priority Date/Time Associated Diagnosis Comments HEPATITIS C RNA QUANTITATIVE Routine 03/18/2016 9:30 AM CDT from Last 3 Months or Most Recently Relevant to Health Maintenance Results * HEPATITIS C RNA QUANTITATIVE PCR (03/18/2016 9:30 AM CDT) Hepatitis C Virus RNA IU/mL HCV Not Detected IU/mL [facility] Test Information [facility] Comment:The quantitative ran ge of this assay is 15 IU/mL to 100 million IU/mL. 03/18/2016 9:30 AM CDT 03/18/2016 Narrative [facility]) - 03/19/2016 8:07 PM CDT Performed at: [address] [place] [id number] Insurance Healthcare Representative: Fletcher Jurado MD, Phone: [phone] Specimen Comment: A courtesy copy of this report has been sent to Specimen Comment: [facility] [employer] [facility] Loc #[id number]. Neftaly Pollard MD LAB - CHEMISTRY ROOPA SANTILLAN [facility]) from Last 3 Months or Most Recently Relevant to Health Maintenance Care Teams Sustainability Purchasing Agent Relationship Specialty Start Date End Date Essie Santillan PA-C [address] [place] [address] [place] [id number] PCP - General 02/15/22
--- OUTSIDE RECORDS SUMMARY | 2024-08-08 16:46 | XMS_ITS | Encounter Summary ---
Author Organization [facility] Care Team Providers Care Environmental Specialist Name Role Phone Marcelina Watson DO Primary Care Provider [phone] Mo Jaramillo MD Primary Care Provider Tristan Schuler MD Unavailable [phone] Mel Corrales MD Primary Care Provider + Dmitriy Camargo MD Primary Care Prov ider Encounter Details Date Type Department Care Team (Latest Contact Info) Description 11/02/2016 Orders Only [facility] ProviderEloisa MD [address] [place] [address] Social History Tobacco Use Types Packs/Day Years Used Date Smoking Tobacco: Never Alcohol Use Standard Drinks/Week Comments No 0 (1 standard drink = 0.6 oz pur e alcohol) Comments Unknown Sex and Gender Information Value Date Recorded Sex Assigned at Not on file 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 us Historical Provider NURSING COMMUNICATION Fin al Result documented in this encounter Visit Diagnoses Not on filedocumented in this encounter Additional Health Concerns Infection Onset Date Last Indicated Resolved Time C. difficile Comment:201109/06/2018 09/05/2018 documented as of this encounter Care Teams Environmental Specialist Relationship Specialty Start Date End Date Marcelina Watson DO PCP - General 03/03/16 09/05/18 Mo Jaramillo MD PCP - General 09/06/18 12/21/20 Mel Corrales MD [address] [place] [address] PCP - General Family Medicine 12/22/20 06/16/24 Dmitriy Camargo MD [address] [place] [address] PCP - General Family Medicine 06/17/24 Tristan Schuler MD [address] [address] High School Hvac R Instructor Cardiology 01/18/19 documented as of this encounter
--- OUTSIDE RECORDS SUMMARY | 2024-08-08 16:46 | XMS_ITS | Clinical Summary ---
Author Organization [facility] Address [address] [place] [address] Care Team Providers Care Hyster Machine Operator Name Role Phone Evy Palacio [facility] Primary Care Provider Unav ailable Social History Tobacco Use Types Packs/Day Years Used Date Smoking Tobacco: Never Assessed Comments Unknown Sex and Gender Information Value Date Recorded Sex Assigned at Not on file Legal Sex Female 6:52 PM CDT Gender Identity Not on file Sexual Orientation Not on file Plan of Treatment Health Maintenance Due Date Last Done Comments Colorectal Cancer Screening Colonoscopy (10 Years) 1955 Hepatitis C 12/23/1971 DTaP, Tdap and Td Vaccines ( 1 - Tdap) 1972 Mammogram Screening 1993 Zoster Vaccines (1 of 2) 12/23/2003 Annual Medicare Wellness Visit 2018 Dexa Scan (General) 2018 Pneumococcal Vaccine: 65+ Ye ars (1 of 1 - PCV) 2018 COVID-19 Vaccine ( - 2023-2 5 season) 2024 Influenza Adult (#1) 2024 RSV Immunization or 60+ Years (1 - 1-dose 75+ series) 2028 Meningococcal B Vaccine Aged Out No l onger eligible based on patient's age to complete this topic Meningococcal Vaccine Aged Out No walker yodit eligible based on patient's age to complete this topic RSV Immunizations Under 20 Months Aged Out No longer eligible based on patient's age to complete this topic Insurance MED REPLACE [facility] MEDICARE Care Teams Hyster Machine Operator Relationship Specialty Start Date End Date Evy Palacio FNP-BC PCP - General 11/10/16
--- OUTSIDE RECORDS SUMMARY | 2024-08-08 16:46 | XMS_ITS ---
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 Name Role Phone Tiana Liang Primary Care Provider Morelia Tracey Staley Unavailable [phone] Micheal Flores Unavailable [phone] Allergies Allergen (clinical drug ingredient) Drug/Non Drug Allergy documented on EMR Reaction Allergy Type Onset Date Status modafinil Modafinil Unknown Drug Allergy 07/27/2023 Active REASON FOR VISIT Patient is here for Cognitive Testing Medications Medication SIG (Take, Route, Frequency, Duration) Notes Start Date End Date Status traMADol HCl 50 MG Oral 07/27/2023 Active EQ GAS RELIEF CAP *Reorder from [facility] for eRx and Interaction Alerts* 07/27/2023 Active Ashwagandha 35 120 MG as directed Orally Active amLODIPine Besylate 10 MG Oral 07/27/2023 Active HYDROcodone-Acetaminophe n 10-325 MG Oral 07/27/2023 Not-Taking oxyCODONE HCl 5 MG Oral 07/27/2023 Not-Taking Unithroid 75 mcg Oral 07/27/2023 No t-Taking Celecoxib 200 MG Oral 07/27/2023 No t-Taking tiZANidine HCl 4 MG Oral 07/27/2023 Not-Taking HYDROcodone-Acetaminophe n 7.5-325 MG Oral 07/27/2023 Not-Taking FLUoxetine HCl 40 MG 1 capsule every Morning Oral Once a day for 30 days 06/11/2024 Active buPROPion HCl ER (XL) 150 MG 1 tablet in the morning Orally Once a day for 30 days Active Mcnabb Thyroid 90 MG Oral 07/27/2023 Active Zolpidem Tartrate 10 MG Oral 07/27/2023 Active Cetirizine HCl 10 MG Oral 07/27/2023 Active hydroCHLOROthiazide 25 MG Oral 07/27/2023 Active Lisinopril 10 MG Oral 07/27/2023 Ac tive ProAir HFA 108 (90 Base) MCG/ACT Inhalation 07/27/2023 Active Lansoprazole 30 MG Oral 07/27/2023 Active Potassium Chloride ER 10 MEQ Oral 07/27/2023 Active Social History Sex Assigned At : Social History Observation Description Sex Assigned At Female Encounters Encounter Location Date Provider Diagnosis [facility] [address] [place] [address] 07/24/2024 Micheal Flores Mild neurocognitive disorder G31.84 Assessments Encounter Date Diagnosis (ICD Code) Assessment Notes Treatment Notes Treatment Clinical Notes Section Notes 07/24/2024 Mild neurocognitive disorder (ICD-10 - G31.84) Cognitive Assessment Summary for Art Guerrero Assessment Overview: Date of : 1955 (Age: 68) Gender: Female Comparative Group: Females aged 65-74 Tasks Completed: 6 Assessment Date: July 24, 2024 Performance Summary: The cognitive assessment evaluates multiple domains of cognitive function. Performance is benchmarked against the age-matched comparative group. Cognitive Domain Task Name Score Interpretation Attention Feature Match 96 Within the average range Episodic Memory Paired Associates 100 Average Response Inhibition Double Trouble 81 Below average Visuospatial Working Memory Number Ladder 95 Average Mental Rotation Rotations 83 Below average Verbal Short-Term Memory Digit Span 95 Average Additional Cognitive Screening Scores: SLUMS ([facility] Mental Status Exam): 27 (Suggests normal cognitive function) IQCODE (Informant Questionnaire on Cognitive Decline in the Elderly): 3.38 (Borderline range; may indicate mild cognitive concern) Bruce Findings & Interpretation: General Cognitive Functioning: SLUMS score of 27 suggests normal cognition. No significant cognitive impairment is indicated. IQCODE score of 3.38 suggests possible mild cognitive concerns, but it does not necessarily indicate dementia. Cognitive Strengths: Episodic Memory (100) and Visuospatial Working Memory (95) are within expected performance levels for the age group. Attention (96) and Verbal Short-Term Memory (95) are also within the average range. Cognitive Weaknesses: Response Inhibition (81): Below average performance in tasks requiring inhibition of automatic responses. This may suggest mild difficulties in impulse control or filtering distractions. Mental Rotation (83): Below average performance in spatial reasoning. This could impact tasks that require mental visualization, such as navigating unfamiliar environments. Clinical Considerations & Recommendations: Mild Cognitive Concerns: The IQCODE score suggests some concerns about cognitive decline, though performance in structured tasks remains largely within normal ranges. Monitor Executive Function: The below-average scores in response inhibition and mental rotation may warrant further monitoring, as these skills contribute to daily problem-solving and spatial awareness. Regular Cognitive Checkups: Given the IQCODE score, periodic cognitive screenings are advised to monitor any progressive changes. Lifestyle Recommendations: Activities that stimulate executive function, such as problem-solving exercises, strategy-based games, and physical activity, may help maintain cognitive health. Plan Of Treatment Treatment Notes Assessment Notes Mild neurocognitive disorder Cognitive Assessment Summary for Art Guerrero Assessment Overview: Date of : 1955 (Age: 68) Gender: Female Comparative Group: Females aged 65-74 Tasks Completed: 6 Assessment Date: July 24, 2024 Performance Summary: The cognitive assessment evaluates multiple domains of cognitive function. Performance is benchmarked against the age-matched comparative group. Cognitive Domain Task Name Score Interpretation Attention Feature Match 96 Within the average range Episodic Memory Paired Associates 100 Average Response Inhibition Double Trouble 81 Below average Visuospatial Working Memory Number Ladder 95 Average Mental Rotation Rotations 83 Below average Verbal Short-Term Memory Digit Span 95 Average Additional Cognitive Screening Scores: SLUMS ([facility] Mental Status Exam): 27 (Suggests normal cognitive function) IQCODE (Informant Questionnaire on Cognitive Decline in the Elderly): 3.38 (Borderline range; may indicate mild cognitive concern) Bruce Findings & Interpretation: General Cognitive Functioning: SLUMS score of 27 suggests normal cognition. No significant cognitive impairment is indicated. IQCODE score of 3.38 suggests possible mild cognitive concerns, but it does not necessarily indicate dementia. Cognitive Strengths: Episodic Memory (100) and Visuospatial Working Memory (95) are within expected performance levels for the age group. Attention (96) and Verbal Short-Term Memory (95) are also within the average range. Cognitive Weaknesses: Response Inhibition (81): Below average performance in tasks requiring inhibition of automatic responses. This may suggest mild difficulties in impulse control or filtering distractions. Mental Rotation (83): Below average performance in spatial reasoning. This could impact tasks that require mental visualization, such as navigating unfamiliar environments. Clinical Considerations & Recommendations: Mild Cognitive Concerns: The IQCODE score suggests some concerns about cognitive decline, though performance in structured tasks remains largely within normal ranges. Monitor Executive Function: The below-average scores in response inhibition and mental rotation may warrant further monitoring, as these skills contribute to daily problem-solving and spatial awareness. Regular Cognitive Checkups: Given the IQCODE score, periodic cognitive screenings are advised to monitor any progressive changes. Lifestyle Recommendations: Activities that stimulate executive function, such as problem-solving exercises, strategy-based games, and physical activity, may help maintain cognitive health. Next Appt Details Follow Up: 07/29 with Tracey , Reason: MCI Test result review Provider Name:Traceynatalie Rodriguezlaxminataliya tereso, 09/09/2024 01:15:00 PM, [address], [facility] [address], [place], [address], Procedure Notes * Category Sub-Category Detail Notes Mild Cognitive Impairment (MCI) Testing MCI Resu lts MCI Test Results Progress Notes * SANDRA GUERREROOB:1955 (68 yo F)Acc No.[id number]:07/24/2024 Patient: ART MOSLEY Provider: Tiffanie FLORES MD :1955 A ge:68 Y S ex:Female Date:07/24/2024 Phone: Address:[address] [place], [place] [id number] Pcp:Tiana Tony [facility] Subjective: * Chief Complaints: * P atient is here for Cognitive Testing * HPI: H PI: Patient had MCI testing Patient was identified, and logged into PC Test was admistered in office Staff supervising the test: Radha. * Medical History: * Surgical History: * Hospitalization/Major Diagno stic Procedure: * Medications: T akingAshwagandha 35 120 MG Capsule as directed Orally EQ GAS RELIEF CAP , Notes to Pharmacist: *Reorder from [facility] for eRx and Interaction Alerts*traMADol HCl 50 MG Tablet Oral amLODIPine Besylate 10 MG Tablet Oral ProAir HFA 108 (90 Base) MCG/ACT Aerosol Solution Inhalation Lisinopril 10 MG Tablet Oral hydroCHLOROthiazide 25 MG Tablet Oral Potassium Chloride ER 10 MEQ Tablet Extended Release Oral Lansoprazole 30 MG Capsule Delayed Release Oral Cetirizine HCl 10 MG Tablet Oral Zolpidem Tartrate 10 MG Tablet Oral Mcnabb Thyroid 90 MG Tablet Oral buPROPion HCl ER (XL) 150 MG Tablet Extended Release 24 Hour 1 tablet in the morning Orally Once a day FLUoxetine HCl 40 MG Capsule 1 capsule every Morning Oral Once a day Taking Ashwagandha 35 120 MG Capsule as directed Orally Taking EQ GAS RELIEF CAP , Notes to Pharmacist: *Reorder from [facility] for eRx and Interaction Alerts*Taking traMADol HCl 50 MG Tablet Oral Taking amLODIPine Besylate 10 MG Tablet Oral Taking ProAir HFA 108 (90 Base) MCG/ACT Aerosol Solution Inhalation Taking Lisinopril 10 MG Tablet Oral Taking hydroCHLOROthiazide 25 MG Tablet Oral Taking Potassium Chloride ER 10 MEQ Tablet Extended Release Oral Taking Lansoprazole 30 MG Capsule Delayed Release Oral Taking Cetirizine HCl 10 MG Tablet Oral Taking Zolpidem Tartrate 10 MG Tablet Oral Taking Mcnabb Thyroid 90 MG Tablet Oral Taking buPROPion HCl ER (XL) 150 MG Tablet Extended Release 24 Hour 1 tablet in the morning Orally Once a day Taking FLUoxetine HCl 40 MG Capsule 1 capsule every Morning Oral Once a day Not-TakingtiZANidine HCl 4 MG Tablet Oral Celecoxib 200 MG Capsule Oral Unithroid 75 mcg Tablet Oral oxyCODONE HCl 5 MG Tablet Oral HYDROcodone-Acetaminophen 7.5-325 MG Tablet Oral HYDROcodone-Acetaminophen 10-325 MG Tablet Oral Medication List reviewed and reconciled with the patientNot-Taking tiZANidine HCl 4 MG Tablet Oral Not-Taking Celecoxib 200 MG Capsule Oral Not-Taking Unithroid 75 mcg Tablet Oral Not-Taking oxyCODONE HCl 5 MG Tablet Oral Not-Taking HYDROcodone-Acetaminophen 7.5-325 MG Tablet Oral Not-Taking HYDROcodone-Acetaminophen 10-325 MG Tablet Oral Medication List reviewed and reconciled with the patient * Allergies: M odafinil: Allergy - Onset Date 07/27/2023no[Allergies Verified] Objective: * Vitals: * Examination: N eurology: Cognition Assessment Tools Used T otal score SLUMS 2 7 Slums Score T otal score IQCODE 3 .38 IQCODE score Assessment: * Assessment: 1. M ild neurocognitive disorder - G31.84 Plan: * Treatment: * Procedures: M ild Cognitive Impairment (MCI) Testing: MCI Results M CI Test Results. * Procedure Codes: 9 6132 NEUROPSYCHOLOGICAL TESTING EVALUATION SERVICES FIRST [id number] PSYCHOLOGICAL OR NEUROPSYCHOLOGICAL TEST ADMINISTRATION AND SCORING BY CASTING CLEANER, TWO OR MORE TESTS, ANY METHOD; FIRST 30 [id number] Funct status past 12 months * Follow Up: with Tracey (Reason: MCI Test result review) * Billing Information: * Visit Code: * Procedure Codes: 96985 NEUROPSYCHOLOGICAL TESTING EVALUATION SERVICES FIRST HOUR. 45271 PSYCHOLOGICAL OR NEUROPSYCHOLOGICAL TEST ADMINISTRATION AND SCORING BY CASTING CLEANER, TWO OR MORE TESTS, ANY METHOD; FIRST 30 MINUTES. G9916 Funct status past 12 months. Images * Procedures/Mild Cognitive Im pairment (MCI) Testing/MCI RESULTS 07.24.24 * Sign off status: Completed true * Provider: Tiffanie FLORES MD Date: 0 07/24/2024 Generated for Jing yatse/Kalli/Fatumaitting on: 0 08/08/2024 04:45 PM CDT History and Physical Notes * HPI (History of Present Illness) Category Sub-Category Detail Notes Category Not es HPI Patient had MCI testing Patient was identified, and logged into PC Test was admistered in office Staff supervising the test: Radha Examination Category Sub-Category Detail Notes Category Not es Neurology Cognition Assessment Tools Used Total score SLUMS: 27 Slums Score Total score IQCODE: 3.38 IQCODE score
--- OUTSIDE RECORDS SUMMARY | 2024-08-08 16:46 | XMS_ITS ---
Author Organization [facility] As Andela [facility] Address [address] [facility] [address] [place] [address] Care Team Providers Care Associate Attorney Name Role Phone Tiana Liang Primary Care Provider Morelia Tracey Staley Unavailable [phone] Allergies Allergen (clinical drug ingredient) Drug/Non Drug Allergy documented on EMR Reaction Allergy Type Onset Date Status modafinil Modafinil Unknown Drug Allergy 07/27/2023 Active REASON FOR VISIT [facility] Follow Up Medications Medication SIG (Take, Route, Frequency, Duration) Notes Start Date End Date Status FLUoxetine HCl 20 MG 1 capsule every morning Orally Once a day total dose 60 mg increasing 05/14/2024 Active oxyCODONE HCl 5 MG Oral 07/27/2023 Not-Taking buPROPion HCl ER (XL) 150 MG 1 tablet in the morning Orally Once a day Active HYDROcodone-Acetaminophe n 7.5-325 MG Oral 07/27/2023 Not-Taking HYDROcodone-Acetaminophe n 10-325 MG Oral 07/27/2023 Not-Taking Unithroid 75 mcg Oral 07/27/2023 No t-Taking tiZANidine HCl 4 MG Oral 07/27/2023 Not-Taking Celecoxib 200 MG Oral 07/27/2023 No t-Taking Maple Thyroid 90 MG Oral 07/27/2023 Active FLUoxetine HCl 40 MG 1 capsule every Morning Oral Once a day for 30 days total dose 60 mg increasing 06/11/2024 Active hydroCHLOROthiazide 25 MG Oral 07/27/2023 Active Potassium Chloride ER 10 MEQ Oral 07/27/2023 Active Zolpidem Tartrate 10 MG Oral 07/27/2023 Active Lansoprazole 30 MG Oral 07/27/2023 Active Cetirizine HCl 10 MG Oral 07/27/2023 Active ProAir HFA 108 (90 Base) MCG/ACT Inhalation 07/27/2023 Active Lisinopril 10 MG Oral 07/27/2023 Ac tive EQ GAS RELIEF CAP *Reorder from [facility] for eRx and Interaction Alerts* 07/27/2023 Active traMADol HCl 50 MG Oral 07/27/2023 Active amLODIPine Besylate 10 MG Oral 07/27/2023 Active Ashwagandha 35 120 MG as directed Orally Active Social History Tobacco Use: Social History Observation Description Date Details (start date - stop date) Never Smoker NA - NA Sex Assigned At : Social History Observation Description Sex Assigned At Female Tobacco Control (Standard) Question Answer Notes Tobacco use: Nonsmoker How long has it been since you last smoked? Seg[address] ter than 10 years Vital Signs Blood pressure systolic 120 mm Hg 07/30/19 25 Blood pressure diastolic 80 mm Hg 025 Heart Rate 85 /min 07/29/2024 Height 59.00 in 07/29/2024 Weight 154 lbs 07/29/2024 BMI 31.1 kg/m2 07/29/2024 Height-cm 149.86 cm 07/29/2024 Weight-kg 69.85 kg 07/29/2024 Encounters Encounter Location Date Provider Diagnosis [facility] [address] [address] 07/29/2024 Tracey Madden Encounter for screening for cardiovascular disorders Z13.6 ; Encounter for screening for depression Z13.31 ; Major depressive disorder, recurrent, mild F33.0 ; Generalized anxiety disorder F41.1 ; Primary insomnia F51.01 ; Mild neurocognitive disorder G31.84 ; Obstructive sleep apnea (adult) (pediatric) G47.33 ; 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 and Benign essential HTN I10 Assessments Encounter Date Diagnosis (ICD Code) Assessment Notes Treatment Notes Treatment Clinical Notes Section Notes 07/29/2024 Encounter for screening for cardiovascular disorders (ICD-10 - Z13.6) Depression - No improvement in depression, motivation, interest, or energy after trying duloxetine, bupropion, and fluoxetine - Thoughts of dying reported, but denies active suicidal ideation or intent Plan: - Consider TMS or Spravato as alternative treatment options - Discuss switching to Trintellix for geriatric depression and cognitive concerns Anxiety - ongoing Plan: - Monitor anxiety levels - Consider adjusting medication if no improvement observed Sleep disturbance - Takes zolpidem for sleep but still experiences waking up early - Has been on zolpidem chronically through PCP - Expresses concerns about long-term use and desire to get off but acknowledges dependence - Uses CPAP Plan: - Discuss possibility of tapering off Ambien and exploring alternative sleep medications at future visits - Continue monitoring sleep patterns Cognitive concerns - Worsening memory and concentration issues reported - Discussed MRI years ago, felt memory has declined - Inquires of possible ADHD assessment and treatment Plan: - Order cognitive testing - Discuss results and potential treatment options at following visit Follow-up after cognitive testing to discuss results and potential treatment options Explore Spravato or TMS, she is considering. Trintellix as possible medication option 07/29/2024 Encounter for screening for depression (ICD-10 - Z13.31) Depression - No improvement in depression, motivation, interest, or energy after trying duloxetine, bupropion, and fluoxetine - Thoughts of dying reported, but denies active suicidal ideation or intent Plan: - Consider TMS or Spravato as alternative treatment options - Discuss switching to Trintellix for geriatric depression and cognitive concerns Anxiety - ongoing Plan: - Monitor anxiety levels - Consider adjusting medication if no improvement observed Sleep disturbance - Takes zolpidem for sleep but still experiences waking up early - Has been on zolpidem chronically through PCP - Expresses concerns about long-term use and desire to get off but acknowledges dependence - Uses CPAP Plan: - Discuss possibility of tapering off Ambien and exploring alternative sleep medications at future visits - Continue monitoring sleep patterns Cognitive concerns - Worsening memory and concentration issues reported - Discussed MRI years ago, felt memory has declined - Inquires of possible ADHD assessment and treatment Plan: - Order cognitive testing - Discuss results and potential treatment options at following visit Follow-up after cognitive testing to discuss results and potential treatment options Explore Spravato or TMS, she is considering. Trintellix as possible medication option 07/29/2024 Major depressive disorder, recurrent, mild (ICD-10 - F33.0) Depression - No improvement in depression, motivation, interest, or energy after trying duloxetine, bupropion, and fluoxetine - Thoughts of dying reported, but denies active suicidal ideation or intent Plan: - Consider TMS or Spravato as alternative treatment options - Discuss switching to Trintellix for geriatric depression and cognitive concerns Anxiety - ongoing Plan: - Monitor anxiety levels - Consider adjusting medication if no improvement observed Sleep disturbance - Takes zolpidem for sleep but still experiences waking up early - Has been on zolpidem chronically through PCP - Expresses concerns about long-term use and desire to get off but acknowledges dependence - Uses CPAP Plan: - Discuss possibility of tapering off Ambien and exploring alternative sleep medications at future visits - Continue monitoring sleep patterns Cognitive concerns - Worsening memory and concentration issues reported - Discussed MRI years ago, felt memory has declined - Inquires of possible ADHD assessment and treatment Plan: - Order cognitive testing - Discuss results and potential treatment options at following visit Follow-up after cognitive testing to discuss results and potential treatment options Explore Spravato or TMS, she is considering. Trintellix as possible medication option 07/29/2024 Generalized anxiety disorder (ICD-10 - F41.1) Depression - No improvement in depression, motivation, interest, or energy after trying duloxetine, bupropion, and fluoxetine - Thoughts of dying reported, but denies active suicidal ideation or intent Plan: - Consider TMS or Spravato as alternative treatment options - Discuss switching to Trintellix for geriatric depression and cognitive concerns Anxiety - ongoing Plan: - Monitor anxiety levels - Consider adjusting medication if no improvement observed Sleep disturbance - Takes zolpidem for sleep but still experiences waking up early - Has been on zolpidem chronically through PCP - Expresses concerns about long-term use and desire to get off but acknowledges dependence - Uses CPAP Plan: - Discuss possibility of tapering off Ambien and exploring alternative sleep medications at future visits - Continue monitoring sleep patterns Cognitive concerns - Worsening memory and concentration issues reported - Discussed MRI years ago, felt memory has declined - Inquires of possible ADHD assessment and treatment Plan: - Order cognitive testing - Discuss results and potential treatment options at following visit Follow-up after cognitive testing to discuss results and potential treatment options Explore Spravato or TMS, she is considering. Trintellix as possible medication option 07/29/2024 Primary insomnia (ICD-10 - F51.01) on Ambien long-term through PCP have discussed risks versus benefits, hesitant to change Depression - No improvement in depression, motivation, interest, or energy after trying duloxetine, bupropion, and fluoxetine - Thoughts of dying reported, but denies active suicidal ideation or intent Plan: - Consider TMS or Spravato as alternative treatment options - Discuss switching to Trintellix for geriatric depression and cognitive concerns Anxiety - ongoing Plan: - Monitor anxiety levels - Consider adjusting medication if no improvement observed Sleep disturbance - Takes zolpidem for sleep but still experiences waking up early - Has been on zolpidem chronically through PCP - Expresses concerns about long-term use and desire to get off but acknowledges dependence - Uses CPAP Plan: - Discuss possibility of tapering off Ambien and exploring alternative sleep medications at future visits - Continue monitoring sleep patterns Cognitive concerns - Worsening memory and concentration issues reported - Discussed MRI years ago, felt memory has declined - Inquires of possible ADHD assessment and treatment Plan: - Order cognitive testing - Discuss results and potential treatment options at following visit Follow-up after cognitive testing to discuss results and potential treatment options Explore Spravato or TMS, she is considering. Trintellix as possible medication option 07/29/2024 Mild neurocognitive disorder (ICD-10 - G31.84) Depression - No improvement in depression, motivation, interest, or energy after trying duloxetine, bupropion, and fluoxetine - Thoughts of dying reported, but denies active suicidal ideation or intent Plan: - Consider TMS or Spravato as alternative treatment options - Discuss switching to Trintellix for geriatric depression and cognitive concerns Anxiety - ongoing Plan: - Monitor anxiety levels - Consider adjusting medication if no improvement observed Sleep disturbance - Takes zolpidem for sleep but still experiences waking up early - Has been on zolpidem chronically through PCP - Expresses concerns about long-term use and desire to get off but acknowledges dependence - Uses CPAP Plan: - Discuss possibility of tapering off Ambien and exploring alternative sleep medications at future visits - Continue monitoring sleep patterns Cognitive concerns - Worsening memory and concentration issues reported - Discussed MRI years ago, felt memory has declined - Inquires of possible ADHD assessment and treatment Plan: - Order cognitive testing - Discuss results and potential treatment options at following visit Follow-up after cognitive testing to discuss results and potential treatment options Explore Spravato or TMS, she is considering. Trintellix as possible medication option 07/29/2024 Obstructive sleep apnea (adult) (pediatric) (ICD-10 - G47.33) Depression - No improvement in depression, motivation, interest, or energy after trying duloxetine, bupropion, and fluoxetine - Thoughts of dying reported, but denies active suicidal ideation or intent Plan: - Consider TMS or Spravato as alternative treatment options - Discuss switching to Trintellix for geriatric depression and cognitive concerns Anxiety - ongoing Plan: - Monitor anxiety levels - Consider adjusting medication if no improvement observed Sleep disturbance - Takes zolpidem for sleep but still experiences waking up early - Has been on zolpidem chronically through PCP - Expresses concerns about long-term use and desire to get off but acknowledges dependence - Uses CPAP Plan: - Discuss possibility of tapering off Ambien and exploring alternative sleep medications at future visits - Continue monitoring sleep patterns Cognitive concerns - Worsening memory and concentration issues reported - Discussed MRI years ago, felt memory has declined - Inquires of possible ADHD assessment and treatment Plan: - Order cognitive testing - Discuss results and potential treatment options at following visit Follow-up after cognitive testing to discuss results and potential treatment options Explore Spravato or TMS, she is considering. Trintellix as possible medication option 07/29/2024 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 (ICD-10 - E06.3) Depression - No improvement in depression, motivation, interest, or energy after trying duloxetine, bupropion, and fluoxetine - Thoughts of dying reported, but denies active suicidal ideation or intent Plan: - Consider TMS or Spravato as alternative treatment options - Discuss switching to Trintellix for geriatric depression and cognitive concerns Anxiety - ongoing Plan: - Monitor anxiety levels - Consider adjusting medication if no improvement observed Sleep disturbance - Takes zolpidem for sleep but still experiences waking up early - Has been on zolpidem chronically through PCP - Expresses concerns about long-term use and desire to get off but acknowledges dependence - Uses CPAP Plan: - Discuss possibility of tapering off Ambien and exploring alternative sleep medications at future visits - Continue monitoring sleep patterns Cognitive concerns - Worsening memory and concentration issues reported - Discussed MRI years ago, felt memory has declined - Inquires of possible ADHD assessment and treatment Plan: - Order cognitive testing - Discuss results and potential treatment options at following visit Follow-up after cognitive testing to discuss results and potential treatment options Explore Spravato or TMS, she is considering. Trintellix as possible medication option 07/29/2024 Benign essential HTN (ICD-10 - I10) Depression - No improvement in depression, motivation, interest, or energy after trying duloxetine, bupropion, and fluoxetine - Thoughts of dying reported, but denies active suicidal ideation or intent Plan: - Consider TMS or Spravato as alternative treatment options - Discuss switching to Trintellix for geriatric depression and cognitive concerns Anxiety - ongoing Plan: - Monitor anxiety levels - Consider adjusting medication if no improvement observed Sleep disturbance - Takes zolpidem for sleep but still experiences waking up early - Has been on zolpidem chronically through PCP - Expresses concerns about long-term use and desire to get off but acknowledges dependence - Uses CPAP Plan: - Discuss possibility of tapering off Ambien and exploring alternative sleep medications at future visits - Continue monitoring sleep patterns Cognitive concerns - Worsening memory and concentration issues reported - Discussed MRI years ago, felt memory has declined - Inquires of possible ADHD assessment and treatment Plan: - Order cognitive testing - Discuss results and potential treatment options at following visit Follow-up after cognitive testing to discuss results and potential treatment options Explore Spravato or TMS, she is considering. Trintellix as possible medication option Plan Of Treatment Medication Medication Name Sig Start Date Stop Date Notes FLUoxetine HCl 20 MG 1 capsule every mor diamante Orally Once a day 05/14/2024 increasing buPROPion HCl ER (XL) 150 MG 1 tablet in the morning Orally Once a day Treatment Notes Assessment Notes Primary insomnia on Ambien long-term through PCP Next Appt Details Provider Name:Tracey rider, 09/09/2024 01:15:00 PM, [address], [facility] [address], [place], [address], Progress Notes * SANDRA GUERREROOB:1955 (68 yo F)Acc No.[id number]:07/29/2024 Patient: SUZY MOSLEYIS Provider: Ej Madden :1955 A ge:68 Y S ex:Female Date:07/29/2024 Phone: Address:[address] [place], [place] [id number] Pcp:Tiana Tony [facility] Subjective: * Chief Complaints: * 1 . [facility]CI Follow Up. * HPI: D epression screening: PHQ-9 L ittle interest or pleasure in doing things?Several days F eeling down, depressed, or hopeless S everal days T rouble falling or staying asleep, or sleeping too much S everal days F eeling tired or having little energy S everal days P oor appetite or overeating M ore than half the days F eeling bad about yourself or that you are a failure, or have let yourself or your family down S everal days T rouble concentrating on things, such as reading the newspaper or watching television N ot at all M oving or speaking so slowly that other people could have noticed; or the opposite, being so fidgety or restless that you have been moving around a lot more than usual N ot at all T houghts that you would be better off or of hurting yourself in some way N ot at all T otal Score 7 I nterpretation M ild Depression Intervention D epression Screening Findings P ositve F ollow-Up for Depression M ental health treatment assessment, Patient follow-up to return when and if necessary S uicide Risk Assessment Performed 0 07/29/2024 A dditional Evaluation for Depression P sychiatric interview and evaluation N osmar of the standardized tool used for adult depression screening: P atient Health Questionnaire (PHQ-9) H istory of Presenting Problem: This note is transcribed using speech recognition software. It is a reflection of a visit with the patient. It might have some inaccuracy, including medication names and transcribing errors, though efforts have been made to correct them. 68 y/o female, , here to follow up for depression, anxiety, insomnia, hx mild cognitive d/o dx. Presents for follow up after MCI testing. In between visits requested fluoxetine be decreased to 20 mg, stating feeling like it was the right thing to do Overall summary and score interpretation, she fell within borderline range; may indicate mild cognitive concern Below-average performance in response inhibition and mental rotation. Attention, episodic memory, and verbal short-term memory remain average. Continues to manage daily activities independently. Expresses desire to improve condition through adjustments to supplement regimen and diet. Depression symptoms still persist. Feeling tired and lacking energy. Denies current suicidal ideations or thoughts of being better off not here. Sleep disturbances persist, taking zolpidem nightly per PCP, maintaining CPAP compliance as best as can be . A nxiety currently at a manageable level. Reports potential circulation problems in legs, reports l egs feeling very heavy, particularly at the bottom. Questions whether related to medications she is taking. Mentions interest in s eeing a Nondenominational counselor - Also taking ashwagandha for depression, lion's manjit, and vitamin D supplements. ongoing notes: psychotherapy: Tried in the past but reports w as too e xpensive tinnitus, chronic, worsens a nxiety. * ROS: P erformance Met: N ormal blood pressure reading documented, follow-up not required ( [id number]). * Medical History: L davie-term drug therapy, Mild neurocognitive disorder, Mild recurrent major depression, Primary insomnia, Severe recurrent major depression without psychotic features, Past Psychiatric History: Anxiety Disorder,Panic Disorder, Chronic fatigue syndrome, Benign essential hypertension, Sleep apnea, obstructive. * Surgical History: h ip replacement 11/2022, Cataract surgery ([id number]) 05/15/2010, Sinus surgery 05/15/2011, Other 02/25/2019. * Hospitalization/Major Diagno stic Procedure: 06/07 infection 03/2024. * Family History: F ather: Family history of cancer . M aternal Aunt: History of attempted suicide . M other: Alcohol abuse , Family history of cancer , Substance abuse . B rother: Schizophrenia . Son: alive, Substance abuse , diagnosed with Heart disease. * Social History: T obacco Use: T obacco Control (Standard) T obacco use: N onsmoker H ow long has it been since you last smoked??Greater than 10 years * Medications: T aking Ashwagandha 35 120 MG Capsule as directed Orally , Taking EQ GAS RELIEF CAP , Notes to Pharmacist: *Reorder from [facility] for eRx and Interaction Alerts*, Taking traMADol HCl 50 MG Tablet Oral , Taking amLODIPine Besylate 10 MG Tablet Oral , Taking ProAir HFA 108 (90 Base) MCG/ACT Aerosol Solution Inhalation , Taking Lisinopril 10 MG Tablet Oral , Taking hydroCHLOROthiazide 25 MG Tablet Oral , Taking Potassium Chloride ER 10 MEQ Tablet Extended Release Oral , Taking Lansoprazole 30 MG Capsule Delayed Release Oral , Taking Cetirizine HCl 10 MG Tablet Oral , Taking Zolpidem Tartrate 10 MG Tablet Oral , Taking Maple Thyroid 90 MG Tablet Oral , Taking buPROPion HCl ER (XL) 150 MG Tablet Extended Release 24 Hour 1 tablet in the morning Orally Once a day , Taking FLUoxetine HCl 40 MG Capsule 1 capsule every Morning Oral Once a day total dose 60 mg, Notes to Pharmacist: increasing, Taking FLUoxetine HCl 20 MG Capsule 1 capsule every morning Orally Once a day total dose 60 mg, Notes to Pharmacist: increasing, Not-Taking tiZANidine HCl 4 MG Tablet Oral , Not-Taking Celecoxib 200 MG Capsule Oral , Not-Taking Unithroid 75 mcg Tablet Oral , Not-Taking oxyCODONE HCl 5 MG Tablet Oral , Not-Taking HYDROcodone-Acetaminophen 7.5-325 MG Tablet Oral , Not-Taking HYDROcodone-Acetaminophen 10-325 MG Tablet Oral , Medication List reviewed and reconciled with the patient * Allergies: M odafinil: Allergy - Onset Date 07/27/2023. Objective: * Vitals: B P:120/80mm Hg, HR:85/min, Wt:154lbs, Wt-k.85 kg, Ht: 59.00 in, Ht-cm: 149.86 cm, BMI:31.1Index, Body Surface Area: 1.7. * Examination: P sychiatry: Appearance: a lert, groomed, In no acute distress. Abnormal body movements: n one noted. Affect / mood: f lat, fatigued. Attention: n ormal in conversation. Attitude: c ooperative. Homicidal ideation: n one. Suicidal ideation: n one. Degree of awareness of surroundings: w ithin normal limits.? Delusions: n o. Hallucinations: n o. Insight: g ood. Intellectual functioning: n o impairment noted. Judgement: g ood. Orientation: a wake, alert and oriented x 3. Psychomotor activity: w ithin normal range. Speech / language: m onotonous, reduced volume. Thought content: p essemistic. Thought process: i ntact. Assessment: * Assessment: 1. M ajor depressive disorder, recurrent, mild - F33.0 (Primary) 2 . E ncounter for screening for cardiovascular disorders - Z13.6 3 . E ncounter for screening for depression - Z13.31 4 . G eneralized anxiety disorder - F41.1 & #160; 5 . P rimary insomnia - F51.01 6 . M ild neurocognitive disorder - G31.84 7 . O bstructive sleep apnea (adult) (pediatric) - G47.33 8 . H ypothyroidism due to Cuong's thyroiditis - E06.3 9 . B enign essential HTN - I10 Depression - No improvement in depression, motivation, interest, or energy after trying duloxetine, bupropion, and fluoxetine - Thoughts of dying reported, but denies active suicidal ideation or intent Plan: - Consider TMS or Spravato as alternative treatment options - Discuss switching to Trintellix for geriatric depression and cognitive concerns Anxiety - ongoing Plan: - Monitor anxiety levels - Consider adjusting medication if no improvement observed Sleep disturbance - Takes zolpidem for sleep but still experiences waking up early - Has been on zolpidem chronically through PCP - Expresses concerns about long-term use and desire to get off but acknowledges dependence - Uses CPAP Plan: - Discuss possibility of tapering off Ambien and exploring alternative sleep medications at future visits - Continue monitoring sleep patterns Cognitive concerns - Worsening memory and concentration issues reported - Discussed MRI years ago, felt memory has declined - Inquires of possible ADHD assessment and treatment Plan: - Order cognitive testing - Discuss results and potential treatment options at following visit Follow-up after cognitive testing to discuss results and potential treatment options Explore Spravato or TMS, she is considering. Trintellix as possible medication option. Plan: * Treatment: 2. P rimary insomnia Notes: on Ambien long-term through PCP Clinical Notes: have discussed risks versus benefits, hesitant to change * Procedure Codes: G 8783 NORMAL BP READING DOC F/U NOT RQR, 67767 BEHAV ASSMT W/SCORE & DOCD/STAND INSTRUMENT, G8431 CLIN DEPRESSION SCREEN DOC, G8752 MOST RECENT SYSTOLIC BP < 140MM HG, G8754 MOST RECENT DIASTOLIC BP < 90MM HG * Billing Information: * Visit Code: * Procedure Codes: G8783 NORMAL BP READING DOC F/U NOT RQR. 85123 BEHAV ASSMT W/SCORE & DOCD/STAND INSTRUMENT. G8431 CLIN DEPRESSION SCREEN DOC. G8752 MOST RECENT SYSTOLIC BP < 140MM HG. G8754 MOST RECENT DIASTOLIC BP < 90MM HG. * Electronic signature of Bill Madden on 08/08/2024 at 04:46 PM CDT Sign off status: Pending * Provider: Ej Madden Date: 0 07/29/2024 Generated for Jing yates/Kalli/Dorcas on: 0 08/08/2024 04:46 PM CDT History and Physical Notes * HPI (History of Present Illness) Category Sub-Category Detail Notes Category Not es History of Presenting Problem Presents for follow up after MCI testing. In between visits requested fluoxetine be decreased to 20 mg, stating feeling like it was the right thing to do Overall summary and score interpretation, she fell within borderline range; may indicate mild cognitive concern Below-average performance in response inhibition and mental rotation. Attention, episodic memory, and verbal short-term memory remain average. Continues to manage daily activities independently. Expresses desire to improve condition through adjustments to supplement regimen and diet. Depression symptoms still persist. Feeling tired and lacking energy. Denies current suicidal ideations or thoughts of being better off not here. Sleep disturbances persist, taking zolpidem nightly per PCP, maintaining CPAP compliance as best as can be . Anxiety currently at a manageable level. Reports potential circulation problems in legs, reports legs feeling very heavy, particularly at the bottom. Questions whether related to medications she is taking. Mentions interest in seeing a Nondenominational counselor - Also taking ashwagandha for depression, lion's manjit, and vitamin D supplements. ongoing notes: psychotherapy: Tried in the past but reports was too expensive tinnitus, chronic, worsens anxiety Depression screening PHQ-9 Little interest or pleasure in doing things: Several days Feeling down, depressed, or hopeless: Se veral days Trouble falling or staying asleep, or sl eeping too much: Several days Feeling tired or having little energy: S everal days Poor appetite or overeating: More than h ritesh the days Feeling bad about yourself o r that you are a failure, or have let yourself or your family down: Several days Trouble concentrating on thi ngs, such as reading the newspaper or watching television: Not at all Moving or speaking so slowly that other people could have noticed; or the opposite, being so fidgety or restless that you have been moving around a lot more than usual: Not at all Thoughts that you would be b lud[place] off or of hurting yourself in some way: Not at all Total Score: 7 Interpretation: Mild Depression Intervention Depression Screening Findings: P ositve Follow-Up for Depression: Nv nta health treatment assessment, Patient follow-up to return when and if necessary Suicide Risk Assessment Performed: 07/29 Additional Evaluation for Depression: Ps ychiatric interview and evaluation Name of the standardized too l used for adult depression screening:: Patient Health Questionnaire (PHQ-9) Examination Category Sub-Category Detail Notes Category Not es Psychiatry Appearance: alert, groomed, In no acute distress Attitude: cooperative Psychomotor activity: within normal rang e Abnormal body movements: none noted Attention: normal in conversati on Degree of awareness of surroundings: wit hin normal limits Orientation: awake, alert and heron ented x 3 Affect / mood: flat, fatigued Speech / language: monotonous, reduced volume Insight: good Judgement: good Thought process: intact Thought content: pessemistic Suicidal ideation: none Homicidal ideation: none Intellectual functioning: no impairment noted Delusions: no Hallucinations: no
--- OUTSIDE RECORDS SUMMARY | 2024-08-08 16:46 | XMS_ITS | Continuity of Care Document ---
Author Organization [facility] Address [id number] [place] [address] [address] [place] [address] Phone Care Team Providers Care Soldering Inspector Name Role Phone Prabhakar Ambrose MD Unavailable Unavailable Procedures Procedure Date AFTER CATARACT LASER SURGERY AFTER CATARACT LASER SURGERY OFFICE/OUTPATIENT VISIT, EST CATARACT SURG W/IOL, 1 STAGE OFFICE/OUTPATIENT VISIT, NEW CATARACT SURG W/IOL, 1 STAGE OFFICE/OUTPATIENT VISIT, NEW OPHTHALMIC BIOMETRY OPHTHALMIC BIOMETRY Advance Directives Directive Yes / No Effective Date File Name No Information Encounters Encounter Description Practice Location Reason(s) For Visit Diagnoses Date Provider Providers Copied on Encounter [facility], [address] [place] [address], [id number], tel:[phone] [address] [place] [address] No Information 4 Halie Radford. [address] [facility], [address], [place], [address], [place]. tel:[phone] Referring Provider: Prabhakar Beaver, [address] [place] [address] [address], [place], [address]. tel:[phone] [facility], [address] [place] [address], [id number], tel:[phone] [address] [place] [address] No Information 4 Halie Radford. [address] [facility], [facility] [address], [place], [address], [place]. tel:[phone] Referring Provider: Prabhakar Beaver, [address], [place], [address]. tel:[phone] OFFICE/OUTPA TIENT VISIT, [facility], [address] [facility], [place], [place], [id number], [place] tel:[phone] [facility] No Information 4 Halie Prabhakar. [address], [address], [place], [address], [place]. tel:[phone] Referring Provider: Prabhakar Beaver, [address], [place], [address]. tel:[phone] [facility], [address] [facility], [place], [place], [id number], [place] tel:[phone] [facility] No Information 2 Halie Prabhakar. [address], [address], [place], [address], [place]. tel:[phone] Referring Provider: Prabhakar Beaver, [address] [facility] [address], [place], [address]. tel:[phone] OFFICE/OUTPA TIENT VISIT, [facility], [address], [place], [place], [id number], [place] tel:[phone] [facility] No Information 2 Halie Prabhakar. [address], [address], [place], [address], [place]. tel:[phone] Referring Provider: Prabhakar Beaver, [address] [facility] [address], [place], [address]. tel:[phone] [facility], [address], [place], [place], [id number], [place] tel:[phone] [facility] No Information 1 Halie Prabhakar. [address], [address], [place], [address], [place]. tel:[phone] OFFICE/OUTPA TIENT VISIT, [facility], [address], [place], [place], [id number], [place] tel:[phone] [facility] No Information 1 Halie Radford. [address] [facility], [address], [place], [address], [place]. tel:[phone] Family History Family Member Type Diagnosis Age At Onset No Information Payers Payer name Insurance type Covered libertarian ID Authormontanaa sony(s) [id number] Social History Type Description Quantity Date Captured Comments Sex Female Smoking Status No Information Chief Complaint And Reason For Visit No Information Reason For Referral Reason For Referral No Information History Of Present Illness Encounter Date Complaint History Of Prese nt Illness No Information Functional Status Date Functional Assessmen t No Information Instructions Date Instruction Additional Infor mation No Information Assessments Type Assessment Date No Information Patient Care Teams Name Effective Dates (start - stop) Status Members No Information
--- OUTSIDE RECORDS SUMMARY | 2024-08-08 16:47 | XMS_ITS | Referral Summary ---
Author Organization [facility] [address] Address [address] [place] [address] Care Team Providers Care Pit Recorder Name Role Phone Tristan Schuler MD Unavailable [phone] Dmitriy Camargo MD Primary Care Prov ider Encounters Date Type Department Care Team Description 07/04/2024 Results Follow-Up [facility] Cardiology [address] [place] [phone] Marcelina Wheeler, RADHA Hypertriglyceridemia (Primary Dx) 06/17/2024 3:15 PM GUN WELDER Office Visit [facility] Cardiology [address] [place] [phone] Tristan Schuler MD Primary hypertension (Primary Dx); Hypertriglyceridemia; Shortness of breath 05/29/2024 2:30 PM GUN WELDER - 05/29/2024 11:59 PM GUN WELDER Hospital Encounter [facility] [address] [place] [address] [place] [phone] History of right hip replacement; Back pain, unspecified back location, unspecified back pain laterality, unspecified chronicity Discharge Disposition: Discharge to home or self care 05/29/2024 12:46 PM GUN WELDER - 05/29/2024 11:59 PM GUN WELDER Hospital Encounter [facility] Radiology [address] [place] [address] [place] [phone] History of right hip replacement; History of total knee arthroplasty, right Discharge Disposition: Discharge to home or self care 05/29/2024 1:20 PM GUN WELDER Office Visit [facility] Orthopaedic Surgery [address] [facility] [address] [place] [address] Mina Ayala MD History of right hip replacement (Primary Dx); Back pain, unspecified back location, unspecified back pain laterality, unspecified chronicity; History of total knee arthroplasty, right from Last 3 Months Allergies Active Allergy Reactions Criticality Noted Date Comments Armodafinil Unknown,Other (See comments) High 02/02/2015 Runny nose Reaction: unknown, Runny Nose Banana Vomiting Low 05/21/2020 Clindamycin Shortness of breath High 01/18/2019 Modafinil Other (See comments),Shortness of breath High 02/02/2015 Reaction: unknown, Breathing Difficulty Medications zolpidem (AMBIEN) 10 mg tablet take 1 tablet by oral route every day at bedtime 0 0 03/03/20 16 Active Additional Information Patient taking differently:10 mgoral Nightly PRN, sleep, Informant: Self, Reported on 06/17/2024 lansoprazole (PREVACID) 30 mg capsule take 1 capsule by oral route every day before a meal 0 0 03/03/20 16 Active Additional Information Patient taking differently:30 mgoral As needed, Indications: Stress Ulcer Prophylaxis, Informant: Self, Reported on 11/02/2022 cetirizine (ZyrTEC) 10 mg tablet take 1 tablet by oral route every day 0 0 08/27/19 17 Active Additional Information Patient taking differently:10 mgoral As needed, allergies, Indications: Seasonal Allergic Rhinitis, Informant: Self, Reported on 06/17/2024 magnesium gluconate 200 mg tabletIndicatio ns:hypomagnesem ia Take 1 tablet (200 mg total) by mouth every morning Active buPROPion XL (WELLBUTRIN XL) 150 mg 24 hr tabletIndicatio ns:major depressive disorder Take 20 mg by mouth every morning 12/04/[address] (CYMBALTA) 20 mg capsuleIndicati ons:Fibromyalgi a Take 1 capsule (20 mg total) by mouth nightly 12/04/19 21 Active albuterol HFA (PROVENTIL HFA,VENTOLIN HFA,PROAIR HFA) 90 mcg/actuation inhalerIndicati ons:Shortness of breath Inhale 2 puffs every 6 (six) hours as needed for wheezing 1 each 3 03/29/20 22 Active melatonin 10 mg tablet Take 2 tablets (20 mg total) by mouth nightly Active simethicone (GAS-X) 180 mg capsule TAKE 1 SOFTGEL BY MOUTH ONCE DAILY NEEDED FOR ABDOMINAL DISTENTION 01/03/20 23 Active levothyroxine (SYNTHROID) 75 mcg tabletIndicatio ns: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 Take 1 tablet (75 mcg total) by mouth daily 90 tablet 3 09/07/19 24 025 Active tiZANidine (ZANAFLEX) 4 mg tablet Oral 07/27/19 24 Active hydroCHLOROthia zide (HYDRODIURIL) 25 mg tabletIndicatio ns:Primary hypertension Take 1 tablet (25 mg total) by mouth daily 90 tablet 04/29/20 24 Active potassium chloride ER 10 mEq CR tablet Take 1 tablet by mouth once daily 90 tablet 1 05/30/19 25 Active lisinopriL (PRINIVIL,ZESTR IL) 10 mg tabletIndicatio ns:Primary hypertension Take 1 tablet by mouth once daily 90 tablet 1 05/30/19 25 Active amLODIPine (NORVASC) 10 mg tablet TAKE 1 TABLET BY MOUTH ONCE DAILY IN THE MORNING 90 tablet 2 08/03/19 25 Active amLODIPine (NORVASC) 10 mg tabletIndicatio ns:hypertension Take 1 tablet (10 mg total) by mouth every morning 90 tablet 1 01/25/20 24 025 Discontinued Active Problems Problem Noted Date Diagnosed Date Fatigue 02/29/2024 Assessment & Plan (02/29/2024 2:25 PM CDT): Chronic problem; worsening in past 3 months. Report sedentary lifestyle. Look up free exercises on your smart TV: YouTube channels. All kind of exercises. Minimum 20- 30 minuts activity daily. Can break it up into small segments. Discussed that if she continues sedentary lifestyle--she won't increase energy or lower fatigue issues. Discussed benefits of activity/exercise. Increase protein in diet. 30gm protein per meal. Increase water intake; 30oz water is not enough. Goal is 60oz miminum. Large panel of labs requested. Discussed that while things may be abnormal--1st line treatment will be lifestyle changes. Verified that she uses [employer]. Aware to check results/results letter in [employer]. Will contact by phone if needed. 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 Clinically & biochemically euthyroid on current levothyroxine 75 mcg daily. Aware to take 1st thing in morning, 30-60 minutes before food/drink/other medications. Last TSH WNL 81/24. Feeling fatigued though. Want to have panel of labs drawn. Stressed that lifestyle changes were my biggest suggestion to start with. Can draw labs, but needs to make lifestyle changes (see below). Look up free exercises on your smart TV: YouTube channels. All kind of exercises. Minimum 20-30 minuts activity daily. Can break it up into small segments. Increase protein in diet. 30gm protein per meal. Increase water intake; 30oz water is not enough. Goal is 60oz miminum. Verified that she uses [employer]. Aware to check results/results letter in [employer]. Will contact by phone if needed. Assessment & Plan (09/22/2023 11:30 AM CDT): Chronic, well controlled, TSH at goal Switch to generic levothyroxine 75 mcg oral daily ( due to high cost of branded meds ) Recheck thyroid function test in 3 months Assessment & Plan (02/19/2023 1:41 PM CDT): Chronic, uncontrolled Pt currently on Unithyroid 75 mcg oral daily Recheck thyroid labs today and further plans based on it Pre-diabetes 02/19/2023 Assessment & Plan (02/29/2024 1:29 PM CDT): Chronic problem. Not currently taking any antidiabetic medications. Last A1c 5.8%. Discussed diet/exercise as 1st line treatement in prediabetes. Assessment & Plan (09/22/2023 11:28 AM CDT): Recheck hemoglobin A1c Counseled on healthy lifestyle habits Assessment & Plan (02/19/2023 1:40 PM CDT): Recheck A1c Counseled on diet and exercise Vitamin D deficiency 02/19/2023 Assessment & Plan (02/29/2024 2:18 PM CDT): Chronic problem. Was WNL last year. Reports that she's taking OTC 10KIU daily. Will update Vit D level. Verified that she uses [employer]. Aware to check results/results letter in [employer]. Will contact by phone if needed. Assessment & Plan (02/19/2023 1:40 PM CDT): Check levels today and further plans based on it Right hip pain 11/18/2022 Primary osteoarthritis of right hip 09/21/2022 Preoperative clearance 09/01/2022 Abnormal EKG 09/01/2022 Hypertriglyceridemia 09/01/2022 Hip pain 06/01/2021 Assessment & Plan (06/01/2021 1:32 PM GUN WELDER): Pt asked me for referral to Dr Galvez. Sent. PLMD (periodic limb movement disorder) Assessment & Plan (03/30/2023 1:37 PM GUN WELDER): The patient denies that her limbs at night. Assessment & Plan (03/29/2022 3:09 PM GUN WELDER): Asymptomatic Assessment & Plan (09/24/2021 11:56 AM CDT): The PLMS are currently asymptomatic and she is on no medicine for this. Assessment & Plan (05/20/2021 1:53 PM GUN WELDER): Currently asymptomatic Cuong's thyroiditis 12/29/2020 Assessment & Plan (06/01/2021 1:31 PM GUN WELDER): Check TFT's Adjust dose of [place] accordingly Assessment & Plan (12/29/2020 4:19 PM CDT): Explained to the patient the treatment of Cuong's thyroiditis is mostly addressed to normalize TSH Option from treatment includes thyroid hormone replacement with synthetic thyroid hormone e.g. levothyroxine and or cytomel. Porcine thyroid hormone e.g. is [place] also is a possibility. The patient could not tolerate levothyroxine in the past. Her TSH normal on current dose of Armor so I do not see any point in making changes. She understands Insulin resistance 12/29/2020 Assessment & Plan (12/29/2020 4:20 PM CDT): With a month A1c of 6.6, now almost in the diabetic range. Diet and exercise at the most important part of the treatment was discussed. I advised her on trying Ozempic which can help with weight loss. She agrees. Samples of Ozempic were given. The patient advised to start 0.25 mg weekly for 4 weeks and then increase to 0.5 mg weekly Patient to let me know in 3 to 4 weeks if she is tolerating well Ozempic so we can send a prescription Chemotherapy-induced nausea 05/01/2020 Chronic allergic rhinitis 05/01/2020 Dizziness due to old head injury 05/01/2020 Elevated hemoglobin A1c 05/01/2020 Assessment & Plan (06/01/2021 1:31 PM GUN WELDER): Diet and exercise Check hba1c Neuropathy of left hand 05/01/2020 Opioid use 05/01/2020 Stage 2 chronic kidney disease 05/01/2020 Well child examination 05/01/2020 Other fatigue 11/07/2019 Weight gain 11/07/2019 Dyslipidemia 05/02/2019 Diastolic dysfunction 12/06/2018 Primary osteoarthritis of right knee 09/18/2018 Morbid obesity 09/18/2018 Assessment & Plan (06/01/2021 1:30 PM GUN WELDER): Low calorie diet Pt declines use of weight loss meds She will try to follow up with [facility] Assessment & Plan (12/29/2020 4:21 PM CDT): Diet and exercise were discussed. 1200 Calorie diet advised 45-60 min aerobic / resistance exercise most days of the week recommended. Bariatric surgery medically indicated The patient actually wants to consider bariatric surgery. Will send referral to [facility] Laryngopharyngeal reflux 11/02/2016 Tinnitus, bilateral 11/02/2016 Chest pain 08/26/2016 Overview (10/07/2016): Chest pain, unspecified type Body mass index (BMI) of 45.0-49.9 in adult 08/13 Overview (05/01/2020): Obesity (BMI 30-39.9) Shortness of breath 03/03/2016 Overview (08/19/2016): Shortness of breath Assessment & Plan (03/29/2022 3:10 PM GUN WELDER): Will continue with albuterol on a p.r.n. basis and up to 4 times a day as needed for symptom control. I have offered a chest x-ray and PFT, however the patient has declined. Assessment & Plan (09/24/2021 11:55 AM CDT): She continues to use an albuterol inhaler on a p.r.n. basis. I did offer her PFTs and a chest x-ray and she is currently refusing these tests. Assessment & Plan (05/20/2021 1:53 PM GUN WELDER): Patient will continue with albuterol on a p.r.n. basis. Chronic fatigue syndrome 03/03/2016 Overview (08/19/2016): Chronic fatigue Physical deconditioning 03/03/2016 Overview (08/19/2016): Physical deconditioning SHIRLEY on CPAP 01/29/2015 Assessment & Plan (03/30/2023 1:36 PM GUN WELDER): The patient is requesting that her CPAP be increased to 14 cm water pressure. The patient's DME is [facility]. Assessment & Plan (03/29/2022 3:09 PM GUN WELDER): Will continue CPAP therapy at 13 cm water pressure. Denied need for supplies. [facility] provider [facility] Assessment & Plan (09/24/2021 11:56 AM CDT): The patient's CPAP unit had malfunctioned and the pressure was too high. She is now using a loaner CPAP unit at 8 cm water pressure and feels that the pressure is too low. She normally had been on CPAP at 12 cm water pressure. She would like to have the pressure increased to 10 at this time. I will send an order to [facility] to have this done. She will follow-up with me in 6 months. Assessment & Plan (05/20/2021 1:54 PM GUN WELDER): The patient will continue with CPAP therapy at 12 cm water pressure to treat obstructive sleep apnea. Patient denied need for supplies. DME company provider [facility]. 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 Assessment & Plan (05/20/2021 1:54 PM GUN WELDER): The patient will continue with Ambien as ordered by primary care Social History Tobacco Use Types Packs/Day Years Used Date Smoking Tobacco: Never Smokeless Tobacco: Never Alcohol Use Standard Drinks/Week Comments No 0 (1 standard drink = 0.6 oz pur e alcohol) AUDIT-C Answer Date Recorded Q1: How often do you have a drink containing alcohol? Never 11/02/2022 Q2: How many drinks containi ng alcohol do you have on a typical day when you are drinking? Patient does not drink Q3: How often do you have si x or more drinks on one occasion? Never 11/02/2022 PHQ-2 Answer Date Recorded PHQ-2 Total Score (If total score is 3 or more points, staff should administer the PHQ-9) 6 09/07/2023 Personal Safety Answer Date Recorded Have you ever been in or are you currently in a harmful physical or emotional relationship or is someone making you feel afraid or unsafe? Denies 11/18/2022 Comments No Sex and Gender Information Value Date Recorded Sex Assigned at Not on file Legal Sex Female 4:13 AM GUN WELDER Gender Identity Female 12/06/2021 6:46 PM CDT Sexual Orientation Not on file Occupation Industry Job Start Date Job End Date retired Not on file Not on file Not on file [employer] Not on file Not on file Not on file Last Filed Vital Signs Vital Sign Reading Time Taken Comments Blood Pressure 100/70 06/17/2024 2:32 PM GUN WELDER Pulse 94 06/17/2024 2:32 PM GUN WELDER Temperature 36.8 C (98.3 F) 03/30/2023 1:18 PM GUN WELDER Respiratory Rate 16 02/29/2024 1:35 PM CDT Oxygen Saturation 94% 06/17/2024 2:32 PM GUN WELDER Inhaled Oxygen Concentration - - Weight 69.4 kg (152 lb 14.4 oz) 06/17/2024 2:32 PM GUN WELDER Height 144.8 cm (4' 9.01 ) 02/29/2024 1:35 PM CD T Body Mass Index 33.08 02/29/2024 1:35 PM CDT Plan of Treatment Not on file Medical Devices Implanted Type Area Jalousies Installer Device Identifier Shelf Expiration Date Model / Serial / Lot [employer] Bi Mentum 47mm Press Fit Femoral Proximal Cup Acetabular [id number] - Sna - [id number] Implanted:Qty: 1 on 11/18/2022 by Mina Ayala MD at [facility] Other - see comments Right: Hip [employer] [id number] 07/13/2027 [id number] / NA / [id number] Description:Implant pause pe rformed. [employer] Liner Acet Hip Size 28 Poly Bi Mentum Altrx 47mm [id number] - Sna - [id number] Implanted:Qty: 1 on 11/18/2022 by Mina Ayala MD at [facility] Other - see comments Right: Hip [employer] [id number] 10/12/2026 [id number] / NA / [id number] Description:Implant pause pe rformed. [employer] Articul/Mariano 28mm Cementless Hip +5mm 04/27 Taper Head Femoral Latex Free [id number] - Sna - [id number] Implanted:Qty: 1 on 11/18/2022 by Mina Ayala MD at [facility] Other - see comments Right: Hip [employer] [id number] 07/13/2027 [id number] / NA / [id number] Description:Implant pause pe rformed. [employer] Actis Collar Hip 4 High Offset Stem Femoral [id number] - Sna - [id number] Implanted:Qty: 1 on 11/18/2022 by Mina Ayala MD at [facility] Other - see comments Right: Hip [employer] [id number] 04/13/2032 [id number] / NA / [id number] Description:Implant pause pe rformed. Procedures Procedure Name Priority Date/Time Associated Diagnosis Comments LIPID PANEL Routine 06/28/2024 9:01 AM GUN WELDER Hypertriglyceridem ia XR SPINE LUMBAR 2 OR 3 VIEWS Schedule Routine, Read Routine (OP Routine) 05/29/2024 3:35 PM GUN WELDER History of right hip replacement Back pain, unspecified back location, unspecified back pain laterality, unspecified chronicity XR KNEE RIGHT 3 VIEWS Schedule Routine, Read Routine (OP Routine) 05/29/2024 1:37 PM GUN WELDER History of right hip replacement History of total knee arthroplasty, right XR HIP RIGHT W PELVIS 2 OR 3 VIEWS Schedule Routine, Read Routine (OP Routine) 05/29/2024 1:37 PM GUN WELDER History of right hip replacement SCREENING MAMMOGRAM 2D BILATERAL Routine 06/25/2012 12:18 PM GUN WELDER DEXA AXIAL SKELETON BONE DENSITY 1 OR MORE SITES Routine 05/29/2012 1:25 PM GUN WELDER from Last 3 Months or Most Recently Relevant to Health Maintenance Results * (ABNORMAL) Lipid panel (06/28/2024 9:01 AM GUN WELDER) Cholesterol 159 <200 mg/dL [facility] HDL 43(L) > OR = 50 mg/dL [facility] Triglycerides 181(H) <150 mg/dL [facility] LDL 88 mg/dL (calc) [facility] Comment: Reference range: <100 Desirable range <100 mg/dL for primary prevention; <70 mg/dL for patients with CHD or diabetic patients with > or = 2 CHD risk factors. LDL-C is now calculated using the Clark-Gayle calculation, which is a validated novel method providing better accuracy than the Friedewald equation in the estimation of LDL-C. Clark SS et al. LEONEL. 2013;310(19): 2775-0987 (http://education.Biotectix/faq/OYJ383) Chol/HDL ratio 3.7 <5.0 (calc) [facility] Non-HDL, (LDL+VLDL) 116 <130 mg/dL (calc) [facility] Comment: For patients with diabetes plus 1 major ASCVD risk factor, treating to a non-HDL-C goal of <100 mg/dL (LDL-C of <70 mg/dL) is considered a therapeutic option. Blood 06/28/2024 9:01 AM GUN WELDER 06/28/2024 9:01 AM GUN WELDER Narrative [facility] - 06/29/2024 2:58 AM GUN WELDER FASTING:YES FASTING: YES us Tristan Schuler MD LAB BLOOD ORDERABLES Final Result [facility] [address] [id number] * XR Spine Lumbar 2 or 3 Views (05/29/2024 3:35 PM GUN WELDER) Anatomical Region Laterality Modality Spine N/A Computed Radiogr aphy 05/29/2024 4:49 PM GUN WELDER Impressions 05/29/2024 4:52 PM GUN WELDER 1. Severe degenerative disease L2-L5with lower lumbar levoscoliosis and left lateral listhesis of L3 on L4. Dictated by: Dave Patrick MD The radiology attending physician has personally reviewed this study, and had reviewed and/or edited this written report and agrees with it. Electronically signed by: German Abbasi M.D. Narrative 05/29/2024 4:52 PM GUN WELDER EXAMINATION: XR SPINE LUMBAR 2 OR 3 VIEWS HISTORY: 68-year-old female with back pain; history of right hip replacement FINDINGS: 2 views of the lumbar spine are interpreted without comparison. Partially imaged right hip arthroplasty. No acute fracture. There is lower lumbar levoscoliosis with severe degenerative disc disease at L2-L5 and left lateral listhesis of L3 on L4. There is straightening of the normal lumbar lordosis. There is severe facet arthropathy. Procedure Note German Abbasi MD PhD - 05/29/2024 EXAMINATION: XR SPINE LUMBAR 2 OR 3 VIEWS HISTORY: 68-year-old female with back pain; history of right hip replacement FINDINGS: 2 views of the lumbar spine are interpreted without comparison. Partially imaged right hip arthroplasty. No acute fracture. There is lower lumbar levoscoliosis with severe degenerative disc disease at L2-L5 and left lateral listhesis of L3 on L4. There is straightening of the normal lumbar lordosis. There is severe facet arthropathy. IMPRESSION: 1. Severe degenerative disease L2-L5with lower lumbar levoscoliosis and left lateral listhesis of L3 on L4. Dictated by: Dave Patrick MD The radiology attending physician has personally reviewed this study, and had reviewed and/or edited this written report and agrees with it. Electronically signed by: German Abbasi M.D. Mina Ayala MD IMG XR PROCEDURES Final R esult * XR Hip Right 2 or 3 Views W Pelvis (05/29/2024 1:37 PM GUN WELDER) Anatomical Region Laterality Modality Lower Extremities, Hip, Pelvis Right C omputed Radiography 05/29/2024 1:44 PM GUN WELDER Impressions 05/29/2024 1:44 PM GUN WELDER 1. Right total hip arthroplasty in unchanged, near anatomic position. 2. Right total knee arthroplasty in unchanged, near anatomic position. Electronically signed by: John Holland M.D. Narrative 05/29/2024 1:44 PM GUN WELDER EXAMINATION: XR HIP RIGHT 2 OR 3 VIEWS W PELVIS, XR KNEE RIGHT 3 VIEWS HISTORY: Right hip and knee pain FINDINGS: Right hip: 2 view examination of the right hip is compared with a study from 01/04/2023. Right total hip arthroplasty remains in unchanged, near anatomic position. There is no fracture or component migration. There is mild left hip osteoarthritis. Right knee: 3 view examination of the right knee is compared with a study from 06/30/2022. Right total knee arthroplasty remains in near-anatomic position. There is no fracture or component migration. There is a trace knee effusion. There is no fracture. Procedure Note John Holland MD - 05/29/2024 EXAMINATION: XR HIP RIGHT 2 OR 3 VIEWS W PELVIS, XR KNEE RIGHT 3 VIEWS HISTORY: Right hip and knee pain FINDINGS: Right hip: 2 view examination of the right hip is compared with a study from 01/04/2023. Right total hip arthroplasty remains in unchanged, near anatomic position. There is no fracture or component migration. There is mild left hip osteoarthritis. Right knee: 3 view examination of the right knee is compared with a study from 06/30/2022. Right total knee arthroplasty remains in near-anatomic position. There is no fracture or component migration. There is a trace knee effusion. There is no fracture. IMPRESSION: 1. Right total hip arthroplasty in unchanged, near anatomic position. 2. Right total knee arthroplasty in unchanged, near anatomic position. Electronically signed by: John Holland M.D. Mina Ayala MD IMG XR PROCEDURES Final R esult * XR Knee Right 3 Views (05/29/2024 1:37 PM GUN WELDER) Anatomical Region Laterality Modality Lower Extremities, Knee Right Computed Radiography 05/29/2024 1:44 PM GUN WELDER Impressions 05/29/2024 1:44 PM GUN WELDER 1. Right total hip arthroplasty in unchanged, near anatomic position. 2. Right total knee arthroplasty in unchanged, near anatomic position. Electronically signed by: John Holland M.D. Narrative 05/29/2024 1:44 PM GUN WELDER EXAMINATION: XR HIP RIGHT 2 OR 3 VIEWS W PELVIS, XR KNEE RIGHT 3 VIEWS HISTORY: Right hip and knee pain FINDINGS: Right hip: 2 view examination of the right hip is compared with a study from 01/04/2023. Right total hip arthroplasty remains in unchanged, near anatomic position. There is no fracture or component migration. There is mild left hip osteoarthritis. Right knee: 3 view examination of the right knee is compared with a study from 06/30/2022. Right total knee arthroplasty remains in near-anatomic position. There is no fracture or component migration. There is a trace knee effusion. There is no fracture. Procedure Note John Holland MD - 05/29/2024 EXAMINATION: XR HIP RIGHT 2 OR 3 VIEWS W PELVIS, XR KNEE RIGHT 3 VIEWS HISTORY: Right hip and knee pain FINDINGS: Right hip: 2 view examination of the right hip is compared with a study from 01/04/2023. Right total hip arthroplasty remains in unchanged, near anatomic position. There is no fracture or component migration. There is mild left hip osteoarthritis. Right knee: 3 view examination of the right knee is compared with a study from 06/30/2022. Right total knee arthroplasty remains in near-anatomic position. There is no fracture or component migration. There is a trace knee effusion. There is no fracture. IMPRESSION: 1. Right total hip arthroplasty in unchanged, near anatomic position. 2. Right total knee arthroplasty in unchanged, near anatomic position. Electronically signed by: John Holland M.D. Mina Ayala MD IMG XR PROCEDURES Final R esult * Screening Mammogram 2D Bilateral (06/25/2012 12:18 PM GUN WELDER) Anatomical Region Laterality Modality Breast Bilateral Mammography 06/25/2012 12:1 8 PM GUN WELDER Impressions 06/29/2012 2:30 PM GUN WELDER No mammographic evidence of malignancy. Recommend routine annual screening mammography. ASSESSMENT: BIRADS: 1 - Negative THIS IS AN ELECTRONICALLY VERIFIED REPORT 06/29/2012 2:20 PM: Dariana Georges M.D. Dariana Georges M.D. KL:devi 02:20 PM 02:20 PM [EOD] Narrative 06/29/2012 2:30 PM GUN WELDER EXAMINATION: BILATERAL SCREENING MAMMOGRAPHY HISTORY: Routine screening mammogram COMPARISON: Prior mammograms including 11/06/10 and 04/29/09. TECHNIQUE: Bilateral digital full field of view mammography was performed, with the aid of computer aided detection (CAD). FINDINGS: The breasts are composed of scattered fatty and fibroglandular tissue. No significant masses, microcalcifications, architectural distortion or skin thickening are seen. There has been no significant interval change relative to the prior studies. Procedure Note Provider, MD Eloisa - 09/29/2020 EXAMINATION: BILATERAL SCREENING MAMMOGRAPHY HISTORY: Routine screening mammogram COMPARISON: Prior mammograms including 11/06/10 and 04/29/09. TECHNIQUE: Bilateral digital full field of view mammography wasperformed, with the aid of computer aided detection (CAD). FINDINGS: The breasts are composed of scattered fatty and fibroglandular tissue. No significant masses, microcalcifications, architecturaldistortion or skin thickening are seen. There has been no significant interval change relative to the prior studies. IMPRESSION: No mammographic evidence of malignancy. Recommend routine annualscreening mammography. ASSESSMENT: BIRADS: 1 - Negative THIS IS AN ELECTRONICALLY VERIFIED REPORT 06/29/2012 2:20 PM: Dariana Destini, M.D. Dariana Georges M.D. KL:devi 02:20 PM 02:20 PM [EOD] us Antony Elliott MD IMG MAMMO PROCEDURES Final R esult * Dexa Axial Skeleton Bone Density 1 or 2 Site (05/29/2012 1:25 PM GUN WELDER) Anatomical Region Laterality Modality Body N/A Radiographic Tahira ging 05/29/2012 1:25 PM GUN WELDER Impressions 05/29/2012 5:21 PM GUN WELDER By WHO criteria, this patient has normal bone mineral density. THIS IS AN ELECTRONICALLY VERIFIED REPORT 05/29/2012 5:06 PM: Keaton Romano M.D. Keaton Romano M.D. NH:dong 05:06 PM 05:06 PM [EOD] Narrative 05/29/2012 5:21 PM GUN WELDER EXAMINATION: Bone Density Study (DEXA) HISTORY: 56-year-old postmenopausal woman. COMPARISON: None. TECHNIQUE: Dual-energy X-ray absorptiometry of the lumbar spine and left femur was performed. FINDINGS: Lumbar spine (from L1 through L4): The bone mineral density is 1.159 gm / cm sq. The T score is 1.0. The percentage of young normal mean is 111%. Left Femur Neck: The bone mineral density is 0.762 gm / cm sq. The T score is -0.8. The percentage of young normal mean is 90%. Procedure Note Provider, MD Eloisa - 09/29/2020 EXAMINATION: Bone Density Study (DEXA) HISTORY: 56-year-old postmenopausal woman. COMPARISON: None. TECHNIQUE: Dual-energy X-ray absorptiometry of the lumbar spine and leftfemur was performed. FINDINGS: Lumbar spine (from L1 through L4): The bone mineral density is 1.159 gm / cm sq. The T score is 1.0. The percentage of young normal mean is 111%. Left Femur Neck: The bone mineral density is 0.762 gm / cm sq. The T score is -0.8. The percentage of young normal mean is 90%. IMPRESSION: By WHO criteria, this patient has normal bone mineraldensity. THIS IS AN ELECTRONICALLY VERIFIED REPORT 05/29/2012 5:06 PM: Keaton Romano M.D. Keaton Romano M.D. NH:ma 05:06 PM 05:06 PM [EOD] Milean Williamson DO IMG DXA PROCEDURES Miguelina l Result from Last 3 Months or Most Recently Relevant to Health Maintenance Additional Health Concerns Infection Onset Date Last Indicated C. difficile Comment:201109/06/2018 09/05/2018 Insurance [employer] P[employer] PPO Member Subscriber Plan / Payer (Ef fective 2023-Present) Name:Nani Dawkins Relation to Subscriber:Self Name:Nani Dawkins Payer ID:[id number] (NAIC) Type:MEDICARE RISK OTHER Address: [address] [place] [facility] [place] Advance Directives For more information, please contact: [phone] * Full Code (Latest Code Status on File) Date Activated Date Inactivated Comments 11/18/2022 5:13 PM 11/19/2022 5:53 PM Care Teams Pit Recorder Relationship Specialty Start Date End Date Dmitriy Camargo MD [address] [place] [address] PCP - General Family Medicine 06/17/24 Tristan Schuler MD [address] [place] [address] Casing Running Machine Tender Cardiology 01/18/19
--- OUTSIDE RECORDS SUMMARY | 2024-08-08 16:47 | XMS_ITS | Encounter Summary ---
Author Organization [facility] Healthcare Address [address] [place] [address] Care Team Providers Care Media Job Titles Name Role Phone Tristan Schuler MD Unavailable [phone] Dmitriy Camargo MD Primary Care Prov ider Encounter Details Date Type Department Care Team (Latest Contact Info) Description 07/04/2024 Results Follow-Up [facility] Medical Group Cardiology [address] [facility] [address] [address] Marcelina Wheeler RN Hypertriglyceridemia (Primary Dx) Social History Tobacco Use Types Packs/Day Years [...] on file Legal Sex Female 4:13 AM CATH LAB NURSE Gender Identity Female 12/06/2021 6:46 PM CDT Sexual Orientation Not on file Occupation Industry Job Start Date Job End Date 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 ??Triglycerides better. ??Continue fish oil and also low carb diet. ??Repeat fasting lipids prior to follow up. documented in this encounter Plan of Treatment Scheduled Orders Name Type Priority Associated Diagnoses Orde r Schedule Lipid panel Lab Routine Hypertriglyceridemia Expected: 01/31/2025, Expires: 07/31/2025 documented as of this encounter Visit Diagnoses Diagnosis Hypertriglyceridemia- Primary Pure hyperglyceridemia documented in this encounter Additional Health Concerns Infection Onset Date Last Indicated Resolved Time C. difficile Comment:201109/06/2018 09/05/2018 documented as of this encounter Care Teams Media Job Titles Relationship Specialty Start Date End Date Dmitriy Camargo MD [address] [place] [address] PCP - General Family Medicine 06/17/24 Tristan Schuler MD [address] [place] [address] Hospital Account Liaison Cardiology 01/18/19 documented as of this encounter
--- OUTSIDE RECORDS SUMMARY | 2024-08-08 16:47 | XMS_ITS | Continuity of Care Document ---
Author Organization [facility] Address [address] [place] [address] Phone Care Team Providers Care Painter Touch Up Name Role Phone Dana Grace NP Unavailable Unavailable Allergies, Adverse Reactions, Alerts Substance Reaction Status Criticality modafinil Active No Information armodafinil Active No Information Medications Medication Instructions Dosage Effective Dates (start - stop) Status Comments zolpidem 10 mg tablet take 1 tablet by oral route every day at bedtime 10 MG - Active CETIRIZINE 10MG TAB TAKE ONE TABLET BY MOUTH ONCE DAILY 10 MG - Active Vimovo 500 mg-20 mg tablet,immediate and delay release take 1 tablet by oral route 2 times every day 30 minutes before meals 1.00 tablet - Active Ventolin HFA 90 mcg/actuation aerosol inhaler inhale 2 puff by inhalation route every 4 - 6 hours as needed - Active Effexor XR 75 mg capsule,extended release TAKE ONE CAPSULE BY MOUTH ONCE DAILY WITH FOOD 75 MG - Active buspirone 10 mg tablet take 1 tablet by oral route 3 times every day 10 MG - Active Probiotic 10 billion cell capsule spray 1 Capsule by Oral route every day 1 Capsule - Active fluticasone 50 mcg/actuation nasal spray,suspension inhale 1 spray by intranasal route every day in each nostril as needed 50 MCG - Active lansoprazole 15 mg capsule,delayed release take 1 capsule by oral route every day before a meal 15 MG - Active Advance Directives Directive Yes / No Effective Date File Name No Information Encounters Encounter Description Practice Location Reason(s) For Visit Diagnoses Date Provider Providers Copied on Encounter [facility], [address], [place], [place], [id number] , tel: [phone] [facility] No Information 8 Sanjay Cortez. [address] [place] [address], [address], . tel: [phone] [facility], [address], [place], [place], [address] , tel: [phone] [facility] Other fatigueMDD (major depressive disorder), recurrent episode, moderateDizziness 7 Walter Hewitt. [address] [place] [address], [id number] , [place]. tel: [phone] Referring Provider: Marcelina Sawant, [address] [place] [address], [address] . tel:[phone] [facility], [address], [place], [place], [address] , tel: [phone] [facility] No Information 7 Walter Hewitt. [address] [place] [address], [id number] , [place]. tel: [phone] [facility], [address], [place], [place], [address] , tel: [phone] [facility] No Information 7 Sanjay Cortez. [address] [place] [address], [address], [place]. tel: [phone] [facility], [address], [place], [place], [address] , tel: [phone] [facility] SHIRLEY (obstructive sleep apnea)History of hepatitis CMDD (major depressive disorder), recurrent episode, moderateAnxietyInso mnia, unspecifiedShortnes s of breath on exertionOther fatigue 7 Walter Hewitt. [address] [place] [address], [id number] , [place]. tel: [phone] Referring Provider: Marcelina Sawant, [address] [place] [address], [address] . tel:[phone] [facility], [address], [place], [place], [address] , tel: [phone] [facility] No Information 6 Walter Hewitt. [address] [place] [address], [id number] , [place]. tel: [phone] [facility], [address], [place], [place], [address] , [place] tel: [phone] [facility] No Information 6 Walter Hewitt. [address] [place] [address], [id number] , . tel: [phone] [facility], [address], [place], [place], [address] , tel: [phone] [facility] Major depressive disorder, single episode, unspecifiedAnxietyB iliary sludge determined by ultrasoundUnspecifi ed viral hepatitis C without hepatic coma 6 Sanjay Gaylin. [address] [place] [address], [address], [place]. tel: [phone] Referring Provider: Marcelina Sawatn, [address] [place] [address], [address] . tel:[phone] [facility], [address], [place], [place], [address] , [place] tel: [phone] [facility] Major depressive disorder, single episode, unspecifiedAnxietyH ot flashesDizziness 6 Sanjay Gaylin. [address] [place] [address], [address], [place]. tel: [phone] Referring Provider: Marcelina Sawant, [address] [place] [address], [address] . tel: [facility], [address], [place], [place], [address] , tel: [phone] [facility] No Information 6 [place] Marcelina. [address] [place] [address], [id number] , . tel: [phone] [facility], [address], [place], [place], [address] , tel: [phone] [facility] Biliary sludge determined by ultrasoundNausea and vomiting, unspecified intactability, vomiting of unspecified typeMajor depressive disorder, single episode, unspecifiedPrediabe padmini 6 Walter Hewitt. [address] [place] [address], [id number] , [place]. tel: [phone] Referring Provider: Marcelina Sawant, [address] [place] [address], [address] . tel:[phone] [facility], [address], [place], [place], [address] , tel: [phone] [facility] Unspecified viral hepatitis C without hepatic comaSinus congestionNausea and vomiting, unspecified intactability, vomiting of unspecified typeMajor depressive disorder, single episode, unspecifiedOther screening mammogram 6 Walter Hewitt. [address] [place] [address], [id number] , [place]. tel: [phone] Referring Provider: Marcelina Sawant, [address] [place] [address], [address] . tel:[phone] [facility], [address], [place], [place], [address] , tel: [phone] [facility] Encounter for screening for other disorderMajor depressive disorder, single episode, unspecifiedUnspecif ied viral hepatitis C without hepatic coma 6 Sanjay Cortez. [address] [place] [address], [address], . tel: [phone] Referring Provider: Marcelina Sawant, [address] [place] [address], [address] . tel: [facility], [address], [place], [place], [address] , tel: [phone] [facility] Unspecified viral hepatitis C without hepatic comaMajor depressive disorder, single episode, unspecifiedInsomnia , unspecifiedBurn 5 [facility]. [address] [place] [address], [address], . tel: [phone] Referring Provider: Marcelina Sawant, [address] [place] [address], [address] . tel: [facility], [address], [place], [place], [address] , tel: [phone] [facility] DiarrheaNauseaUnspe cified viral hepatitis C without hepatic comaMajor depressive disorder, single episode, unspecified 5 [facility]. [address] [place] [address], [address], . tel: [phone] Referring Provider: Marcelina Sawant, [address] [place] [address], [address] . tel: [facility], [address], [place], [place], [address] , tel: [phone] [facility] DiarrheaNausea 0 5 Walter eHwitt. [address] [place] [address], [id number] , [place]. tel: [phone] [facility], [address], [place], [place], [address] , tel: [phone] [facility] Unspecified viral hepatitis C without hepatic comaMajor depressive disorder, single episode, unspecifiedOSA (obstructive sleep apnea)Frequency of micturition 5 [place] Laura. [address] [place] [address], [id number] , [place]. tel: [phone] Referring Provider: Marcelina Sawant, [address] [place] [address], [address] . tel:[phone] [facility], [address], [place], [place], [address] , tel: [phone] [facility] Hepatitis CFibromyalgiaMDD (major depressive disorder)InsomniaHy perthyroidism Walter Hewitt. [address] [place] [address], [id number] , . tel: [phone] Referring Provider: Marcelina Sawant, [address] [place] [address], [address] . tel:[phone] [facility], [address], [place], [place], [address] , tel: [phone] [facility] GERD (gastroesophageal reflux disease)InsomniaFib romyalgiaHerniated lumbar disc without myelopathyKnee pain, bilateralHepatitis CIncreased urinary frequencyMDD (major depressive disorder)Skin tag Walter Hewitt. [address] [place] [address], [id number] , . tel: [phone] Referring Provider: Marcelina Sawant, [address] [place] [address], [address] . tel:[phone] Family History Family Member Type Diagnosis Age At Onset Mother Problem (finding) malignant neop lasm of breast in first degree relative 93 Father Problem (finding) Mental illness 80 Mother Problem (finding) congestive heart failur e 93 Mother Problem (finding) coronary arterioscleros is 93 Father Problem (finding) hypertension 80 Father Problem (finding) coronary arterioscleros is 80 Mother Problem (finding) hypertension 93 Mother Problem (finding) alcoholism 93 Father Problem (finding) depression 80 Father Problem (finding) malignant neoplasm of b one 80 Mother Problem (finding) raised blood lipids 93 Immunizations Vaccine Date Status Comments Zoster refused Source: New Imm unization Record Influenza, injectable, quadrivalent, preservative free, 3 yrs or older refused Source: New Immuniza tion Record Payers Payer name Insurance type Covered green party ID Authoriza tion(s) Match [employer] [place] [id number] [employer] [place] [id number] Social History Type Description Quantity Date Captured [...]
--- OUTSIDE RECORDS SUMMARY | 2024-08-08 16:47 | XMS_ITS | Data Portability ---
Author Organization [facility], Radiology_ Address [address] [place] [address] Assessment No assessment recorded. Plan of Treatment Reminders Order Date Submit Date Provider Last Modified By Organization Details Last Modified Time Details Appointments None recorded. Lab None recorded. Referral physiatry referral 2018 [email or web address] Not available 19:02:31 Procedures None recorded. Surgeries None recorded. Imaging None recorded. Medication Orders Medrol (Marito) 4 mg tablets in a dose pack 2018 [id number] [address] , [place], [place], [id number], 9 18:30:55 Patient TargetsNo targets recorded. Patient Instructions Encounter Date Encounter Id Patient Instructions Last Modified By Organization Details Last Modified Time 03/07/2019 [id number] sacroiliac pain: exercises [email or web address] Not available 03/07/2019 18:24:07 Reason for Referral Physiatry Referral for Infla mmation of sacroiliac joint Referring Physician: Torito Dunbar, Urgent Care, Encounter Date: 03/07/2019 Problems Name Problem SNOMED Code Status Onset Date Resolution Date Notes Provider Name and Address Organization Details Recorded Time Anxiety 89606401 Active 2018 Frieda steven [facility] 9 18:54:35 Arthritis 5638025 Active 2018 Frieda steven [facility] 9 18:54:40 Fibromyalgia 408332500 Active 2018 Frieda steven [facility] 9 18:54:53 Hypertensive disorder 36644901 Active 2018 Frieda steven [facility] 18:55:57 Hypothyroidism 31578048 Active 2018 Frieda steven [facility] 18:56:31 Low back pain 431039442 Active 2018 Frieda steven [facility] 18:56:46 Sleep apnea 10326993 Active 2018 Frieda steven [facility] 18:56:55 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 Procedures Surgical History Date Name Laterality Status Provider Name and Address Organization Details Recorded Time Knee Surgery [facility] 03/07/2019 18:59:15 Imaging Results None recorded. Procedure Notes None recorded. Medical Equipment None Reported. Allergies Allergen ID Allergen Name Allergen Category Reaction Reaction Severity Criticality Documentation Date Start Date Code Code System Note Provider Name and Address Organization Details Recorded Time 8612 Nuvigil medicatio n Not available Not available Not available 03/07/2019 80661 5 RxNorm Frieda steven [facility] 18:22:19 8613 Provigil medicatio n Not available Not available Not available 03/07/2019 03925 4 RxNorm Frieda steven [facility] 18:22:26 Medications Name Sig Start Date Stop Date Status Note LastModified by Organization Details LastModified Time cyclobenzap rine 10 mg tablet active Not Available Not Available Not Available [place] Thyroid 60 mg tablet active Not Available Not Available No t Available benzonatate 200 mg capsule 03/07 completed Not Available Not Available Not Available hydrocodone 5 mg-acetamin ophen 325 mg tablet active Not Available Not Available No t Available Medrol (Marito) 4 mg tablets in a dose pack Take 1 dose pk by oral route as directed for 6 days. 2018 active Not Available Not Available Not Avai lable clindamycin HCl 150 mg capsule 03/07 completed Not Available Not Available Not Available penicillin V potassium 500 mg tablet 03/07 completed Not Available Not Available Not Available potassium chloride ER 10 mEq tablet,exte nded release active Not Available Not Available Not Available acetaminoph en 300 mg-codeine 30 mg tablet active Not Available Not Available Not Available tramadol 50 mg tablet active Not Available Not Available No t Available amlodipine 10 mg tablet active Not Available Not Available Not Available cephalexin 500 mg capsule 03/07 completed Not Available Not Available Not Available paroxetine 30 mg tablet active Not Available Not Available Not Available lisinopril 10 mg tablet active Not Available Not Available Not Available acetaminoph en 300 mg-codeine 60 mg tablet active Not Available Not Available Not Available lisinopril 5 mg tablet 03/07 completed Not Available Not Available Not Available hydrochloro thiazide 25 mg tablet active Not Available Not Available No t Available diclofenac sodium 50 mg tablet,jesus yed release active Not Available Not Available Not Available furosemide 20 mg tablet active Not Available Not Available Not Available zolpidem 10 mg tablet active Not Available Not Available No t Available celecoxib 100 mg capsule active Not Available Not Available Not Available amoxicillin 875 mg-potassiu m clavulanate 125 mg tablet 03/07 completed Not Available Not Available Not Available ProAir HFA 90 mcg/actuati on aerosol inhaler active Not Available Not Available Not Available oxycodone 10 mg tablet active Not Available Not Available Not Available Eliquis 2.5 mg tablet active Not Available Not Available No t Available Vitals Date Recorded Heart rate Respiratory rate Body temperature Body weight Body height Body mass index (BMI) Oxygen saturation Oxygen saturation in Arterial blood by Pulse oximetry Systolic blood pressure Diastolic blood pressure Provider Name and Address Organization Details Last Updated DateTime 9 93 /min 18 /min 97 [degF] 06041.0 9 g 148.59 cm 39.5 kg/m2 96 % 96 % 130 mm[Hg] 84 mm[Hg] Frieda Juan [facility] 9 18:21:48 Social History Question Answer Notes LastModified by Organizat ion Details LastModified Time Tobacco Smoking Status Former Smoker Frieda Juan [facility] 03/07/2019 18:58:58 What Was The Date Of Your Most Recent Tobacco Screening? 03/07/2019 Information n ot available 03/08/2019 How Many Years Have You Smoked Tobacco? 7 [email or web address] Information not available 03/07/2019 Sex: Unknown Functional Status None recorded. Mental Status None recorded. Family History Relationship Description Onset Age of this Age Resolved Age Notes LastModified by Organization Details LastModified Time Father Hypertensive disorder [email or web address] Not available 03/07 18:57:21 Father Heart disease [email or web address] Not available 03/07 18:57:52 Father Malignant neoplasm of bones of skull and face [email or web address] Not available 03/07 18:58:53 Mother Hypertensive disorder [email or web address] Not available 03/07 18:57:21 Mother Heart disease [email or web address] Not available 03/07 18:57:52 Mother Malignant tumor of breast [email or web address] Not available 03/07 18:58:43 Medical History Condition Response Coronary Artery Disease N Other N Gout N Blood Diseases N Kidney Stones N Hyperthyroidism N Blood Transfusion N Breast Cancer N Lung Disease N COPD N Depression N Hypothyroidism Y Defects or Inherited Disease N Developmental or Behavioral Disorders N Breast Problem N Difficulty Swallowing N Anesthesia Complications N Meniere's disease N Anxiety Disorder Y Muscle, Joint, or Bone Problems Y Obesity N Vision or Eye Problems N Arthritis Y Polyps N Infertility N Mental Disorder N Cancer N Stroke N Varicosities N Endometriosis N Bladder or Kidney Problems N High Cholesterol N Liver Disease N Fibromyalgia Y Headaches N Kidney Disease N Allergies/Hayfever N Heart Problems N Ear or Hearing Problems N Hospitalizations N Thyroid Problems N GI Problems N ADD/ADHD N Eating Disorder N Skin Problems N Anemia N MRSA exposure N Constipation N Mental Illness N Diabetes N Ovarian Cancer N Bedwetting N Seizures/Epilepsy N Tuberculosis N AIDS/HIV N Congestive Heart Failure (CHF) N Eczema N Abuse/Domestic Violence N Diverticulitis N Asthma N Reflux/GERD N Hepatitis N Heart Disease N Pulmonary Embolism N Chronic Ear Infections N Pre-Eclampsia N Hypertension Y Chicken Pox N Autism Spectrum Disorder (ASD) N Osteoporosis N Thrombophilias N Gynecological HistoryNo gynecological history recorded. Obstetrics History GPAL:G 0 P 0 0 0 0 Past Encounters Encounter ID Performer Location Encounter Start Date Encounter Closed Date Diagnosis/Indication Diagnosis SNOMED-CT Code Diagnosis ICD10 Code Diagnosis Note [id number] Torito Dunbar [id number] [address], [address] [place] [address] 03/07/2019 17:38:47 06/01/2019 21:59:12 Inflammation of sacroiliac joint 57625686 M46.1 left side Health Concerns Section Related Observation LastModified by Organization Detai ls LastModified Time None Recorded Concern Status LastModified by Organization Details LastModified Time None Recorded Advance Directives Directive None Recorded Payers Encounter Date Sequence Insurance Name Policy Number Policy Funes Covered Member ID Funes Member ID Guarantor Name 03/07/2019 2 [employer] - DOS PRIOR TO 20 - [facility] B[employer] Nani Dawkins [id number] Nani Dawkins 03/07/2019 1 [place] Nani Dawkins [id number] Nani Dawkins Notes Date Note Type Note Provider Name and Address Organization Details Recorded Time 03/07/2019 text/html Pt [facility] with c/o back pain. pt reports she is having sciatica pain that goes down her left side. pt is requesting a cortisone shot. Pt states that she has had this before but it was on her rt side. pt reports she was d/c from rehab yesterday for her knee. she states she reported the pain but the nurses didnt give her enough oxycodone to the the pain away. pt reports she has had this pain x 1 week and it is worsening. Torito Dunbar [address], [place], [address], [place] [facility] 06/01/2019 12:50:28 OBGyn Episode No OBEpisode recorded.
--- OUTSIDE RECORDS SUMMARY | 2024-08-08 16:47 | XMS_ITS | Clinical Summary ---
Author Organization [facility] [address] [place] [address] Care Team Providers Care Customer Servicer Name Role Phone Tristan Schuler MD Unavailable [phone] Dmitriy Camargo MD Primary Care Prov ider Allergies Active Allergy Reactions Criticality Noted Date [...] be lifestyle changes. Verified that she uses [employer]. Aware to check results/results letter in [employer]. Will contact by phone if needed. Obesity [...] up free exercises on your smart TV: [employer] channels. All kind of exercises. Minimum 20-30 minuts activity daily. Can break it up into small segments. Increase protein in diet. 30gm protein per meal. Increase water intake; 30oz water is not enough. Goal is 60oz miminum. Verified that she uses mychart. Aware to check results/results letter in [employer]. Will contact by phone if needed. Assessment [...] Vit D level. Verified that she uses [employer]. Aware to check results/results letter in [employer]. Will contact by phone if needed. Assessment & Plan (02/19/2023 1:40 PM CDT): Check levels today and further plans based on it Right hip pain 11/18/2022 Primary osteoarthritis of right hip 09/21/2022 Preoperative clearance 09/01/2022 Abnormal EKG 09/01/2022 Hypertriglyceridemia 09/01/2022 Hip pain 06/01/2021 Assessment & Plan (06/01/2021 1:32 PM TANK BUILDER HELPER): Pt asked me for referral to Dr Galvez. Sent. PLMD (periodic limb movement disorder) Assessment & Plan (03/30/2023 1:37 PM TANK BUILDER HELPER): The patient denies that her limbs at night. Assessment & Plan (03/29/2022 3:09 PM TANK BUILDER HELPER): Asymptomatic Assessment & Plan (09/24/2021 11:56 AM CDT): The PLMS are currently asymptomatic and she is on no medicine for this. Assessment & Plan (05/20/2021 1:53 PM TANK BUILDER HELPER): Currently asymptomatic Cuong's thyroiditis 12/29/2020 Assessment & Plan (06/01/2021 1:31 PM TANK BUILDER HELPER): Check TFT's Adjust dose of Lemmon accordingly Assessment & Plan (12/29/2020 4:19 PM CDT): Explained to the patient the treatment of Cuong's thyroiditis is mostly addressed to normalize TSH Option from treatment includes thyroid hormone replacement with synthetic thyroid hormone e.g. levothyroxine and or cytomel. Porcine thyroid hormone e.g. is Lemmon also is a possibility. The patient could [...] 05/01/2020 Assessment & Plan (06/01/2021 1:31 PM TANK BUILDER HELPER): Diet and exercise Check hba1c Neuropathy of left hand 05/01/2020 Opioid use 05/01/2020 Stage 2 chronic kidney disease 05/01/2020 Well child examination 05/01/2020 Other fatigue 11/07/2019 Weight gain 11/07/2019 Dyslipidemia 05/02/2019 Diastolic dysfunction 12/06/2018 Primary osteoarthritis of right knee 09/18/2018 Morbid obesity 09/18/2018 Assessment & Plan (06/01/2021 1:30 PM TANK BUILDER HELPER): Low calorie diet Pt declines use of weight loss meds She will try to follow up with [facility] bariatric center Assessment & Plan (12/29/2020 4:21 PM CDT): Diet and exercise were discussed. 1200 Calorie diet advised 45-60 min aerobic / resistance exercise most days of the week recommended. Bariatric surgery medically indicated The patient actually wants to consider bariatric surgery. Will send referral to [facility] Laryngopharyngeal reflux 11/02/2016 Tinnitus, bilateral 11/02/2016 Chest pain 08/26/2016 Overview (10/07/2016): Chest pain, unspecified type Body mass index (BMI) of 45.0-49.9 in adult 08/13 Overview (05/01/2020): Obesity (BMI 30-39.9) Shortness of breath 03/03/2016 Overview (08/19/2016): Shortness of breath Assessment & Plan (03/29/2022 3:10 PM TANK BUILDER HELPER): Will continue with albuterol on a p.r.n. [...] tests. Assessment & Plan (05/20/2021 1:53 PM TANK BUILDER HELPER): Patient will continue with albuterol on a p.r.n. basis. Chronic fatigue syndrome 03/03/2016 Overview (08/19/2016): Chronic fatigue Physical deconditioning 03/03/2016 Overview (08/19/2016): Physical deconditioning SHIRLEY on CPAP 01/29/2015 Assessment & Plan (03/30/2023 1:36 PM TANK BUILDER HELPER): The patient is requesting that her CPAP be increased to 14 cm water pressure. The patient's DME is adapt. Assessment & Plan (03/29/2022 3:09 PM TANK BUILDER HELPER): Will continue CPAP therapy at 13 cm [...] months. Assessment & Plan (05/20/2021 1:54 PM TANK BUILDER HELPER): The patient will continue with CPAP therapy [...] physician. Assessment & Plan (05/20/2021 1:54 PM TANK BUILDER HELPER): The patient will continue with Ambien as ordered by primary care Encounters Date Type Department Care Team Description 07/04/2024 Results Follow-Up [facility] Cardiology [address] [place] [address] [phone] Marcelina Wheeler RN Hypertriglyceridemia (Primary Dx) 06/17/2024 3:15 PM TANK BUILDER HELPER Office Visit [facility] Cardiology [address] [place] [address] [phone] Tristan Schuler MD Primary hypertension (Primary Dx); Hypertriglyceridemia; Shortness of breath 05/29/2024 2:30 PM TANK BUILDER HELPER - 05/29/2024 11:59 PM TANK BUILDER HELPER Hospital Encounter [facility] [address] [place] [phone] History of right hip replacement; Back pain, unspecified back location, unspecified back pain laterality, unspecified chronicity Discharge Disposition: Discharge to home or self care 05/29/2024 1:20 PM TANK BUILDER HELPER Office Visit [facility] Orthopaedic Surgery [address] [place] [address] Medical Office [address] [place] [address] Mina Ayala MD History of right hip replacement (Primary Dx); Back pain, unspecified back location, unspecified back pain laterality, unspecified chronicity; History of total knee arthroplasty, right 05/29/2024 12:46 PM TANK BUILDER HELPER - 05/29/2024 11:59 PM TANK BUILDER HELPER Hospital Encounter [facility] [address] [place] [phone] History of right hip replacement; History of total knee arthroplasty, right Discharge Disposition: Discharge to home or self care from Last 3 Months Surgical History Surgery Date Site/Laterality Comments SECTION EYE SURGERY LASIK FOOT SURGERY LITHOTRIPSY TOTAL KNEE ARTHROPLASTY 02/25/2019 Right JOINT REPLACEMENT Right knee 2019 TUBAL LIGATION 1984 HIP SURGERY Total Medical History Medical History Date Comments Obstructive sleep apnea syndrome Obstructive sleep apnea Hypertension Hypertension Fibromyalgia Fibromyalgia Depression Depression Infectious viral hepatitis Thyroid disease Poor circulation Osteoarthritis Lumbar stenosis Lumbar facet arthropathy Lumbar foraminal stenosis Degenerative disc disease, lumbar Bilateral nephrolithiasis GERD (gastroesophageal reflux disease) 1996 Anxiety Asthma Kidney stone 2009 Hypercholesteremia Gastric reflux Family History Medical History Relation Name Comments Arthritis Father Loco Bone cancer Father Loco Cancer, bone; C ause of : Cancer, bone Other Father Loco heart related; /heart condition; Cause of : heart condition Alcohol abuse Mother Myesha COPD Mother Myesha Heart failure Mother Myesha Congestive hea rt failure; Cause of : Congestive heart failure Other Mother Myesha heart related; Blood Clot Other Cancer Other Heart disease Other Hypertension Other Lung disease Other Anesthesia problems Neg Hx Relation Name Status Comments Father Loco (Age 80) Mother Myesha (Age 93) Other Social History Tobacco Use Types Packs/Day Years [...] on file Legal Sex Female 4:13 AM TANK BUILDER HELPER Gender Identity Female 12/06/2021 6:46 PM CDT Sexual Orientation Not on file Occupation Industry Job Start Date Job End Date retired Not on file Not on file Not on file Sdet Not on file Not on file Not on file Obstetrics History Last Filed Vital Signs Vital Sign Reading Time Taken Comments Blood Pressure 100/70 06/17/2024 2:32 PM TANK BUILDER HELPER Pulse 94 06/17/2024 2:32 PM TANK BUILDER HELPER Temperature 36.8 C (98.3 F) 03/30/2023 1:18 PM TANK BUILDER HELPER Respiratory Rate 16 02/29/2024 1:35 PM CDT Oxygen Saturation 94% 06/17/2024 2:32 PM TANK BUILDER HELPER Inhaled Oxygen Concentration - - Weight 69.4 kg (152 lb 14.4 oz) 06/17/2024 2:32 PM TANK BUILDER HELPER Height 144.8 cm (4' 9.01 ) 02/29/2024 1:35 PM CD T Body Mass Index 33.08 02/29/2024 1:35 PM CDT Plan of Treatment Health Maintenance Due Date Last Done Comments Colon Cancer Screening-Colonoscopy 1955 DTaP/Tdap/Td Vaccine (1 - Tdap) 1964 Hepatitis B Screening 12/23/1971 Pneumococcal vaccine 65+ (1 of 2 - PCV) 1972 Zoster Vaccine (1 of 2) 12/23/2003 Breast Cancer Screening-Mammogram 06/25/2013 013 Osteoporosis Screening-Bone Density Scan 05/29/2014 05/29/2012 Well Visit 65+ 2018 Influenza Vaccine (#1) 2024 Depression Screening 09/06/2024 09/07/2023 Fall Risk Assessment 09/06/2024 09/07/2023, 11/20/19 23 Hepatitis C Screening Completed 01/29/2015 Medical Devices Implanted Type Area Inlayer Device Identifier Shelf Expiration Date Model / Serial / Lot [employer] Bi Mentum 47mm Press Fit Femoral Proximal Cup Acetabular [id number] - Sna - [id number] Implanted:Qty: 1 on 11/18/2022 by Mina Ayala MD at [facility] Other - see comments Right: Hip [employer] [id number] 07/13/2027 [id number] / NA / [id number] Description:Implant pause pe rformed. [employer] Liner Acet Hip Size 28 Poly Bi Mentum Altrx 47mm [id number] - Sna - [id number] Implanted:Qty: 1 on 11/18/2022 by Mina Ayala MD at [facility] Other - see comments Right: Hip [employer] [id number] 10/12/2026 [id number] / NA / [id number] Description:Implant pause pe rformed. [employer] Articul/Mariano 28mm Cementless Hip +5mm 04/27 Taper Head Femoral Latex Free [id number] - Sna - [id number] Implanted:Qty: 1 on 11/18/2022 by Mina Ayala MD at [facility] Other - see comments Right: Hip [employer] [id number] 07/13/2027 [id number] / NA / [id number] Description:Implant pause pe rformed. [employer] Actis Collar Hip 4 High Offset Stem Femoral [id number] - Sna - [id number] Implanted:Qty: 1 on 11/18/2022 by Mina Ayala MD at [facility] Other - see comments Right: Hip [employer] [id number] 04/13/2032 [id number] / NA / [id number] Description:Implant pause pe rformed. Procedures Procedure Name Priority Date/Time Associated Diagnosis Comments LIPID PANEL Routine 06/28/2024 9:01 AM TANK BUILDER HELPER Hypertriglyceridem ia XR SPINE LUMBAR 2 OR 3 VIEWS Schedule Routine, Read Routine (OP Routine) 05/29/2024 3:35 PM TANK BUILDER HELPER History of right hip replacement Back pain, unspecified back location, unspecified back pain laterality, unspecified chronicity XR KNEE RIGHT 3 VIEWS Schedule Routine, Read Routine (OP Routine) 05/29/2024 1:37 PM TANK BUILDER HELPER History of right hip replacement History of total knee arthroplasty, right XR HIP RIGHT W PELVIS 2 OR 3 VIEWS Schedule Routine, Read Routine (OP Routine) 05/29/2024 1:37 PM TANK BUILDER HELPER History of right hip replacement SCREENING MAMMOGRAM 2D BILATERAL Routine 06/25/2012 12:18 PM TANK BUILDER HELPER DEXA AXIAL SKELETON BONE DENSITY 1 OR MORE SITES Routine 05/29/2012 1:25 PM TANK BUILDER HELPER from Last 3 Months or Most Recently Relevant to Health Maintenance Results * (ABNORMAL) Lipid panel (06/28/2024 9:01 AM TANK BUILDER HELPER) Cholesterol 159 <200 mg/dL [facility] [...] factors. LDL-C is now calculated using the Roberto calculation, which is a validated novel method providing better accuracy than the Friedewald equation in the estimation of LDL-C. Clark SS et al. LEONEL. 2013;310(19): 8026-6435 (http://education.Privcap/faq/FVY632) Chol/HDL ratio 3.7 <5.0 (calc) [facility] Non-HDL, (LDL+VLDL) 116 <130 mg/dL (calc) [facility] Comment: For patients with diabetes plus 1 major ASCVD risk factor, treating to a non-HDL-C goal of <100 mg/dL (LDL-C of <70 mg/dL) is considered a therapeutic option. Blood 06/28/2024 9:01 AM TANK BUILDER HELPER 06/28/2024 9:01 AM TANK BUILDER HELPER Narrative [facility] - 06/29/2024 2:58 AM TANK BUILDER HELPER FASTING:YES FASTING: YES us Tristan Schuler MD LAB BLOOD ORDERABLES Final Result [facility] [id number] [id number] * XR Spine Lumbar 2 or 3 Views (05/29/2024 3:35 PM TANK BUILDER HELPER) Anatomical Region Laterality Modality Spine N/A Computed Radiogr aphy 05/29/2024 4:49 PM TANK BUILDER HELPER Impressions 05/29/2024 4:52 PM TANK BUILDER HELPER 1. Severe degenerative disease L2-L5with lower lumbar levoscoliosis and left lateral listhesis of L3 on L4. Dictated by: Dave Patrick MD The radiology attending physician has personally reviewed this study, and had reviewed and/or edited this written report and agrees with it. Electronically signed by: German Abbasi M.D. Narrative 05/29/2024 4:52 PM TANK BUILDER HELPER EXAMINATION: XR SPINE LUMBAR 2 OR 3 [...] 3 Views W Pelvis (05/29/2024 1:37 PM TANK BUILDER HELPER) Anatomical Region Laterality Modality Lower Extremities, Hip, Pelvis Right C omputed Radiography 05/29/2024 1:44 PM TANK BUILDER HELPER Impressions 05/29/2024 1:44 PM TANK BUILDER HELPER 1. Right total hip arthroplasty in unchanged, near anatomic position. 2. Right total knee arthroplasty in unchanged, near anatomic position. Electronically signed by: John Holland M.D. Narrative 05/29/2024 1:44 PM TANK BUILDER HELPER EXAMINATION: XR HIP RIGHT 2 OR 3 [...] Knee Right 3 Views (05/29/2024 1:37 PM TANK BUILDER HELPER) Anatomical Region Laterality Modality Lower Extremities, Knee Right Computed Radiography 05/29/2024 1:44 PM TANK BUILDER HELPER Impressions 05/29/2024 1:44 PM TANK BUILDER HELPER 1. Right total hip arthroplasty in unchanged, near anatomic position. 2. Right total knee arthroplasty in unchanged, near anatomic position. Electronically signed by: John Holland M.D. Narrative 05/29/2024 1:44 PM TANK BUILDER HELPER EXAMINATION: XR HIP RIGHT 2 OR 3 [...] Screening Mammogram 2D Bilateral (06/25/2012 12:18 PM TANK BUILDER HELPER) Anatomical Region Laterality Modality Breast Bilateral Mammography 06/25/2012 12:1 8 PM TANK BUILDER HELPER Impressions 06/29/2012 2:30 PM TANK BUILDER HELPER No mammographic evidence of malignancy. Recommend routine annual screening mammography. ASSESSMENT: BIRADS: 1 - Negative THIS IS AN ELECTRONICALLY VERIFIED REPORT 06/29/2012 2:20 PM: Dariana Georges M.D. Dariana Georges M.D. KL:devi 02:20 PM 02:20 PM [EOD] Narrative 06/29/2012 2:30 PM TANK BUILDER HELPER EXAMINATION: BILATERAL SCREENING MAMMOGRAPHY HISTORY: Routine screening [...] REPORT 06/29/2012 2:20 PM: Dariana Georges M.D. Allen Robison:devi 02:20 PM 02:20 PM [EOD] Antony Elliott MD IMG MAMMO PROCEDURES Final R esult * Dexa Axial Skeleton Bone Density 1 or 2 Site (05/29/2012 1:25 PM TANK BUILDER HELPER) Anatomical Region Laterality Modality Body N/A Radiographic Tahira ging 05/29/2012 1:25 PM TANK BUILDER HELPER Impressions 05/29/2012 5:21 PM TANK BUILDER HELPER By WHO criteria, this patient has normal bone mineral density. THIS IS AN ELECTRONICALLY VERIFIED REPORT 05/29/2012 5:06 PM: Keaton Romano M.D. Keaton Romano M.D. [place]:dong 05:06 PM 05:06 PM [EOD] Narrative 05/29/2012 5:21 PM TANK BUILDER HELPER EXAMINATION: Bone Density Study (DEXA) HISTORY: 56-year-old [...] PM: Keaton Romano M.D. Keaton Romano M.D. NH:nh 05:06 PM 05:06 PM [EOD] Milena Williamson DO IMG DXA PROCEDURES Miguelina l Result from Last 3 Months or Most Recently Relevant to Health Maintenance Additional Health Concerns Infection Onset Date Last Indicated C. difficile Comment:201109/06/2018 09/05/2018 Insurance [employer] P[employer] Member Subscriber Plan / Payer (Ef fective 2023-Present) Name:Nani Dawkins Relation to Subscriber:Self Name:Nani Dawkins Payer ID:[id number] (NAIC) Type:MEDICARE RISK OTHER Address: [place] [id number] [employer] P[employer] Member Subscriber Plan / Payer (Ef fective 2023-Present) Name:Nani Dawkins Relation to Subscriber:Self Name:Nani Dawkins Payer ID:[id number] (NAIC) Type:MEDICARE RISK OTHER Address: [place] [id number] [employer] [facility] [employer] [facility] [employer] Advance Directives For more information, please contact: [phone] * Full Code (Latest Code Status on File) Date Activated Date Inactivated Comments 11/18/2022 5:13 PM 11/19/2022 5:53 PM Care Teams Customer Servicer Relationship Specialty Start Date End Date Dmitriy Camargo MD [address] [place] [address] PCP - General Family Medicine 06/17/24 Tristan Schuler MD [address] [facility] [place] [address] [facility] 01/18/19
[2024-08-08 16:53] VITALS: BP 123/77; PULSE 81; RESP 18; TEMP 36.6; O2SAT 99
--- NOTE | 2024-08-08 17:13 | PC.NURSE ---
Pt to intake desk and asking to have C collar taken off.
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
--- OUTSIDE RECORDS SUMMARY | 2024-08-08 18:47 | XMS_ITS | Patient Health Record ---
Author Organization [facility] [employer] Address [address] [place] [address] Care Team Providers Care Tipple Supervisor Name Role Phone Tiana Liang Primary Care Provider Morelia Tracey Staley Unavailable [phone] AyleenMicheal damico Unavailable [phone] Marie Dora Unavailable [phone] Migration, Provider Unavailable Unavailable Allergies Allergen (clinical drug ingredient) Drug/Non Drug Allergy documented on EMR Reaction Allergy Type Onset Date Status modafinil Modafinil Unknown Drug Allergy 07/27/2023 Active Reason For Referral No Information Medications Medication SIG (Take, Route, Frequency, Duration) Notes Start Date End Date Status EQ GAS RELIEF CAP *Reorder from [facility] for eRx and Interaction Alerts* 07/27/2023 Active traMADol HCl 50 MG Oral 07/27/2023 Active FLUoxetine HCl 20 MG 1 capsule every morning Orally Once a day total dose 60 mg increasing 05/14/2024 Active hydroCHLOROthiazide 25 MG Oral 07/27/2023 Active Unithroid 75 mcg Oral 07/27/2023 No t-Taking Potassium Chloride ER 10 MEQ Oral 07/27/2023 Active oxyCODONE HCl 5 MG Oral 07/27/2023 Not-Taking ProAir HFA 108 (90 Base) MCG/ACT Inhalation 07/27/2023 Active tiZANidine HCl 4 MG Oral 07/27/2023 Not-Taking buPROPion HCl ER (XL) 150 MG 1 tablet in the morning Orally Once a day Active Lisinopril 10 MG Oral 07/27/2023 Ac tive Celecoxib 200 MG Oral 07/27/2023 No t-Taking Zolpidem Tartrate 10 MG Oral 07/27/2023 Active Ashwagandha 35 120 MG as directed Orally Active [place] Thyroid 90 MG Oral 07/27/2023 Active Lansoprazole 30 MG Oral 07/27/2023 Active HYDROcodone-Acetaminophe n 7.5-325 MG Oral 07/27/2023 Not-Taking Cetirizine HCl 10 MG Oral 07/27/2023 Active HYDROcodone-Acetaminophe n 10-325 MG Oral 07/27/2023 Not-Taking FLUoxetine HCl 40 MG 1 capsule every Morning Oral Once a day for 30 days total dose 60 mg increasing 06/11/2024 Active amLODIPine Besylate 10 MG Oral 07/27/2023 Active Social History Tobacco Use: Social History Observation Description Date Details (start date - stop date) Never Smoker NA - NA Sex Assigned At : Social History Observation Description Sex Assigned At Female Tobacco Control (Standard) Question Answer Notes Tobacco use: Nonsmoker How long has it been since you last smoked? Grea ter than 10 years AUDIT-C (Standard) Question Answer Notes Points 0 Did you have a drink contain ing alcohol in the past year? Yes How often did you have six o r more drinks on one occasion in the past year? Never (0 point) How often did you have a dri nk containing alcohol in the past year? Monthly or less (1 point) Section Notes: Social History Substance Use Do you or have you ever smoked tobacco?: Former smoker How many years have you smoked tobacco?: 7 How much tobacco do you smoke?: None When did you quit smoking?: 16+ years since last cigarette Do you or have you ever used e-cigarettes or vape?: Never used electronic cigarettes Do you or have you ever used smokeless tobacco?: Never used smokeless tobacco How much tobacco do you chew?: none What was the date of your most recent tobacco screening?: 07/27/2023 What is your level of alcohol consumption?: Occasional How many years have you consumed alcohol?: 0 Do you use any illicit or recreational drugs?: No (Notes: over 40+ years ago) What is your level of caffeine consumption?: Moderate Are you currently employed?: Yes Who is your employer?: [employer] Marriage and Sexuality What is your relationship status?: Are you sexually active?: No Do you use protection during sex?: Usually How many children do you have?: 2 Home and Environment Do you have any siblings?: 3 Are there any smokers in your house?: No Are there any guns present in your home?: No Diet and Exercise What type of diet are you following?: Regular Advance Directive Do you have an advance directive?: No Do you have a medical power of bankruptcy attorney?: No Social History Substance Use Do you or have you ever smoked tobacco?: Former smoker How many years have you smoked tobacco?: 7 How much tobacco do you smoke?: None When did you quit smoking?: 16+ years since last cigarette Do you or have you ever used e-cigarettes or vape?: Never used electronic cigarettes Do you or have you ever used smokeless tobacco?: Never used smokeless tobacco How much tobacco do you chew?: none What was the date of your most recent tobacco screening?: 07/27/2023 What is your level of alcohol consumption?: Occasional How many years have you consumed alcohol?: 0 Do you use any illicit or recreational drugs?: No (Notes: over 40+ years ago) What is your level of caffeine consumption?: Moderate Are you currently employed?: Yes Who is your employer?: [employer] Marriage and Sexuality What is your relationship status?: Are you sexually active?: No Do you use protection during sex?: Usually How many children do you have?: 2 Home and Environment Do you have any siblings?: 3 Are there any smokers in your house?: No Are there any guns present in your home?: No Diet and Exercise What type of diet are you following?: Regular Advance Directive Do you have an advance directive?: No Do you have a medical power of bankruptcy attorney?: No Social History Substance Use Do you or have you ever smoked tobacco?: Former smoker How many years have you smoked tobacco?: 7 How much tobacco do you smoke?: None When did you quit smoking?: 16+ years since last cigarette Do you or have you ever used e-cigarettes or vape?: Never used electronic cigarettes Do you or have you ever used smokeless tobacco?: Never used smokeless tobacco How much tobacco do you chew?: none What was the date of your most recent tobacco screening?: 07/27/2023 What is your level of alcohol consumption?: Occasional How many years have you consumed alcohol?: 0 Do you use any illicit or recreational drugs?: No (Notes: over 40+ years ago) What is your level of caffeine consumption?: Moderate Are you currently employed?: Yes Who is your employer?: [employer] Marriage and Sexuality What is your relationship status?: Are you sexually active?: No Do you use protection during sex?: Usually How many children do you have?: 2 Home and Environment Do you have any siblings?: 3 Are there any smokers in your house?: No Are there any guns present in your home?: No Diet and Exercise What type of diet are you following?: Regular Advance Directive Do you have an advance directive?: No Do you have a medical power of bankruptcy attorney?: No Social History Substance Use Do you or have you ever smoked tobacco?: Former smoker How many years have you smoked tobacco?: 7 How much tobacco do you smoke?: None When did you quit smoking?: 16+ years since last cigarette Do you or have you ever used e-cigarettes or vape?: Never used electronic cigarettes Do you or have you ever used smokeless tobacco?: Never used smokeless tobacco How much tobacco do you chew?: none What was the date of your most recent tobacco screening?: 07/27/2023 What is your level of alcohol consumption?: Occasional How many years have you consumed alcohol?: 0 Do you use any illicit or recreational drugs?: No (Notes: over 40+ years ago) What is your level of caffeine consumption?: Moderate Are you currently employed?: Yes Who is your employer?: [employer] Marriage and Sexuality What is your relationship status?: Are you sexually active?: No Do you use protection during sex?: Usually How many children do you have?: 2 Home and Environment Do you have any siblings?: 3 Are there any smokers in your house?: No Are there any guns present in your home?: No Diet and Exercise What type of diet are you following?: Regular Advance Directive Do you have an advance directive?: No Do you have a medical power of bankruptcy attorney?: No Problems Problem Type SNOMED Code ICD Code Onset Dates Problem Status W/U Status Risk Notes Problem Mild recurrent major depression (75683945) Major depressive disorder, recurrent, mild (F33.0) 07/27/19 24 Active confirmed Problem Generalized anxiety disorder (30274519) Generalized anxiety disorder (F41.1) 07/27/19 24 Active confirmed Problem Primary insomnia (4862234) Primary insomnia (F51.01) 07/27/19 24 Active confirmed Problem Obstructive sleep apnea syndrome (disorder) (65158258) Obstructive sleep apnea (adult) (pediatric) (G47.33) 07/27/19 24 Active confirmed Problem Mild neurocognitive disorder (139163775) Mild neurocognitive disorder (G31.84) Active confirmed Problem 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 (492381049) 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) Active confirmed Problem Benign essential hypertension (7200739) Benign essential hypertension (I10) Active confirmed Vital Signs Heart Rate 85 /min 07/29/2024 Height-cm 149.86 cm 07/29/2024 Blood pressure diastolic 80 mm Hg 07/29/2024 Weight-kg 69.85 kg 07/29/2024 Height 59.00 in 07/29/2024 Blood pressure systolic 120 mm Hg 07/29/2024 Weight 154 lbs 07/29/2024 BMI 31.1 kg/m2 07/29/2024 Procedures Procedure Date Ordered Date Performed Result Body Sit e MCI Testing 07/09/2024 07/24/2024 N/A Encounters Encounter Location Date Provider Diagnosis [facility] [employer] [facility] [address] [facility] [address] [address] 07/18/2024 Micheal Abbasi [facility] [address] [address] 07/29/2024 Tracey Madden Encounter for screening for cardiovascular disorders Z13.6 ; Encounter for screening for depression Z13.31 ; Major depressive disorder, recurrent, mild F33.0 ; Generalized anxiety disorder F41.1 ; Primary insomnia F51.01 ; Mild neurocognitive disorder G31.84 ; Obstructive sleep apnea (adult) (pediatric) G47.33 ; 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 and Benign essential HTN I10 [facility] [employer] [facility] [address] [facility] [address] [address] 10/26/2023 Dora Salazar Major depressive disorder, recurrent, mild F33.0 ; Generalized anxiety disorder F41.1 ; Primary insomnia F51.01 ; Mild neurocognitive disorder G31.84 and Obstructive sleep apnea (adult) (pediatric) G47.33 [facility] [address] [facility] [address] [place] [address] 01/29/2024 Dora Salazar Major depressive disorder, recurrent, mild F33.0 ; Generalized anxiety disorder F41.1 ; Primary insomnia F51.01 ; Mild neurocognitive disorder G31.84 and Obstructive sleep apnea (adult) (pediatric) G47.33 [facility] [address] [facility] [address] [place] [address] 03/13/2024 Dora Salazar Major depressive disorder, recurrent, mild F33.0 ; Generalized anxiety disorder F41.1 ; Primary insomnia F51.01 ; Mild neurocognitive disorder G31.84 and Obstructive sleep apnea (adult) (pediatric) G47.33 [facility] [address] [facility] [address] [facility] [address] [place] [address] 05/14/2024 Tracey Madden Major depressive disorder, recurrent, mild F33.0 ; Generalized anxiety disorder F41.1 ; Primary insomnia F51.01 ; Mild neurocognitive disorder G31.84 ; Obstructive sleep apnea (adult) (pediatric) G47.33 and 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 [facility] [address] [address] 06/11/2024 Tracey Madden Major depressive disorder, recurrent, mild F33.0 ; Generalized anxiety disorder F41.1 ; Primary insomnia F51.01 ; Mild neurocognitive disorder G31.84 ; Obstructive sleep apnea (adult) (pediatric) G47.33 and 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 [facility] [address] [facility] [address] [place] [address] 07/09/2024 Tracey Madden Major depressive disorder, recurrent, mild F33.0 ; Generalized anxiety disorder F41.1 ; Primary insomnia F51.01 ; Mild neurocognitive disorder G31.84 ; Obstructive sleep apnea (adult) (pediatric) G47.33 ; 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 and Benign essential HTN I10 [facility] [address] [facility] [address] [place] [address] 07/24/2024 Micheal Abbasi Mild neurocognitive disorder G31.84 [place] [address] [facility] [address] [place] [address] 09/30/2023 [facility] [place] [id number] [facility] [address] [facility] [address] [place] [address] 10/01/2023 Provider Migration [address] [facility] [address] [place] [address] 01/26/2024 Dora Salazar Major depressive disorder, recurrent, mild F33.[address] [facility] [address] [place] [address] 07/16/2024 Tracey Madden [address] [facility] [address] [place] [address] 07/25/2024 Tracey Madden Major depressive disorder, recurrent, mild F33.0 Assessments Encounter Date Diagnosis (ICD Code) Assessment Notes Treatment Notes Treatment Clinical Notes Section Notes 10/26/2023 Major depressive disorder, recurrent, mild (ICD-10 - F33.0) did not tolerate taper with compounded med, went back to taking duloxetine 20mg cont duloxetine 20mg daily cont bupropion XL 150mg qam stable, is still wanting to minimize medications, but wants more motivation, asks tana, already on SNRI and NDRI. Prefer avoid 3 NE medications. Could try increase ndri, has tried in past looking back summer 2020, c/o jitters at 300mg. Could try trading NDRI for atomoxetine. Pros/cons. Decides she would rather keep meds as is. Education on medications and treatment course. note: not interested in therapy 01/26/2024 Major depressive disorder, recurrent, mild (ICD-10 - F33.0) 01/29/2024 Major depressive disorder, recurrent, mild (ICD-10 - F33.0) increase bupropion XL to 300mg qam; reports just filled, she wants to take two 150s and call for refill if needed before appt and let me know which dose to send (150 or 300) cont duloxetine 20mg daily has some ongoing social anxiety and focus complaints -asks about cannabis for sleep to get off ambien, discuss pros/cons, may worsen mood/anxiety/ cognitive with regular/heavy use etc. But recommend she discusses with Dr Corrales who prescribes her Ambien. -discuss option to try increase wellbutrin, tried in past had jitters, but was on 60mg duloxetine at that time, may tolerate better since lower; or try adding SSRI. She would like to try increase NDRI first, review r/b/se recommend therapy for social anxiety; not interested f/u in 6wks, earlier if concerns 10/26/2023 Generalized anxiety disorder (ICD-10 - F41.1) meds as above 03/13/2024 Major depressive disorder, recurrent, mild (ICD-10 - F33.0) increase bupropion XL to 300mg qam cont duloxetine 20mg daily re fatigue: also recommend f/u with sleep medicine MD, see if repeat study indicated or change CPAP/settings etc did not increase bupropion; has ongoing mild mood, social anxiety, focus complaints; SLUMS today. c/o lack of energy, has seen PCP and endo. shared decision to first try increase bupropion, review r/b/se. have recommended therapy f/u in 6wks, earlier if concerns -discussed transition to new provider here as I am leaving the practice after this month 05/14/2024 Major depressive disorder, recurrent, mild (ICD-10 - F33.0) Assessment and Plan: Depression - Patient reports depressed mood and low energy - Currently on Cymbalta 20 mg, did not tolerate higher dose Plan: - Stop Cymbalta 20 mg daily - Start Prozac (fluoxetine) 10 mg daily for 2 weeks, then increase to 20 mg daily - Continue Wellbutrin at 150 mg daily, she has a lot of 300 mg at home and plans to break in half, discussed exploring adjustments next visit so no refill at this time. - Reassess mood and energy levels at follow-up visit Anxiety - Patient reports anxiety improved, manageable - Interested in natural remedies: Takes ashwagandha, lion's manjit, and vitamin D as supplements Plan: - Encourage trying Ginkgo biloba for anxiety, memory, and cognitive abilities, if not at risk for bleeding -Monitor anxiety with starting fluoxetine. - Reassess anxiety levels at follow-up visit Insomnia - Currently on Ambien (zolpidem) for sleep, prescribed by different provider - Patient concerned about long-term use and potential memory issues Plan: - Discuss possibility of tapering off Ambien and exploring alternative sleep medications at future visit Cuong's thyroid disease - Currently on levothyroxine, taken in the morning by itself Plan: - Continue levothyroxine as prescribed, follow up with primary care provider for thyroid function monitoring If fluoxetine does not help, could try to get prior authroization for [employer]. Explore next visit. Follow-up in 4-6 weeks to reassess mood, anxiety, and response to medication changes 05/14/2024 Generalized anxiety disorder (ICD-10 - F41.1) Assessment and Plan: Depression - Patient reports depressed mood and low energy - Currently on Cymbalta 20 mg, did not tolerate higher dose Plan: - Stop Cymbalta 20 mg daily - Start Prozac (fluoxetine) 10 mg daily for 2 weeks, then increase to 20 mg daily - Continue Wellbutrin at 150 mg daily, she has a lot of 300 mg at home and plans to break in half, discussed exploring adjustments next visit so no refill at this time. - Reassess mood and energy levels at follow-up visit Anxiety - Patient reports anxiety improved, manageable - Interested in natural remedies: Takes ashwagandha, lion's manjit, and vitamin D as supplements Plan: - Encourage trying Ginkgo biloba for anxiety, memory, and cognitive abilities, if not at risk for bleeding -Monitor anxiety with starting fluoxetine. - Reassess anxiety levels at follow-up visit Insomnia - Currently on Ambien (zolpidem) for sleep, prescribed by different provider - Patient concerned about long-term use and potential memory issues Plan: - Discuss possibility of tapering off Ambien and exploring alternative sleep medications at future visit Cuong's thyroid disease - Currently on levothyroxine, taken in the morning by itself Plan: - Continue levothyroxine as prescribed, follow up with primary care provider for thyroid function monitoring If fluoxetine does not help, could try to get prior authroization for [employer]. Explore next visit. Follow-up in 4-6 weeks to reassess mood, anxiety, and response to medication changes 06/11/2024 Major depressive disorder, recurrent, mild (ICD-10 - F33.0) Assessment and Plan: Depression - Patient reports mood has been good for past two weeks, increased social interaction. - Notes experiencing depression when isolated at home. Energy levels remain low, primary concern Plan: - Increase fluoxetine to 40 mg daily - Continue Wellbutrin at 150 mg daily, she has a lot of 300 mg at home and plans to break in half, discussed exploring adjustments next visit so no refill at this time. - Reassess mood and energy levels at follow-up visit Anxiety - Anxiety levels unchanged. - Denies recent panic attacks Plan: -Monitor anxiety with increasing fluoxetine. Insomnia - Currently on Ambien (zolpidem) for sleep, prescribed by different provider - Patient concerned about long-term use and potential memory issues Plan: - Discuss possibility of tapering off Ambien and exploring alternative sleep medications at future visits Mild Neurocognitive Disorder - Some concerns with memory, some concern if realted to chronic Ambien use - past MRI showed moderately severe small vessel disease, and Dr Abbasi advised to take baby aspirin - Last Sl Plan: - Monitor memory, report any concerns Cuong's thyroid disease - Currently on levothyroxine, taken in the morning by itself Plan: - Continue levothyroxine as prescribed, follow up with primary care provider for thyroid function monitoring If fluoxetine does not help, could try to get prior authorization for [employer]. Explore next visit. Follow-up in 4 weeks to reassess mood, anxiety, and response to medication changes 06/11/2024 Generalized anxiety disorder (ICD-10 - F41.1) Assessment and Plan: Depression - Patient reports mood has been good for past two weeks, increased social interaction. - Notes experiencing depression when isolated at home. Energy levels remain low, primary concern Plan: - Increase fluoxetine to 40 mg daily - Continue Wellbutrin at 150 mg daily, she has a lot of 300 mg at home and plans to break in half, discussed exploring adjustments next visit so no refill at this time. - Reassess mood and energy levels at follow-up visit Anxiety - Anxiety levels unchanged. - Denies recent panic attacks Plan: -Monitor anxiety with increasing fluoxetine. Insomnia - Currently on Ambien (zolpidem) for sleep, prescribed by different provider - Patient concerned about long-term use and potential memory issues Plan: - Discuss possibility of tapering off Ambien and exploring alternative sleep medications at future visits Mild Neurocognitive Disorder - Some concerns with memory, some concern if realted to chronic Ambien use - past MRI showed moderately severe small vessel disease, and Dr Abbasi advised to take baby aspirin - Last Slums Plan: - Monitor memory, report any concerns Cuong's thyroid disease - Currently on levothyroxine, taken in the morning by itself Plan: - Continue levothyroxine as prescribed, follow up with primary care provider for thyroid function monitoring If fluoxetine does not help, could try to get prior authorization for [employer]. Explore next visit. Follow-up in 4 weeks to reassess mood, anxiety, and response to medication changes 07/09/2024 Major depressive disorder, recurrent, mild (ICD-10 - [...] is considering. Trintellix as possible medication option 07/24/2024 Mild neurocognitive disorder (ICD-10 - G31.84) [...] 95 Average Additional Cognitive Screening Scores: SLUMS ([facility] Mental Status Exam): 27 (Suggests normal cognitive [...] physical activity, may help maintain cognitive health. 07/25/2024 Major depressive disorder, recurrent, mild (ICD-10 - F33.0) 07/29/2024 Encounter for screening for cardiovascular disorders [...] is considering. Trintellix as possible medication option 07/09/2024 Generalized anxiety disorder (ICD-10 - F41.1) Depression [...] is considering. Tr[employer]ix as possible medication option 05/14/2024 Primary insomnia (ICD-10 - F51.01) Assessment and Plan: Depression - Patient reports depressed mood and low energy - Currently on Cymbalta 20 mg, did not tolerate higher dose Plan: - Stop Cymbalta 20 mg daily - Start Prozac (fluoxetine) 10 mg daily for 2 weeks, then increase to 20 mg daily - Continue Wellbutrin at 150 mg daily, she has a lot of 300 mg at home and plans to break in half, discussed exploring adjustments next visit so no refill at this time. - Reassess mood and energy levels at follow-up visit Anxiety - Patient reports anxiety improved, manageable - Interested in natural remedies: Takes ashwagandha, lion's manjit, and vitamin D as supplements Plan: - Encourage trying Ginkgo biloba for anxiety, memory, and cognitive abilities, if not at risk for bleeding -Monitor anxiety with starting fluoxetine. - Reassess anxiety levels at follow-up visit Insomnia - Currently on Ambien (zolpidem) for sleep, prescribed by different provider - Patient concerned about long-term use and potential memory issues Plan: - Discuss possibility of tapering off Ambien and exploring alternative sleep medications at future visit Cuong's thyroid disease - Currently on levothyroxine, taken in the morning by itself Plan: - Continue levothyroxine as prescribed, follow up with primary care provider for thyroid function monitoring If fluoxetine does not help, could try to get prior authroization for [employer]. Explore next visit. Follow-up in 4-6 weeks to reassess mood, anxiety, and response to medication changes 03/13/2024 Generalized anxiety disorder (ICD-10 - F41.1) meds as above recommend therapy 10/26/2023 Primary insomnia (ICD-10 - F51.01) has zolpidem per Dr Corrales practice good sleep hygiene 01/29/2024 Generalized anxiety disorder (ICD-10 - F41.1) meds as above recommend therapy 01/29/2024 Primary insomnia (ICD-10 - F51.01) has zolpidem per Dr Corrales practice good sleep hygiene 03/13/2024 Primary insomnia (ICD-10 - F51.01) has zolpidem per Dr Corrales practice good sleep hygiene 07/09/2024 Primary insomnia (ICD-10 - F51.01) on Ambien [...] is considering. Trintellix as possible medication option 06/11/2024 Primary insomnia (ICD-10 - F51.01) Assessment and Plan: Depression - Patient reports mood has been good for past two weeks, increased social interaction. - Notes experiencing depression when isolated at home. Energy levels remain low, primary concern Plan: - Increase fluoxetine to 40 mg daily - Continue Wellbutrin at 150 mg daily, she has a lot of 300 mg at home and plans to break in half, discussed exploring adjustments next visit so no refill at this time. - Reassess mood and energy levels at follow-up visit Anxiety - Anxiety levels unchanged. - Denies recent panic attacks Plan: -Monitor anxiety with increasing fluoxetine. Insomnia - Currently on Ambien (zolpidem) for sleep, prescribed by different provider - Patient concerned about long-term use and potential memory issues Plan: - Discuss possibility of tapering off Ambien and exploring alternative sleep medications at future visits Mild Neurocognitive Disorder - Some concerns with memory, some concern if realted to chronic Ambien use - past MRI showed moderately severe small vessel disease, and Dr Abbasi advised to take baby aspirin - Last Slums Plan: - Monitor memory, report any concerns Cuong's thyroid disease - Currently on levothyroxine, taken in the morning by itself Plan: - Continue levothyroxine as prescribed, follow up with primary care provider for thyroid function monitoring If fluoxetine does not help, could try to get prior authorization for Trintellix. Explore next visit. Follow-up in 4 weeks to reassess mood, anxiety, and response to medication changes 10/26/2023 Mild neurocognitive disorder (ICD-10 - G31.84) past MRI showed moderately severe small vessel disease Dr Abbasi advised to take baby aspirin 05/14/2024 Mild neurocognitive disorder (ICD-10 - G31.84) Assessment and Plan: Depression - Patient reports depressed mood and low energy - Currently on Cymbalta 20 mg, did not tolerate higher dose Plan: - Stop Cymbalta 20 mg daily - Start Prozac (fluoxetine) 10 mg daily for 2 weeks, then increase to 20 mg daily - Continue Wellbutrin at 150 mg daily, she has a lot of 300 mg at home and plans to break in half, discussed exploring adjustments next visit so no refill at this time. - Reassess mood and energy levels at follow-up visit Anxiety - Patient reports anxiety improved, manageable - Interested in natural remedies: Takes ashwagandha, lion's manjit, and vitamin D as supplements Plan: - Encourage trying Ginkgo biloba for anxiety, memory, and cognitive abilities, if not at risk for bleeding -Monitor anxiety with starting fluoxetine. - Reassess anxiety levels at follow-up visit Insomnia - Currently on Ambien (zolpidem) for sleep, prescribed by different provider - Patient concerned about long-term use and potential memory issues Plan: - Discuss possibility of tapering off Ambien and exploring alternative sleep medications at future visit Cuong's thyroid disease - Currently on levothyroxine, taken in the morning by itself Plan: - Continue levothyroxine as prescribed, follow up with primary care provider for thyroid function monitoring If fluoxetine does not help, could try to get prior authroization for Trintellix. Explore next visit. Follow-up in 4-6 weeks to reassess mood, anxiety, and response to medication changes 07/29/2024 Major depressive disorder, recurrent, mild (ICD-10 [...] is considering. Trintellix as possible medication option 03/13/2024 Mild neurocognitive disorder (ICD-10 - G31.84) SLUMS today past MRI showed moderately severe small vessel disease, and Dr Abbasi advised to take baby aspirin 01/29/2024 Mild neurocognitive disorder (ICD-10 - G31.84) past MRI showed moderately severe small vessel disease Dr Abbasi advised to take baby aspirin 06/11/2024 Mild neurocognitive disorder (ICD-10 - G31.84) Assessment and Plan: Depression - Patient reports mood has been good for past two weeks, increased social interaction. - Notes experiencing depression when isolated at home. Energy levels remain low, primary concern Plan: - Increase fluoxetine to 40 mg daily - Continue Wellbutrin at 150 mg daily, she has a lot of 300 mg at home and plans to break in half, discussed exploring adjustments next visit so no refill at this time. - Reassess mood and energy levels at follow-up visit Anxiety - Anxiety levels unchanged. - Denies recent panic attacks Plan: -Monitor anxiety with increasing fluoxetine. Insomnia - Currently on Ambien (zolpidem) for sleep, prescribed by different provider - Patient concerned about long-term use and potential memory issues Plan: - Discuss possibility of tapering off Ambien and exploring alternative sleep medications at future visits Mild Neurocognitive Disorder - Some concerns with memory, some concern if realted to chronic Ambien use - past MRI showed moderately severe small vessel disease, and Dr Abbasi advised to take baby aspirin - Last Sl Plan: - Monitor memory, report any concerns Cuong's thyroid disease - Currently on levothyroxine, taken in the morning by itself Plan: - Continue levothyroxine as prescribed, follow up with primary care provider for thyroid function monitoring If fluoxetine does not help, could try to get prior authorization for Trintellix. Explore next visit. Follow-up in 4 weeks to reassess mood, anxiety, and response to medication changes 07/09/2024 Mild neurocognitive disorder (ICD-10 - G31.84) Depression [...] is considering. Trintellix as possible medication option 05/14/2024 Obstructive sleep apnea (adult) (pediatric) (ICD-10 - G47.33) Assessment and Plan: Depression - Patient reports depressed mood and low energy - Currently on Cymbalta 20 mg, did not tolerate higher dose Plan: - Stop Cymbalta 20 mg daily - Start Prozac (fluoxetine) 10 mg daily for 2 weeks, then increase to 20 mg daily - Continue Wellbutrin at 150 mg daily, she has a lot of 300 mg at home and plans to break in half, discussed exploring adjustments next visit so no refill at this time. - Reassess mood and energy levels at follow-up visit Anxiety - Patient reports anxiety improved, manageable - Interested in natural remedies: Takes ashwagandha, lion's manjit, and vitamin D as supplements Plan: - Encourage trying Ginkgo biloba for anxiety, memory, and cognitive abilities, if not at risk for bleeding -Monitor anxiety with starting fluoxetine. - Reassess anxiety levels at follow-up visit Insomnia - Currently on Ambien (zolpidem) for sleep, prescribed by different provider - Patient concerned about long-term use and potential memory issues Plan: - Discuss possibility of tapering off Ambien and exploring alternative sleep medications at future visit Cuong's thyroid disease - Currently on levothyroxine, taken in the morning by itself Plan: - Continue levothyroxine as prescribed, follow up with primary care provider for thyroid function monitoring If fluoxetine does not help, could try to get prior authroization for Trintellix. Explore next visit. Follow-up in 4-6 weeks to reassess mood, anxiety, and response to medication changes 10/26/2023 Obstructive sleep apnea (adult) (pediatric) (ICD-10 - G47.33) uses CPAP 01/29/2024 Obstructive sleep apnea (adult) (pediatric) (ICD-10 - G47.33) uses CPAP 03/13/2024 Obstructive sleep apnea (adult) (pediatric) (ICD-10 - G47.33) uses CPAP f/u with sleep medicine provider 07/09/2024 Obstructive sleep apnea (adult) (pediatric) (ICD-10 - [...] is considering. 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 - Reassess mood and energy levels at follow-up visit Anxiety - Patient reports anxiety improved, manageable - Interested in natural remedies: Takes ashwagandha, lion's manjit, and vitamin D as supplements Plan: - Encourage trying Ginkgo biloba for anxiety, memory, and cognitive abilities, if not at risk for bleeding -Monitor anxiety with starting fluoxetine. - Reassess anxiety levels at follow-up visit Insomnia - Currently on Ambien (zolpidem) for sleep, prescribed by different provider - Patient concerned about long-term use and potential memory issues Plan: - Discuss possibility of tapering off Ambien and exploring alternative sleep medications at future visit Cuong's thyroid disease - Currently on levothyroxine, taken in the morning by itself Plan: - Continue levothyroxine as prescribed, follow up with primary care provider for thyroid function monitoring If fluoxetine does not help, could try to get prior authroization for Trintellix. Explore next visit. Follow-up in 4-6 weeks to reassess mood, anxiety, and response to medication changes 06/11/2024 Obstructive sleep apnea (adult) (pediatric) (ICD-10 - G47.33) Assessment and Plan: Depression - Patient reports mood has been good for past two weeks, increased social interaction. - Notes experiencing depression when isolated at home. Energy levels remain low, primary concern Plan: - Increase fluoxetine to 40 mg daily - Continue Wellbutrin at 150 mg daily, she has a lot of 300 mg at home and plans to break in half, discussed exploring adjustments next visit so no refill at this time. - Reassess mood and energy levels at follow-up visit Anxiety - Anxiety levels unchanged. - Denies recent panic attacks Plan: -Monitor anxiety with increasing fluoxetine. Insomnia - Currently on Ambien (zolpidem) for sleep, prescribed by different provider - Patient concerned about long-term use and potential memory issues Plan: - Discuss possibility of tapering off Ambien and exploring alternative sleep medications at future visits Mild Neurocognitive Disorder - Some concerns with memory, some concern if realted to chronic Ambien use - past MRI showed moderately severe small vessel disease, and Dr Abbasi advised to take baby aspirin - Last Sl Plan: - Monitor memory, report any concerns Cuong's thyroid disease - Currently on levothyroxine, taken in the morning by itself Plan: - Continue levothyroxine as prescribed, follow up with primary care provider for thyroid function monitoring If fluoxetine does not help, could try to get prior authorization for Trintellix. Explore next visit. Follow-up in 4 weeks to reassess mood, anxiety, and response to medication changes 07/29/2024 Primary insomnia (ICD-10 - F51.01) on [...] is considering. 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 - Notes experiencing depression when isolated at home. Energy levels remain low, primary concern Plan: - Increase fluoxetine to 40 mg daily - Continue Wellbutrin at 150 mg daily, she has a lot of 300 mg at home and plans to break in half, discussed exploring adjustments next visit so no refill at this time. - Reassess mood and energy levels at follow-up visit Anxiety - Anxiety levels unchanged. - Denies recent panic attacks Plan: -Monitor anxiety with increasing fluoxetine. Insomnia - Currently on Ambien (zolpidem) for sleep, prescribed by different provider - Patient concerned about long-term use and potential memory issues Plan: - Discuss possibility of tapering off Ambien and exploring alternative sleep medications at future visits Mild Neurocognitive Disorder - Some concerns with memory, some concern if realted to chronic Ambien use - past MRI showed moderately severe small vessel disease, and Dr Abbasi advised to take baby aspirin - Last Slums Plan: - Monitor memory, report any concerns Cuong's thyroid disease - Currently on levothyroxine, taken in the morning by itself Plan: - Continue levothyroxine as prescribed, follow up with primary care provider for thyroid function monitoring If fluoxetine does not help, could try to get prior authorization for Trintellix. Explore next visit. Follow-up in 4 weeks to reassess mood, anxiety, and response to medication changes 07/09/2024 Benign essential HTN (ICD-10 - I10) Depression [...] is considering. Trintellix as possible medication option 10/26/2023 Other 03/13/2024 Other Plan Of Treatment Next Appt Details Provider Name:Tracey Nieves tereso, 09/09/2024 01:15:00 PM, [address], [facility] [address], [place], [address], Insurance Providers Payer Name Payer Address Payer Phone Subscriber Number Group Number Insured Name Patient Relationship to Insured Coverage Start Date Coverage End Date [employer] [address] [place] [phone] [id number] ART GUERRERO Self - patient is the insured Medical (General) History Medical History History ICD Code Long-term drug therapy Mild neurocognitive disorder Mild recurrent major depression Primary insomnia Severe recurrent major depression withou t psychotic features Past Psychiatric History: Anxiety Disord er,Panic Disorder undefined chronic fatigue syndrome Benign essential hypertension I10 Sleep apnea, obstructive G47.33 Surgical History Surgery Date(Month/Year) hip replacement 11/2022 Cataract surgery (90667) 05/15/2010 Sinus surgery 05/15/2011 Other 02/25/2019 Hospitalization History Reason Date(Month/Year) 04/07 infection 03/2024
--- OUTSIDE RECORDS SUMMARY | 2024-08-08 18:47 | XMS_ITS | Continuity of Care Document ---
Author Organization [employer] Address [address] [place] [address] Phone Care Team Providers Care Finish Patcher Name Role Phone Dana Grace NP Unavailable [...] Diagnoses Date Provider Providers Copied on Encounter [facility], [address], [place], [place], [address] , tel: [phone] [facility] Internal Medicine No Information 8 Snajay Cortez. [address] [place] [address], [address], . tel: [phone] [facility], [address], [place], [place], [address] , tel: [phone] [facility] Internal Medicine Other fatigueMDD (major depressive disorder), recurrent episode, moderateDizziness 7 Walter Hewitt. [address] [place] [address], [id number] , [place]. tel: [phone] Referring Provider: Marcelina Sawant, [address] [place] [address], [address] . tel:[phone] [facility], [address], [place], [place], [address] , tel: [phone] [facility] Internal Medicine No Information 7 Walter Hewitt. [address] [place] [address], [id number] , [place]. tel: [phone] [facility], [address], [place], [place], [address] , tel: [phone] [facility] Medicine No Information 7 Sanjay Cortez. [address] [place] [address], [address], [place]. tel: [phone] [facility], [address], [place], [place], [address] , tel: [phone] [facility] SH[facility]LEY (obstructive sleep apnea)History of hepatitis CMDD (major depressive disorder), recurrent episode, moderateAnxietyInso mnia, unspecifiedShortnes s of breath on exertionOther fatigue 7 Walter Hewitt. [address] [place] [address], [id number] , [place]. tel: [phone] Referring Provider: Marcelina Sawant, [address] [place] [address], [address] . tel:[phone] [facility], [address], [place], [place], [address] , tel: [phone] [facility] No Information 6 Walter Hewitt. [address] [place] [address], [id number] , [place]. tel: [phone] [facility], [address], [place], [place], [address] , [place] tel: [phone] [facility] No Information 6 Walter Hewitt. [address] [place] [address], [id number] , . tel: [phone] [facility], [address], [place], [place], [address] , tel: [phone] [facility] Major depressive disorder, single episode, unspecifiedAnxietyB iliary sludge determined by ultrasoundUnspecifi ed viral hepatitis C without hepatic coma 6 Sanjay Gaylin. [address] [place] [address], [address], [place]. tel: [phone] Referring Provider: Marcelina Sawant, [address] [place] [address], [address] . tel:[phone] [facility], [address], [place], [place], [address] , [place] tel: [phone] [facility] Major depressive disorder, single episode, unspecifiedAnxietyH ot flashesDizziness 6 Sanjay Gaylin. [address] [place] [address], [address], [place]. tel: [phone] Referring Provider: Marcelina Sawant, [address] [place] [address], [address] . tel: [facility], [address], [place], [place], [address] , tel: [phone] [facility] No Information 6 [place] Marcelina. [address] [place] [address], [id number] , . tel: [phone] [facility], [address], [place], [place], [address] , tel: [phone] [facility] Biliary sludge determined by ultrasoundNausea and vomiting, unspecified intactability, vomiting of unspecified typeMajor depressive disorder, single episode, unspecifiedPrediabe padmini 6 Walter Hewitt. [address] [place] [address], [id number] , [place]. tel: [phone] Referring Provider: Marcelina Sawant, [address] [place] [address], [address] . tel:[phone] [facility], [address], [place], [place], [address] , tel: [phone] [facility] Unspecified viral hepatitis C without hepatic comaSinus congestionNausea and vomiting, unspecified intactability, vomiting of unspecified typeMajor depressive disorder, single episode, unspecifiedOther screening mammogram 6 Walter Hewitt. [address] [place] [address], [id number] , [place]. tel: [phone] Referring Provider: Marcelina Sawant, [address] [place] [address], [address] . tel:[phone] [facility], [address], [place], [place], [address] , tel: [phone] [facility] Encounter for screening for other disorderMajor depressive disorder, single episode, unspecifiedUnspecif ied viral hepatitis C without hepatic coma 6 Sanjay Cortez. [address] [place] [address], [address], . tel: [phone] Referring Provider: Marcelina Sawant, [address] [place] [address], [address] . tel: [facility], [address], [place], [place], [address] , tel: [phone] [facility] Unspecified viral hepatitis C without hepatic comaMajor depressive disorder, single episode, unspecifiedInsomnia , unspecifiedBurn 5 [facility]. [address] [place] [address], [address], . tel: [phone] Referring Provider: Marcelina Sawant, [address] [place] [address], [address] . tel: [facility], [address], [place], [place], [address] , tel: [phone] [facility] DiarrheaNauseaUnspe cified viral hepatitis C without hepatic comaMajor depressive disorder, single episode, unspecified 5 [facility]. [address] [place] [address], [address], . tel: [phone] Referring Provider: Marcelina Sawant, [address] [place] [address], [address] . tel: [facility], [address], [place], [place], [address] , tel: [phone] [facility] DiarrheaNausea 0 5 Walter Hewitt. [address] [place] [address], [id number] , [place]. tel: [phone] [facility], [address], [place], [place], [address] , tel: [phone] [facility] Unspecified viral hepatitis C without hepatic comaMajor depressive disorder, single episode, unspecifiedOSA (obstructive sleep apnea)Frequency of micturition 5 [place] Laura. [address] [place] [address], [id number] , [place]. tel: [phone] Referring Provider: Marcelina Sawant, [address] [place] [address], [address] . tel:[phone] [facility], [address], [place], [place], [address] , tel: [phone] [facility] Hepatitis CFibromyalgiaMDD (major depressive disorder)InsomniaHy perthyroidism Walter Hewitt. [address] [place] [address], [id number] , . tel: [phone] Referring Provider: Marcelina Sawant, [address] [place] [address], [address] . tel:[phone] [facility], [address], [place], [place], [address] , tel: [phone] [facility] GERD (gastroesophageal reflux disease)InsomniaFib romyalgiaHerniated lumbar disc without myelopathyKnee pain, bilateralHepatitis CIncreased urinary frequencyMDD (major depressive disorder)Skin tag Walter Hewitt. [address] [place] [address], [id number] , . tel: [phone] Referring Provider: Marcelina Sawant, [address] [place] [address], [address] . tel:[phone] Family History Family Member Type Diagnosis Age [...] Record Payers Payer name Insurance type Covered alliance party ID Authoriza tion(s) [employer] [id number] [employer] [id number] Social History Type Description Quantity Date Captured [...]
--- OUTSIDE RECORDS SUMMARY | 2024-08-08 18:47 | XMS_ITS | Encounter Summary ---
Author Organization [facility] Address [address] [place] [address] Care Team Providers Care Flash Oven Operator Name Role Phone Marcelina Watson DO Primary Care Provider [phone] Mo Jaramillo MD Primary Care Provider Tristan Schuler MD Unavailable [phone] Mel Corrales MD Primary Care Provider + Dmitriy Camargo MD Primary Care Prov ider Encounter Details Date Type Department Care Team (Late st Contact Info) Description 09/09/2016 Orders Only [facility] ProviderEloisa MD [address] [place] [address] Social History Tobacco Use Types Packs/Day Years Used Date Smoking Tobacco: Never Alcohol Use Standard Drinks/Week Comments No 0 (1 standard drink = 0.6 oz pur e alcohol) Comments Unknown Sex and Gender Information Value Date Recorded Sex Assigned at Not on file Legal Sex Female 4:13 AM DOCK CLERK Gender Identity Female 12/06/2021 6:46 PM CDT [...] documented as of this encounter Care Teams Flash Oven Operator Relationship Specialty Start Date End Date Marcelina Watson DO PCP - General 03/03/16 09/05/18 Mo Jaramillo MD PCP - General 09/06/18 12/21/20 Mel Corrales MD [address] [place] [address] [place] [address] PCP - General Family Medicine 12/22/20 06/16/24 Dmitriy Camargo MD [address] [place] [address] PCP - General Family Medicine 06/17/24 Tristan Schuler MD [address] [place] [address] [address] [facility] 01/18/19 documented as of this encounter
--- OUTSIDE RECORDS SUMMARY | 2024-08-08 18:47 | XMS_ITS | Clinical Summary ---
Author Organization [facility] Address [address] [place] [address] Care Team Providers Care Uranium Processing Supervisor Name Role Phone Essie Santillan PA-C Primary Care Provider [phone] Source Comments [facility],non-owned Affiliates and Associated Physician Practices is amultiple site organization consisting of ambulatory clinics and hospital sitesin [place], [place], [place] and [place]. This disclosure is being madepursuant to the Care Everywhere program and may not contain all information available regarding this patient. Last updated 18.[facility] Allergies Active Allergy Reactions Criticality Noted Date [...] Comments Blood Pressure 132/79 07/20/2016 1:02 PM ENVIRONMENTAL PROTECTION GEOLOGIST Pulse 99 07/20/2016 1:02 PM ENVIRONMENTAL PROTECTION GEOLOGIST Temperature 36.9 C (98.4 F) 01/11/2016 10:49 AM CDT Respiratory Rate 18 07/20/2016 1:02 PM ENVIRONMENTAL PROTECTION GEOLOGIST Oxygen Saturation - - Inhaled Oxygen Concentration - - Weight 86.6 kg (191 lb) 07/20/2016 1:02 PM ENVIRONMENTAL PROTECTION GEOLOGIST Height 149.9 cm (4' 11 ) 03/21/2016 2:45 PM ENVIRONMENTAL PROTECTION GEOLOGIST Body Mass Index 38.58 03/21/2016 2:45 PM ENVIRONMENTAL PROTECTION GEOLOGIST Plan of Treatment Health Maintenance Due Date [...] Virus RNA IU/mL HCV Not Detected IU/mL [facility] ([employer]) Test Information [facility] ([employer]) Comment:The quantitative ran ge of this assay is 15 IU/mL to 100 million IU/mL. 03/18/2016 9:30 AM CDT 03/18/2016 Narrative [facility] ([employer]) - 03/19/2016 8:07 PM CDT Performed at: [address] [place] [id number] Online Merchandising Manager: Fletcher Jurado MD, Phone: [phone] Specimen Comment: A courtesy copy of this report has been sent to Specimen Comment: [facility] Loc #150. Neftaly Pollard MD LAB - CHEMISTRY ROOPA SANTILLAN [facility]) from Last 3 Months or Most Recently Relevant to Health Maintenance Care Teams Uranium Processing Supervisor Relationship Specialty Start Date End Date Essie Santillan PA-C [address] [place] [address] [place] [phone] PCP - General 02/15/22
--- OUTSIDE RECORDS SUMMARY | 2024-08-08 18:47 | XMS_ITS | Encounter Summary ---
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
--- OUTSIDE RECORDS SUMMARY | 2024-08-08 18:47 | XMS_ITS | Clinical Summary ---
Author Organization [facility] Address [address] [place] [address] Care Team Providers Care Senior Fire Protection Engineer Name Role Phone Evy Palacio [facility] Primary Care Provider Unav ailable Social History [...] to complete this topic Insurance [facility] MEDICARE Care Teams Senior Fire Protection Engineer Relationship Specialty Start Date End Date Evy Palacio FNP-BC PCP - General 11/10/16
--- OUTSIDE RECORDS SUMMARY | 2024-08-08 18:47 | XMS_ITS | Encounter Summary ---
Author Organization [facility] Care Team Providers Care Gasoline Finisher Name Role Phone Marcelian Watson DO Primary Care Provider [phone] Mo Jaramillo MD Primary Care Provider Tristan Schuler MD Unavailable [phone] Mel Corrales MD Primary Care Provider + Dmitriy Camargo MD Primary Care Prov ider Encounter Details Date Type Department Care Team (Latest Contact Info) Description 11/02/2016 Orders Only [facility] CLINCONV ProviderEloisa MD [address] [place] [address] Social History Tobacco Use Types Packs/Day Years Used Date Smoking Tobacco: Never Alcohol Use Standard Drinks/Week Comments No 0 (1 standard drink = 0.6 oz pur e alcohol) Comments Unknown Sex and Gender Information Value Date Recorded Sex Assigned at Not on file 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 [employer] Gender Identity Female 12/06/2021 6:46 PM CDT [...] documented as of this encounter Care Teams Gasoline Finisher Relationship Specialty Start Date End Date Marcelina Watson DO PCP - General 03/03/16 09/05/18 Mo Jaramillo MD PCP - General 09/06/18 12/21/20 Mel Corrales MD [address] [place] [address] PCP - General Family Medicine 12/22/20 06/16/24 Dmitriy Camargo MD [address] [place] [address] PCP - General Family Medicine 06/17/24 Tristan Schuler MD [address] [address] Geospatial Program Management Officer Cardiology 01/18/19 documented as of this encounter
--- OUTSIDE RECORDS SUMMARY | 2024-08-08 18:47 | XMS_ITS | Continuity of Care Document ---
Author Organization [facility] Address [id number] [place] [address] [address] [place] [address] Phone Care Team Providers Care Senior Manufacturing Supervisor Name Role Phone Prabhakar Ambrose MD Unavailable [...] Provider Providers Copied on Encounter [facility], [address] [place] [address], [id number], tel:[phone] [address] [place] [address] No Information 4 Halie Radford. [address] [facility], [address], [place], [address], [place]. tel:[phone] Referring Provider: Prabhakar Beaver, [address] [place] [address] [address], [place], [address]. tel:[phone] [facility], [address] [place] [address], [id number], tel:[phone] [address] [place] [address] No Information 4 Halie Radford. [address] [facility], [facility] [address], [place], [address], [place]. tel:[phone] Referring Provider: Prabhakar Beaver, [address], [place], [address]. tel:[phone] OFFICE/OUTPA TIENT VISIT, [facility], [address], [place], [place], [id number], [place] tel:[phone] [facility] No Information 4 Halie Prabhakar. [address], [address], [place], [address], [place]. tel:[phone] Referring Provider: Prabhakar Beaver, [address], [place], [address]. tel:[phone] [facility], [address], [place], [place], [id number], [place] tel:[phone] [facility] No Information 2 Halie Prabhakar. [address], [address], [place], [address], [place]. tel:[phone] Referring Provider: Prabhakar Beaver, [address] [facility] [address], [place], [address]. tel:[phone] OFFICE/OUTPA TIENT VISIT, [facility], [address], [place], [place], [id number], [place] tel:[phone] [facility] No Information 2 Halie Prabhakar. [address], [address], [place], [address], [place]. tel:[phone] Referring Provider: Prabhakar Beaver, [address] [facility] [address], [place], [address]. tel:[phone] [facility], [address], [place], [place], [id number], [place] tel:[phone] [facility] No Information 1 Halie Prabhakar. [address], [address], [place], [address], [place]. tel:[phone] OFFICE/OUTPA TIENT VISIT, [facility], [address], [place], [place], [id number], [place] tel:[phone] [facility] No Information 1 Halie Radford. [address] [facility], [address], [place], [address], [place]. tel:[phone] Family History Family Member Type Diagnosis Age At Onset No Information Payers Payer name Insurance type Covered republican ID Authormontanaa sony(s) [facility] [id number] Social History Type Description Quantity Date Captured [...]
--- OUTSIDE RECORDS SUMMARY | 2024-08-08 18:48 | XMS_ITS | Referral Summary ---
Author Organization [facility] [address] Address [address] [place] [address] Care Team Providers Care Summer Nanny Name Role Phone Tristan Schuler MD Unavailable [phone] Dmitriy Camargo MD Primary Care Prov ider Encounters Date Type Department Care Team Description 07/04/2024 Results Follow-Up [facility] Cardiology [address] [place] [phone] Marcelina Wheeler, RADHA Hypertriglyceridemia (Primary Dx) 06/17/2024 3:15 PM ASPHALT BLENDER Office Visit [facility] Cardiology [address] [place] [phone] Tristan Schuler MD Primary hypertension (Primary Dx); Hypertriglyceridemia; Shortness of breath 05/29/2024 2:30 PM ASPHALT BLENDER - 05/29/2024 11:59 PM ASPHALT BLENDER Hospital Encounter [facility] [address] [place] [address] [place] [address] History of right hip replacement; Back pain, unspecified back location, unspecified back pain laterality, unspecified chronicity Discharge Disposition: Discharge to home or self care 05/29/2024 12:46 PM ASPHALT BLENDER - 05/29/2024 11:59 PM ASPHALT BLENDER Hospital Encounter [facility] Radiology [address] [place] [address] [place] [address] History of right hip replacement; History of total knee arthroplasty, right Discharge Disposition: Discharge to home or self care 05/29/2024 1:20 PM ASPHALT BLENDER Office Visit [facility] [address] [facility] [address] [place] [address] Mina Ayala MD History of [...] be lifestyle changes. Verified that she uses [employer]. Aware to check results/results letter in [facility]. Will contact by phone if needed. Obesity [...] is 60oz miminum. Verified that she uses [employer]. Aware to check results/results letter in Setred. Will contact by phone if needed. Assessment [...] Vit D level. Verified that she uses [employer]. Aware to check results/results letter in Setred. Will contact by phone if needed. Assessment & Plan (02/19/2023 1:40 PM CDT): Check levels today and further plans based on it Right hip pain 11/18/2022 Primary osteoarthritis of right hip 09/21/2022 Preoperative clearance 09/01/2022 Abnormal EKG 09/01/2022 Hypertriglyceridemia 09/01/2022 Hip pain 06/01/2021 Assessment & Plan (06/01/2021 1:32 PM ASPHALT BLENDER): Pt asked me for referral to Dr Galvez. Sent. PLMD (periodic limb movement disorder) Assessment & Plan (03/30/2023 1:37 PM ASPHALT BLENDER): The patient denies that her limbs at night. Assessment & Plan (03/29/2022 3:09 PM ASPHALT BLENDER): Asymptomatic Assessment & Plan (09/24/2021 11:56 AM CDT): The PLMS are currently asymptomatic and she is on no medicine for this. 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 levothyroxine and or cytomel. Porcine thyroid hormone e.g. is Chatham also is a possibility. The patient could [...] 05/01/2020 Assessment & Plan (06/01/2021 1:31 PM ASPHALT BLENDER): Diet and exercise Check hba1c Neuropathy of left hand 05/01/2020 Opioid use 05/01/2020 Stage 2 chronic kidney disease 05/01/2020 Well child examination 05/01/2020 Other fatigue 11/07/2019 Weight gain 11/07/2019 Dyslipidemia 05/02/2019 Diastolic dysfunction 12/06/2018 Primary osteoarthritis of right knee 09/18/2018 Morbid obesity 09/18/2018 Assessment & Plan (06/01/2021 1:30 PM ASPHALT BLENDER): Low calorie diet Pt declines use of weight loss meds She will try to follow up with [facility] bariat[facility] Assessment & Plan (12/29/2020 4:21 PM CDT): Diet and exercise were discussed. 1200 Calorie diet advised 45-60 min aerobic / resistance exercise most days of the week recommended. Bariatric surgery medically indicated The patient actually wants to consider bariatric surgery. Will send referral to [facility] Laryngopharyngeal reflux 11/02/2016 Tinnitus, bilateral 11/02/2016 Chest pain 08/26/2016 Overview (10/07/2016): Chest pain, unspecified type Body mass index (BMI) of 45.0-49.9 in adult 08/13 Overview (05/01/2020): Obesity (BMI 30-39.9) Shortness of breath 03/03/2016 Overview (08/19/2016): Shortness of breath Assessment & Plan (03/29/2022 3:10 PM ASPHALT BLENDER): Will continue with albuterol on a p.r.n. [...] tests. Assessment & Plan (05/20/2021 1:53 PM ASPHALT BLENDER): Patient will continue with albuterol on a p.r.n. basis. Chronic fatigue syndrome 03/03/2016 Overview (08/19/2016): Chronic fatigue Physical deconditioning 03/03/2016 Overview (08/19/2016): Physical deconditioning SHIRLEY on CPAP 01/29/2015 Assessment & Plan (03/30/2023 1:36 PM ASPHALT BLENDER): The patient is requesting that her CPAP be increased to 14 cm water pressure. The patient's DME is adapt. Assessment & Plan (03/29/2022 3:09 PM ASPHALT BLENDER): Will continue CPAP therapy at 13 cm [...] months. Assessment & Plan (05/20/2021 1:54 PM ASPHALT BLENDER): The patient will continue with CPAP therapy [...] physician. 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 Not on file Not on file Last Filed Vital Signs Vital Sign Reading Time Taken Comments Blood Pressure 100/70 06/17/2024 2:32 PM ASPHALT BLENDER Pulse 94 06/17/2024 2:32 PM ASPHALT BLENDER Temperature 36.8 C (98.3 F) 03/30/2023 1:18 PM ASPHALT BLENDER Respiratory Rate 16 02/29/2024 1:35 PM CDT Oxygen Saturation 94% 06/17/2024 2:32 PM ASPHALT BLENDER Inhaled Oxygen Concentration - - Weight 69.4 kg (152 lb 14.4 oz) 06/17/2024 2:32 PM ASPHALT BLENDER Height 144.8 cm (4' 9.01 ) 02/29/2024 1:35 PM CD T Body Mass Index 33.08 02/29/2024 1:35 PM CDT Plan of Treatment Not on file Medical Devices Implanted Type Area Program Director Group Work Device Identifier Shelf Expiration Date Model / Serial / Lot [employer] Bi Mentum 47mm Press Fit Femoral Proximal Cup Acetabular [id number] - Sna - [id number] Implanted:Qty: 1 on 11/18/2022 by Mina Ayala MD at [facility] Other - see comments Right: Hip [employer] [id number] 07/13/2027 [id number] / NA / [id number] Description:Implant pause pe rformed. [employer]H [employer] Liner Acet Hip Size 28 Poly Bi Mentum Altrx 47mm [id number] - Sna - [id number] Implanted:Qty: 1 on 11/18/2022 by Mina Ayala MD at [facility] Other - see comments Right: Hip [employer] [id number] 10/12/2026 [id number] / NA / [id number] Description:Implant pause pe rformed. [employer] Articul/Mariano 28mm Cementless Hip +5mm 04/27 Taper Head Femoral Latex Free [id number] - Sna - [id number] Implanted:Qty: 1 on 11/18/2022 by Mina Ayala MD at [facility] Other - see comments Right: Hip [employer] [id number] 07/13/2027 [id number] / NA / [id number] Description:Implant pause pe rformed. [employer] Actis Collar Hip 4 High Offset Stem Femoral [id number] - Sna - [id number] Implanted:Qty: 1 on 11/18/2022 by Mina Ayala MD at [facility] Other - see comments Right: Hip [employer] [id number] 04/13/2032 [id number] / NA / [id number] Description:Implant pause pe rformed. Procedures Procedure Name Priority Date/Time Associated Diagnosis Comments LIPID PANEL Routine 06/28/2024 9:01 AM ASPHALT BLENDER Hypertriglyceridem ia XR SPINE LUMBAR 2 OR 3 VIEWS Schedule Routine, Read Routine (OP Routine) 05/29/2024 3:35 PM ASPHALT BLENDER History of right hip replacement Back pain, unspecified back location, unspecified back pain laterality, unspecified chronicity XR KNEE RIGHT 3 VIEWS Schedule Routine, Read Routine (OP Routine) 05/29/2024 1:37 PM ASPHALT BLENDER History of right hip replacement History of total knee arthroplasty, right XR HIP RIGHT W PELVIS 2 OR 3 VIEWS Schedule Routine, Read Routine (OP Routine) 05/29/2024 1:37 PM ASPHALT BLENDER History of right hip replacement SCREENING MAMMOGRAM 2D BILATERAL Routine 06/25/2012 12:18 PM ASPHALT BLENDER DEXA AXIAL SKELETON BONE DENSITY 1 OR MORE SITES Routine 05/29/2012 1:25 PM ASPHALT BLENDER from Last 3 Months or Most Recently Relevant to Health Maintenance Results * (ABNORMAL) Lipid panel (06/28/2024 9:01 AM ASPHALT BLENDER) Cholesterol 159 <200 mg/dL [facility] [...] LDL-C. Clark SS et al. LEONEL. 2013;310(19): 1108-0199 (http://education.[employer]/faq/EJV908) Chol/HDL ratio 3.7 <5.0 (calc) [facility] Non-HDL, (LDL+VLDL) 116 <130 mg/dL (calc) [facility] Comment: For patients with diabetes plus 1 major ASCVD risk factor, treating to a non-HDL-C goal of <100 mg/dL (LDL-C of <70 mg/dL) is considered a therapeutic option. Blood 06/28/2024 9:01 AM ASPHALT BLENDER 06/28/2024 9:01 AM ASPHALT BLENDER Narrative [facility] - 06/29/2024 2:58 AM ASPHALT BLENDER FASTING:YES FASTING: YES us Tristan Schuler MD LAB BLOOD ORDERABLES Final Result [facility] [id number] [id number] * XR Spine Lumbar 2 or 3 Views (05/29/2024 3:35 PM ASPHALT BLENDER) Anatomical Region Laterality Modality Spine N/A Computed Radiogr aphy 05/29/2024 4:49 PM ASPHALT BLENDER Impressions 05/29/2024 4:52 PM ASPHALT BLENDER 1. Severe degenerative disease L2-L5with lower lumbar levoscoliosis and left lateral listhesis of L3 on L4. Dictated by: Dave Patrick MD The radiology attending physician has personally reviewed this study, and had reviewed and/or edited this written report and agrees with it. Electronically signed by: German Abbasi M.D. Narrative 05/29/2024 4:52 PM ASPHALT BLENDER EXAMINATION: XR SPINE LUMBAR 2 OR 3 [...] 3 Views W Pelvis (05/29/2024 1:37 PM ASPHALT BLENDER) Anatomical Region Laterality Modality Lower Extremities, Hip, Pelvis Right C omputed Radiography 05/29/2024 1:44 PM ASPHALT BLENDER Impressions 05/29/2024 1:44 PM ASPHALT BLENDER 1. Right total hip arthroplasty in unchanged, near anatomic position. 2. Right total knee arthroplasty in unchanged, near anatomic position. Electronically signed by: John Holland M.D. Narrative 05/29/2024 1:44 PM ASPHALT BLENDER EXAMINATION: XR HIP RIGHT 2 OR 3 [...] Knee Right 3 Views (05/29/2024 1:37 PM ASPHALT BLENDER) Anatomical Region Laterality Modality Lower Extremities, Knee Right Computed Radiography 05/29/2024 1:44 PM ASPHALT BLENDER Impressions 05/29/2024 1:44 PM ASPHALT BLENDER 1. Right total hip arthroplasty in unchanged, near anatomic position. 2. Right total knee arthroplasty in unchanged, near anatomic position. Electronically signed by: John Holland M.D. Narrative 05/29/2024 1:44 PM ASPHALT BLENDER EXAMINATION: XR HIP RIGHT 2 OR 3 [...] unchanged, near anatomic position. Electronically signed by: Jhon Holland M.D. Mina Ayala MD IMG XR PROCEDURES Final R esult * Screening Mammogram 2D Bilateral (06/25/2012 12:18 PM ASPHALT BLENDER) Anatomical Region Laterality Modality Breast Bilateral Mammography 06/25/2012 12:1 8 PM ASPHALT BLENDER Impressions 06/29/2012 2:30 PM ASPHALT BLENDER No mammographic evidence of malignancy. Recommend routine annual screening mammography. ASSESSMENT: BIRADS: 1 - Negative THIS IS AN ELECTRONICALLY VERIFIED REPORT 06/29/2012 2:20 PM: Dariana Georges M.D. Dariana Georges M.D. KL:devi 02:20 PM 02:20 PM [EOD] Narrative 06/29/2012 2:30 PM ASPHALT BLENDER EXAMINATION: BILATERAL SCREENING MAMMOGRAPHY HISTORY: Routine screening [...] 1 or 2 Site (05/29/2012 1:25 PM ASPHALT BLENDER) Anatomical Region Laterality Modality Body N/A Radiographic Tahira ging 05/29/2012 1:25 PM ASPHALT BLENDER Impressions 05/29/2012 5:21 PM ASPHALT BLENDER By WHO criteria, this patient has normal bone mineral density. THIS IS AN ELECTRONICALLY VERIFIED REPORT 05/29/2012 5:06 PM: Keaton Romano M.D. Keaton Romano M.D. NH:dong 05:06 PM 05:06 PM [EOD] Narrative 05/29/2012 5:21 PM ASPHALT BLENDER EXAMINATION: Bone Density Study (DEXA) HISTORY: 56-year-old [...] PM: Keaton Romano M.D. Keaton Romano M.D. NH:ar 05:06 PM 05:06 PM [EOD] Milena Williamson DO IMG DXA PROCEDURES Miguelina l Result from Last 3 Months or Most Recently Relevant to Health Maintenance Additional Health Concerns Infection Onset Date Last Indicated C. difficile Comment:201109/06/2018 09/05/2018 Insurance [employer] PPO [employer] PPO Member Subscriber Plan / Payer (Ef fective 2023-Present) Name:Nani Dawkins Relation to Subscriber:Self Name:Nani Dawkins Payer ID:[id number] (NAIC) Type:MEDICARE RISK OTHER Address: [address] [employer] [facility] [employer] Advance Directives For more information, please contact: [phone] * Full Code (Latest Code Status on File) Date Activated Date Inactivated Comments 11/18/2022 5:13 PM 11/19/2022 5:53 PM Care Teams Summer Nanny Relationship Specialty Start Date End Date Dmitriy Camargo MD [address] [place] [address] PCP - General Family Medicine 06/17/24 Tristan Schuler MD [address] [place] [address] Machine Heel Builder Cardiology 01/18/19
--- OUTSIDE RECORDS SUMMARY | 2024-08-08 18:48 | XMS_ITS | Clinical Summary ---
Author Organization [facility] [address] Address [address] [place] [address] Care Team Providers Care Emery Wheel Worker Name Role Phone Tristan Schuler MD Unavailable [phone] Dmitriy Camargo MD Primary Care Prov ider [...] be lifestyle changes. Verified that she uses [employer]looks ([email or web address])t. Aware to check results/results letter in [employer]. Will contact by phone if needed. Obesity [...] up free exercises on your smart TV: Argus[employer] channels. All kind of exercises. Minimum 20-30 minuts activity daily. Can break it up into small segments. Increase protein in diet. 30gm protein per meal. Increase water intake; 30oz water is not enough. Goal is 60oz miminum. Verified that she uses mychart. Aware to check results/results letter in [employer]. Will contact by phone if needed. Assessment [...] Vit D level. Verified that she uses [employer]. Aware to check results/results letter in [employer]. Will contact by phone if needed. Assessment & Plan (02/19/2023 1:40 PM CDT): Check levels today and further plans based on it Right hip pain 11/18/2022 Primary osteoarthritis of right hip 09/21/2022 Preoperative clearance 09/01/2022 Abnormal EKG 09/01/2022 Hypertriglyceridemia 09/01/2022 Hip pain 06/01/2021 Assessment & Plan (06/01/2021 1:32 PM BUNCHER OPERATOR): Pt asked me for referral to Dr Galvez. Sent. PLMD (periodic limb movement disorder) Assessment & Plan (03/30/2023 1:37 PM BUNCHER OPERATOR): The patient denies that her limbs at night. Assessment & Plan (03/29/2022 3:09 PM BUNCHER OPERATOR): Asymptomatic Assessment & Plan (09/24/2021 11:56 AM CDT): The PLMS are currently asymptomatic and she is on no medicine for this. Assessment & Plan (05/20/2021 1:53 PM BUNCHER OPERATOR): Currently asymptomatic Cuong's thyroiditis 12/29/2020 Assessment & Plan (06/01/2021 1:31 PM BUNCHER OPERATOR): Check TFT's Adjust dose of Tuleta accordingly Assessment & Plan (12/29/2020 4:19 PM CDT): Explained to the patient the treatment of Cuong's thyroiditis is mostly addressed to normalize TSH Option from treatment includes thyroid hormone replacement with synthetic thyroid hormone e.g. levothyroxine and or cytomel. Porcine thyroid hormone e.g. is Tuleta also is a possibility. The patient could [...] 05/01/2020 Assessment & Plan (06/01/2021 1:31 PM BUNCHER OPERATOR): Diet and exercise Check hba1c Neuropathy of left hand 05/01/2020 Opioid use 05/01/2020 Stage 2 chronic kidney disease 05/01/2020 Well child examination 05/01/2020 Other fatigue 11/07/2019 Weight gain 11/07/2019 Dyslipidemia 05/02/2019 Diastolic dysfunction 12/06/2018 Primary osteoarthritis of right knee 09/18/2018 Morbid obesity 09/18/2018 Assessment & Plan (06/01/2021 1:30 PM BUNCHER OPERATOR): Low calorie diet Pt declines use of weight loss meds She will try to follow up with [facility] bariatric center Assessment & Plan (12/29/2020 4:21 PM CDT): Diet and exercise were discussed. 1200 Calorie diet advised 45-60 min aerobic / resistance exercise most days of the week recommended. Bariatric surgery medically indicated The patient actually wants to consider bariatric surgery. Will send referral to [facility] Laryngopharyngeal reflux 11/02/2016 Tinnitus, bilateral 11/02/2016 Chest pain 08/26/2016 Overview (10/07/2016): Chest pain, unspecified type Body mass index (BMI) of 45.0-49.9 in adult 08/13 Overview (05/01/2020): Obesity (BMI 30-39.9) Shortness of breath 03/03/2016 Overview (08/19/2016): Shortness of breath Assessment & Plan (03/29/2022 3:10 PM BUNCHER OPERATOR): Will continue with albuterol on a p.r.n. [...] tests. Assessment & Plan (05/20/2021 1:53 PM BUNCHER OPERATOR): Patient will continue with albuterol on a p.r.n. basis. Chronic fatigue syndrome 03/03/2016 Overview (08/19/2016): Chronic fatigue Physical deconditioning 03/03/2016 Overview (08/19/2016): Physical deconditioning SHIRLEY on CPAP 01/29/2015 Assessment & Plan (03/30/2023 1:36 PM BUNCHER OPERATOR): The patient is requesting that her CPAP be increased to 14 cm water pressure. The patient's DME is adapt. Assessment & Plan (03/29/2022 3:09 PM BUNCHER OPERATOR): Will continue CPAP therapy at 13 cm [...] months. Assessment & Plan (05/20/2021 1:54 PM BUNCHER OPERATOR): The patient will continue with CPAP therapy [...] physician. Assessment & Plan (05/20/2021 1:54 PM BUNCHER OPERATOR): The patient will continue with Ambien as ordered by primary care Encounters Date Type Department Care Team Description 07/04/2024 Results Follow-Up [facility] Cardiology [address] [place] [address] [phone] Marcelina Wheeler RN Hypertriglyceridemia (Primary Dx) 06/17/2024 3:15 PM BUNCHER OPERATOR Office Visit [facility] Cardiology [address] [place] [address] [phone] Tristan Schuler MD Primary hypertension (Primary Dx); Hypertriglyceridemia; Shortness of breath 05/29/2024 2:30 PM BUNCHER OPERATOR - 05/29/2024 11:59 PM BUNCHER OPERATOR Hospital Encounter [facility] [address] [place] [phone] History of right hip replacement; Back pain, unspecified back location, unspecified back pain laterality, unspecified chronicity Discharge Disposition: Discharge to home or self care 05/29/2024 1:20 PM BUNCHER OPERATOR Office Visit [facility] Orthopaedic Surgery [address] [place] [address] Medical [address] [place] [address] Mnia Ayala MD History of right hip replacement (Primary Dx); Back pain, unspecified back location, unspecified back pain laterality, unspecified chronicity; History of total knee arthroplasty, right 05/29/2024 12:46 PM BUNCHER OPERATOR - 05/29/2024 11:59 PM BUNCHER OPERATOR Hospital Encounter [facility] [address] [place] [phone] History of right hip replacement; History [...] Status Comments Father Loco (Age 80) Mother yMesha (Age 93) Other Social History Tobacco Use [...] on file Legal Sex Female 4:13 AM BUNCHER OPERATOR Gender Identity Female 12/06/2021 6:46 PM CDT Sexual Orientation Not on file Occupation Industry Job Start Date Job End Date retired Not on file Not on file 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 Not on file Not on file Obstetrics History Last Filed Vital Signs Vital Sign Reading Time Taken Comments Blood Pressure 100/70 06/17/2024 2:32 PM BUNCHER OPERATOR Pulse 94 06/17/2024 2:32 PM BUNCHER OPERATOR Temperature 36.8 C (98.3 F) 03/30/2023 1:18 PM BUNCHER OPERATOR Respiratory Rate 16 02/29/2024 1:35 PM CDT Oxygen Saturation 94% 06/17/2024 2:32 PM BUNCHER OPERATOR Inhaled Oxygen Concentration - - Weight 69.4 kg (152 lb 14.4 oz) 06/17/2024 2:32 PM BUNCHER OPERATOR Height 144.8 cm (4' 9.01 ) 02/29/2024 [...] Completed 01/29/2015 Medical Devices Implanted Type Area Sealer Aircraft Device Identifier Shelf Expiration Date Model / Serial / Lot [employer] Bi Mentum 47mm Press Fit Femoral Proximal Cup Acetabular [id number] - Sna - [id number] Implanted:Qty: 1 on 11/18/2022 by Mina Ayala MD at [facility] Other - see comments Right: Hip [employer] [id number] 07/13/2027 [id number] / NA / [id number] Description:Implant pause pe rformed. [employer] Liner Acet Hip Size 28 Poly Bi Mentum Altrx 47mm [id number] - Sna - [id number] Implanted:Qty: 1 on 11/18/2022 by Mina Ayala MD at [facility] Other - see comments Right: Hip [employer] [id number] 10/12/2026 [id number] / NA / [id number] Description:Implant pause pe rformed. [employer] Articul/Mariano 28mm Cementless Hip +5mm 04/27 Taper Head Femoral Latex Free [id number] - Sna - [id number] Implanted:Qty: 1 on 11/18/2022 by Mina Ayala MD at [facility] Other - see comments Right: Hip [employer] [id number] 07/13/2027 [id number] / NA / [id number] Description:Implant pause pe rformed. [employer] Actis Collar Hip 4 High Offset Stem Femoral [id number] - Sna - [id number] Implanted:Qty: 1 on 11/18/2022 by Mina Ayala MD at [facility] Other - see comments Right: Hip [employer] [id number] 04/13/2032 [id number] / NA / [id number] Description:Implant pause pe rformed. Procedures Procedure Name Priority Date/Time Associated Diagnosis Comments LIPID PANEL Routine 06/28/2024 9:01 AM BUNCHER OPERATOR Hypertriglyceridem ia XR SPINE LUMBAR 2 OR 3 VIEWS Schedule Routine, Read Routine (OP Routine) 05/29/2024 3:35 PM BUNCHER OPERATOR History of right hip replacement Back pain, unspecified back location, unspecified back pain laterality, unspecified chronicity XR KNEE RIGHT 3 VIEWS Schedule Routine, Read Routine (OP Routine) 05/29/2024 1:37 PM BUNCHER OPERATOR History of right hip replacement History of total knee arthroplasty, right XR HIP RIGHT W PELVIS 2 OR 3 VIEWS Schedule Routine, Read Routine (OP Routine) 05/29/2024 1:37 PM BUNCHER OPERATOR History of right hip replacement SCREENING MAMMOGRAM 2D BILATERAL Routine 06/25/2012 12:18 PM BUNCHER OPERATOR DEXA AXIAL SKELETON BONE DENSITY 1 OR MORE SITES Routine 05/29/2012 1:25 PM BUNCHER OPERATOR from Last 3 Months or Most Recently Relevant to Health Maintenance Results * (ABNORMAL) Lipid panel (06/28/2024 9:01 AM BUNCHER OPERATOR) Cholesterol 159 <200 mg/dL [facility] [...] LDL-C. Clark SS et al. LEONEL. 2013;310(19): 2953-3215 (http://education.Zenitum/faq/RJL116) Chol/HDL ratio 3.7 <5.0 (calc) [facility] Non-HDL, (LDL+VLDL) 116 <130 mg/dL (calc) [facility] Comment: For patients with diabetes plus 1 major ASCVD risk factor, treating to a non-HDL-C goal of <100 mg/dL (LDL-C of <70 mg/dL) is considered a therapeutic option. Blood 06/28/2024 9:01 AM BUNCHER OPERATOR 06/28/2024 9:01 AM BUNCHER OPERATOR Narrative [facility] - 06/29/2024 2:58 AM BUNCHER OPERATOR FASTING:YES FASTING: YES us Tristan Schuler MD LAB BLOOD ORDERABLES Final Result [facility] [id number] [id number] * XR Spine Lumbar 2 or 3 Views (05/29/2024 3:35 PM BUNCHER OPERATOR) Anatomical Region Laterality Modality Spine N/A Computed Radiogr aphy 05/29/2024 4:49 PM BUNCHER OPERATOR Impressions 05/29/2024 4:52 PM BUNCHER OPERATOR 1. Severe degenerative disease L2-L5with lower lumbar levoscoliosis and left lateral listhesis of L3 on L4. Dictated by: Dave Patrick MD The radiology attending physician has personally reviewed this study, and had reviewed and/or edited this written report and agrees with it. Electronically signed by: German Abbasi M.D. Narrative 05/29/2024 4:52 PM BUNCHER OPERATOR EXAMINATION: XR SPINE LUMBAR 2 OR 3 [...] 3 Views W Pelvis (05/29/2024 1:37 PM BUNCHER OPERATOR) Anatomical Region Laterality Modality Lower Extremities, Hip, Pelvis Right C omputed Radiography 05/29/2024 1:44 PM BUNCHER OPERATOR Impressions 05/29/2024 1:44 PM BUNCHER OPERATOR 1. Right total hip arthroplasty in unchanged, near anatomic position. 2. Right total knee arthroplasty in unchanged, near anatomic position. Electronically signed by: John Holland M.D. Narrative 05/29/2024 1:44 PM BUNCHER OPERATOR EXAMINATION: XR HIP RIGHT 2 OR 3 [...] Knee Right 3 Views (05/29/2024 1:37 PM BUNCHER OPERATOR) Anatomical Region Laterality Modality Lower Extremities, Knee Right Computed Radiography 05/29/2024 1:44 PM BUNCHER OPERATOR Impressions 05/29/2024 1:44 PM BUNCHER OPERATOR 1. Right total hip arthroplasty in unchanged, near anatomic position. 2. Right total knee arthroplasty in unchanged, near anatomic position. Electronically signed by: John Holland M.D. Narrative 05/29/2024 1:44 PM BUNCHER OPERATOR EXAMINATION: XR HIP RIGHT 2 OR 3 [...] Screening Mammogram 2D Bilateral (06/25/2012 12:18 PM BUNCHER OPERATOR) Anatomical Region Laterality Modality Breast Bilateral Mammography 06/25/2012 12:1 8 PM BUNCHER OPERATOR Impressions 06/29/2012 2:30 PM BUNCHER OPERATOR No mammographic evidence of malignancy. Recommend routine annual screening mammography. ASSESSMENT: BIRADS: 1 - Negative THIS IS AN ELECTRONICALLY VERIFIED REPORT 06/29/2012 2:20 PM: Dariana Georges M.D. Dariana Georges M.D. KL:devi 02:20 PM 02:20 PM [EOD] Narrative 06/29/2012 2:30 PM BUNCHER OPERATOR EXAMINATION: BILATERAL SCREENING MAMMOGRAPHY HISTORY: Routine screening [...] 1 or 2 Site (05/29/2012 1:25 PM BUNCHER OPERATOR) Anatomical Region Laterality Modality Body N/A Radiographic Tahira ging 05/29/2012 1:25 PM BUNCHER OPERATOR Impressions 05/29/2012 5:21 PM BUNCHER OPERATOR By WHO criteria, this patient has normal bone mineral density. THIS IS AN ELECTRONICALLY VERIFIED REPORT 05/29/2012 5:06 PM: Keaton Romano M.D. Keaton Romano M.D. [place]:dong 05:06 PM 05:06 PM [EOD] Narrative 05/29/2012 5:21 PM BUNCHER OPERATOR EXAMINATION: Bone Density Study (DEXA) HISTORY: 56-year-old [...] Last Indicated C. difficile Comment:201109/06/2018 09/05/2018 Insurance [employer] ADVANTAGE CHOICE PPO Member Subscriber Plan / Payer (Ef fective 2023-Present) Name:Nani Dawkins Relation to Subscriber:Self Name:Nani Dawkins Payer ID:[id number] (NAIC) Type:MEDICARE RISK OTHER Address: [place] [id number] ADVANTAGE CHOICE PPO Member Subscriber Plan / Payer (Ef fective 2023-Present) Name:Nani Dawkins Relation to Subscriber:Self Name:Nani Dawkins Payer ID:[id number] (NAIC) Type:MEDICARE RISK OTHER Address: [place] [id number] [facility] [facility] [employer] [employer] [facility] [employer] Advance Directives For more information, please contact: [phone] * Full Code (Latest Code Status on File) Date Activated Date Inactivated Comments 11/18/2022 5:13 PM 11/19/2022 5:53 PM Care Teams Emery Wheel Worker Relationship Specialty Start Date End Date Dmitriy Camargo MD [address] [place] [address] PCP - General Family Medicine 06/17/24 Tristan Schuler MD [address] [address] Occupational Health Nurse Cardiology 01/18/19
--- OUTSIDE RECORDS SUMMARY | 2024-08-08 18:48 | XMS_ITS | Data Portability ---
Author Organization [facility], Main Office Address [address] [place] [address] Assessment No assessment recorded. Plan of Treatment Reminders Order Date Submit Date Provider Last Modified By Organization Details Last Modified Time Details Appointments None recorded. Lab HbA1c (hemoglobin A1c), blood 2022 023 [facility], [address], [address], [place], [address], 3 14:41:57 lipid panel, serum 2022 023 [facility], [address], [address], [place], [address], 3 14:41:58 insulin, serum 2022 023 [facility], [address] Gonzalez, [address], [place], [address], 3 14:41:58 TSH + free T4, serum 2022 023 [facility], 2022 [address] Gonzalez, [address], [place], [address], 3 14:37:05 T3, free, serum or plasma 2022 023 [facility], 2022 [address]rence Gonzalez, [address], [place], [address], 3 14:37:04 CMP, serum or plasma 2022 023 [facility], 2022 [address] Gonzalez, [address], [place], [address], 14:37:05 thyroid peroxidase (tpo) Ab, serum 2022 023 [facility], [address], [address], [place], [address], 14:41:58 vitamin B12 + folate, serum or blood 2022 023 [facility], [address], [address], [place], [address], 14:41:57 Referral orthopedic surgeon referral 2022 023 [email or web address] Mina Ayala MD, [address] [facility], [address], [place], [address], 08:16:27 Procedures None recorded. Surgeries None recorded. Imaging MRI, knee, w/o contrast 2022 023 [email or web address] [facility], [address] Maria A Gonzalez, [address], [place], [address], 16:16:12 MRI, hip, w/o contrast 2022 023 [email or web address] [facility], 2022 Maria A Gonzalez, [address], [place], [address], 16:15:51 Medication Orders Unithroid 75 mcg tablet 2022 023 [facility] [address], [address] [facility], [place], [address], 14:37:05 Patient TargetsNo targets recorded. Patient InstructionsNo instructions recorded. Reason for Referral Orthopedic Surgeon Referral for History of right total knee replacement Referring Physician: Essie Santillan, Family Medicine, Encounter Date: 10/07/2022 Results Created Date Observation Date Name Description Value Unit Range Abnormal Flag Note LastModifiedBy Organization Detail LastModifiedTime 05/20/19 23 05/20/2022 FOLAT E, SERUM /PLAS MA folate 6.83 NG/mL 2.76-2 0.0 Not Available [facility] (Lab) [address] [place], [address], 05/20/2022 22:01:07 05/20/19 23 05/20/2022 VITAM IN B12 (LIZA BON ) vb12 551 pg/mL 239-93 1 Not Available [facility] (Lab) [address] [place], [address], 05/20/2022 22:01:03 05/20/19 23 05/20/2022 VITAM IN D 25-HY DROXY vd25oh 49.0 NG/mL 30-100 Vitam in D Statu s: Defic ient: <20 ng/mL Insuf ficie nt: 20-29 ng/mL Suffi cient : 30-10 0 ng/mL Not Available [facility] (Lab) [address] [place], [address], 05/20/2022 21:07:34 05/23/19 23 05/27/2022 OVA + KERRIE ITE EXAM ova + parasite exam final report These resul ts were obtai gayatri using wet prepa ratio n(s) and trich mookie stain ed smear . This test does not inclu de testi ng for Crypt ospor idium parvu m, Cyclo spora , or Micro spori brittney. Not Available [facility] (Lab) [address] [place], [address], 05/27/2022 15:10:34 05/23/19 23 05/27/2022 OVA + KERRIE ITE EXAM result 1 commen t No ova, cysts , or kerrie ites seen. . One negat lacey speci men does not rule out the possi bilit y of a kerrie itic infec tion. Perfo rmed at: [facility] n [address] [id number] Lab Direc tor: Tomas wayne PhD, Phone : [phone] Not Available [facility] (Lab) [address] [facility], [place], [address], 05/27/2022 15:10:34 04/28/20 22 04/28/2022 XR, knee, 3 view No observ ation record ed. [id number] Terrance Moura MD [address] [facility] [address], [place], [address], 07/13/2022 18:58:00 09/17/19 23 09/16/2022 MRI, cervi bo spine , w/o contr ast No observ ation record ed. [email or web address] [facility] [address], [place], [address], 10/12/2022 14:47:00 Result Notes None recorded. Problems Name Problem SNOMED Code Status Onset Date Resolution Date Notes Provider Name and Address Organization Details Recorded Time Irritable bowel syndrome 10038846 Active 2016 Not Available [facility] 3 18:56:59 Backache with radiating pain 007221276 Active 2021 Not Available [facility] 3 18:56:59 Clostridi oides difficile infection 029961655 Active 2006 history of Not Available [facility] 3 18:56:59 Insomnia 865708071 Active 2016 Not Available [facility] 3 18:56:59 Asthma 184474281 Active 2016 Not Available [facility] 3 18:56:59 Fibromyal gianfranco 007947930 Active 2009 Not Available [facility] 3 18:56:59 Gastroeso phageal reflux disease without esophagit is 106168792 Active 2016 Not Available [facility] 3 18:56:59 Hyperthyr oidism 55532562 Active 2016 Not Available [facility] 3 18:56:59 Depressiv e disorder 46180118 Active 2016 Not Available [facility] 3 18:56:59 History of calculus of kidney 426306395 Active 2016 1990s Not Available [facility] 3 18:56:59 Essential hypertens ion 43420689 Active 2016 Not Available [facility] 3 18:56:59 Acid reflux 277677763 Active 1999 Not Available [facility] 3 18:56:59 Prediabet es 550865477 Active 2016 Not Available [facility] 3 18:57:00 Obstructi ve sleep apnea syndrome 21366277 Active 2016 Not Available [facility] 3 18:57:00 Cyst of ovary 38626002 Active 2016 63931526 Not Available [facility] 3 18:57:00 History of hepatitis C 96751421720 101 Active 2016 cured Not Available 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 33085229985 9105 Active 2022 KAUR Khan [address], [address], [place], [address] , [employer] 3 14:24:51 Lumbago with sciatica 819177493 Active 2022 EARL CruzP [address] [facility], [address], [place], [address] , [employer] 3 15:34:09 Chronic neck pain for greater than 3 months 92881425870 9103 Active 2022 TIGIST Cruz [address] [facility], [address], [place], [address] , [employer] 3 15:34:29 Low back pain 609132208 Active 2023 Mel Corrales MD [address] [facility], [address], [place], [address] , [employer] 4 13:47:02 Problem Notes None recorded. Procedures Surgical History Date Name Laterality Status Provider Name and Address Organization Details Recorded Time 09/30/19 21 Date of Last Colonoscopy completed Not Available [facility] 07/13/2022 18:56:08 Orthopedic Surgery completed Not Available [facility] 07/13/2022 18:56:09 Imaging Results Imaging Date Name Status LastModified by Organiz ation Details LastModified Time 04/28/2022 XR, knee, 3 view completed [id number] [facility] Terrance Moura MD [address] [facility] [address], [place], [address], 07/13/2022 18:58:00 09/16/2022 MRI, cervical spine, w/o contrast completed [email or web address] [facility] [address], [place], [address], 10/12/2022 14:47:00 Procedure Notes None recorded. Medical Equipment None Reported. Allergies Allergen ID Allergen Name Allergen Category Reaction Reaction Severity Criticality Documentation Date Start Date Code Code System Note Provider Name and Address Organization Details Recorded Time 13883 Provigil medicatio n Not available Not available Not available 07/13/2022 60793 4 RxNorm Not Available [facility] 3 18:57:57 10825 Nuvigil medicatio n Not available Not available Not available 07/13/2022 40491 5 RxNorm Not Available [facility] 3 18:57:57 96957 Product containin g angiotens in-conver ting enzyme inhibitor (product) medicatio n cough Not available Not available 07/13/2022 51096 009 SNOMED Lori Bauer, RMS[place]ana null, [place] [facility] 3 14:06:25 Medications Name Sig Start Date Stop Date Status Note LastModified by Organization Details LastModified Time eq stl sft st lax 8.6-50mg tab TAKE 2 TABLETS BY MOUTH TWICE DAILY active Not Available Not Available No t Available eq gas relief cap TAKE 1 SOFTGEL BY MOUTH ONCE DAILY NEEDED FOR ABDOMINAL DISTENTIO N active Not Available Not Available No t Available cetirizine 10mg tab TAKE 1 TABLET BY MOUTH ONCE DAILY NEEDED 09/30 completed Not Available Not Available Not Available celecoxib 200 mg capsule TAKE 1 CAPSULE BY MOUTH TWICE DAILY NEEDED active Not Available Not Available No t Available cyclobenzap rine 10 mg tablet TAKE 1 TABLET BY MOUTH THREE TIMES DAILY FOR 7 DAYS active Not Available Not Available No t Available amoxicillin 500 mg capsule TAKE FOUR CAPSULES BY MOUTH ONE HOUR BEFORE APPOINTME NT active Not Available Not Available No t Available bupropion HCl SR 150 mg tablet,12 hr sustained-r elease 1 tab daily 03/23 completed Not Available Not Available Not Available venlafaxine ER 37.5 mg capsule,ext ended release 24 hr 11/03 completed Not Available Not Available Not Available venlafaxine ER 75 mg capsule,ext ended release 24 hr 11/03 completed Not Available Not Available Not Available [place] Thyroid 90 mg tablet TAKE 1 TABLET BY MOUTH ONCE DAILY active Not Available Not Available No t Available paroxetine 10 mg tablet 03/23 completed Not Available Not Available Not Available cetirizine 10 mg tablet TAKE 1 TABLET BY MOUTH ONCE DAILY NEEDED active Not Available Not Available No t Available azithromyci n 250 mg tablet TAKE 2 TABLETS BY MOUTH ON DAY 1, AND THEN TAKE 1 TABLET BY MOUTH ONCE A DAY ON DAY 2 THROUGH DAY 5 02/09 completed Not Available Not Available Not Available tizanidine 4 mg tablet TAKE 1 TABLET BY MOUTH EVERY 6 HOURS NEEDED active Not Available Not Available No t Available hydrocodone 5 mg-acetamin ophen 325 mg tablet TAKE 1 TABLET BY MOUTH THREE TIMES DAILY NEEDED FOR PAIN 09/30 completed Not Available Not Available Not Available ondansetron HCl 8 mg tablet Take 1 tablet by mouth twice daily active Not Available Not Available No t Available meloxicam 15 mg tablet TAKE 1 TABLET BY MOUTH ONCE DAILY 03/17 completed Not Available Not Available Not Available ondansetron HCl 4 mg tablet TAKE 1 TABLET BY MOUTH EVERY 8 HOURS NEEDED active Not Available Not Available No t Available prednisone 20 mg tablet Take 2 tablets every day by oral route for 5 days. active Not Available Not Available No t Available Diflucan 150 mg tablet Take 1 now and repeat in 4 hours. 11/16 completed Not Available Not Available Not Available venlafaxine ER 150 mg capsule,ext ended release 24 hr 11/03 completed Not Available Not Available Not Available potassium chloride ER 10 mEq tablet,exte nded release TAKE 1 TABLET BY MOUTH ONCE DAILY active Not Available Not Available No t Available prochlorper azine maleate 10 mg tablet 11/03 completed Not Available Not Available Not Available hydrocodone 10 mg-acetamin ophen 325 mg tablet TAKE 1 TABLET BY MOUTH TWICE DAILY NEEDED active Not Available Not Available No t Available tramadol 50 mg tablet TAKE 1 TABLET BY MOUTH EVERY 8 HOURS NEEDED FOR PAIN active Not Available Not Available No t Available ketorolac 30 mg/mL (1 mL) injection solution Inject 2 mL every day by intramusc ular route for 1 day. 09/30 completed Not Available Not Available Not Available amoxicillin 875 mg tablet TAKE 1 TABLET BY MOUTH EVERY 12 HOURS FOR 10 DAYS active Not Available Not Available No t Available metoclopram valerie 5 mg tablet TK 1 T PO TID AC 03/23 completed Not Available Not Available Not Available amlodipine 10 mg tablet TAKE 1 TABLET BY MOUTH ONCE DAILY active Not Available Not Available No t Available gemfibrozil 600 mg tablet 03/23 completed Not Available Not Available Not Available triamcinolo ne acetonide 40 mg/mL suspension for injection Take 40 mg by injection route. active Not Available Not Available No t Available hydrocodone 7.5 mg-acetamin ophen 325 mg tablet TAKE 1 TABLET BY MOUTH 4 TIMES DAILY FOR 30 DAYS active Not Available Not Available No t Available paroxetine 30 mg tablet TAKE 1 TABLET BY MOUTH ONCE DAILY 03/23 completed Not Available Not Available Not Available paroxetine 20 mg tablet TAKE 1 TABLET BY MOUTH ONCE DAILY IN THE MORNING 09/30 completed Not Available Not Available Not Available pantoprazol e 40 mg tablet,jesus yed release Take 1 tab daily 03/23 completed Not Available Not Available Not Available ranitidine 150 mg tablet Take 1 twice daily 11/19 completed Not Available Not Available Not Available buspirone 10 mg tablet 1 BID PRN 03/23 completed Not Available Not Available Not Available lisinopril 10 mg tablet TAKE 1 TABLET BY MOUTH ONCE DAILY active Not Available Not Available No t Available lansoprazol e 30 mg capsule,del ayed release active Not Available Not Available Not Available prednisone 50 mg tablet TAKE 1 TABLET BY MOUTH ONCE DAILY 02/09 completed Not Available Not Available Not Available lansoprazol e 15 mg capsule,del ayed release TAKE 1 CAPSULE BY MOUTH ONCE DAILY active Not Available Not Available No t Available gabapentin 300 mg capsule Take 1 capsule 3 times a day by oral route as needed for 30 days. 09/30 completed Not Available Not Available Not Available diclofenac sodium 75 mg tablet,jesus yed release 11/03 completed Not Available Not Available Not Available morphine ER 15 mg tablet,exte nded release TAKE 1 TABLET BY MOUTH TWICE DAILY active Not Available Not Available No t Available hydrochloro thiazide 25 mg tablet TAKE 1 TABLET BY MOUTH ONCE DAILY active Not Available Not Available No t Available mupirocin 2 % topical ointment APPLY OINTMENT TOPICALLY TO NOSTRILS TWICE DAILY FOR 5 DAYS PRIOR TO SURGERY active Not Available Not Available No t Available ibuprofen 600 mg tablet TAKE 1 TABLET BY MOUTH THREE TIMES DAILY NEEDED FOR PAIN active Not Available Not Available No t Available zolpidem 10 mg tablet TAKE 1 TABLET BY MOUTH EVERY DAY AT BEDTIME NEEDED active Not Available Not Available No t Available albuterol sulfate HFA 90 mcg/actuati on aerosol inhaler INHALE 2 PUFFS BY MOUTH EVERY 6 HOURS NEEDED FOR WHEEZING active Not Available Not Available No t Available Unithroid 75 mcg tablet TAKE 1 TABLET BY MOUTH IN THE MORNING BEFORE BREAKFAST active Not Available Not Available No t Available celecoxib 100 mg capsule TAKE 1 CAPSULE BY MOUTH TWICE DAILY NEEDED 03/17 completed Not Available Not Available Not Available progesteron e micronized 100 mg capsule 03/23 completed Not Available Not Available Not Available levothyroxi ne 112 mcg tablet active Not Available Not Available Not Available amoxicillin 875 mg-potkendalliu m clavulanate 125 mg tablet TAKE 1 TABLET BY MOUTH TWICE DAILY UNTIL GONE active Not Available Not Available No t Available oxycodone 5 mg tablet TAKE 1 TABLET BY MOUTH EVERY 4 HOURS NEEDED FOR PAIN active Not Available Not Available No t Available cyclobenzap rine 5 mg tablet TAKE 1 TO 2 TABLETS BY MOUTH THREE TIMES DAILY NEEDED FOR MUSCLE SPASM 03/23 completed Not Available Not Available Not Available bupropion HCl XL 300 mg 24 hr tablet, extended release TAKE 1 TABLET BY MOUTH ONCE DAILY 03/23 completed Not Available Not Available Not Available bupropion HCl XL 150 mg 24 hr tablet, extended release TAKE 1 TABLET BY MOUTH ONCE DAILY active Not Available Not Available No t Available duloxetine 20 mg capsule,del ayed release TAKE 1 CAPSULE BY MOUTH ONCE DAILY FOR 10 DAYS active Not Available Not Available No t Available duloxetine 30 mg capsule,del ayed release TAKE 1 CAPSULE BY MOUTH ONCE DAILY FOR 90 DAYS 12/30 completed Not Available Not Available Not Available duloxetine 60 mg capsule,del ayed release TAKE 1 CAPSULE BY MOUTH ONCE DAILY AT BEDTIME FOR 90 DAYS 12/30 completed Not Available Not Available Not Available zolpidem ER 12.5 mg tablet,exte nded release,mul tiphase TAKE ONE TABLET BY MOUTH ONCE DAILY 12/13 completed Not Available Not Available Not Available aripiprazol e 2 mg tablet TAKE 1 TABLET BY MOUTH ONCE DAILY AT BEDTIME FOR 30 DAYS 03/23 completed Not Available Not Available Not Available fenofibrate nanocrystal lized 145 mg tablet TAKE 1 TABLET BY MOUTH ONCE DAILY active Not Available Not Available No t Available ketorolac 30 mg/mL injection solution Inject 1 mL by intraveno us route. 09/30 completed Not Available Not Available Not Available Suprep Bowel Prep Kit 17.5 gram-3.13 gram-1.6 gram oral solution USE DIRECTED 03/23 completed Not Available Not Available Not Available Eliquis 2.5 mg tablet TAKE 1 TABLET BY MOUTH TWICE DAILY active Not Available Not Available No t Available Harvoni 90 mg-400 mg tablet 11/03 completed Not Available Not Available Not Available naloxone 4 mg/actuatio n nasal spray ADMINISTE R A SINGLE SPRAY IN ONE NOSTRIL UPON SIGNS OF OPIOID OVERDOSE. CALL 911. REPEAT AFTER 3 MINUTES IF NO RESPONSE. active Not Available Not Available No t Available ID NOW COVID-19 Test Kit TEST DIRECTED TODAY 02/09 completed Not Available Not Available Not Available Vitals Date Recorded Body mass index (BMI) Body height Oxygen saturation Oxygen saturation in Arterial blood by Pulse oximetry Heart rate Body temperature Body weight Systolic blood pressure Diastolic blood pressure Provider Name and Address Organization Details Last Updated DateTime 3 36.4 kg/m2 149.86 cm 98 % 98 % 102 /min 96.99 [degF] 01283.6 3 g 127 mm[Hg] 80 mm[Hg] Not Available [facility] 3 18:56:40 Date Recorded Body height Provider Name an d Address Organization Details Last Updated DateTime 07/04/2022 149.86 cm Not Available [facility] 3 18:56:40 Date Recorded Body height Body mass index (BMI) Body weight Body temperature Heart rate Oxygen saturation Oxygen saturation in Arterial blood by Pulse oximetry Systolic blood pressure Diastolic blood pressure Provider Name and Address Organization Details Last Updated DateTime 3 149.86 cm 33.9 kg/m2 20521.5 2 g 97 [degF] 92 /min 96 % 96 % 129 mm[Hg] 70 mm[Hg] Angle Sainz [employer] 3 14:07:03 Date Recorded Body height Body mass index (BMI) Body weight Body temperature Heart rate Systolic blood pressure Diastolic blood pressure Provider Name and Address Organization Details Last Updated DateTime 3 149.86 cm 33.2 kg/m2 14048.8 7 g 98.1 [degF] 99 /min 139 mm[Hg] 92 mm[Hg] JANAE Coulter [employer] 3 14:05:30 Date Recorded Body height Body mass index (BMI) Body weight Body temperature Oxygen saturation Oxygen saturation in Arterial blood by Pulse oximetry Heart rate Systolic blood pressure Diastolic blood pressure Provider Name and Address Organization Details Last Updated DateTime 3 149.86 cm 33.1 kg/m2 99206.1 5 g 96.9 [degF] 97 % 97 % 92 /min 132 mm[Hg] 70 mm[Hg] Valencia Son CMA [place] [facility] 09:55:13 Social History Question Answer Notes LastModified by Organizat ion Details LastModified Time Tobacco Smoking Status Former Smoker Not Available [employer] 07/13/2022 18:56:03 What Is Your Level Of Alcohol Consumption? None [id number] Information not available 07/13/2022 What Is Your Level Of Caffeine Consumption? Moderate [id number] Information not available 07/13/2022 How Much Tobacco Do You Chew? None [id number] Information not available 07/13/2022 In The 14 Days Before Symptom Onset, Have You Had Close Contact With A Laboratory-confir med COVID-19 While That Case Was Ill? No [id number] Information not available 07/13/2022 In The 14 Days Before Symptom Onset, Have You Had Close Contact With A Person Who Is Under Investigation For COVID-19 While That Person Was Ill? No [id number] Information not available 07/13/2022 What Type Of Diet Are You Following? REGULAR [id number] Information not available 07/13/2022 Which Illicit Or Recreational Drugs Have You Used? No [id number] Information not available 07/13/2022 Do You Or Have You Ever Used E-cigarettes Or Vape? 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 16+yearsindiana heard Information not available 09/30/2022 Are There Any Guns Present In Your Home? No [id number] Information not available 07/13/2022 At What Age Did You Start Smoking Tobacco? 14 [id number] Information not available 07/13/2022 Are You Passively Exposed To Smoke? Yes [id number] Information not available 07/13/2022 Do You Or Have You Ever Used Smokeless Tobacco? Never Used Smokeless Tobacco [id number] Information not available 07/13/2022 How Much Tobacco Do You Smoke? 0.5 PPD [id number] Information not available 07/13/2022 Do You Use Sunscreen Routinely? Yes [id number] Information not available 07/13/2022 How Many Years Have You Smoked Tobacco? 7 [id number] Information not available 07/13/2022 Have You Recently Traveled Abroad? No Information not available 09/30/2022 Do You Have Any Dietary Restrictions? No Information not available 09/30/2022 Sex: Unknown Functional Status Question Answer Note LastModified by Organizat ion Details LastModified Time What is your exercise level? None [id number] Information not available 07/13/2022 Mental Status None recorded. Family History Relationship Description Onset Age of this Age Resolved Age Notes LastModified by Organization Details LastModified Time Father Heart disease [id number] Not available 07/13/2022 18:56:10 Father Family history of malignant neoplasm [id number] Not available 07/13/2022 18:56:10 Father Hypertensive disorder [id number] Not available 07/13/2022 18:56:10 Mother Heart disease [id number] Not available 07/13/2022 18:56:10 Mother Family history of malignant neoplasm [id number] Not available 07/13/2022 18:56:10 Mother Hypertensive disorder [id number] Not available 07/13/2022 18:56:10 Sister Pulmonary embolism [id number] Not available 07/13/2022 18:56:10 Father Hypoglycemia Not availa ble 09/30/2022 14:09:34 Medical History Condition Response BLINDNESS N RHEUMATIC FEVER N KIDNEY STONES N MRSA N CARPAL TUNNEL SYNDROME N LUNG DISEASE/DISORDER N HISTORY OF DRUG ABUSE N COPD N RADIATION / CHEMOTHERAPY N SPORTS INJURY N ANKLE PAIN N BLOOD DISEASES N SURGERY Y SCHIZOPHRENIA N SHINGLES N BOWEL PROBLEMS N SHOULDER PAIN N DEPRESSION (INCLUDING POST ) N FAILED BACK SYNDROME N STROKE/TIA N THYROID DISEASE Y ULCERS N KNEE PAIN N BENIGN PROSTATIC HYPERPLASIA N OBESITY N GERD/NAUSEA N EXCESSIVE PERSPIRATION N ANEURYSM N URINARY/BLADDER/KIDNEY PROBLEMS N CORONARY ARTERY DISEASE (CAD) N ADDICTION CONCERNS N USE OF BLOOD THINNERS N SKIN PROBLEMS Y EMPHYSEMA N PARATHYROID DISEASE N MUSCLE,JOINT OR BONE PROBLEMS N DVT N STOMACH ULCERS N BLOOD CLOTS N USE OF NSAIDS Y CONCUSSION OR SPINAL TRAUMA N ARTERIAL INSUFFICIENCY N GI PROBLEMS N Low Testosterone N NEUROPATHY N AIDS/HIV N FRACTURES N LIVER DISEASE Y MALE HYPOGONADISM N ELBOW PAIN N HYPERTENSION Y TOURETTE'S N ANXIETY DISORDER N Metal allergy N BLOOD TRANSFUSION N ANEMIA/BLOOD DISORDER N BIPOLAR DISORDER N BRONCHITIS N OSTEOARTHRITIS N TUBERCULOSIS N GLAUCOMA N FOOT PROBLEM N HEART VALVE DISORDERS N BACK INJECTIONS Y SOFT TISSUE INJURY N ALLERGIES/HAYFEVER N INFECTIOUS DISEASE N HEART ARRHYTHMIA N ESRD N INSOMNIA N HIGH CHOLESTEROL / HYPERLIPIDEMIA N RHEUMATOID ARTHRITIS N HYPERTHYROIDISM N EYE PROBLEMS N PVD N EDEMA N CHRONIC PAIN SYNDROME N HYPOTHYROIDISM Y CAROTID BLOCKAGE N BACK / NECK PROBLEMS N HAVE YOU BEEN HOSPITALIZED OR SEEN IN [facility] IN THE PAST YEAR ? N BURSITIS N HERNIATED DISC N DIALYSIS N POLYCYSTIC OVARIES N FIBROMYALGIA N OSTEOPOROSIS N ARTHRITIS Y NO SIGNIFICANT PAST MEDICAL HISTORY N PERIPHERAL NEUROPATHY N DIABETES, TYPE N VON WILLIBRAND'S DISEASE N HEARTBURN / REFLUX N POST LAMINECTOMY SYNDROME N HEPATITIS / LIVER DISEASE Y GOUT N SLEEP DISORDER N ALZHEIMER'S DISEASE N HERPES N RETINOPATHY N HEADACHES/MIGRAINES N SEIZURES/EPILEPSY N VASCULAR DISEASE N Blood Disorder N HIP PAIN N DIZZINESS N HEAD TRAUMA OR INJURY N HEART DISEASE/HEART PROBLEMS N KIDNEY DISEASE N MULTIPLE SCLEROSIS N NEUROPSYCHOLOGICAL N CARDIAC ARRHYTHMIA N CANCER: SPECIFY N ANESTHESIA COMPLICATIONS N ATRIAL FIBRILLATION N AUTOIMMUNE DISEASE N Gynecological History Statement/Question Response Abnormal Pap Y Date of Last Mammogram Date of Last Colonoscopy 09/29/2020 Date of LMP Sexually Active? N Menses Monthly N Date of Last Pap 10/14/2020 Current Control Method None Age at Menarche 9 Breast Problems no Obstetrics History GPAL:G 2 P 2 0 0 2 Type Value Full Term 2 Living 2 Total 2 Past Encounters Encounter ID Performer Location Encounter Start Date Encounter Closed Date Diagnosis/Indication Diagnosis SNOMED-CT Code Diagnosis ICD10 Code Diagnosis Note [id number] [facility] Primary [facility] [address] [place] [address] 11/19/2020 00:00:00 11/19/2020 16:31:26 [id number] [facility] Primary Care [address] [place] [address] 03/17/2021 00:00:00 03/17/2021 17:58:58 [id number] [facility] [place]al [address] [place] [address] 03/23/2021 00:00:00 03/24/2021 07:30:55 [id number] [facility] [place] [address] [place] [address] 04/01/2021 00:00:00 04/01/2021 15:34:09 [id number] [facility] [place] [address] [place] [address] 08/04/2021 00:00:00 08/04/2021 13:20:45 [id number] [facility] [place] [address] [place] [address] 10/19/2021 00:00:00 10/19/2021 14:01:57 [id number] [facility] [place] [address] [place] [address] 12/30/2021 00:00:00 12/30/2021 18:10:38 [id number] [facility] [place] [address] [place] [address] 01/13/2022 00:00:00 01/13/2022 19:29:29 [id number] [facility] [place] [address] [place] [address] 02/09/2022 00:00:00 02/09/2022 15:41:13 [id number] [facility] [place] [address] [place] [address] 05/20/2022 00:00:00 05/20/2022 17:03:33 [id number] [facility] [place] [address] [place] [address] 07/04/2022 00:00:00 07/10/2022 15:18:45 [id number] Lou Del Angel MD [facility] End[facility] Desmond Amaral [address] [place] [address] 09/30/2022 13:43:28 09/30/2022 14:42:16 [facility] [id number] E03.9 Patient is currently on natural thyroid hormone. Discussed and explained to patient that natural thyroid is generally 70% T3 and <30% T4 hormone and this is why it is generally dosed twice daily due to uptake and utilizatio n of active thyroid hormone which further leads to suppressio n of TSH. Discussed with patient that natural thyroid hormone is not controlled and generally we cannot know for sure how much thyroid hormone she is getting per batch of medication she receives so generally the [facility] does not support the use of natural supplement s for this reason. However she is willing to obtain labwork and titrate her medication to safe range therefore due to her level of compliance and understand ing I will work with her to optimize her levels. Trial on unithroid 75 mcg daily. She was reminded to take her unithroid on empty stomach with glass of water and wait one hour to eat or have her coffee in morning and up to 4 hours if ever taking any heartburn or reflux medication s to help optimize absorption . Discussed paleo like diet with restrictio n of GMOs to help with energy and to optimize absorption of vitamins and minerals and reduce inflammati on. Prediabetes [id number] R7 3.03 a1c of 6.2%-discu ssed carb counting and how to read food labels. Recommende d patient to utilize the diabetesfo [employer] from the ADA website to help with food preparatio n as this presents ideal carb content per meal so this will make carb counting much easier for patient. Recommende d she incorporat e natural insulin senior speech pathologist s such as pears, apples, cinnamon, tia and sweet potatoes to help mobilize her endogenous insulin. Recommende d up to 150 minutes of moderate level activity/e xercise weekly. Spent up to 45 minutes preparing to see the patient (eg, review of tests), obtaining and/or reviewing separately obtained history, performing a medically appropriat e examinatio n and evaluation , counseling and educating the patient, ordering medication s, tests, along with documentin g clinical informatio n in the electronic health record, independen tly interpreti ng results and communicat ing results to the patient. RTC in 2 months. Patient was provided a handwritte n lab order which contains our fax number. If she choses to go outside of the [facility] system to obtain labwork she was advised to provide our fax number and my informatio n to the lab she will be obtaining labwork from in order to have her labs properly forwarded over for me to review so there is no loss of follow up due to use of outside network. She was also advised to contact our clinic informing us that she has completed her labwork so we are aware we will need to reach out to the [facility] e laboratory to request her results be forwarded to us so I might have the ability to review and make further medical decision making in her case. She voiced understand ing. Thank you for this consultati on. [id number] Valeria Philip [facility] Primary Care [facility] [address] [place] [address] 08/10/2022 13:59:15 08/10/2022 14:39:54 History of right total knee replacement [id number] Z96.651 Worsening pain since knee replacemen t in 2019 (Dr. Jayant Keyes). kashif has noticed increased popping in the knee for the last month.I have advised her to f/u with her surgeon, but she is requesting MRI. Will put order in, again advised she will still need f/u with ortho. Pain in ri ght hip joint [id number] M25.551 States she is having groin pain and lateral hip pain. Symptoms most likely overlappin g with her lumbar spine, but she states MRI lumbar spine was normal (will try to get that report). She states she also had an XR of right hip within last few months that showed arthritis, XR from 2020 was wnl. I have encouraged to continue care with pain management who has been doing injections but she would like to get MRI of hip. Will put in order. Low back p ain co-occurrent with neuralgia of right sciatic nerve [id number] M54.41 Followed by [facility]. [id number] KAUR Khan [facility] Primary Care [facility] [address] [facility] [address] [place] [address] 10/07/2022 09:47:03 10/07/2022 12:02:07 History of right total knee replacement [id number] Z96.651 MRI we ordered was denied, again informed her to follow-up with surgeon. She states she is not seeing Dr. Ayala because he is replacing her hip and they will only address one problem at a time. Advised to go through with her hip replacemen t and since it is on same side as knee, they most likely will work on PT throughout the whole leg. I will send a new referral under knee diagnosis so when she is done with her hip they can re-address her right knee. She is currently seeing pain management who is prescribin g pain medication . She is concerned they are going to take it away at her visit next week and Dr. Ayala has already told her they will not prescribe pain medication before surgery. I have advised if she needs us to bridge this one month before her surgery we can, but then it would be Dr. Ayala's obligation to manage pain post-op and she would then need to see another pain management if it needs to be continued after surgery director long term care. Pt. expresses understand ing. 08/10/22: Worsening pain since knee replacemen t in 2019 (Dr. Jayant Keyes).Sh kashif has noticed increased popping in the knee for the last month.I have advised her to f/u with her surgeon, but she is requesting MRI. Will put order in, again advised she will still need f/u with ortho. Pain in ri ght hip joint [id number] M25.551 Scheduled for right hip replacemen t 11/18/[address] Mina Ayala. 08/10/22: States she is having groin pain and lateral hip pain. Symptoms most likely overlappin g with her lumbar spine, but she states MRI lumbar spine was normal (will try to get that report). She states she also had an XR of right hip within last few months that showed arthritis, XR from 2020 was wnl. I have encouraged to continue care with pain management who has been doing injections but she would like to get MRI of hip. Will put in order. Health Concerns Section Related Observation LastModified by Organization Detai ls LastModified Time None Recorded Concern Status LastModified by Organization Details LastModified Time None Recorded Advance Directives Directive None Recorded Payers Encounter Date Sequence Insurance Name Policy Number Policy Funes Covered Member ID Funes Member ID Guarantor Name 08/10/2022 1 [employer] (MEDICARE REPLACEMENT PPO) [id number] 1 Nani Dawkins [id number] Nani Dawkins 09/30/2022 1 [employer] (MEDICARE REPLACEMENT PPO) [id number] Nani Dawkins [id number] Nani Dawkins 10/07/2022 1 [employer] (MEDICARE REPLACEMENT PPO) [id number] Nani Dawkins [id number] Nani Dawkins Notes Date Note Type Note Provider Name and Address Organization Details Recorded Time 08/10/2022 text/html Pt. here for continued right hip pain and right knee pain. She also struggles with back pain with sciatic pain, but she states hip specifically is hurting and she states she had an XR in the last few months that showed arthritis. She is also having pain in her right knee, replaced in 2019. She would like to get MRI of her hip and knee. KAUR Khan [address], [address], [place], [address], [employer] 08/10/2022 17:02:48 09/30/2022 text/html 66 yo female com es in as referral by courtesy of Dr. Corrales for management and evaluation of hypothyroidism and prediabetes (A1C of 6.2%). She had some tests done in December of last year She has always been on armour thyroid 90 mg daily. She has brain fog, fatigue, weight gain. She has some cysts on her thyroid and has had a few biopsies done a few years back and negative. She had a sonogram done in Dec 2021-heterogeneous gland and small nodule Dexa scan done in November 2021 revealed She is going for right hip replacement on November 18. She is taking hctz via cardiology for management of high blood pressure. She has no hx of CAD or stroke. She has no known DM.TSH of 0.059 uIU/mlFT3 of 3.5 pg/mLTT4 of 175 ng/dLinsulin 41.5 uU/mla1c of 6.2%vit D of 53.2 ng/ML152/263/32/43gl ucose 112 mg/dLCr 1.05 ng/mL Lou Del Angel MD [address], [address], [place], [address], [employer] 09/30/2022 14:47:39 10/07/2022 text/html Pt. has complain ts of right knee pain. She had a replacement in 2019. She was seen for this in office 08/10/22 and advised to follow-up with surgeon. She has right hip replacement scheduled on 11/18/22. KAUR Khan [address] [place] [address], [place], [address], [place] [facility] [employer] [facility] 10/07/2022 11:08:54 OBGyn Episode No OBEpisode recorded.
--- NOTE | 2024-08-08 19:06 | ECG_ITS ---
Test Date: 2024-08-08 19:30:18 Measurements Intervals [place] Rate: 73 P: 56 VT: 177 QRS: -54 QRSD: 186 T: 73 QT: 473 QTc: 522 Interpretive Statements SINUS RHYTHM LEFT ATRIAL ENLARGEMENT [-0.15mV P WAVE IN V1/V2] MARKED LEFT AXIS DEVIATION [QRS AXIS < -30] LEFT BUNDLE BRANCH BLOCK [120+ ms QRS DURATION, 80+ ms Q/S IN V1/V2, 85+ ms R IN I/aVL/V5/V6] Compared to ECG 03/25/2024 13:12:36 No significant changes Electronically Signed On 08-09-2024 10:41:52 CDT by Marita Whitt M.D.
[2024-08-08 19:27] VITALS: BP 121/81; PULSE 74; RESP 14; O2SAT 95
[2024-08-08 20:31] LABS: Basophils Percent Auto 0.6 % (0.2-1.2); Eosinophils Absolute Auto 0.1 K/mm3 (0-0.3); Eosinophils Percent Auto 2.1 % (0-4.4); Hemoglobin 14.6 g/dL (12.0-15.0); Immature Granulocyte Absolute 0.01 K/mm3 (0.00-0.031); Immature Granulocyte Percent A 0.1 % (0-0.5); Lymphocytes Absolute Auto 1.08 K/mm3 (0.9-3.2); Lymphocytes Percent Auto 15.9 % (18.3-44.2); Mean Corpuscular HGB Conc 33.2 g/dl (32-36); Mean Corpuscular Hemoglobin 29.8 pg (26-34); Mean Corpuscular Volume 89.8 fl (80-100); Mean Platelet Volume 9.3 fl (7.4-10.4); Monocytes Absolute Auto 0.6 K/mm3 (0.1-0.6); Monocytes Percent Auto 9.1 % (2.6-8.5); Neutrophils Absolute Auto 4.9 K/mm3 (1.3-6.7); Neutrophils Percent Auto 72.2 % (45.5-73.1); Platelet Count Result 269 k/mm3 (150-375); Red Cell Distribution Width 13.3 % (11.5-14.5); White Blood Count 6.8 K/mm3 (4.5-10.0)
[2024-08-08 20:42] LABS: Alanine Aminotransferase 19 U/L (6-35); Albumin Level 4.5 g/dL (3.5-5.1); Alkaline Phosphatase 83 U/L (38-126); Anion Gap 12 mmol/L (4-12); Aspartate Amino Transferase 28 U/L (14-36); Bilirubin,Total 0.4 mg/dL (0.2-1.3); Blood Urea Nitrogen 13 mg/dL (7-17); Calcium 9.6 mg/dL (8.4-10.2); Carbon Dioxide 29 mmol/L (22-30); Chloride 98 mmol/L (98-107); Estimated Glomerular Filt Rate > 60; Glucose 90 mg/dL (65-110); Potassium 3.5 mmol/L (3.4-5.0); Sodium 139 mmol/L (137-145)
[2024-08-08] MEDS: ASPIRIN 81 MG CHEWABLE TABLET 324 MG PO (20:43)
[2024-08-08] MEDS: ATORVASTATIN 40 MG TABLET PO (20:43)
[2024-08-08 20:46] VITALS: BP 115/91; PULSE 82; RESP 14; O2SAT 100
[2024-08-08 21:10] LABS: Prothrombin Time 13.5 Seconds (11.1-14.7)
[2024-08-08 21:11] LABS: Partial Thromboplastin Time 27.7 Seconds (22.3-36.8)
== END 2024-08-08 21:00 | disposition short-term general hospital (02) ==
PROVIDERS: Emergency Provider Physician Assistant; PCP Nurse Practitioner Family
DX: S16.1XXA Strain of muscle, fascia and tendon at neck level, initial encounter (principal); I63.9 Cerebral infarction, unspecified; I10 Essential (primary) hypertension; E03.9 Hypothyroidism, unspecified; E11.9 Type 2 diabetes mellitus without complications; E66.9 Obesity, unspecified; Z68.31 Body mass index [BMI] 31.0-31.9, adult; G47.33 Obstructive sleep apnea (adult) (pediatric); K21.9 Gastro-esophageal reflux disease without esophagitis; M79.7 Fibromyalgia; F41.9 Anxiety disorder, unspecified; F32.A Depression, unspecified; Z96.651 Presence of right artificial knee joint; Z96.641 Presence of right artificial hip joint; Z87.442 Personal history of urinary calculi; Z86.19 Personal history of other infectious and parasitic diseases; Z87.891 Personal history of nicotine dependence; Z98.49 Cataract extraction status, unspecified eye; Z79.899 Other long term (current) drug therapy; V49.40XA Driver injured in collision with unspecified motor vehicles in traffic accident, initial encounter; N20.0 Calculus of kidney; M50.321 Other cervical disc degeneration at C4-C5 level; I44.7 Left bundle-branch block, unspecified; R94.31 Abnormal electrocardiogram [ECG] [EKG]
CPT/HCPCS: 36415; 70450; 72125; 72128; 72131; 80053; 85025; 85610; 85730; 93005; 99285; A9270; L0140

== ENCOUNTER 2025-03-13 10:08 | Outpatient (CLI) | payer MEDICARE, SELFPAY ==
--- OUTSIDE RECORDS SUMMARY | 2024-12-02 08:45 | XMS_ITS ---
Author Organization [facility] [employer] [facility] Address [address] [place] [address] [address] Care Team Providers Care Front Of House Manager Name Role Phone Tiana Liang Primary Care Provider Tracey Machado Unavailable [phone] REASON FOR VISIT Follow Up Social History Sex Assigned At : Social History Observation Description Sex Assigned At Female Encounters Encounter Location Date Provider Diagnosis [facility] [place] [id number] [facility] [address] [facility] [address] [place] [address] 12/02/2024 Tracey Madden Plan Of Treatment Next Appt Details Provider Name:Tracey sharp, 04/16/2025 11:30:00 AM, [address], [facility] [address], [place], [address], Progress Notes * YOLANDA SANDRAOB:1955 (69 yo F)Acc No.[id number]:12/02/2024 Patient: ART MOSLEY Provider: Ej Madden :1955 A ge:68 Y S ex:Female Date:12/02/2024 Phone: Address:[address] [place] [id number] Pcp:Tiana RIBEIRO Subjective: * Chief Complaints: * F ollow Up * Electronic signature of Bill Madden on 03/13/2025 at 11:08 AM CDT Sign off status: Pending * Provider: Ej Madden Date: 0 12/02/2024 Generated for Jing yates/Kalli/eTransmitting on: 1 11:08 AM CDT
--- OUTSIDE RECORDS SUMMARY | 2025-01-02 06:30 | XMS_ITS ---
Author Organization [facility] [employer] [facility] Address [address] [place] [address] [facility] [address] [place] [address] Care Team Providers Care Parts Representative Name Role Phone Tiana Liang Primary Care Provider Tracey Machado Unavailable [phone] REASON FOR VISIT r/s request since yesterday Social History Sex Assigned At : Social History Observation Description Sex Assigned At Female Encounters Encounter Location Date Provider Diagnosis [facility] [employer] [address] [address] 01/02/2025 Tracey Madden Plan Of Treatment Next Appt Details Provider Name:Tracey sharp, 04/16/2025 11:30:00 AM, [address] [facility] [address], [facility] [address], [place], [address], Progress Notes * SANDRA GUERREROOB:1955 (69 yo F)Acc No.[id number]:01/02/2025 Patient: [place] SALGADO ART Provider: Ej Madden :1955 A ge:69 Y S ex:Female Date:01/02/2025 Phone: Address:[address] [place] [phone] Pcp:Tiana RIBEIRO Subjective: * Chief Complaints: * R /s request since yesterday Billing Information: * Procedure Codes: * Electronic signature of Bill Madden on 03/13/2025 at 11:08 AM CDT Sign off status: Pending * Provider: Ej Madden Date: 0 01/02/2025 Generated for Jing yates/Kalli/Dorcas on: 1 11:08 AM CDT
--- OUTSIDE RECORDS SUMMARY | 2025-03-05 11:30 | XMS_ITS ---
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 Name Role Phone Tiana Liang Primary Care Provider Morelia Tracey Staley Unavailable [phone] Allergies Allergen (clinical drug ingredient) Drug/Non Drug Allergy documented on EMR Reaction Allergy Type Onset Date Status modafinil Modafinil Unknown Drug Allergy 07/27/2023 Active REASON FOR VISIT 3 week follow up Medications Medication SIG (Take, Route, Frequency, Duration) Notes Start Date End Date Status tiZANidine HCl 4 MG Tablet Oral 07/27/2023 Not-Taking Zolpidem Tartrate 10 MG Tablet Oral 07/27/2023 Active Whiteside Thyroid 90 MG Tablet Oral 07/27/2023 Active Lansoprazole 30 MG Capsule Delayed Release Oral 07/27/2023 Acti ve Cetirizine HCl 10 MG Tablet Oral 07/27/2023 Active amLODIPine Besylate 10 MG Tablet Oral 07/27/2023 Active hydroCHLOROthiazide 25 MG Tablet Oral 07/27/2023 Active Potassium Chloride ER 10 MEQ Tablet Extended Release Oral 07/27/2023 Active ProAir HFA 108 (90 Base) MCG/ACT Aerosol Solution Inhalation 07/27/2023 Act lacey Lisinopril 10 MG Tablet Oral 07/27/2023 Active buPROPion HCl ER (XL) 300 MG Tablet Extended Release 24 Hour 1 tablet in the morning Orally Once a day; Duration: 30 days 03/05/2025 Active EQ GAS RELIEF CAP *Reorder from [facility] for eRx and Interaction Alerts* 07/27/2023 Active traMADol HCl 50 MG Tablet Oral 07/27/2023 Active Ashwagandha 35 120 MG Capsule as directed Orally Active oxyCODONE HCl 5 MG Tablet Oral 07/27/2023 Not-Taking hydrOXYzine HCl 25 MG Tablet 1 tablet Oral twice a day; Duration: 30 days As needed 03/05/2025 Active HYDROcodone-Acetaminophe n 7.5-325 MG Tablet Oral 07/27/2023 Not-Taki ng HYDROcodone-Acetaminophe n 10-325 MG Tablet Oral 07/27/2023 Not-Takin g Unithroid 75 mcg Tablet Oral 07/27/2023 Not-Taking Celecoxib 200 MG Capsule Oral 07/27/2023 Not-Taking Social History Tobacco Use: Social History Observation Description Date Details (start date - stop date) Never Smoker NA - NA Sex Assigned At : Social History Observation Description Sex Assigned At Female Social History Miscellaneous: Social Info Question Answer Notes Advance Care Planning Are you your own decision-maker Yes Do you have Power of [employer] Du[employer]ating [employer] Supervisor for Health or [facility]? Yes Safety issues: Are there any firearms in the house? No Drug/Alcohol: Social Info Question Answer Notes Drugs Have you used drugs other than those for medical reasons in the past 12 months? No AUDIT-C (Standard) Did you have a drink containing alcohol in the past year? Yes Points 0 How often did you have six or more drinks on one occasion in the past year? Never (0 point) How often did you have a drink containing alcohol in the past year? Monthly or less (1 point) Tobacco Use: Social Info Question Answer Notes Tobacco Control (Standard) Tobacco use: Nonsmoker How long has it been since you last smoked? 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 Migrated Social History Migrated Social History Alcohol Intake: Occasional 05/04/2023,Tobacco Years: Former smoker 08/30/2019,Smoking Status: 7 05/04/2023 Vital Signs Blood pressure systolic 115 mm Hg 03/05/20 25 Blood pressure diastolic 78 mm Hg 025 Heart Rate 85 /min 03/05/2025 Height 59.00 in 03/05/2025 Weight 147 lbs 03/05/2025 BMI 29.69 kg/m2 03/05/2025 Height-cm 149.86 cm 03/05/2025 Weight-kg 66.68 kg 03/05/2025 Encounters Encounter Location Date Provider Diagnosis [facility] [address] [place] [address] [place] [address] 03/05/2025 Tracey Madden Major depressive disorder, recurrent, mild F33.0 ; Generalized anxiety disorder F41.1 ; Chronic fatigue R53.82 ; Cognitive complaints R41.9 and Primary insomnia F51.01 Assessments Encounter Date Diagnosis (ICD Code) Assessment Notes Treatment Notes Treatment Clinical Notes Section Notes 03/05/2025 Major depressive disorder, recurrent, mild (ICD-10 - F33.0) 03/05/2025 Generalized anxiety disorder (ICD-10 - F41.1) 03/05/2025 Chronic fatigue (ICD-10 - R53.82) 03/05/2025 Cognitive complaints (ICD-10 - R41.9) 03/05/2025 Primary insomnia (ICD-10 - F51.01) Risks of Chronic Zolpidem (Ambien) Use - Long-term use can lead to physical and psychological dependence. - Stopping suddenly may cause withdrawal symptoms like anxiety, tremors, and rebound insomnia. Gradual tapering is recommended to minimize withdrawal effects - Over time, your body may require higher doses to achieve the same effect, increasing the risk of overdose and side effects. - Chronic use may affect memory, concentration, and decision-making. - Especially in older adults, Ambien can cause dizziness and impaired coordination, increasing the risk of falls and fractures. - Some users engage in activities (e.g., driving, eating, or talking) while not fully awake and have no memory of these actions. - Long-term use is linked to depression, anxiety, and mood swings. - Can worsen existing mental health conditions. - Combining Ambien with alcohol, benzodiazepines, or opioids increases the risk of respiratory depression, overdose, and . on ambien through PCP 03/05/2025 Other Art Guerrero, female patient with history of depression, presents with increased fatigue, stress related to her son's health issues, and worsening concentration. Depression with fatigue Assessment: Patient reports feeling a little bit depressed with increased fatigue and exhaustion. Recent increase in fluoxetine dosage may be contributing to her fatigue symptoms. Patient also notes decreased appetite, worsening concentration, and difficulty with organization and daily tasks. Stress related to her son's hospitalization for congestive heart failure is likely exacerbating her symptoms. Plan: - Switch fluoxetine to nighttime administration - Continue bupropion 150 mg - Obtain comprehensive lab work: - TSH, Thyroid Hormone, T3, T4 - Complete blood count - Electrolyte panel - Vitamin D, vitamin B12, folate - Consider potential switch to atomoxetine (Strattera) as alternative to bupropion for depression, and focus - Encouraged patient to attend [facility] support group meeting - Follow-up appointment in 3-4 weeks to review lab results and medication response Insomnia Assessment: Patient continues to use zolpidem for sleep management, prescribed by primary care physician. No specific sleep complaints mentioned during this visit. Plan: - Continue zolpidem as prescribed by primary care physician Anxiety Assessment: Patient continues to use hydroxyzine as needed for anxiety management. No refill required at this time. Plan: - Continue hydroxyzine as needed Medical Decision Making Art Guerrero is a female patient with a history of depression presenting with increased fatigue, stress, and worsening concentration. The patient reports feeling more tired since increasing fluoxetine dosage, suggesting a possible paradoxical effect. Differential diagnoses include medication side effects, thyroid dysfunction, anemia, vitamin deficiencies, and worsening depression. A comprehensive fatigue workup was ordered, including TSH, Thyroid Hormone, T3, T4, blood counts, electrolyte panel, vitamin D, and vitamin B12 folate to rule out underlying medical causes. The decision was made to switch fluoxetine administration to nighttime to potentially mitigate her fatigue symptoms. Consideration was given to alternative medication options, such as Strattera, for addressing depression, ADHD, and focus issues if current management proves ineffective. Plan Of Treatment Medication Medication Name Sig Start Date Stop Date Notes buPROPion HCl ER (XL) 300 MG Tablet Extended Release 24 Hour 1 tablet in the morning Orally Once a day; Duration: 30 days 03/05/2025 FLUoxetine HCl 40 MG Capsule 1 capsule Oral Once a day 03/05/2025 DC 20 mg capsules buPROPion HCl ER (XL) 150 MG Tablet Extended Release 24 Hour 1 tablet in the morning Oral Once a day 03/05/2025 hydrOXYzine HCl 25 MG Tablet 1 tablet Oral twice a day; Duration: 30 days 03/05/2025 Treatment Notes Assessment Notes Primary insomnia Risks of Chronic Zolpidem (Ambien) Use - Long-term use can lead to physical and psychological dependence. - Stopping suddenly may cause withdrawal symptoms like anxiety, tremors, and rebound insomnia. Gradual tapering is recommended to minimize withdrawal effects - Over time, your body may require higher doses to achieve the same effect, increasing the risk of overdose and side effects. - Chronic use may affect memory, concentration, and decision-making. - Especially in older adults, Ambien can cause dizziness and impaired coordination, increasing the risk of falls and fractures. - Some users engage in activities (e.g., driving, eating, or talking) while not fully awake and have no memory of these actions. - Long-term use is linked to depression, anxiety, and mood swings. - Can worsen existing mental health conditions. - Combining Ambien with alcohol, benzodiazepines, or opioids increases the risk of respiratory depression, overdose, and . Next Appt Details Follow Up: 4 Weeks, Reason: Provider Name:Tracey sharp, 04/16/2025 11:30:00 AM, [address], [facility] [address], [place], [address], History and Physical Notes * HPI (History of Present Illness) Category Sub-Category Detail Notes Category Not es History of Presenting Problem advance care planning discuss Depression screening done Depression screening PHQ-9 Little inte rest or pleasure in doing things: Several days Feeling down, depressed, or hopeless: Se veral days Trouble falling or staying asleep, or sl eeping too much: Several days Feeling tired or having little energy: N early every day Poor appetite or overeating: Several day s Feeling bad about yourself o r that you are a failure, or have let yourself or your family down: Several days Trouble concentrating on thi ngs, such as reading the newspaper or watching television: More than half the days Moving or speaking so slowly that other people could have noticed; or the opposite, being so fidgety or restless that you have been moving around a lot more than usual: Not at all Thoughts that you would be b ludwig off or of hurting yourself in some way: Not at all Total Score: 10 Interpretation: Moderate Depression Intervention Depression Screening Findings: P ositve Follow-Up for Depression: Va ntal health care management, Psychiatric follow-up Suicide Risk Assessment Performed: __ da te Functional Status Functional Status Assessment D ate of last completed Functional Status Assessment:: 03/05/2025 Fall Risk Assessment:: One fall without injury in the past year Progress Notes * INGRID GUERRERO:1955 (69 yo F)Acc No.[id number]:03/05/2025 Patient: ART MOSLEY Provider: Ej Madden :1955 A ge:69 Y S ex:Female Date:03/05/2025 Phone: Address:[address] [place], [place] [id number] Pcp:Tiana Tony [facility]- Subjective: * Chief Complaints: * 3 week follow up * HPI: F unctional Status: Functional Status Assessment D ate of last completed Functional Status Assessment: 1 F all Risk Assessment: O ne fall without injury in the past year H istory of Presenting Problem: 69 y/o female, , son living with her- struggles with addiction, hx of depression, anxiety, insomnia, cognitive/attention concerns. chronic ambien use through PCP This note is transcribed using speech recognition software. It is a reflection of a visit with the patient. It might have some inaccuracy, including medication names and transcribing errors, though efforts have been made to correct them. History of Present Illness Art Guerrero presents with ongoing stress, fatigue, and mild depression. She reports feeling a little stressed and exhausted all the time, questioning the efficacy of her current medication regimen. The patient's primary stressor is her son, who is currently hospitalized with congestive heart failure due to drug use. She expresses concern about his non-adherence to medication and dietary recommendations. This situation appears to be contributing significantly to her stress levels. Art reports persistent fatigue, stating she feels always feeling exhausted despite sleeping adequately. She notes increased tiredness since her fluoxetine dosage was increased at the last visit, but is unsure if the medication is the cause. The fatigue is impacting her daily functioning, particularly her ability to prepare meals and manage household tasks. The patient describes a mild depressed mood and mentions worsening concentration. She states, I can't organize, I can't open my bills and just don't feel like doing it or even trying to figure anything out. This indicates a decline in executive functioning and motivation. Her appetite has decreased, often going through the day without eating due to lack of motivation to prepare food. Regarding medication, Art continues to take Wellbutrin 150mg and has hydroxyzine as needed. She also takes Ambien prescribed by her primary care physician. She reports taking several supplements including B12, vitamin D, magnesium, and recently started Lilea. She has choline, glutamethane, and 5-HTP at home but hasn't been taking them regularly. Medications and Supplements Patient is taking fluoxetine, which was recently increased and is causing increased tiredness. Wellbutrin 150 mg is also being taken. Hydroxyzine is used as needed. Ambien is prescribed by the primary doctor. Supplements include Lilea, B12, vitamin D, and magnesium. Patient has choline, glutamethane, and 5-HTP at home but is not currently taking them. Medical History - Depression - Fatigue - Attention and concentration difficulties Social History - Living Situation: Son has been staying with patient, but is currently hospitalized - Stress Levels: Patient reports feeling stressed, particularly due to son's situation - Social Support: Concerns about son's health and behavior (congestive heart failure, drug use, medication non-compliance) Review of Systems General: Positive for fatigue, exhaustion, decreased appetite. Psychiatric: Positive for stress, depressed mood, difficulty concentrating, decreased motivation. Cardiovascular: Negative for palpitations. Gastrointestinal: Negative for nausea. Neurological: Negative for dizziness, headaches. advance care planning discussDepression screening done. D epression screening: PHQ-9 L ittle interest or pleasure in doing things?Several days F eeling down, depressed, or hopeless S everal days T rouble falling or staying asleep, or sleeping too much S everal days F eeling tired or having little energy N early every day P oor appetite or overeating S everal days F eeling bad about yourself or that you are a failure, or have let yourself or your family down S everal days T rouble concentrating on things, such as reading the newspaper or watching television M ore than half the days M oving or speaking so slowly that other people could have noticed; or the opposite, being so fidgety or restless that you have been moving around a lot more than usual N ot at all T houghts that you would be better off or of hurting yourself in some way N ot at all T otal Score 1 0 I nterpretation M oderate Depression Intervention D epression Screening Findings Sharad Chanel ollow-Up for Depression M ental health care management, Psychiatric follow-up S uicide Risk Assessment Performed _ _ date C ontributing Factors: ongoing notes: - psychotherapy: Tried in the past but reports w as too e xpensive - has tinnitus, chronic, worsens a nxiety - Also taking ashwagandha for depression, lion's manjit, ginkgo biloba for cognition, and vitamin D supplements. MCI testing summary 07/24/24 General Functioning: - SLUMS 27: Suggests normal cognitive function - IQCODE 3.38: Borderline range; may indicate mild cognitive concern Cognitive Strengths: - Episodic Memory and Visuospatial Working Memory are within expected performance levels for the age group. - Attention and Verbal Short-Term Memory are also within the average range. Cognitive Weaknesses: - Response Inhibition: Below average performance in tasks requiring inhibition of automatic responses. This may suggest mild difficulties in impulse control or filtering distractions. - Mental Rotation: Below average performance in spatial reasoning. This could impact tasks that require mental visualization, such as navigating unfamiliar environments. Considerations: - Mild Cognitive Concerns: The IQCODE score suggests some concerns about cognitive decline, though performance in structured tasks remains largely within normal ranges. - Monitor Executive Function: The below-average scores in response inhibition and mental rotation may warrant further monitoring, as these skills contribute to daily problem-solving and spatial awareness. - Regular Cognitive Checkups: Given the IQCODE score, periodic cognitive screenings are advised to monitor any progressive changes past meds: cymbalta- ineffective at lower dose, higher dose nausea; wellbutrin 300 mg higher dose too much. * Medical History: Past Psychiatric History: Anxiety Disorder,Panic Disorder Primary insomnia Sleep apnea, obstructive Chronic fatigue syndrome Recurrent major depression Hypothyroidism Benign essential hypertension Medical History Verified * Social History: T obacco Use: T obacco Control (Standard) T obacco use: N onsmoker H ow long has it been since you last smoked??Greater than 10 years M igrated Social History: M igrated Social History: Alcohol Intake: Occasional 05/04/2023,Tobacco Years: Former smoker 08/30/2019,Smoking Status: 7 05/04/2023. D rug/Alcohol: D rugs H ave you used drugs other than those for medical reasons in the past 12 months? N o AUDIT-C (Standard) D id you have a drink containing alcohol in the past year? Y es H ow often did you have six or more drinks on one occasion in the past year? N ever (0 point) H ow often did you have a drink containing alcohol in the past year? M onthly or less (1 point) P oints 0 M iscellaneous: S afety issues A re there any firearms in the house? 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 Advance Care Planning A re you your own decision-maker Y es D o you have Power of [employer] Du[employer]ating [employer] Supervisor for Health or Medical? Y es S ocial History Verified. * Medications: T akingAshwagandha 35 120 MG Capsule as directed Orally EQ GAS RELIEF CAP , Notes to Pharmacist: *Reorder from [facility] for eRx and Interaction Alerts*traMADol HCl 50 MG Tablet Oral amLODIPine Besylate 10 MG Tablet Oral ProAir HFA 108 (90 Base) MCG/ACT Aerosol Solution Inhalation Lisinopril 10 MG Tablet Oral hydroCHLOROthiazide 25 MG Tablet Oral Potassium Chloride ER 10 MEQ Tablet Extended Release Oral Lansoprazole 30 MG Capsule Delayed Release Oral Cetirizine HCl 10 MG Tablet Oral Zolpidem Tartrate 10 MG Tablet Oral Whiteside Thyroid 90 MG Tablet Oral hydrOXYzine HCl 25 MG Tablet 1 tablet Oral twice a day As neededbuPROPion HCl ER (XL) 150 MG Tablet Extended Release 24 Hour 1 tablet in the morning Oral Once a day FLUoxetine HCl 40 MG Capsule 1 capsule Oral Once a day , Notes to Pharmacist: DC 20 mg capsulesTaking Ashwagandha 35 120 MG Capsule as directed Orally Taking EQ GAS RELIEF CAP , Notes to Pharmacist: *Reorder from [facility] for eRx and Interaction Alerts*Taking traMADol HCl [...] Zolpidem Tartrate 10 MG Tablet Oral Taking Whiteside Thyroid 90 MG Tablet Oral Taking hydrOXYzine HCl 25 MG Tablet 1 tablet Oral twice a day As neededTaking buPROPion HCl ER (XL) 150 MG Tablet Extended Release 24 Hour 1 tablet in the morning Oral Once a day Taking FLUoxetine HCl 40 MG Capsule 1 capsule Oral Once a day , Notes to Pharmacist: DC 20 mg capsulesNot- TakingtiZANidine HCl 4 MG Tablet Oral Celecoxib 200 [...] Allergies: M odafinil: Allergy - Onset Date 07/27/2023yesAllergies Verified. Objective: * Vitals: B P:115/78mm Hg, HR:85/min, Wt:147lbs, Wt-k.68 kg, Ht: 59.00 in, Ht-cm: 149.86 cm, BMI:29.69Index, Body Surface Area: 1.66. Assessment: * Assessment: 1. M ajor depressive disorder, recurrent, mild - F33.0 (Primary) 2 . G eneralized anxiety disorder - F41.1 3 . C hronic fatigue - R53.82 4 . C ognitive complaints - R41.9 5 . P rimary insomnia - F51.01 ? Plan: * Treatment: 2. G eneralized anxiety disorder Continue hydrOXYzine HCl Tablet, 25 MG, 1 tablet, Oral, twice a day As needed, 30 days, 60 Tablet, Refills 1. 3. P rimary insomnia Notes: Risks of Chronic Zolpidem (Ambien) Use - Long-term use can lead to physical and psychological dependence. - Stopping suddenly may cause withdrawal symptoms like anxiety, tremors, and rebound insomnia. Gradual tapering is recommended to minimize withdrawal effects - Over time, your body may require higher doses to achieve the same effect, increasing the risk of overdose and side effects. - Chronic use may affect memory, concentration, and decision-making. - Especially in older adults, Ambien can cause dizziness and impaired coordination, increasing the risk of falls and fractures. - Some users engage in activities (e.g., driving, eating, or talking) while not fully awake and have no memory of these actions. - Long-term use is linked to depression, anxiety, and mood swings. - Can worsen existing mental health conditions. - Combining Ambien with alcohol, benzodiazepines, or opioids increases the risk of respiratory depression, overdose, and . Clinical Notes: on ambien through PCP [place] Clinical Notes: Art Guerrero, female patient with history of depression, presents with increased fatigue, stress related to her son's health issues, and worsening concentration. Depression with fatigue Assessment: Patient reports feeling a little bit depressed with increased fatigue and exhaustion. Recent increase in fluoxetine dosage may be contributing to her fatigue symptoms. Patient also notes decreased appetite, worsening concentration, and difficulty with organization and daily tasks. Stress related to her son's hospitalization for congestive heart failure is likely exacerbating her symptoms. Plan: - Switch fluoxetine to nighttime administration - Continue bupropion 150 mg - Obtain comprehensive lab work: - TSH, Thyroid Hormone, T3, T4 - Complete blood count - Electrolyte panel - Vitamin D, vitamin B12, folate - Consider potential switch to atomoxetine (Strattera) as alternative to bupropion for depression, and focus - Encouraged patient to attend [facility] support group meeting - Follow-up appointment in 3-4 weeks to review lab results and medication response Insomnia Assessment: Patient continues to use zolpidem for sleep management, prescribed by primary care physician. No specific sleep complaints mentioned during this visit. Plan: - Continue zolpidem as prescribed by primary care physician Anxiety Assessment: Patient continues to use hydroxyzine as needed for anxiety management. No refill required at this time. Plan: - Continue hydroxyzine as needed Medical Decision Making Art Guerrero is a female patient with a history of depression presenting with increased fatigue, stress, and worsening concentration. The patient reports feeling more tired since increasing fluoxetine dosage, suggesting a possible paradoxical effect. Differential diagnoses include medication side effects, thyroid dysfunction, anemia, vitamin deficiencies, and worsening depression. A comprehensive fatigue workup was ordered, including TSH, Thyroid Hormone, T3, T4, blood counts, electrolyte panel, vitamin D, and vitamin B12 folate to rule out underlying medical causes. The decision was made to switch fluoxetine administration to nighttime to potentially mitigate her fatigue symptoms. Consideration was given to alternative medication options, such as Strattera, for addressing depression, ADHD, and focus issues if current management proves ineffective. * Procedure Codes: 9 6127 BEHAV ASSMT W/SCORE & DOCD/STAND [id number] [id number] VISIT COMPLEXITY INHERENT TO ONGOING CARE RELATED TO A PATIENT'S SINGLE, SERIOUS CONDITION OR A COMPLEX CONDITION * Preventive Medicine: Counseling: A dvance Care Planning Date of last Advance Care Planning:?03/05/2025 ____ MIPS Type of advance care directives: D o not Intubate Screenings: D epression screening Have you had a recent depression screening? Y es * Follow Up: 4 Weeks Billing Information: * Visit Code: [id number] OFFICE OUTPATIENT VISIT 25 MINUTES DETAILED HISTORY AND EXAM/MODERATE MEDICAL DECISION MAKING. * Procedure Codes: 56142 BEHAV ASSMT W/SCORE & DOCD/STAND INSTRUMENT. 1036F TOBACCO NON-USER. G2211 VISIT COMPLEXITY INHERENT TO ONGOING CARE RELATED TO A PATIENT'S SINGLE, SERIOUS CONDITION OR A COMPLEX CONDITION. * Electronic signature of Bill Madden on 03/13/2025 at 11:08 AM CDT Sign off status: Pending * Provider: Ej Madden Date: Generated for Jing yates/Kalli/Dorcas on: 11:08 AM CDT
--- NOTE | ~2025-03-13 | MM_ITS ---
EXAMINATION: MM screening [facility] BI w moy HISTORY: Screening TECHNIQUE: Craniocaudal and mediolateral oblique 3-D tomosynthesis images were obtained and synthetic 2-D images were generated. CAD analysis was submitted and interpreted. COMPARISON: Comparison to multiple prior studies sequentially, with oldest reviewed study dated 06/20/2018. BREAST PARENCHYMAL COMPOSITION: Not dense: There are scattered areas of fibroglandular density. FINDINGS: There is no evidence of suspicious mass, calcification, or architectural distortion to suggest malignancy in either breast. There has been no suspicious interval change. IMPRESSION: 1. No mammographic evidence of malignancy. 2. Recommend routine screening mammography in one year. BI-RADS Category 1: Negative Reviewed, dictated and finalized at location B.
--- OUTSIDE RECORDS SUMMARY | 2025-03-13 11:08 | XMS_ITS | Patient Health Record ---
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 Role Phone Chavo ESCOTO-Tiana Primary Care Provider Morelia Tracey Staley Unavailable [phone] Micheal Abbasi Unavailable [phone] Marie Dora Unavailable [phone] Allergies Allergen (clinical drug ingredient) Drug/Non Drug Allergy documented on EMR Reaction Allergy Type Onset Date Status modafinil Modafinil Unknown Drug Allergy 07/27/2023 Active Results Component Value Reference Range Flag Notes THYROID PANEL WITH TSH (7444 ) Reviewed date:02/19/2025 10:29:49 AM Interpretation:Normal Performing Lab:[facility] [employer] [id number] Dina Michele, [id number] Dorothy Allred MD Notes/Report: NON-FASTING; NON-FASTING; NON-FASTING; NON-FASTING; NON-FAST FASTING:NO FASTING: NO T3 UPTAKE 28 22-35 % N T4 (THYROXINE), TOTAL 10.0 5.1-11.9 mcg/dL N FREE T4 INDEX (T7) 2.8 1.4-3.8 N TSH 2.18 0.40-4.50 mIU/L N COMPREHENSIVE METABOLIC PANE L (55778) Reviewed date:02/19/2025 10:29:49 AM Interpretation:Abnormal (follow-up needed) Performing Lab:[facility] [employer] Kika-[id number] Dina Michele, [id number] Dorothy Allred MD Notes/Report: NON-FASTING; NON-FASTING; NON-FASTING; NON-FASTING; NON-FAST FASTING:NO FASTING: NO GLUCOSE 82 65-139 mg/dL N Non-fasting reference interval UREA NITROGEN (BUN) 20 7-25 mg/dL N CREATININE 1.14 0.60-1.00 mg/dL H EGFR 51 > OR = 60 mL/min/1.73m2 L BUN/CREATININE RATIO 18 6-22 (calc) N SODIUM 139 135-146 mmol/L N POTASSIUM 3.7 3.5-5.3 mmol/L N CHLORIDE 100 98-110 mmol/L N CARBON DIOXIDE 29 20-32 mmol/L N CALCIUM 9.7 8.6-10.4 mg/dL N PROTEIN, TOTAL 7.2 6.1-8.1 g/dL N ALBUMIN 4.2 3.6-5.1 g/dL N GLOBULIN 3.0 1.9-3.7 g/dL (calc) N ALBUMIN/GLOBULIN RATIO 1.4 1.0-2.5 (calc) N BILIRUBIN, TOTAL 0.3 0.2-1.2 mg/dL N ALKALINE PHOSPHATASE 69 37-153 U/L N AST 17 10-35 U/L N ALT 13 6-29 U/L N CBC (INCLUDES DIFF/PLT) (639 9) Reviewed date:02/19/2025 10:29:49 AM Interpretation:Normal Performing Lab:[facility], Solfo-[id number] Dina Michele, [id number] Dorothy Allred MD Notes/Report: NON-FASTING; NON-FASTING; NON-FASTING; NON-FASTING; NON-FAST FASTING:NO FASTING: NO WHITE BLOOD CELL COUNT 6.8 3.8-10.8 Thousand/uL N RED BLOOD CELL COUNT 4.81 3.80-5.10 Million/uL N HEMOGLOBIN 14.6 11.7-15.5 g/dL N HEMATOCRIT 44.5 35.0-45.0 % N MCV 92.5 80.0-100.0 fL N MCH 30.4 27.0-33.0 pg N MCHC 32.8 32.0-36.0 g/dL N For adults, a slight decrease in the calculated MCHC value (in the range of 30 to 32 g/dL) is most likely not clinically significant; however, it should be interpreted with caution in correlation with other red cell parameters and the patient's clinical condition. RDW 12.9 11.0-15.0 % N PLATELET COUNT 304 140-400 Thousand/uL N MPV 9.8 7.5-12.5 fL N ABSOLUTE NEUTROPHILS 4971 8640-2988 cells/uL N ABSOLUTE LYMPHOCYTES 9576 957-7300 cells/uL N ABSOLUTE MONOCYTES 476 200-950 cells/uL N ABSOLUTE EOSINOPHILS 122 15-500 cells/uL N ABSOLUTE BASOPHILS 20 0-200 cells/uL N NEUTROPHILS 73.1 N LYMPHOCYTES 17.8 N MONOCYTES 7.0 N EOSINOPHILS 1.8 N BASOPHILS 0.3 N VITAMIN B12/FOLATE, SERUM PA KENISHA (7065) Reviewed date:02/19/2025 10:29:49 AM Interpretation:Abnormal (no f/u needed) Performing Lab:[facility] Solfo-[id number] Jaya [id number] Dorothy Allred MD Notes/Report: NON-FASTING; NON-FASTING; NON-FASTING; NON-FASTING; NON-FAST FASTING:NO FASTING: NO VITAMIN B12 0974 997-3832 pg/mL H FOLATE, SERUM 8.4 N Reference Range Low: <3.4 Borderline: 3.4-5.4 Normal: >5.4 VITAMIN D,25-OH,TOTAL,IA (17 306) Reviewed date:02/19/2025 10:29:49 AM Interpretation:Normal Performing Lab:[facility] [employer] [id number] Jaya [id number] Dorothy Allred MD Notes/Report: NON-FASTING; NON-FASTING; NON-FASTING; NON-FASTING; NON-FAST FASTING:NO FASTING: NO VITAMIN D,25-OH,TOTAL,IA 65 30-100 ng/mL N Vitamin D Status 25-OH Vitamin D: Deficiency: <20 ng/mL Insufficiency: 20 - 29 ng/mL Optimal: > or = 30 ng/mL For 25-OH Vitamin D testing on patients on D2-supplementation and patients for whom quantitation of D2 and D3 fractions is required, the QuestAssureD(TM) 25-OH VIT D, (D2,D3), LC/MS/MS is recommended: order code 27516 (patients >2yrs). See Note 1 Note 1 For additional information, please refer to http://education.Communication Intelligence/faq/QQQ105 (This link is being provided for informational/ educational purposes only.) Reason For Referral No Information Medications Medication SIG (Take, Route, Frequency, Duration) Notes Start Date End Date Status buPROPion HCl ER (XL) 300 MG Tablet Extended Release 24 Hour 1 tablet in the morning Orally Once a day; Duration: 30 days 03/05/2025 Active EQ GAS RELIEF CAP *Reorder from [facility] for eRx and Interaction Alerts* 07/27/2023 Active traMADol HCl 50 MG Tablet Oral 07/27/2023 Active amLODIPine Besylate 10 MG Tablet Oral 07/27/2023 Active hydroCHLOROthiazide 25 MG Tablet Oral 07/27/2023 Active Unithroid 75 mcg Tablet Oral 07/27/2023 Not-Taking Potassium Chloride ER 10 MEQ Tablet Extended Release Oral 07/27/2023 Active oxyCODONE HCl 5 MG Tablet Oral 07/27/2023 Not-Taking ProAir HFA 108 (90 Base) MCG/ACT Aerosol Solution Inhalation 07/27/2023 Act lacey tiZANidine HCl 4 MG Tablet Oral 07/27/2023 Not-Taking Lisinopril 10 MG Tablet Oral 07/27/2023 Active Celecoxib 200 MG Capsule Oral 07/27/2023 Not-Taking hydrOXYzine HCl 25 MG Tablet 1 tablet Oral twice a day; Duration: 30 days As needed 03/05/2025 Active Zolpidem Tartrate 10 MG Tablet Oral 07/27/2023 Active Ashwagandha 35 120 MG Capsule as directed Orally Active [place] Thyroid 90 MG Tablet Oral 07/27/2023 Active Lansoprazole 30 MG Capsule Delayed Release Oral 07/27/2023 Acti ve HYDROcodone-Acetaminophe n 7.5-325 MG Tablet Oral 07/27/2023 Not-Juan Jose ng Cetirizine HCl 10 MG Tablet Oral 07/27/2023 Active HYDROcodone-Acetaminophe n 10-325 MG Tablet Oral 07/27/2023 Not-Miladys kim Social History Tobacco Use: Social History Observation Description Date Details (start date - stop date) Never Smoker NA - NA Sex Assigned At : Social History Observation Description Sex Assigned At Female Social History Miscellaneous: Social Info Question Answer Notes Advance Care Planning Are you your own decision-maker Yes Do you have Power of Chief Of Anesthesiology for Health or [facility]? Yes Safety issues: Are there any firearms in the house? No Social History Social Info Question Answer Notes Household: Marital Status: Single Number of Adults in household: 1 Number of Children in Household: 0 Level of Education: Professional Schools/Masters /PhD Drug/Alcohol: Social Info Question Answer Notes Drugs Have you used drugs other than those for medical reasons in the past 12 months? No AUDIT-C (Standard) Points 0 Did you have a drink containing alcohol in the p ast year? 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 [employer] Migrated Social History Migrated Social History Alcohol Intake: Occasional 05/04/2023,Tobacco Years: Former smoker 08/30/2019,Smoking Status: 7 05/04/2023 Section Notes: Social History Substance Use Do [...] currently employed?: Yes Who is your employer?: [employer] Marriage and Sexuality What is your relationship [...] Do you have a medical power of divorce attorney?: No Social History Substance Use Do [...] currently employed?: Yes Who is your employer?: [employer] Marriage and Sexuality What is your relationship [...] Do you have a medical power of divorce attorney?: No Social History Substance Use Do [...] currently employed?: Yes Who is your employer?: [employer] Marriage and Sexuality What is your relationship [...] Do you have a medical power of divorce attorney?: No Social History Substance Use Do [...] currently employed?: Yes Who is your employer?: [employer] Marriage and Sexuality What is your relationship [...] Do you have a medical power of divorce attorney?: No Problems Problem Type SNOMED Code ICD Code Onset Dates Problem Status W/U Status Risk Notes Problem Mild recurrent major depression (15914524) Major depressive disorder, recurrent, mild (F33.0) 07/27/19 24 Active confirmed Problem Generalized anxiety disorder (01198319) Generalized anxiety disorder (F41.1) 07/27/19 24 Active confirmed Problem Primary insomnia (9916263) Primary insomnia (F51.01) 07/27/19 24 Active confirmed Problem Obstructive sleep apnea syndrome (disorder) (18189535) Obstructive sleep apnea (adult) (pediatric) (G47.33) 07/27/19 24 Active confirmed Problem Mild neurocognitive disorder (100232383) Mild neurocognitive disorder (G31.84) Active confirmed Problem Chronic fatigue syndrome (25762315) Chronic fatigue (R53.82) Active confirmed Problem 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 (250514231) 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) Active confirmed Problem Essential hypertension (91774096) Benign essential HTN (I10) Active confirmed Vital Signs Heart Rate 85 /min 03/05/2025 Height-cm 149.86 cm 03/05/2025 Blood pressure diastolic 78 mm Hg 03/05/2025 Weight-kg 66.68 kg 03/05/2025 Height 59.00 in 03/05/2025 Blood pressure systolic 115 mm Hg 03/05/2025 Weight 147 lbs 03/05/2025 BMI 29.69 kg/m2 03/05/2025 Procedures Procedure Date Ordered Date Performed Result Body Sit e MCI Testing 07/09/2024 07/24/2024 N/A Encounters Encounter Location Date Provider Diagnosis [facility] Email Data Source [place] [id number] [facility] [address] [address] 03/05/2025 Tracey Madden Major depressive disorder, recurrent, mild F33.0 ; Generalized anxiety disorder F41.1 ; Chronic fatigue R53.82 ; Cognitive complaints R41.9 and Primary insomnia F51.01 [facility] Email Data Source [place] [id number] [facility] [address] [address] 03/13/2024 Dora Salazar Major depressive disorder, recurrent, mild F33.0 ; Generalized anxiety disorder F41.1 ; Primary insomnia F51.01 ; Mild neurocognitive disorder G31.84 and Obstructive sleep apnea (adult) (pediatric) G47.33 [facility] Email Data Source [place] [id number] [facility] [address] [address] 05/14/2024 Tracey Madden Major depressive disorder, recurrent, mild F33.0 ; Generalized anxiety disorder F41.1 ; Primary insomnia F51.01 ; Mild neurocognitive disorder G31.84 ; Obstructive sleep apnea (adult) (pediatric) G47.33 and 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 [employer] [place] [id number] [facility] [address] [address] 06/11/2024 Tracey Madden Major depressive disorder, recurrent, mild F33.0 ; Generalized anxiety disorder F41.1 ; Primary insomnia F51.01 ; Mild neurocognitive disorder G31.84 ; Obstructive sleep apnea (adult) (pediatric) G47.33 and 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 [place] [address] [facility] [address] [place] [address] 07/09/2024 Tracey Madden Major depressive disorder, recurrent, mild F33.0 ; Generalized anxiety disorder F41.1 ; Primary insomnia F51.01 ; Mild neurocognitive disorder G31.84 ; Obstructive sleep apnea (adult) (pediatric) G47.33 ; 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 and Benign essential HTN I10 [place] [address] [address] 07/24/2024 Micheal Abbasi Mild neurocognitive disorder G31.[address] [address] 07/29/2024 Tracey Madden Generalized anxiety disorder F41.1 ; Mild neurocognitive disorder G31.84 ; Major depressive disorder, recurrent, mild F33.0 ; Primary insomnia F51.01 ; 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 ; Benign essential HTN I10 ; Obstructive sleep apnea (adult) (pediatric) G47.33 and Encounter for screening for depression Z13.31 [place] [address] [address] 09/09/2024 Tracey Madden [place] [address] [address] 09/10/2024 Tracey Madden [place] [address] [facility] [address] [place] [address] 12/05/2024 Tracey Madden Major depressive disorder, recurrent, mild F33.0 ; Generalized anxiety disorder F41.1 ; Primary insomnia F51.01 and Cognitive complaints R41.9 [place] [address] [facility] [address] [place] [address] 01/14/2025 Tracey Madden Major depressive disorder, recurrent, mild F33.0 ; Generalized anxiety disorder F41.1 ; Primary insomnia F51.01 and Cognitive complaints R41.9 [facility] [address] [place] [address] [place] [address] 02/11/2025 Tracey Madden Major depressive disorder, recurrent, mild F33.0 ; Generalized anxiety disorder F41.1 ; Cognitive complaints R41.9 ; Primary insomnia F51.01 and Chronic fatigue R53.82 [facility] [address] [place] [address] [place] [address] 07/16/2024 Tracey Chano [facility] [address] [place] [address] [place] [address] 11/21/2024 Traceynatalie Madden Major depressive disorder, recurrent, mild F33.0 [facility] [address] [place] [address] [place] [address] 01/07/2025 Traceynatalie Madden [facility] [address] [facility] [address] [place] [address] 01/14/2025 Traceynatalie Madden [facility] [address] [facility] [address] [place] [address] 03/05/2025 Traceynatalie Madden [facility] [address] [facility] [address] [place] [address] 07/25/2024 Tracey Madden Major depressive disorder, recurrent, mild F33.0 Assessments Encounter Date Diagnosis (ICD Code) Assessment Notes Treatment Notes Treatment Clinical Notes Section Notes 03/13/2024 Major depressive disorder, recurrent, mild (ICD-10 [...] 07/29/2024 Generalized anxiety disorder (ICD-10 - F41.1) 07/24/2024 Mild neurocognitive disorder (ICD-10 - G31.84) [...] 95 Average Additional Cognitive Screening Scores: [facility] ([facility] Mental Status Exam): 27 (Suggests normal cognitive [...] as navigating unfamiliar environments. Clinical Considerations & Recommendations : Mild Cognitive Concerns: The IQCODE score suggests [...] advised to monitor any progressive changes. Lifestyle Recommendations : Activities that stimulate executive function, such as problem-solving exercises, strategy-based games, and physical activity, may help maintain cognitive health. 07/25/2024 Major depressive disorder, recurrent, mild (ICD-10 - F33.0) 11/21/2024 Major depressive disorder, recurrent, mild (ICD-10 - F33.0) 12/05/2024 Major depressive disorder, recurrent, mild (ICD-10 - F33.0) 12/05/2024 Generalized anxiety disorder (ICD-10 - F41.1) 01/14/2025 Major depressive disorder, recurrent, mild (ICD-10 - F33.0) 02/11/2025 Major depressive disorder, recurrent, mild (ICD-10 - F33.0) 02/11/2025 Generalized anxiety disorder (ICD-10 - F41.1) 03/05/2025 Major depressive disorder, recurrent, mild (ICD-10 - F33.0) 03/05/2025 Generalized anxiety disorder (ICD-10 - F41.1) 02/11/2025 Cognitive complaints (ICD-10 - R41.9) 03/05/2025 Chronic fatigue (ICD-10 - R53.82) 01/14/2025 Generalized anxiety disorder (ICD-10 - F41.1) 12/05/2024 Primary insomnia (ICD-10 - F51.01) Risks of [...] Chronic use may affect memory, concentration, and decision-making . - Especially in older adults, Ambien can [...] health conditions. - Combining Ambien with alcohol, benzodiazepines , or opioids increases the risk of respiratory depression, overdose, and . on ambien through PCP 07/29/2024 Mild neurocognitive disorder (ICD-10 - G31.84) 07/09/2024 Generalized anxiety disorder (ICD-10 - F41.1) [...] - F41.1) meds as above recommend therapy 03/13/2024 Primary insomnia (ICD-10 - F51.01) has [...] anxiety, and response to medication changes 05/14/2024 Mild neurocognitive disorder (ICD-10 - G31.84) [...] disorder, recurrent, mild (ICD-10 - F33.0) 07/29/2024 Primary insomnia (ICD-10 - F51.01) Risks of [...] Chronic use may affect memory, concentration, and decision-making . - Especially in older adults, Ambien can [...] health conditions. - Combining Ambien with alcohol, benzodiazepines , or opioids increases the risk of respiratory depression, overdose, and . on Ambien long-term through PCP have discussed risks versus benefits, hesitant to change 12/05/2024 Cognitive complaints (ICD-10 - R41.9) 01/14/2025 Primary insomnia (ICD-10 - F51.01) Risks of [...] Chronic use may affect memory, concentration, and decision-making . - Especially in older adults, Ambien can [...] health conditions. - Combining Ambien with alcohol, benzodiazepines , or opioids increases the risk of respiratory depression, overdose, and . on ambien through PCP 03/05/2025 Cognitive complaints (ICD-10 - R41.9) 02/11/2025 Primary insomnia (ICD-10 - F51.01) Risks of [...] Chronic use may affect memory, concentration, and decision-making . - Especially in older adults, Ambien can [...] health conditions. - Combining Ambien with alcohol, benzodiazepines , or opioids increases the risk of respiratory depression, overdose, and . on ambien through PCP 02/11/2025 Chronic fatigue (ICD-10 - R53.82) 03/13/2024 Mild neurocognitive disorder (ICD-10 - G31.84) SLUMS today past MRI showed moderately severe small vessel disease, and Dr Abbasi advised to take baby aspirin 03/05/2025 Primary insomnia (ICD-10 - F51.01) Risks [...] Chronic use may affect memory, concentration, and decision-making . - Especially in older adults, Ambien can [...] health conditions. - Combining Ambien with alcohol, benzodiazepines , or opioids increases the risk of respiratory depression, overdose, and . on ambien through PCP 01/14/2025 Cognitive complaints (ICD-10 - R41.9) 07/29/2024 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 (ICD-10 - E06.3) 06/11/2024 Mild neurocognitive disorder (ICD-10 - G31.84) [...] anxiety, and response to medication changes 03/13/2024 Obstructive sleep apnea (adult) (pediatric) (ICD-10 [...] anxiety, and response to medication changes 07/29/2024 Benign essential HTN (ICD-10 - I10) 07/29/2024 Obstructive sleep apnea (adult) (pediatric) (ICD-10 - G47.33) uses CPAP 07/09/2024 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 (ICD-10 [...] for screening for depression (ICD-10 - Z13.31) 03/05/2025 Other Art Guerrero, female patient with [...] and focus - Encouraged patient to attend [facility] support group meeting - Follow-up appointment in [...] focus issues if current management proves ineffective. 07/29/2024 Other Major Depressive Disorder Assessment: Patient reports ongoing depressive symptoms, including fatigue, lack of energy, and decreased motivation for activities such as yoga. Current treatment includes bupropion 150mg and fluoxetine 20mg, with a recent increase in fluoxetine dose that was subsequently decreased. Plan: - Continue bupropion 150mg and fluoxetine 20mg - Discussed potential treatment options including Spravato, and Transcranial Magnetic Stimulation (TMS) - Patient prefers to maintain current medication regimen and incorporate supplements - Recommend lifestyle modifications: improved routine, diet adjustments, and resuming yoga practice - Follow-up in 4 weeks or later, based on patient preference - Provide referral information for [facility] counselor in [place] at next visit if patient is still interested Anxiety Assessment: Patient has a history of anxiety. Recent increase in fluoxetine dose was attempted but subsequently decreased. No significant changes in anxiety symptoms reported during this visit. Plan: - Continue current medication regimen (bupropion 150mg and fluoxetine 20mg) - Monitor for changes in anxiety symptoms - Consider counseling or therapy referral if symptoms persist or worsen Possible Peripheral Neuropathy Assessment: Patient reports heaviness in the lower extremities, which may be indicative of peripheral neuropathy. No coldness to touch reported. Plan: - Monitor symptoms - Reassess at follow-up appointment Cognitive Function Assessment: Recent cognitive assessment results show average scores in attention, episodic memory, visual facial working memory, and verbal short-term memory. Below average scores were noted in response inhibition and mental rotation. The overall score of 3.38 (above the 3.22 threshold) and final score of 7.8 suggest possible cognitive decline consistent with mild neurocognitive disorder/dementi a. Plan: - Continue to monitor cognitive function - Reassess at follow-up appointments - Consider further evaluation if cognitive symptoms worsen or impact daily functioning 12/05/2024 Milly Guerrero presents with increased stress due to her son's recent move-in and his addiction issues, along with ongoing concerns about brain fog, lack of motivation, and energy. Stress and Family Conflict Assessment: Patient reports increased stress levels due to her son moving in a few months ago. The son has an addiction and is described as not easy to get along with, contributing to the patient's stress. This situational stressor appears to be acute and related to changes in living arrangements and family dynamics. Plan: - Provided information on support groups available [facility] - Provided resources for ER detox, residential treatments, and IOP programs Depression with Cognitive Symptoms Assessment: Patient reports ongoing issues with brain fog, lack of motivation, and energy. Previous cognitive testing did not support ADHD diagnosis. Episodic memory, visual-spatial working memory, attention, and verbal short-term memory were within expected range. Response inhibition was below average, with mild difficulties in filtering distractions. Mental rotation showed mild cognitive concerns. Current treatment includes fluoxetine and bupropion for depression. Plan: - Consider increasing bupropion from 150 mg to 300 mg to address motivation and energy issues - Discussed potential switch from bupropion to atomoxetine (Strattera) - Explained atomoxetine is FDA-approved for ADHD and can help with depression, increasing interest and motivation - Would require discontinuation of bupropion if implemented - Recommended maintaining fluoxetine if switch is made - Patient to consider discussing options for second opinion with Dr. Ayleen - Follow-up appointment scheduled in 4 weeks to discuss medication options moving forward Anxiety Assessment: Patient requested refill of hydroxyzine, suggesting ongoing anxiety symptoms managed with as-needed medication. Plan: - Prescribe hydroxyzine 25 mg, one tablet per month, twice a day as needed Insomnia Assessment: Patient reported ongoing use of Ambien (zolpidem). Chronic use of zolpidem has been associated with cognitive issues, which may be contributing to the patient's reported brain fog and cognitive concerns. Plan: - Discussed potential association between chronic Ambien use and cognitive issues 01/14/2025 Milly Guerrero, female, presents with increased stress and depressive symptoms due to a challenging living situation with her son who has congestive heart failure. Major Depressive Disorder Assessment: Patient reports feeling more stressed, more down due to her son's extended stay at her home. She describes her son as verbally impatient and annoying, which is exacerbating her depressive symptoms. The patient has a supportive girlfriend and daughter, but the family situation is causing significant distress. Current medications include fluoxetine and bupropion, which may need adjustment given the increased symptomatology. Plan: - Increase fluoxetine to 40 mg PO daily - Continue bupropion XL 150 mg PO daily in the morning - Refill hydroxyzine 25 mg, up to 2 times daily as needed - Encouraged patient to attend [facility] support group meeting - Follow-up appointment in 4 weeks Anxiety Assessment: Patient reports feeling like a nervous wreck due to her son's presence and behavior. The challenging living situation is contributing to increased anxiety symptoms. Current medication regimen includes fluoxetine, which has anxiolytic properties, and as-needed hydroxyzine for symptom management. Plan: - Refill hydroxyzine 25 mg, up to 2 times daily as needed - Increase fluoxetine to 40 mg PO daily (addresses both depression and anxiety) - Encouraged patient to attend [facility] support group meeting - Follow-up appointment in 4 weeks Psychosocial Stressors Assessment: Patient is experiencing significant stress due to her son's extended stay at her home. The son, who has congestive heart failure and is on disability, is described as verbally impatient and mentally annoying. This situation is straining the patient's mental health and family relationships. The patient is actively seeking housing solutions for her son but has encountered challenges with long waiting lists. Plan: - Encouraged patient to attend [facility] support group meeting - Follow-up appointment in 4 weeks to reassess situation and coping strategies Medical Decision Making Art Guerrero is a female patient presenting with increased stress and depressive symptoms due to a challenging living situation with her son. The patient reports feeling more stressed and down, with increased anxiety related to her son's verbal behavior. Given the patient's current symptoms and living situation, an increase in fluoxetine dosage from 20mg to 40mg was considered to address the heightened anxiety and depressive symptoms. The combination of fluoxetine and bupropion was maintained, with the option to increase bupropion if needed. Hydroxyzine was also prescribed for additional anxiety management. The clinician considered the patient's current medication regimen, symptom presentation, and psychosocial stressors in determining the treatment approach. No formal assessment tools or diagnostic criteria were mentioned in the decision-making process. 02/11/2025 Other Art Guerrero, female patient with history [...] and focus - Encouraged patient to attend [facility] support group meeting - Follow-up appointment in [...] current management proves ineffective. Plan Of Treatment Next Appt Details Provider Name:Tracey Flowers lila, 04/16/2025 11:30:00 AM, [address], [facility] [address], [place], [address], Insurance Providers Payer Name Payer Address Payer Phone Subscriber Number Group Number Insured Name Patient Relationship to Insured Coverage Start Date Coverage End Date [employer] [address] [place] [address] [id number] ART GUERRERO Self - patient is the insured Medical (General) History Medical History History ICD Code Past Psychiatric History: Anxiety Disord er,Panic Disorder undefined Primary insomnia Sleep apnea, obstructive G47.33 chronic fatigue syndrome recurrent major depression hypothyroidism Benign essential hypertension I10 Surgical History Surgery Date(Month/Year) hip replacement 11/2022 Cataract surgery (78908) 05/15/2010 Sinus surgery 05/15/2011 Other 02/25/2019 Hospitalization History Reason Date(Month/Year) infection 03/2024
--- OUTSIDE RECORDS SUMMARY | 2025-03-13 11:08 | XMS_ITS | Encounter Summary ---
Author Organization [facility] Facility Care Team Providers Care Upholsterer Helper Name Role Phone Marcelina Watson DO Primary Care Provider [phone] Mo Jaramillo MD Primary Care Provider Tristan Schuler MD Unavailable [phone] Mel Corrales MD Primary Care Provider + Dmitriy Camargo MD Primary Care Prov ider Encounter Details Date Type Department Care Team (Latest Contact Info) Description 11/02/2016 Orders Only [facility] ProviderEloisa MD [address] [place] [address] Social History Tobacco Use Types Packs/Day Years Used Date Smoking Tobacco: Never Alcohol Use Standard Drinks/Week Comments No 0 (1 standard drink = 0.6 oz pur e alcohol) Comments Unknown Sex and Gender Information Value Date Recorded Sex Assigned at Not on file 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 difficile Comment:08/09/2024 pt is currently diarrhea free Annabel Almazan, RADHA 201109/06/2018 09/05/2018 08/09/2024 8:59 AM C DT documented as of this encounter Care Teams Upholsterer Helper Relationship Specialty Start Date End Date Marcelina Watson DO PCP - General 03/03/16 09/05/18 Mo Jaramillo MD PCP - General 09/06/18 12/21/20 Mel Corrales MD [address] [address] [place] [address] [id number] PCP - General Family Medicine 12/22/20 06/16/24 Dmitriy Camargo MD [address] [place] [address] [place] [address] [id number] PCP - General Family Medicine 06/17/24 Tristan Schuler MD [address] [place] [address] [address] Tap Out Operator Cardiology 01/18/19 documented as of this encounter
--- OUTSIDE RECORDS SUMMARY | 2025-03-13 11:08 | XMS_ITS | Clinical Summary ---
Author Organization [facility] Address [address] [place] [address] Care Team Providers Care Lunch Cook Name Role Phone Evy Palacio [facility] Primary Care Provider Unav ailable Social History [...] 1 - Tdap) 1972 Mammogram Screening 1993 Pneumococcal Vaccine: 50+ Ye ars (1 of 1 - PCV) 12/23/2003 Zoster Vaccines (1 of 2) 12/23/2003 Annual Medicare Wellness Visit 2018 Dexa Scan (General) 2018 COVID-19 Vaccine ( - 2024-2 6 season) 2025 Influenza Adult (#1) 2025 RSV Immunization or 60+ Years (1 - 1-dose 75+ series) 2028 Hepatitis A Vaccines Aged Out No long er eligible based on patient's age to complete this topic Meningococcal B Vaccine Aged Out No l onger eligible based on patient's age to complete this topic Meningococcal Vaccine Aged Out No walker yodit eligible based on patient's age to complete this topic RSV Immunizations Under 20 Months Aged Out No longer eligible based on patient's age to complete this topic Insurance MED REPLACE [facility] MEDICARE Care Teams Lunch Cook Relationship Specialty Start Date End Date Evy Palacio FNP- PCP - General 11/10/16
--- OUTSIDE RECORDS SUMMARY | 2025-03-13 11:08 | XMS_ITS | Encounter Summary ---
Author Organization [facility] Address [address] [place] [address] Care Team Providers Care Linen Controller Name Role Phone Marcelina Watson DO Primary Care Provider [phone] Mo Jaramillo MD Primary Care Provider Tristan Schuler MD Unavailable [phone] Mel Corrales MD Primary Care Provider + Dmitriy Camargo MD Primary Care Prov ider Encounter Details Date Type Department Care Team (Late st Contact Info) Description 09/09/2016 Orders Only [facility] ProviderEloisa MD [address] [place] [address] Social History Tobacco Use Types Packs/Day Years Used Date Smoking Tobacco: Never Alcohol Use Standard Drinks/Week Comments No 0 (1 standard drink = 0.6 oz pur e alcohol) Comments Unknown Sex and Gender Information Value Date Recorded Sex Assigned at Not on file 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 difficile Comment:08/09/2024 pt is currently diarrhea free Annabel Almazan, RADHA 201109/06/2018 09/05/2018 08/09/2024 8:59 AM C DT documented as of this encounter Care Teams Linen Controller Relationship Specialty Start Date End Date Marcelina Watson DO PCP - General 03/03/16 09/05/18 Mo Jaramillo MD PCP - General 09/06/18 12/21/20 Mel Corrales MD [address] [address] [place] [address] [id number] PCP - General Family Medicine 12/22/20 06/16/24 Dmitriy Camargo MD [address] [address] [place] [address] [id number] PCP - General Family Medicine 06/17/24 Tristan Schuler MD [address] [facility] [address] [address] [address] Vp Talent Management Cardiology 01/18/19 documented as of this encounter
--- OUTSIDE RECORDS SUMMARY | 2025-03-13 11:09 | XMS_ITS | Clinical Summary ---
Author Organization [facility] Address [address] [place] [address] Care Team Providers Care Program Writer Name Role Phone Essie Santillan PA-C Primary Care Provider [phone] Source Comments [facility],non-owned Affiliates and Associated Physician Practices is amultiple site organization consisting of ambulatory clinics and hospital sitesin [place], [place], [place] and [place]. This disclosure is being madepursuant to the Care Everywhere program and may not contain all information available regarding this patient. Last updated 18.[facility] Allergies Active Allergy Reactions Criticality Noted Date Comments Armodafinil Other Low 02/02/2015 Runny nose Modafinil Shortness of Breath High 02/02/2015 Medications * This document contains information received from the source organization and may not represent a complete record from that organization. * Be aware that medications may not be up to date on this document. Alwaysverify current medications with the patient. busPIRone (BUSPAR) 10 MG tablet Take 20 mg by mouth BID. 60 tablet 3 10/25/2016 Active albuterol HFA (VENTOLIN HFA) 108 (90 BASE) MCG/ACT inhaler 05/11/2016 Act lacey Active Problems Problem Noted Date Diagnosed Date Anxiety disorder 12/08/2016 Viral hepatitis C without hepatic coma 5 Overview (08/14/2017): Treatment with Interferon and Ribavirin in 2007 - tolerated 8 weeks and had to [...] at Not on file Legal Sex Female 5:18 PM RATOPRINTER Gender Identity Not on file Sexual Orientation Not on file Last Filed Vital Signs Vital Sign Reading Time Taken Comments Blood Pressure 132/79 07/20/2016 1:02 PM RATOPRINTER Pulse 99 07/20/2016 1:02 PM RATOPRINTER Temperature 36.9 C (98.4 F) 01/11/2016 10:49 AM CDT Respiratory Rate 18 07/20/2016 1:02 PM RATOPRINTER Oxygen Saturation - - Inhaled Oxygen Concentration - - Weight 86.6 kg (191 lb) 07/20/2016 1:02 PM RATOPRINTER Height 149.9 cm (4' 11) 03/21/2016 2:45 PM RATOPRINTER Body Mass Index 38.58 03/21/2016 2:45 PM RATOPRINTER Plan of Treatment Health Maintenance Due Date Last Done Comments BONE DENSITY TESTING 1955 COLOGUARD (AGES 45-75) - COLON CA SCREENING 1955 COLON MONITORING 1953 COLONOSCOPY - COLON CA SCREENING 1953 CT COLONOGRAPHY - COLON CA SCREENING 1955 Colorectal Cancer Screening 1955 FIT - COLON CA SCREENING 1953 FLEX SIG - COLON CA SCREENING 1953 LIPID TESTING 1955 MAMMOGRAM 1953 DTAP/TDAP/TD VACCINES (1 - Tdap) 1972 PNEUMOCOCCAL VACCINE 50+ (1 of 1 - PCV) 12/23/2003 ZOSTER VACCINE (1 of 2) 12/23/2003 DEPRESSION SCREENING 05/15/2024 MEDICARE AWV CALENDAR YEAR 2024 COVID-19 VACCINE (1 - 2023-25 season) 2025 INFLUENZA VACCINE (#1) 2025 Respiratory Syncytial Virus (RSV) Vaccine Pt: or [...] Virus RNA IU/mL HCV Not Detected IU/mL [facility] ([facility]) Test Information [facility] ([facility]) Comment:The quantitative ran ge of this assay is 15 IU/mL to 100 million IU/mL. 03/18/2016 9:30 AM CDT 03/18/2016 Narrative [facility] ([facility]) - 03/19/2016 8:07 PM CDT Performed at: [address] [place] [id number] Applications Support Lead: Fletcher Jurado MD, Phone: [phone] Specimen Comment: A courtesy copy of this report has been sent to Specimen Comment: [facility] Loc #150. us Neftaly Pollard MD LAB - CHEMISTRY ORDERABLES Miguelina luis [facility]) [address] [place] [address] from Last 3 Months or Most Recently Relevant to Health Maintenance Insurance [facility] A [address] MANAGED MEDICARE ADV [employer]ET[employer] MEDICARE ADV SELF PAY NO INSURANCE Member Subscriber Plan / Payer (Ef fective for All Dates) Name:Art Dawkins Member ID:Not on file Relation to Subscriber:Not on file Name:ART DAWKINS Subscriber ID:Not on file (Home) Address: [address] [place] [address] Payer ID:Not on file Group ID:Not on file Type:Self Pay Address: [place], [place] [facility] MEDICARE ADV PPO SELF PAY NO INSURANCE Member Subscriber Plan / Payer (Ef fective for All Dates) Name:Art Dawkins Member ID:Not on file Relation to Subscriber:Not on file Name:ART DAWKINS Subscriber ID:Not on file Address: [address] [place] [address] Payer ID:Not on file Group ID:Not on file Type:Self Pay Address: [place], [place] [facility] MEDICARE ADV PPO SELF PAY NO INSURANCE Member Subscriber Plan / Payer (Ef fective for All Dates) Name:Art Dawkins Member ID:Not on file Relation to Subscriber:Not on file Name:ART DAWKINS Subscriber ID:Not on file Address: [address] [place] [address] Payer ID:Not on file Group ID:Not on file Type:Self Pay Address: [place], [place] [facility] MEDICARE ADV PPO SELF PAY NO INSURANCE Member Subscriber Plan / Payer (Ef fective for All Dates) Name:Art Dawkins Member ID:Not on file Relation to Subscriber:Not on file Name:ART DAWKINS Subscriber ID:Not on file Address: [address] [place] [id number] Payer ID:Not on file Group ID:Not on file Type:Self Pay Address: [place], [place] Care Teams Program Writer Relationship Specialty Start Date End Date Essie Santillan PA-C [address] [place] [address] [place] [address] PCP - General 02/15/22
--- OUTSIDE RECORDS SUMMARY | 2025-03-13 11:09 | XMS_ITS | Clinical Summary ---
Author Organization [facility] [place] [address] Address [address] [place] [address] Care Team Providers Care Echo Vascular Tech Name Role Phone Tristan Schuler MD Unavailable [phone] Dmitriy Camargo MD Primary Care Prov ider [...] Nightly PRN, sleep, Informant: Self, Reported on 03/10/2025 lansoprazole (PREVACID) 30 mg capsule take 1 capsule by oral route every day before a meal 0 0 03/03/20 16 Active Additional Information Patient taking differently:30 mgoral As needed, Indications: Stress Ulcer Prophylaxis, Informant: Self, Reported on 03/10/2025 cetirizine (ZyrTEC) 10 mg tablet take 1 tablet by oral route every day 0 0 08/27/19 17 Active magnesium gluconate 200 mg tabletIndicatio ns:hypomagnesem ia [...] NEEDED FOR ABDOMINAL DISTENTION 01/03/20 23 Active amLODIPine (NORVASC) 10 mg tablet TAKE 1 TABLET BY MOUTH ONCE DAILY IN THE MORNING 90 tablet 2 08/03/19 25 Active potassium chloride ER 10 mEq CR tablet Take 1 tablet by mouth once daily 90 tablet 1 11/20/19 25 Active lisinopriL (PRINIVIL,ZESTR IL) 10 mg tabletIndicatio ns:Primary hypertension Take 1 tablet by mouth once daily 90 tablet 1 11/26/19 25 Active hydroCHLOROthia zide (HYDRODIURIL) 25 mg tabletIndicatio ns:Primary hypertension Take 1 tablet by mouth once daily 90 tablet 1 02/14/20 25 Active levothyroxine (SYNTHROID) 50 mcg tabletIndicatio ns: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 Take 1 tablet (50 mcg total) by mouth daily 90 tablet 03/10/20 25 2025 Active liothyronine (CYTOMEL) 5 mcg tabletIndicatio ns: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 Take 1 tablet (5 mcg total) by mouth daily 90 tablet 03/10/20 25 2025 Active tiZANidine (ZANAFLEX) 4 mg tablet Oral 07/27/19 24 2024 Discontinued hydroCHLOROthia zide (HYDRODIURIL) 25 mg tabletIndicatio ns:Primary hypertension Take 1 tablet by mouth once daily 90 tablet 1 08/13/19 25 2024 Discontinued levothyroxine (SYNTHROID) 75 mcg tabletIndicatio ns: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 Report sedentary lifestyle. Look up free exercises on your smart TV: eMeter channels. All kind of exercises. Minimum 20- [...] be lifestyle changes. Verified that she uses Fanzo. Aware to check results/results letter in Fanzo. Will contact by phone if needed. Obesity [...] is 60oz miminum. Verified that she uses Fanzo. Aware to check results/results letter in Fanzo. Will contact by phone if needed. Assessment [...] Vit D level. Verified that she uses mychart. Aware to check results/results letter in Fanzo. Will contact by phone if needed. Assessment & Plan (02/19/2023 1:40 PM CDT): Check levels today and further plans based on it Right hip pain 11/18/2022 Primary osteoarthritis of right hip 09/21/2022 Preoperative clearance 09/01/2022 Abnormal EKG 09/01/2022 Hypertriglyceridemia 09/01/2022 Hip pain 06/01/2021 Assessment & Plan (06/01/2021 1:32 PM BRANCH BILLING PAYROLL CLERK): Pt asked me for referral to Dr Galvez. Sent. PLMD (periodic limb movement disorder) Assessment & Plan (03/30/2023 1:37 PM BRANCH BILLING PAYROLL CLERK): The patient denies that her limbs at night. Assessment & Plan (03/29/2022 3:09 PM BRANCH BILLING PAYROLL CLERK): Asymptomatic Assessment & Plan (09/24/2021 11:56 AM CDT): The PLMS are currently asymptomatic and she is on no medicine for this. Assessment & Plan (05/20/2021 1:53 PM BRANCH BILLING PAYROLL CLERK): Currently asymptomatic Cuong's thyroiditis 12/29/2020 Assessment & Plan (06/01/2021 1:31 PM BRANCH BILLING PAYROLL CLERK): Check TFT's Adjust dose of Manitou accordingly Assessment & Plan (12/29/2020 4:19 PM CDT): Explained to the patient the treatment of Cuong's thyroiditis is mostly addressed to normalize TSH Option from treatment includes thyroid hormone replacement with synthetic thyroid hormone e.g. levothyroxine and or cytomel. Porcine thyroid hormone e.g. is Manitou also is a possibility. The patient could [...] 05/01/2020 Assessment & Plan (06/01/2021 1:31 PM BRANCH BILLING PAYROLL CLERK): Diet and exercise Check hba1c Neuropathy of left hand 05/01/2020 Opioid use 05/01/2020 Stage 2 chronic kidney disease 05/01/2020 Well child examination 05/01/2020 Other fatigue 11/07/2019 Weight gain 11/07/2019 Dyslipidemia 05/02/2019 Diastolic dysfunction 12/06/2018 Primary osteoarthritis of right knee 09/18/2018 Morbid obesity 09/18/2018 Assessment & Plan (06/01/2021 1:30 PM BRANCH BILLING PAYROLL CLERK): Low calorie diet Pt declines use of weight loss meds She will try to follow up with [facility] b[facility] Assessment & Plan (12/29/2020 4:21 PM CDT): Diet and exercise were discussed. 1200 Calorie diet advised 45-60 min aerobic / resistance exercise most days of the week recommended. Bariatric surgery medically indicated The patient actually wants to consider bariatric surgery. Will send referral to [facility] Laryngopharyngeal reflux 11/02/2016 Tinnitus, bilateral 11/02/2016 Chest pain 08/26/2016 Overview (10/07/2016): Chest pain, unspecified type Body mass index (BMI) of 45.0-49.9 in adult 08/13 Overview (05/01/2020): Obesity (BMI 30-39.9) Shortness of breath 03/03/2016 Overview (08/19/2016): Shortness of breath Assessment & Plan (03/29/2022 3:10 PM BRANCH BILLING PAYROLL CLERK): Will continue with albuterol on a p.r.n. [...] tests. Assessment & Plan (05/20/2021 1:53 PM BRANCH BILLING PAYROLL CLERK): Patient will continue with albuterol on a p.r.n. basis. Chronic fatigue syndrome 03/03/2016 Overview (08/19/2016): Chronic fatigue Physical deconditioning 03/03/2016 Overview (08/19/2016): Physical deconditioning SHIRLEY on CPAP 01/29/2015 Assessment & Plan (03/30/2023 1:36 PM BRANCH BILLING PAYROLL CLERK): The patient is requesting that her CPAP be increased to 14 cm water pressure. The patient's DME is adapt. Assessment & Plan (03/29/2022 3:09 PM BRANCH BILLING PAYROLL CLERK): Will continue CPAP therapy at 13 cm [...] months. Assessment & Plan (05/20/2021 1:54 PM BRANCH BILLING PAYROLL CLERK): The patient will continue with CPAP therapy at 12 cm water pressure to treat obstructive sleep apnea. Patient denied need for supplies. [id number] company provider [employer]. Patient is benefitting from [...] physician. 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[employer] Not on file Not on file Not on file Obstetrics History Last Filed Vital Signs Vital Sign Reading Time Taken Comments Blood Pressure 110/66 03/10/2025 12:28 PM CDT Pulse 80 03/10/2025 12:28 PM CDT Temperature 36.4 C (97.5 F) 08/08/2024 9:45 PM CDT Respiratory Rate 16 08/09/2024 3:00 AM CDT Oxygen Saturation 95% 08/09/2024 7:30 AM CDT Inhaled Oxygen Concentration - - Weight 65.2 kg (143 lb 12.8 oz) 025 12:28 PM CDT Height 149.9 cm (4' 11) 03/10/2025 12: 28 PM CDT Body Mass Index 29.04 03/10/2025 12:28 PM CDT Plan of Treatment Health Maintenance Due Date Last Done Comments Colon Cancer Screening-Colonoscopy 1955 DTaP/Tdap/Td Vaccine (1 - Tdap) 1964 Hepatitis B Screening 12/23/1971 Pneumococcal vaccine 65+ (1 of 2 - PCV) 1972 Zoster Vaccine (1 of 2) 12/23/2003 Breast Cancer Screening-Mammogram 06/25/2013 013 Osteoporosis Screening-Bone Density Scan 05/29/2014 05/29/2012 Well Visit 65+ 2018 Depression Screening 09/06/2024 09/07/2023 Fall Risk Assessment 09/06/2024 09/07/2023, 11/20/19 23 Influenza Vaccine (#1) 2025 Hepatitis C Screening Completed 01/29/2015 Medical Devices Implanted Type Area Education Director Device Identifier Shelf Expiration Date Model / Serial / Lot [employer] Bi Mentum 47mm Press Fit Femoral Proximal Cup Acetabular [id number] - Sna - [id number] Implanted:Qty: 1 on 11/18/2022 by Mina Ayala MD at [facility] Other - see comments Right: Hip [employer] [id number] 07/13/2027 [id number] / NA / [id number] Description:Implant pause pe rformed. [employer] Liner Acet Hip Size 28 Poly Bi Mentum Altrx 47mm [id number] - Sna - [id number] Implanted:Qty: 1 on 11/18/2022 by Mina Ayala MD at [facility] Other - see comments Right: Hip [employer] [id number] 10/12/2026 [id number] / NA / [id number] Description:Implant pause pe rformed. [employer] Articul/Mariano 28mm Cementless Hip +5mm 12/14 Taper Head Femoral Latex Free [id number] - Sna - [id number] Implanted:Qty: 1 on 11/18/2022 by Mina Ayala MD at [facility] Other - see comments Right: Hip [employer] [id number] 07/13/2027 [id number] / NA / [id number] Description:Implant pause pe rformed. [employer] Actis Collar Hip 4 High Offset Stem Femoral [id number] - Sna - [id number] Implanted:Qty: 1 on 11/18/2022 by Mina Ayala MD at [facility] Other - see comments Right: Hip [employer] [id number] 04/13/2032 [id number] / NA / [id number] Description:Implant pause pe rformed. Procedures Procedure Name Priority Date/Time Associated Diagnosis Comments SCREENING MAMMOGRAM 2D BILATERAL Routine 06/25/2012 12:18 PM BRANCH BILLING PAYROLL CLERK DEXA AXIAL SKELETON BONE DENSITY 1 OR MORE SITES Routine 05/29/2012 1:25 PM BRANCH BILLING PAYROLL CLERK from Last 3 Months or Most Recently Relevant to Health Maintenance Results * Screening Mammogram 2D Bilateral (06/25/2012 12:18 PM BRANCH BILLING PAYROLL CLERK) Anatomical Region Laterality Modality Breast Bilateral Mammography 06/25/2012 12:1 8 PM BRANCH BILLING PAYROLL CLERK Impressions 06/29/2012 2:30 PM BRANCH BILLING PAYROLL CLERK No mammographic evidence of malignancy. Recommend routine annual screening mammography. ASSESSMENT: BIRADS: 1 - Negative THIS IS AN ELECTRONICALLY VERIFIED REPORT 06/29/2012 2:20 PM: Dariana Georges M.D. Dariana Georges M.D. KL:devi 02:20 PM 02:20 PM [EOD] Narrative 06/29/2012 2:30 PM BRANCH BILLING PAYROLL CLERK EXAMINATION: BILATERAL SCREENING MAMMOGRAPHY HISTORY: Routine screening [...] 1 or 2 Site (05/29/2012 1:25 PM BRANCH BILLING PAYROLL CLERK) Anatomical Region Laterality Modality Body N/A Radiographic Tahira ging 05/29/2012 1:25 PM BRANCH BILLING PAYROLL CLERK Impressions 05/29/2012 5:21 PM BRANCH BILLING PAYROLL CLERK By WHO criteria, this patient has normal bone mineral density. THIS IS AN ELECTRONICALLY VERIFIED REPORT 05/29/2012 5:06 PM: Keaton oRmano M.D. Keaton Romano M.D. NH:dong 05:06 PM 05:06 PM [EOD] Narrative 05/29/2012 5:21 PM BRANCH BILLING PAYROLL CLERK EXAMINATION: Bone Density Study (DEXA) HISTORY: 56-year-old [...] M.D. NH:dong 05:06 PM 05:06 PM [EOD] Milena Williamson DO [facility] DXA PROCEDURES Miguelina l Result from Last 3 Months or Most Recently Relevant to Health Maintenance Insurance [employer] [facility] ADV[facility] Advance Directives For more information, please contact: [phone] * Full Code (Latest Code Status on File) Date Activated Date Inactivated Comments 11/18/2022 5:13 PM 11/19/2022 5:53 PM Care Teams Echo Vascular Tech Relationship Specialty Start Date End Date Dmitriy Camargo MD [address] [facility] [address] [place] [address] [address] PCP - General Family Medicine 06/17/24 Tristan Schuler MD [address] [facility] [address] [place] [address] [address] Digital Project Manager Cardiology 01/18/19
== END 2025-03-13 10:09 | disposition home or self-care (01) ==
LOC: ANHFOHIMG 10:11
PROVIDERS: PCP Nurse Practitioner Family; Visit Provider Obstetrics & Gynecology
DX: Z12.31 Encounter for screening mammogram for malignant neoplasm of breast (principal)
CPT/HCPCS: 77063; 77067